=== PATIENT | male | born 2000 | race Caucasian/White ===

== ENCOUNTER 2023-05-12 14:45 | Emergency (ER) | payer OTHER, SELFPAY ==
[2023-05-12 15:03] VITALS: BP 121/81; PULSE 61; RESP 14; TEMP 36.8; O2SAT 96; BMI 26.6
--- NOTE | 2023-05-12 16:06 | ED_ITS ---
HPI - Abdominal Pain General Chief Complaint: Abdominal Pain Stated Complaint: ABDOMINAL PAIN Time Seen by Provider: 05/12/23 15:07 Source: patient Mode of arrival: walk-in History of Present Illness HPI narrative: this 22-year-old here complaining of abdominal pain. It's been bothering him off and on for the last forty-eight hours but today his belly is tender on the left side. His history is very comp dictated. 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 He was recently admitted at this institution and observe for days to decompress a bowel obstruction and that worked up pretty well. Now he is not had any ability to have a bowel movement for several days. He has passed some gas per rectum the day. He's not had vomiting buddies learned through past experiences that he didn't eat anything or drink anything today. He is not running a P a fever today. Related Data Allergies Allergy/AdvReac Type Severity Reaction Status Date / Time bismuth subsalicylate Allergy Severe Verified 05/12/23 15:09 [From Pepto-Bismol] Exam Narrative Exam Narrative: awake alert good historian does not had seizures discomfort but when he touches his belly says it's a little bit sore on the left side. He is afebrile. Examination abdomen numerous incisions are noted Throughout all quadrants of the abdomen. Specifically however he does not have any tenderness in McBurney's point. He denies any knowledge of having a previous appendectomy. He does not have any tenderness in the right upper quadrant. He does have mild guarding in the left mid abdomen. There is no peritoneal findings. There is no rigidity. The rest examination heart and lung is essentially benign he does not have a cough congestion or shortness of breath. Legs do not have any evidence of swelling or edema. Constitutional Vital Signs, click to edit/add: Last Vital Signs Temp 98.3 F 05/12/23 15:03 Pulse 61 05/12/23 15:03 Resp 14 05/12/23 15:03 BP 121/81 05/12/23 15:03 Pulse Ox 96 05/12/23 15:03 O2 Del Method Room Air 05/12/23 15:03 Course Vital Signs Vital signs: Vital Signs Temperature 98.3 F 05/12/23 15:03 Pulse Rate 61 05/12/23 15:03 Respiratory Rate 14 05/12/23 15:03 Blood Pressure 121/81 05/12/23 15:03 Pulse Oximetry 96 05/12/23 15:03 Oxygen Delivery Method Room Air 05/12/23 15:03 Temperature 98.3 F 05/12/23 15:03 Pulse Rate 61 05/12/23 15:03 Respiratory Rate 14 05/12/23 15:03 Blood Pressure 121/81 05/12/23 15:03 Pulse Oximetry 96 05/12/23 15:03 Oxygen Delivery Method Room Air 05/12/23 15:03 MDM - Abdominal Pain MDM Narrative Medical decision making narrative: this patient's CT scan does not show any obstructive pattern. There are some mil d inflammatory changes near his surgical site. His white blood cell count is normal and he is afebrile. This patient has not followed up with general surgery for many many years since he last had surgery. We had an extensive discussion with the patient his mother myself. It seems that a tertiary [facility] with specialized surgical care coordinated with gastroenterology physicians would be the most likely placed a follow-up. At this stage I not recommending any enemas since we don't know the anatomy. Since he does not have a bowel obstruction gentle laxatives were advised Discharge Plan Discharge Chief Complaint: Abdominal Pain Clinical Impression: Abdominal pain Patient Disposition: Home, Self-Care Time of Disposition Decision: 17:41 Additional Instructions: may consider gentle [id number] oral laxative Stand Alone Forms: Portal Instructions Referrals: Physician,Non-Staff, MD [Primary Care Provider] - 1 week
--- NOTE | 2023-05-12 16:09 | CT_ITS ---
The [address] [address] Patient Name: ASHLY JAMISON MRN: [id number] date: 2000 Sex: M Assigned Patient Location: ER Current Patient Location: ER Accession/Order Number: [id number] Exam Date: 05/12/2023 16:25 Report Date: 05/12/2023 17:02 At the request of: ERLIN QUIROZ Procedure: CT abdomen pelvis w con CT ABDOMEN/PELVIS WITH IV CONTRAST. INDICATION: rule out bowel obstruction. COMPARISON: There are no other studies available for comparison. TECHNIQUE: Contiguous axial images were obtained from the lung bases to the pelvic floor following the intravenous administration of contrast. Coronal and sagittal reformations are provided. FINDINGS: LOWER LUNGS: Clear. LIVER/BILIARY TREE: No mass. No intrahepatic ductal dilatation. GALLBLADDER: No significant gallbladder wall thickening. No radiopaque stone. CBD: Normal CBD. SPLEEN: Normal in size. PANCREAS: No acute findings. No peripancreatic fluid or inflammation. No pancreatic duct dilatation. No discrete mass. ADRENALS: Normal. KIDNEYS: No hydronephrosis. No radiopaque calculus. STOMACH AND BOWEL: Stomach is unremarkable. No dilated bowel loops. There is thickening of the rectosigmoid colon. APPENDIX: Not visualized. PERITONEAL CAVITY: No fluid. No fat stranding. ABDOMINAL WALL: No subcutaneous stranding. No subcutaneous fluid collection. LYMPH NODES: No mesenteric or retroperitoneal lymphadenopathy by CT criteria. ABDOMINAL AORTA: No aneurysm. PELVIS: Decompressed bladder. MUSCULOSKELETAL: No acute osseous abnormality. CT/CT abdomen pelvis w con IMPRESSION: 1. No bowel obstruction.. 2. 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 Electronically authenticated by: AGUILA TELLO Date: 05/12/2023 17:02
[2023-05-12 16:38] LABS: Basophils Percent Auto 0.3 % (0.2-2.0); Eosinophils Absolute Auto 0.1 10^3/uL (0.0-0.7); Hematocrit 48.2 % (42.0-54.0); Hemoglobin 16.4 g/dL (14.0-18.0); Immature Granulocytes Abs Auto 0.03 10^3/uL (0.00-0.03); Immature Granulocytes Pct Auto 0.4 % (0.0-0.5); Lymphocytes Absolute Auto 1.8 10^3/uL (1.2-3.8); Lymphocytes Percent Auto 26.6 % (20.5-60.0); Mean Corpuscular Hemoglobin 29.2 pg (25.9-34.0); Mean Corpuscular Volume 85.9 fL (80.0-94.0); Mean Platelet Volume 9.2 fL (9.5-13.5); Monocytes Percent Auto 14.6 % (1.7-12.0); Neutrophils Absolute Auto 3.8 10^3/uL (1.4-6.5); Neutrophils Percent Auto 56.1 % (43.0-75.0); Platelet Count 263 10^3/uL (150-450); Red Blood Count 5.61 10^6/uL (4.70-6.10); White Blood Count 6.8 10^3/uL (4.0-11.0)
[2023-05-12] MEDS: 0.9 % SODIUM CHLORIDE 1,000 ML 999 ML IV (16:51)
[2023-05-12 16:59] LABS: Lactate/Lactic Acid 0.9 mmol/L (0.4-2.0)
[2023-05-12 17:06] LABS: Alanine Aminotransferase 39 U/L (16-63); Albumin Globulin Ratio 1.1; Albumin Level 4.2 g/dL (3.4-5.0); Alkaline Phosphatase 91 U/L (46-116); Aspartate Amino Transferase 23 U/L (15-37); BUN Creatinine Ratio 17.1; Bilirubin Total 0.4 mg/dL (0.2-1.0); Calcium 9.5 mg/dL (8.5-10.1); Carbon Dioxide 28.9 mmol/L (21.0-32.0); Chloride 103 mmol/L (98-107); Estimated GFR (African America >60 (>=60); Estimated GFR (Non-African Ame >60 (>=60); Globulin 3.9 g/dL; Glucose 98 mg/dL (74-106); Potassium 3.9 mmol/L (3.5-5.1); Sodium 139 mmol/L (136-145); Total Protein 8.1 g/dL (6.4-8.2)
== END 2023-05-12 18:18 | disposition home or self-care (01) ==
PROVIDERS: Emergency Provider Emergency Medicine Emergency Medical Services
DX: R10.9 Unspecified abdominal pain (principal)
CPT/HCPCS: 36415; 74177; 80053; 83605; 83690; 85025; 99285; Q9966

== ENCOUNTER 2023-05-24 15:58 | Emergency (ER) | payer OTHER, SELFPAY ==
--- OUTSIDE RECORDS SUMMARY | 2023-05-24 16:07 | XMS_ITS | CCD ---
Author Name Unknown Address [address] [place] [address] Organization [facility] Care Team Providers Care Terminal Computer Operator Name Role Phone ANNIEMARCELL Admitting Unavailable SARAH PYLE Attending Unavailable SELF, REFERRED Referring Unavailable SELF, REFERRED Primary Care Unavailable Trisha Arteaga Unavailable Shala Hicks Unavailable PAY ., DR GIPSON Admitting Unavailable PAY ., DR GIPSON Attending Unavailable REQUEST, DR HOFFMAN LISTED Primary Care Unavaila ble PAY ., DR GIPSON Consulting Unavailable GABE MOURA Consulting Unavailable REQUEST, NONE LISTED Primary Care Unavaila ble SHAIKH Alban GOMEZ Admitting Unavailable SHAIKH Alban GOMEZ Attending Unavailable SHRUTHI ., DR NICKERSON Consulting Unavailable WALTERS, DR ASHLY Warner Consulting Unavailable ERICA MARTINEZ Consulting Unavailable ALEXANDRIA POST Consulting Unavailable SHAIKH Alban GOMEZ Consulting Unavailable TODD, BINCAREY Consulting Unavailable ANDRES, CECILE Consulting Unavailable SISTER, AMPARO Consulting Unavailable TAMLYN ., ANTHONY Consulting Unavailable ASHLEY TIERNEY Consulting Unavailable RENETTA, DR MONSALVE Primary Care Unavailable HAY ., DR MINER Admitting Unavailable HAY ., DR MINER Attending Unavailable ERICA MARTINEZ Consulting Unavailable ASHLY LINDER Consulting Unavailable Allergies Allergy Classification Reported Allergen(s) Allergy Type Date of Onset Reaction(s) Facility (2 sources) bismuth subsalicylate Drug Allergy [facility] Other (1 source) bismuth subsalicylate Drug Allergy 1 [facility] Repository Medications Current Medications Medication Drug Class(es) Dates Sig (Normalized) Sig (Original) Amphetamine / Dextroamphetamine (1 source) Central Nervous System Stimulant Adderall Active ibuprofen 800 mg oral tablet (1 source) Nonsteroidal Anti-inflammatory Drug Start: 3 take 1 tablet by mouth three times daily at mealtime as needed Ibuprofen 800 MG 1 tablet with food or milk as needed Orally Three times a day for 10 day(s) Aug, Active methylPREDNISolone 4 mg oral tablet (1 source) Corticosteroid Start: 2 methylPREDNISolone 4 MG as directed Orally Once a day for 6 days August, Active Penicillin (1 source) Start: 3 take 1 tablet by mouth four times daily Penicillin VK 500mg 500mg 1 tab(s) Oral 4 times a day for 10 days Aug, Active Problems Active Problems Problem Classification Problem Date Documented Da te Episodic/Chronic Abdominal pain (4 sources) Unspecified abdominal pain; Translations: [UNSPECIFIED ABDOMINAL PAIN] Onset: 08-26-2022 Episodic Disorders of teeth and jaw (2 sources) Pericoronitis; Translations: [Chronic periodontitis, unspecified] Chronic Intestinal obstruction without hernia (3 sources) Intestinal adhesions [bands], unspecified as to partial versus complete obstruction; Translations: [INTESTINAL ADH UNS PART VS CMPL OBS] Onset: 09-02-2022 Episodic Other gastrointestinal disorders (1 source) Constipation, unspecified; Translations: [CONSTIPATION UNSPECIFIED] Onset: 08-28-2022 Episodic Other lower respiratory disease (2 sources) Cough; Translations: [Cough] Episodic Other upper respiratory disease (2 sources) Sinusitis; Translations: [Allergic rhinitis, unspecified] Chronic Other upper respiratory disease (1 source) Allergic rhinitis, unspecified Onset: 09-11-2021 Resolved: 09-11-2021 Chronic Substance-related disorders (1 source) Nicotine dependence, cigarettes, uncomplicated; Translations: [NICOTINE DEPEND CIGARETTES UNCOMP] Onset: 09-11-2022 Chronic Past or Other Problems Problem Classification Problem Date Documented Da te Episodic/Chronic E Codes: Natural/environment (1 source) Overexertion from prolonged static or awkward postures, initial encounter; Translations: [OVEREXERT PROLNG STAT/AWK PST INIT] Onset: 11-13-2021 Episodic Other aftercare (1 source) Other care home (current) drug therapy; Translations: [OTH SHELTER CURRENT DRUG THERAPY] Onset: 11-13-2021 Episodic Other non-traumatic joint disorders (3 sources) Pain in left ankle and joints of left foot; Translations: [PAIN IN LEFT ANKLE] Onset: 11-12-2021 Episodic Sprains and strains (1 source) Sprain of unspecified ligament of left ankle, initial encounter; Translations: [SPRAIN UNS LIGAMENT LT ANKLE INIT] Onset: 11-13-2021 Episodic Unclassified (1 source) Cough R05.9 Onset: 09-11-2021 Resolved: 09-11-2021 Results Test Name Value Interpretation Reference Range Facility CBC AUTO DIFFon 09-04-2022 BASO # 0.0 103/ul Normal 0.0-0.1 [facility] Comment on above: Performed By: #### C BC #### [facility] [address] [place] [address] Dr. Octavio Hagen Basophils/100 WBC (Bld) 0.2 % Normal 0.2-2.0 [facility] Comment on above: Performed By: #### C BC #### [facility] [address] [address] [address] Octavio Hagen EO # 0.3 103/ul Normal 0.0-0.7 [facility] Comment on above: Performed By: #### C BC #### [facility] [address] [place] [address] Dr. Octavio Hagen Eosinophils/100 WBC (Bld) 2.8 % Normal 0.9-7.0 [facility] Comment on above: Performed By: #### C BC #### [facility] [address] [address] [address] Octavio Hagen Erythrocyte distribution width (RBC) [Ratio] 12.4 % Normal 11.0-15.0 [facility] Comment on above: Performed By: #### C BC #### [facility] [address] [place] [address] Dr. Octavio Hagen Hematocrit (Bld) [Volume fraction] 41.0 % Critically low 42.0-54.0 [facility] Comment on above: Performed By: #### C BC #### [facility] [address] [address] [address] Octavio Hagen Hemoglobin (Bld) [Mass/Vol] 13.6 g/dL Critically low 14.0-18.0 [facility] Comment on above: Performed By: #### C BC #### [facility] [address] [address] [address] Octavio Hagen IG # 0.04 10e3/ul Critically high 0.00-0.03 [facility] Comment on above: Performed By: #### C BC #### [facility] [address] [address] [address] Octavio Hagen IG % 0.4 % Normal 0.0-0.5 [facility] Comment on above: Performed By: #### C BC #### [facility] [address] [place] [address] Dr. Octavio Hagen LYMPH # 1.4 103/ul Normal 1.2-3.8 [facility] Comment on above: Performed By: #### C BC #### [facility] [address] [place] [address] Dr. Octavio Hagen Lymphocytes/100 WBC (Bld) 15.5 % Critically low 20.5-60.0 [facility] Comment on above: Performed By: #### C BC #### [facility] [address] [place] [address] Dr. Octavio Hagen MANUAL DIFF REQ NO Normal [facility] Comment on above: Performed By: #### C BC #### [facility] [address] [place] [address] Dr. Octavio Hagen MCH (RBC) [Entitic mass] 28.6 pg Normal 25.9-34.0 [facility] Comment on above: Performed By: #### C BC #### [facility] [address] [place] [address] Dr. Octavio Hagne MCHC (RBC) [Mass/Vol] 33.2 g/dL Normal 29.9-35.2 [facility] Comment on above: Performed By: #### C BC #### [facility] [address] [address] [address] Octavio Hagen MCV (RBC) [Entitic vol] 86.3 fL Normal 80.0-94.0 [facility] Comment on above: Performed By: #### C BC #### [facility] [address] [address] [address] Octavio Hagen MONO # 1.0 103/ul Critically high 0.3-0.8 [facility] Comment on above: Performed By: #### C BC #### [facility] [address] [address] [address] Octavio Hagen Monocytes/100 WBC (Bld) 11.1 % Normal 1.7-12.0 [facility] Comment on above: Performed By: #### C BC #### [facility] [address] [place] [address] Dr. Octavio Hagen NEUT # 6.3 103/ul Normal 1.4-6.5 [facility] Comment on above: Performed By: #### C BC #### [facility] [address] [place] [address] Dr. Octavio Hagen Neutrophils/100 WBC (Bld) 70.0 % Normal 43.0-75.0 [facility] Comment on above: Performed By: #### C BC #### [facility] [address] [place] [address] Dr. Octavio Hagen Platelet mean volume (Bld) [Entitic vol] 8.9 fL Critically low 9.5-13.5 [facility] Comment on above: Performed By: #### C BC #### [facility] [address] [place] [address] Dr. Octavio Hagen PLT 221 103/ul Normal 150-450 [facility] Comment on above: Performed By: #### C BC #### [facility] [address] [place], [place] [id number] Dr. Octavio Hagen RBC 4.75 106/ul Normal 4.70-6.10 [facility] Comment on above: Performed By: #### C BC #### [facility] [address] [place] [address] Dr. Octavio Hagen WBC 9.0 103/ul Normal 4.0-11.0 [facility] Comment on above: Performed By: #### C BC #### [facility] [address] [place] [address] Dr. Ocatvio Hagen PROF 14(COMP METB)on 023 Albumin [Mass/Vol] 3.4 g/dL Normal 3.4-5.0 [facility] Comment on above: Performed By: #### C MP #### [facility] [address] [place] [address] Dr. Octavio Hagen Albumin/Globulin [Mass ratio] 0.9 {ratio} Normal [facility] Comment on above: Performed By: #### C MP #### [facility] [address] [place] [address] Dr. Octavio Hagen ALP [Catalytic activity/Vol] 77 U/L Normal 46-116 [facility] Comment on above: Performed By: #### C MP #### [facility] [address] [place] [address] Dr. Octavio Hagen ALT [Catalytic activity/Vol] 36 U/L Normal 16-63 [facility] Comment on above: Performed By: #### C MP #### [facility] [address] [place] [address] Dr. Octavio Hagen Anion gap [Moles/Vol] 11.4 mmol/L Normal [facility] Comment on above: Performed By: #### C MP #### [facility] [address] [place] [address] Dr. Octavio Hagen AST [Catalytic activity/Vol] 22 U/L Normal 15-37 [facility] Comment on above: Performed By: #### C MP #### [facility] [address] [place] [address] Dr. Octavio Hagen Bilirubin [Mass/Vol] 0.6 mg/dL Normal 0.2-1.0 [facility] Comment on above: Performed By: #### C MP #### [facility] [address] [place] [address] Dr. Octavio Hagen Calcium [Mass/Vol] 8.9 mg/dL Normal 8.5-10.1 [facility] Comment on above: Performed By: #### C MP #### [facility] [address] [place] [address] Dr. Octavio Hagen Chloride [Moles/Vol] 104 mmol/L Normal 98-107 [facility] Comment on above: Performed By: #### C MP #### [facility] [address] [place] [address] Dr. Octavio Hagen CO2 [Moles/Vol] 28.5 mmol/L Normal 21.0-32.0 [facility] Comment on above: Performed By: #### C MP #### [facility] [address] [place] [address] Dr. Octavio Hagen Creatinine [Mass/Vol] 1.02 mg/dL Normal 0.70-1.30 [facility] Comment on above: Performed By: #### C MP #### [facility] [address] [place] [address] Dr. Octavio Hagen EGFR-AF LATVIAN >60 Normal >=60 [facility] Comment on above: Performed By: #### C MP #### [facility] [address] [place] [address] Dr. Octavio Hagen EGFR-NON AF LATVIAN >60 Normal >=60 [facility] Comment on above: Performed By: #### C MP #### [facility] [address] [place] [address] Dr. Octavio Hagen Globulin (S) [Mass/Vol] 3.6 g/dL Normal [facility] Comment on above: Performed By: #### C MP #### [facility] [address] [place] [address] Dr. Octavio Hagen Glucose [Mass/Vol] 100 mg/dL Normal 74-106 [facility] Comment on above: Performed By: #### C MP #### [facility] [address] [place] [address] Dr. Octavio Hagen Potassium [Moles/Vol] 3.9 mmol/L Normal 3.5-5.1 [facility] Comment on above: Performed By: #### C MP #### [facility] [address] [address] [address] Octavio Hagen Protein [Mass/Vol] 7.0 g/dL Normal 6.4-8.2 [facility] Comment on above: Performed By: #### C MP #### [facility] [address] [address] [address] Octavio Hagen Sodium [Moles/Vol] 140 mmol/L Normal 136-145 [facility] Comment on above: Performed By: #### C MP #### [facility] [address] [address] [address] Octavio Hagen Urea nitrogen [Mass/Vol] 8.0 mg/dL Normal 7.0-18.0 [facility] Comment on above: Performed By: #### C MP #### [facility] [address] [address] [address] Octavio Hagen Urea nitrogen/Creatini ne [Mass ratio] 7.8 mg/mg Normal [facility] Comment on above: Performed By: #### C MP #### [facility] [address] [address] [address] Octavio Hagen PTTon 09-04-2022 aPTT Coag (Bld) [Time] 35.2 s Normal 22.3-36.2 [facility] Comment on above: Performed By: #### C MP #### [facility] [address] [address] [address] Octavio Hagen XR KUB 1 VIEWon 09-04-2022 XR KUB 1 VIEW EXAM: XR KUB 1 VIEW 09/03/2022 11:20 PM EDT OH001 CLINICAL STATEMENT: Small bowel obstruction COMPARISON: No prior studies are available at the time of dictation. TECHNIQUE: Single view of the chest and abdomen is submitted. FINDINGS: Frontal view of the chest and abdomen demonstrates a feeding tube in good position with its tip projecting over the stomach. Air-filled distended loops of small bowel. Oral contrast in the transverse colon. IMPRESSION: Feeding tube in good position. Air-filled distended loops of small bowel suggesting ileus and/or obstruction. Oral contrast in the transverse colon. Electronically authenticated by: BINOR SAID Date: 2022-09-04 06:11 Normal [facility] CBC AUTO DIFFon 09-03-2022 BASO # 0.0 103/ul Normal 0.0-0.1 [facility] Comment on above: Performed By: #### C BC #### [facility] [address] [address] [address] Octavio Hagen Basophils/100 WBC (Bld) 0.4 % Normal 0.2-2.0 [facility] Comment on above: Performed By: #### C BC #### [facility] [address] [address] [address] Octavio Hagen EO # 0.2 103/ul Normal 0.0-0.7 [facility] Comment on above: Performed By: #### C BC #### [facility] [address] [place] [address] Dr. Octavio Hagen Eosinophils/100 WBC (Bld) 3.3 % Normal 0.9-7.0 [facility] Comment on above: Performed By: #### C BC #### [facility] [address] [place] [address] Dr. Octavio Hagen Erythrocyte distribution width (RBC) [Ratio] 12.9 % Normal 11.0-15.0 [facility] Comment on above: Performed By: #### C BC #### [facility] [address] [place] [address] Dr. Octavio Hagen Hematocrit (Bld) [Volume fraction] 40.0 % Critically low 42.0-54.0 [facility] Comment on above: Performed By: #### C BC #### [facility] [address] [address] [address] Octavio Hagen Hemoglobin (Bld) [Mass/Vol] 13.4 g/dL Critically low 14.0-18.0 [facility] Comment on above: Performed By: #### C BC #### [facility] [address] [place] [address] Dr. Octavio Hagen IG # 0.03 10e3/ul Normal 0.00-0.03 [facility] Comment on above: Performed By: #### C BC #### [facility] [address] [place] [address] Dr. Octavio Hagen IG % 0.4 % Normal 0.0-0.5 [facility] Comment on above: Performed By: #### C BC #### [facility] [address] [place] [address] Dr. Octavio Hagen LYMPH # 1.6 103/ul Normal 1.2-3.8 [facility] Comment on above: Performed By: #### C BC #### [facility] [address] [place] [address] Dr. Octavio Hagen Lymphocytes/100 WBC (Bld) 22.9 % Normal 20.5-60.0 [facility] Comment on above: Performed By: #### C BC #### [facility] [address] [place] [address] Dr. Octavio Hagen MANUAL DIFF REQ NO Normal [facility] Comment on above: Performed By: #### C BC #### [facility] [address] [place] [address] Dr. Octavio Hagen MCH (RBC) [Entitic mass] 29.2 pg Normal 25.9-34.0 [facility] Comment on above: Performed By: #### C BC #### [facility] [address] [place] [address] Dr. Octavio Hagen MCHC (RBC) [Mass/Vol] 33.5 g/dL Normal 29.9-35.2 [facility] Comment on above: Performed By: #### C BC #### [facility] [address] [place] [address] Dr. Octavio Hagen MCV (RBC) [Entitic vol] 87.1 fL Normal 80.0-94.0 [facility] Comment on above: Performed By: #### C BC #### [facility] [address] [place] [address] Dr. Octavio Hagen MONO # 0.6 103/ul Normal 0.3-0.8 [facility] Comment on above: Performed By: #### C BC #### [facility] [address] [place] [address] Dr. Octavio Hagen Monocytes/100 WBC (Bld) 9.2 % Normal 1.7-12.0 [facility] Comment on above: Performed By: #### C BC #### [facility] [address] [place] [address] Dr. Octavio Hagen NEUT # 4.5 103/ul Normal 1.4-6.5 [facility] Comment on above: Performed By: #### C BC #### [facility] [address] [place] [address] Dr. Octavio Hagen Neutrophils/100 WBC (Bld) 63.8 % Normal 43.0-75.0 [facility] Comment on above: Performed By: #### C BC #### [facility] [address] [place] [address] Dr. Octavio Hagen Platelet mean volume (Bld) [Entitic vol] 9.3 fL Critically low 9.5-13.5 [facility] Comment on above: Performed By: #### C BC #### [facility] [address] [place] [address] Dr. Octavio Hagen PLT 213 103/ul Normal 150-450 [facility] Comment on above: Performed By: #### C BC #### [facility] [address] [place] [address] Dr. Octavio Hagen RBC 4.59 106/ul Critically low 4.70-6.10 [facility] Comment on above: Performed By: #### C BC #### [facility] [address] [place] [address] Dr. Octavio Hagen WBC 7.0 103/ul Normal 4.0-11.0 [facility] Comment on above: Performed By: #### C BC #### [facility] [address] [place] [address] Dr. Octavio Hagen PROF 14(COMP METB)on 023 Albumin [Mass/Vol] 3.4 g/dL Normal 3.4-5.0 [facility] Comment on above: Performed By: #### C MP #### [facility] [address] [place] [address] Dr. Octavio Hagen Albumin/Globulin [Mass ratio] 1.1 {ratio} Normal [facility] Comment on above: Performed By: #### C MP #### [facility] [address] [place] [address] Dr. Octavio Hagen ALP [Catalytic activity/Vol] 73 U/L Normal 46-116 [facility] Comment on above: Performed By: #### C MP #### [facility] [address] [place] [address] Dr. Octavio Hagen ALT [Catalytic activity/Vol] 35 U/L Normal 16-63 [facility] Comment on above: Performed By: #### C MP #### [facility] [address] [place] [address] Dr. Octavio Hagen Anion gap [Moles/Vol] 8.3 mmol/L Normal [facility] Comment on above: Performed By: #### C MP #### [facility] [address] [place] [address] Dr. Octavio Hagen AST [Catalytic activity/Vol] 19 U/L Normal 15-37 [facility] Comment on above: Performed By: #### C MP #### [facility] [address] [place] [address] Dr. Octavio Hagen Bilirubin [Mass/Vol] 0.4 mg/dL Normal 0.2-1.0 [facility] Comment on above: Performed By: #### C MP #### [facility] [address] [place] [address] Dr. Octavio Hagen Calcium [Mass/Vol] 8.5 mg/dL Normal 8.5-10.1 [facility] Comment on above: Performed By: #### C MP #### [facility] [address] [place] [address] Dr. Octavio Hagen Chloride [Moles/Vol] 107 mmol/L Normal 98-107 [facility] Comment on above: Performed By: #### C MP #### [facility] [address] [place] [address] Dr. Octavio Hagen CO2 [Moles/Vol] 30.8 mmol/L Normal 21.0-32.0 [facility] Comment on above: Performed By: #### C MP #### [facility] [address] [address] [address] Octavio Hagen Creatinine [Mass/Vol] 1.14 mg/dL Normal 0.70-1.30 [facility] Comment on above: Performed By: #### C MP #### [facility] [address] [address] [address] Octavio Hagen EGFR-AF LATVIAN >60 Normal >=60 [facility] Comment on above: Performed By: #### C MP #### [facility] [address] [address] [address] Octavio Hagen EGFR-NON AF LATVIAN >60 Normal >=60 [facility] Comment on above: Performed By: #### C MP #### [facility] [address] [place] [address] Dr. Octavio Hagen Globulin (S) [Mass/Vol] 3.2 g/dL Normal [facility] Comment on above: Performed By: #### C MP #### [facility] [address] [place] [address] Dr. Octavio Hagen Glucose [Mass/Vol] 86 mg/dL Normal 74-106 [facility] Comment on above: Performed By: #### C MP #### [facility] [address] [place] [address] Dr. Octavio Hagen Potassium [Moles/Vol] 4.1 mmol/L Normal 3.5-5.1 [facility] Comment on above: Performed By: #### C MP #### [facility] [address] [place] [address] Dr. Octavio Hagen Protein [Mass/Vol] 6.6 g/dL Normal 6.4-8.2 [facility] Comment on above: Performed By: #### C MP #### [facility] [address] [place] [address] Dr. Octavio Hagen Sodium [Moles/Vol] 142 mmol/L Normal 136-145 [facility] Comment on above: Performed By: #### C MP #### [facility] [address] [address] [address] Octavio Hagen Urea nitrogen [Mass/Vol] 17.0 mg/dL Normal 7.0-18.0 [facility] Comment on above: Performed By: #### C MP #### [facility] [address] [address] [address] Octavio Hagen Urea nitrogen/Creatini ne [Mass ratio] 14.9 mg/mg Normal [facility] Comment on above: Performed By: #### C MP #### [facility] [address] [address] [address] Octavio Hagen PTTon 09-03-2022 aPTT Coag (Bld) [Time] 36.1 s Normal 22.3-36.2 [facility] Comment on above: Performed By: #### C MP #### [facility] [address] [address] [address] Octavio Hagen XR KUB 1 VIEWon 09-03-2022 XR KUB 1 VIEW Exam: Radiographs: X R KUB 1 VIEW Reason for exam: Small bowel obstruction Comparison: CT scan from 09/01/2022 IMPRESSION: Dilated loops of small bowel in the abdomen may represent mechanical obstruction. No gaseous dilation of the stomach or colon. No fecal impaction. NG tube with tip in the distal stomach. Remainder unremarkable. Electronically authenticated by: ASHLEY TIERNEY Date: 2022-09-03 06:04 Normal [facility] XR SMALL BOWELon 09-03-2022 XR SMALL BOWEL EXAMINATION: XR SMAL L BOWEL HISTORY: Small bowel obstruction COMPARISON: 09/03/2022 FLUOROSCOPY TIME: Exam performed on the floor. No fluoroscopy utilized. TECHNIQUE: Small bowel series was performed in the usual manner. No documentation lead abdominal radiograph was performed. Standard level fluoroscopic mode of operation utilized. 90 mL of Gastroview through the NG tube FINDINGS: DUODENUM: Normal. No ulceration or diverticulum. JEJUNUM: Normal. Normal motility. No obstruction or visible lesion. ILEUM: Normal. Normal motility. No obstruction or visible lesion. OTHER: Small bowel transit time less than 60 minutes with visualization of the ascending and transverse colon up to 1 hour miles. Moderate dilation of small bowel loops measuring up to 5 cm. Enteric tube in the right upper quadrant likely within the stomach IMPRESSION: Passage of oral contrast into the colon, findings are consistent with resolution or improvement in small bowel obstruction seen on the prior abdominal x-ray Electronically authenticated by: ASHLY HERNANDEZ Date: 2022-09-03 17:46 Normal [facility] CBC AUTO DIFFon 09-02-2022 BASO # 0.0 103/ul Normal 0.0-0.1 [facility] Comment on above: Performed By: #### C BC #### [facility] [address] [place] [address] Dr. Octavio Hagen Basophils/100 WBC (Bld) 0.4 % Normal 0.2-2.0 [facility] Comment on above: Performed By: #### C BC #### [facility] [address] [place] [address] Dr. Octavio Hagen EO # 0.4 103/ul Normal 0.0-0.7 [facility] Comment on above: Performed By: #### C BC #### [facility] [address] [place] [address] Dr. Octavio Hagen Eosinophils/100 WBC (Bld) 4.7 % Normal 0.9-7.0 [facility] Comment on above: Performed By: #### C BC #### [facility] [address] [place] [address] Dr. Octavio Hagen Erythrocyte distribution width (RBC) [Ratio] 12.7 % Normal 11.0-15.0 [facility] Comment on above: Performed By: #### C BC #### [facility] [address] [place] [address] Dr. Octavio Hagen Hematocrit (Bld) [Volume fraction] 44.4 % Normal 42.0-54.0 [facility] Comment on above: Performed By: #### C BC #### [facility] [address] [place] [address] Dr. Octavio Hagen Hemoglobin (Bld) [Mass/Vol] 14.8 g/dL Normal 14.0-18.0 [facility] Comment on above: Performed By: #### C BC #### [facility] [address] [place] [address] Dr. Octavio Hagen IG # 0.04 10e3/ul Critically high 0.00-0.03 [facility] Comment on above: Performed By: #### C BC #### [facility] [address] [place] [address] Dr. Octavio Hagen IG % 0.5 % Normal 0.0-0.5 [facility] Comment on above: Performed By: #### C BC #### [facility] [address] [place] [address] Dr. Octavio Hagen LYMPH # 2.0 103/ul Normal 1.2-3.8 [facility] Comment on above: Performed By: #### C BC #### [facility] [address] [place] [address] Dr. Octavio Hagen Lymphocytes/100 WBC (Bld) 26.7 % Normal 20.5-60.0 [facility] Comment on above: Performed By: #### C BC #### [facility] [address] [place] [address] Dr. Octavio Hagen MANUAL DIFF REQ NO Normal [facility] Comment on above: Performed By: #### C BC #### [facility] [address] [place] [address] Dr. Octavio Hagen MCH (RBC) [Entitic mass] 28.6 pg Normal 25.9-34.0 [facility] Comment on above: Performed By: #### C BC #### [facility] [address] [place] [address] Dr. Octavio Hagen MCHC (RBC) [Mass/Vol] 33.3 g/dL Normal 29.9-35.2 [facility] Comment on above: Performed By: #### C BC #### [facility] [address] [place] [address] Dr. Octavio Hagen MCV (RBC) [Entitic vol] 85.7 fL Normal 80.0-94.0 [facility] Comment on above: Performed By: #### C BC #### [facility] [address] [place] [address] Dr. Octavio Hagen MONO # 0.9 103/ul Critically high 0.3-0.8 [facility] Comment on above: Performed By: #### C BC #### [facility] [address] [address] [address] Octavio Hagen Monocytes/100 WBC (Bld) 11.5 % Normal 1.7-12.0 [facility] Comment on above: Performed By: #### C BC #### [facility] [address] [address] [address] Octavio Hagen NEUT # 4.2 103/ul Normal 1.4-6.5 [facility] Comment on above: Performed By: #### C BC #### [facility] [address] [place] [address] Dr. Octavio Hagen Neutrophils/100 WBC (Bld) 56.2 % Normal 43.0-75.0 [facility] Comment on above: Performed By: #### C BC #### [facility] [address] [place] [address] Dr. Octavio Hagen Platelet mean volume (Bld) [Entitic vol] 9.4 fL Critically low 9.5-13.5 [facility] Comment on above: Performed By: #### C BC #### [facility] [address] [place] [address] Dr. Octavio Hagen PLT 256 103/ul Normal 150-450 [facility] Comment on above: Performed By: #### C BC #### [facility] [address] [place] [address] Dr. Octavio Hagen RBC 5.18 106/ul Normal 4.70-6.10 [facility] Comment on above: Performed By: #### C BC #### [facility] [address] [place] [address] Dr. Octavio Hagen WBC 7.5 103/ul Normal 4.0-11.0 [facility] Comment on above: Performed By: #### C BC #### [facility] [address] [place] [address] Dr. Octavio Hagen PROF 14(COMP METB)on 023 Albumin [Mass/Vol] 3.7 g/dL Normal 3.4-5.0 [facility] Comment on above: Performed By: #### C BC #### [facility] [address] [place] [address] Dr. Octavio Hagen Albumin/Globulin [Mass ratio] 1.1 {ratio} Normal [facility] Comment on above: Performed By: #### C BC #### [facility] [address] [place] [address] Dr. Octavio Hagen ALP [Catalytic activity/Vol] 84 U/L Normal 46-116 [facility] Comment on above: Performed By: #### C BC #### [facility] [address] [place] [address] Dr. Octavio Hagen ALT [Catalytic activity/Vol] 40 U/L Normal 16-63 [facility] Comment on above: Performed By: #### C BC #### [facility] [address] [place] [address] Dr. Octavio Hagen Anion gap [Moles/Vol] 10.9 mmol/L Normal [facility] Comment on above: Performed By: #### C BC #### [facility] [address] [place] [address] Dr. Octavio Hagen AST [Catalytic activity/Vol] 25 U/L Normal 15-37 [facility] Comment on above: Performed By: #### C BC #### [facility] [address] [place] [address] Dr. Octavio Hagen Bilirubin [Mass/Vol] 0.4 mg/dL Normal 0.2-1.0 [facility] Comment on above: Performed By: #### C BC #### [facility] [address] [place] [address] Dr. Octavio Hagen Calcium [Mass/Vol] 9.0 mg/dL Normal 8.5-10.1 [facility] Comment on above: Performed By: #### C BC #### [facility] [address] [place] [address] Dr. Octavio Hagen Chloride [Moles/Vol] 103 mmol/L Normal 98-107 [facility] Comment on above: Performed By: #### C BC #### [facility] [address] [address] [address] Octavio Hagen CO2 [Moles/Vol] 29.2 mmol/L Normal 21.0-32.0 [facility] Comment on above: Performed By: #### C BC #### [facility] [address] [address] [address] Octavio Hagen Creatinine [Mass/Vol] 1.10 mg/dL Normal 0.70-1.30 [facility] Comment on above: Performed By: #### C BC #### [facility] [address] [address] [address] Octavio Hagen EGFR-AF LATVIAN >60 Normal >=60 [facility] Comment on above: Performed By: #### C BC #### [facility] [address] [place] [address] Dr. Octavio Hagen EGFR-NON AF LATVIAN >60 Normal >=60 [facility] Comment on above: Performed By: #### C BC #### [facility] [address] [address] [address] Octavio Hagen Globulin (S) [Mass/Vol] 3.4 g/dL Normal [facility] Comment on above: Performed By: #### C BC #### [facility] [address] [place] [address] Dr. Octavio Hagen Glucose [Mass/Vol] 102 mg/dL Normal 74-106 [facility] Comment on above: Performed By: #### C BC #### [facility] [address] [place] [address] Dr. Octavio Hagen Potassium [Moles/Vol] 4.1 mmol/L Normal 3.5-5.1 [facility] Comment on above: Performed By: #### C BC #### [facility] [address] [place] [address] Dr. Octavio Hagen Protein [Mass/Vol] 7.1 g/dL Normal 6.4-8.2 [facility] Comment on above: Performed By: #### C BC #### [facility] [address] [place] [address] Dr. Octavio Hagen Sodium [Moles/Vol] 139 mmol/L Normal 136-145 [facility] Comment on above: Performed By: #### C BC #### [facility] [address] [place] [address] Dr. Octavio Hagen Urea nitrogen [Mass/Vol] 15.0 mg/dL Normal 7.0-18.0 [facility] Comment on above: Performed By: #### C BC #### [facility] [address] [place] [address] Dr. Octavio Hagen Urea nitrogen/Creatini ne [Mass ratio] 13.6 mg/mg Normal [facility] Comment on above: Performed By: #### C BC #### [facility] [address] [place] [address] Dr. Octavio Hagen PTTon 09-02-2022 aPTT Coag (Bld) [Time] 37.5 s Critically high 22.3-36.2 [facility] Comment on above: Performed By: #### P TT #### [facility] [address] [place] [address] Dr. Octavio Hagen XR ABD FLAT UP_PA Jyoti 09-02 XR ABD FLAT UP_PA CH EXAM: Acute abdomen series: HISTORY: Bowel obstruction, NG tube placement. COMPARISON STUDY: Plain film examination dated 08/26/2022. CT performed 09/02/2022. FINDINGS: The upright frontal view of the chest shows clear and well-inflated lungs. The heart and mediastinum are normal. The tip and side-port of the NG tube are in the distal body of the stomach, with the tip near the antrum of the stomach. Flat and upright views of the abdomen and pelvis show a few short loops of gas-filled distended small bowel in the left abdomen. There is a mild amount of gas in the colon. There is minimal stool in the colon. No abnormal calcifications are seen. Osseous structures are normal. IMPRESSION: NG tube positioning as above. There are some gas-filled loops of dilated small bowel, but comparison to the CT performed 09/01/2022 is not possible. Electronically authenticated by: [place] [employer] Date: 2022-09-02 10:04 Normal [facility] CBC AUTO DIFFon 05-02-2023 BASO # 0.0 103/ul Normal 0.0-0.1 [facility] Comment on above: Performed By: #### C MP #### [facility] [address] [place] [address] Dr. Octavio Hagen Basophils/100 WBC (Bld) 0.4 % Normal 0.2-2.0 [facility] Comment on above: Performed By: #### C MP #### [facility] [address] [place] [address] Dr. Octavio Hagen EO # 0.2 103/ul Normal 0.0-0.7 [facility] Comment on above: Performed By: #### C MP #### [facility] [address] [place] [address] Dr. Octavio Hagen Eosinophils/100 WBC (Bld) 2.6 % Normal 0.9-7.0 [facility] Comment on above: Performed By: #### C MP #### [facility] [address] [place] [address] Dr. Octavio Hagen Erythrocyte distribution width (RBC) [Ratio] 12.6 % Normal 11.0-15.0 [facility] Comment on above: Performed By: #### C MP #### [facility] [address] [place] [address] Dr. Octavio Hagen Hematocrit (Bld) [Volume fraction] 50.1 % Normal 42.0-54.0 [facility] Comment on above: Performed By: #### C MP #### [facility] [address] [place] [address] Dr. Octavio Hagen Hemoglobin (Bld) [Mass/Vol] 16.8 g/dL Normal 14.0-18.0 [facility] Comment on above: Performed By: #### C MP #### [facility] [address] [place] [address] Dr. Octavio Hagen IG # 0.18 10e3/ul Critically high 0.00-0.03 [facility] Comment on above: Performed By: #### C MP #### [facility] [address] [place] [address] Dr. Octavio Hagen IG % 2.0 % Critically high 0.0-0.5 [facility] Comment on above: Performed By: #### C MP #### [facility] [address] [place] [address] Dr. Octavio Hagen LYMPH # 1.8 103/ul Normal 1.2-3.8 [facility] Comment on above: Performed By: #### C MP #### [facility] [address] [place] [address] Dr. Octavio Hagen Lymphocytes/100 WBC (Bld) 19.0 % Critically low 20.5-60.0 [facility] Comment on above: Performed By: #### C MP #### [facility] [address] [place] [address] Dr. Octavio Hagen MANUAL DIFF REQ NO Normal [facility] Comment on above: Performed By: #### C MP #### [facility] [address] [place] [address] Dr. Octavio Hagen MCH (RBC) [Entitic mass] 28.5 pg Normal 25.9-34.0 [facility] Comment on above: Performed By: #### C MP #### [facility] [address] [place] [address] Dr. Octavio Hagen MCHC (RBC) [Mass/Vol] 33.5 g/dL Normal 29.9-35.2 [facility] Comment on above: Performed By: #### C MP #### [facility] [address] [place] [address] Dr. Octavio Hagen MCV (RBC) [Entitic vol] 84.9 fL Normal 80.0-94.0 [facility] Comment on above: Performed By: #### C MP #### [facility] [address] [place] [address] Dr. cOtavio Hagen MONO # 0.9 103/ul Critically high 0.3-0.8 [facility] Comment on above: Performed By: #### C MP #### [facility] [address] [place] [address] Dr. Octavio Hagen Monocytes/100 WBC (Bld) 9.6 % Normal 1.7-12.0 [facility] Comment on above: Performed By: #### C MP #### [facility] [address] [place] [address] Dr. Octavio Hagen NEUT # 6.1 103/ul Normal 1.4-6.5 [facility] Comment on above: Performed By: #### C MP #### [facility] [address] [place] [address] Dr. Octavio Hagen Neutrophils/100 WBC (Bld) 66.4 % Normal 43.0-75.0 [facility] Comment on above: Performed By: #### C MP #### [facility] [address] [place] [address] Dr. Octavio Hagen Platelet mean volume (Bld) [Entitic vol] 9.2 fL Critically low 9.5-13.5 [facility] Comment on above: Performed By: #### C MP #### [facility] [address] [place] [address] Dr. Octavio Hagen PLT 271 103/ul Normal 150-450 [facility] Comment on above: Performed By: #### C MP #### [facility] [address] [place] [address] Dr. Octavio Hagen RBC 5.90 106/ul Normal 4.70-6.10 [facility] Comment on above: Performed By: #### C MP #### [facility] [address] [place] [address] Dr. Octavio Hagen WBC 9.2 103/ul Normal 4.0-11.0 [facility] Comment on above: Performed By: #### C MP #### [facility] [address] [place] [address] ABD/PELV W CONon 09-02-19 CT ABD/PELV W CON EXAMINATION: CT ABD/PELV W CON, 09/01/2022 HISTORY: GENERALIZED ABDOMINAL PAIN COMPARISON: X-ray of the abdomen from 6 08/26/2022 TECHNIQUE: CT scan of the abdomen and pelvis was performed following intravenous contrast injection of iodinated contrast. Coronal and sagittal reconstructions were performed. Dose reduction techniques were achieved by using automated exposure control and/or adjustment of mA and/or kV according to patient size and/or use of iterative reconstruction technique. FINDINGS: There is moderate dilatation of the proximal and mid small bowel loops with fluid, consistent with mid small bowel obstruction. The distal small bowel loops are nondilated. Moderate stool is seen in the colon without dilatation. There is small amount of free fluid in the peritoneal cavity. No evidence of free air in the peritoneal cavity. The liver, spleen, pancreas, gallbladder, bile ducts, both adrenal glands and both kidneys are unremarkable. Urinary bladder is nondistended. Prostate gland is not enlarged. No enlarged lymph node in the abdomen, retroperitoneum or the pelvis. Evidence of prior abdominal surgery. Patent portal venous system. Unremarkable aorta and IVC. The bone windows are unremarkable. Scans through the lung bases are clear. IMPRESSION: 1. Moderately dilated fluid containing proximal and mid small bowel loops with transition, consistent with small bowel obstruction. 2. Mild ascites in the pelvic peritoneal cavity. Electronically authenticated by: CECILE ANDRES Date: 2022-09-01 21:33 Normal [facility] CULTURE URINEon 09-01-2022 CULTURE URINE Culture Observations : NO GROWTH. Normal [facility] Comment on above: Performed By: #### C MP #### [facility] [address] [place] [address] Dr. Octavio Hagen ER URINE PROFILEon 3 Bilirubin Ql (U) Negative Normal NEGATIVE [facility] Comment on above: Performed By: #### C BC #### [facility] [address] [place] [address] Dr. Octavio Hagen Clarity (U) CLEAR Normal CLEAR [facility] Comment on above: Performed By: #### C BC #### [facility] [address] [place] [address] Dr. Octavio Hagen Color (U) YELLOW Normal YELLOW [facility] Comment on above: Performed By: #### C BC #### [facility] [address] [place] [address] Dr. Octavio BLOOM A micrscopic examination will be performed if indicated. Normal [facility] Comment on above: Performed By: #### C BC #### [facility] [address] [place] [address] Dr. Octavio Hagen Glucose Ql (U) Negative Normal NEGATIVE [facility] Comment on above: Performed By: #### C BC #### [facility] [address] [place] [address] Dr. Octavio Hagen Hemoglobin Ql (U) Negative Normal NEGATIVE [facility] Comment on above: Performed By: #### C BC #### [facility] [address] [place] [address] Dr. Octavio Hagen Ketones Ql (U) TRACE Abnormal NEGATIVE [facility] Comment on above: Performed By: #### C BC #### [facility] [address] [place] [address] Dr. Octavio Hagen LEUKOCYTES Negative Normal NEGATIVE [facility] Comment on above: Performed By: #### C BC #### [facility] [address] [place] [address] Dr. Octavio Hagen Nitrite Ql (U) Negative Normal NEGATIVE [facility] Comment on above: Performed By: #### C BC #### [facility] [address] [place] [address] Dr. Octavio Hagen pH (U) 6.0 [pH] Normal 5-9 [facility] Comment on above: Performed By: #### C BC #### [facility] [address] [place] [address] Dr. Octavio Hagen Protein (U) [Mass/Vol] 30 mg/dL Abnormal NEGATIVE/ TRACE [facility] Comment on above: Performed By: #### C BC #### [facility] [address] [place] [address] Dr. Octavio Hagen SPEC GRAVITY 1.025 Normal 1.005-<=1.025 [facility] Comment on above: Performed By: #### C BC #### [facility] [address] [place] [address] Dr. Octavio Hagen UR MICRO IND INDICATED Normal [facility] Comment on above: Performed By: #### C BC #### [facility] [address] [place] [address] Dr. Octavio Hagen Urobilinogen Qn (U) 1.0 {Rudi'U}/dL Normal 0.2 - 1.0 [facility] Comment on above: Performed By: #### C BC #### [facility] [address] [place] [address] Dr. Octavio Hagen LACTATE/LACTIC ACIDon 2022 Lactate [Moles/Vol] 1.0 mmol/L Normal 0.4-2.0 [facility] Comment on above: Performed By: #### L ACT #### [facility] [address] [place] [address] Dr. Octavio Hagen LIPASEon 09-01-2022 Lipase [Catalytic activity/Vol] 67.0 U/L Critically low 73.0-393.0 [facility] Comment on above: Performed By: #### C MP, LIPA #### [facility] [address] [place] [address] Dr. Octavio Hagen PROF 14(COMP METB)on 023 Albumin [Mass/Vol] 4.6 g/dL Normal 3.4-5.0 [facility] Comment on above: Performed By: #### C MP, LIPA #### [facility] [address] [place] [address] Dr. Octavio Haegn Albumin/Globulin [Mass ratio] 1.1 {ratio} Normal [facility] Comment on above: Performed By: #### C MP, LIPA #### [facility] [address] [place] [address] Dr. Octavio Hagen ALP [Catalytic activity/Vol] 100 U/L Normal 46-116 [facility] Comment on above: Performed By: #### C MP, LIPA #### [facility] [address] [place] [address] Dr. Octavio Hagen ALT [Catalytic activity/Vol] 49 U/L Normal 16-63 [facility] Comment on above: Performed By: #### C MP, LIPA #### [facility] [address] [place] [address] Dr. Octavio Hagen Anion gap [Moles/Vol] 12.3 mmol/L Normal [facility] Comment on above: Performed By: #### C MP, LIPA #### [facility] [address] [address] [address] Octavio Hagen AST [Catalytic activity/Vol] 32 U/L Normal 15-37 [facility] Comment on above: Performed By: #### C MP, LIPA #### [facility] [address] [address] [address] Octavio Hagen Bilirubin [Mass/Vol] 0.4 mg/dL Normal 0.2-1.0 [facility] Comment on above: Performed By: #### C MP, LIPA #### [facility] [address] [place] [address] Dr. cOtavio Hagen Calcium [Mass/Vol] 10.1 mg/dL Normal 8.5-10.1 [facility] Comment on above: Performed By: #### C MP, LIPA #### [facility] [address] [place] [address] Dr. Octavio Hagen Chloride [Moles/Vol] 100 mmol/L Normal 98-107 [facility] Comment on above: Performed By: #### C MP, LIPA #### [facility] [address] [place] [address] Dr. Octavio Hagen CO2 [Moles/Vol] 28.9 mmol/L Normal 21.0-32.0 [facility] Comment on above: Performed By: #### C MP, LIPA #### [facility] [address] [place] [address] Dr. Octavio Hagen Creatinine [Mass/Vol] 1.00 mg/dL Normal 0.70-1.30 [facility] Comment on above: Performed By: #### C MP, LIPA #### [facility] [address] [place] [address] Dr. Octavio Hagen EGFR-AF LATVIAN >60 Normal >=60 [facility] Comment on above: Performed By: #### C MP, LIPA #### [facility] [address] [place] [address] Dr. Octavio Hagen EGFR-NON AF LATVIAN >60 Normal >=60 [facility] Comment on above: Performed By: #### C MP, LIPA #### [facility] [address] [address] [address] Octavio Hagen Globulin (S) [Mass/Vol] 4.0 g/dL Normal [facility] Comment on above: Performed By: #### C MP, LIPA #### [facility] [address] [address] [address] Octavio Hagen Glucose [Mass/Vol] 105 mg/dL Normal 74-106 [facility] Comment on above: Performed By: #### C MP, LIPA #### [facility] [address] [place] [address] Dr. Octavio Hagen Potassium [Moles/Vol] 4.2 mmol/L Normal 3.5-5.1 [facility] Comment on above: Performed By: #### C MP, LIPA #### [facility] [address] [place] [address] Dr. Octavio Hagen Protein [Mass/Vol] 8.6 g/dL Critically high 6.4-8.2 [facility] Comment on above: Performed By: #### C MP, LIPA #### [facility] [address] [place] [address] Dr. Octavio Hagen Sodium [Moles/Vol] 137 mmol/L Normal 136-145 [facility] Comment on above: Performed By: #### C MP, LIPA #### [facility] [address] [place] [address] Dr. Octavio Hagen Urea nitrogen [Mass/Vol] 13.0 mg/dL Normal 7.0-18.0 [facility] Comment on above: Performed By: #### C MP, LIPA #### [facility] [address] [place] [address] Dr. Octavio Hagen Urea nitrogen/Creatini ne [Mass ratio] 13.0 mg/mg Normal [facility] Comment on above: Performed By: #### C MP, LIPA #### [facility] [address] [place] [address] Dr. Octavio Hagen URINE MICROSCOPIC ONLYon BACTERIA SMALL Abnormal NONE SEEN [facility] Comment on above: Performed By: #### C BC #### [facility] [address] [place] [address] Dr. Octavio Hagen Bacteria identified Cx Nom (U) INDICATED Normal [facility] Comment on above: Performed By: #### C BC #### [facility] [address] [place] [address] Dr. Octavio Hagen CAST NONE SEEN Normal NONE SEEN [facility] Comment on above: Performed By: #### C BC #### [facility] [address] [place] [address] Dr. Octavio Hagen Crystals LM Nom (Urine sed) NONE SEEN Normal NONE SEEN [facility] Comment on above: Performed By: #### C BC #### [facility] [address] [place] [address] Dr. Octavio Hagen Epithelial cells LM Ql (Urine sed) NONE SEEN Normal NONE SEEN /RARE [facility] Comment on above: Performed By: #### C BC #### [facility] [address] [place] [address] Dr. Octavio Hagen MUCOUS LARGE Abnormal NONE SEEN [facility] Comment on above: Performed By: #### C BC #### [facility] [address] [place] [address] Dr. Octavio Hagen RBC 0-2 Normal 0-2 [facility] Comment on above: Performed By: #### C BC #### [facility] [address] [place] [address] Dr. Octavio Hagen WBC 0-2 Abnormal NONE SEEN [facility] Comment on above: Performed By: #### C BC #### [facility] [address] [place] [address] Dr. Octavio Hagen CBC AUTO DIFFon 08-26-2022 BASO # 0.0 103/ul Normal 0.0-0.1 [facility] Comment on above: Performed By: #### C BC #### [facility] [address] [place] [address] Dr. Octavio Hagen Basophils/100 WBC (Bld) 0.3 % Normal 0.2-2.0 [facility] Comment on above: Performed By: #### C BC #### [facility] [address] [place] [address] Dr. Octavio Hagen EO # 0.4 103/ul Normal 0.0-0.7 [facility] Comment on above: Performed By: #### C BC #### [facility] [address] [place] [address] Dr. Octavio Hagen Eosinophils/100 WBC (Bld) 3.3 % Normal 0.9-7.0 [facility] Comment on above: Performed By: #### C BC #### [facility] [address] [place] [address] Dr. Octavio Hagen Erythrocyte distribution width (RBC) [Ratio] 12.6 % Normal 11.0-15.0 [facility] Comment on above: Performed By: #### C BC #### [facility] [address] [place] [address] Dr. Octavio Hagen Hematocrit (Bld) [Volume fraction] 46.1 % Normal 42.0-54.0 [facility] Comment on above: Performed By: #### C BC #### [facility] [address] [place] [address] Dr. Octavio Hagen Hemoglobin (Bld) [Mass/Vol] 15.5 g/dL Normal 14.0-18.0 [facility] Comment on above: Performed By: #### C BC #### [facility] [address] [place] [address] Dr. Octavio Hagen IG # 0.05 10e3/ul Critically high 0.00-0.03 [facility] Comment on above: Performed By: #### C BC #### [facility] [address] [place] [address] Dr. Octavio Hagen IG % 0.4 % Normal 0.0-0.5 [facility] Comment on above: Performed By: #### C BC #### [facility] [address] [place] [address] Dr. Octavio Hagen LYMPH # 2.5 103/ul Normal 1.2-3.8 [facility] Comment on above: Performed By: #### C BC #### [facility] [address] [address] [address] Octavio Hagen Lymphocytes/100 WBC (Bld) 21.1 % Normal 20.5-60.0 [facility] Comment on above: Performed By: #### C BC #### [facility] [address] [address] [address] Octavio Hagen MANUAL DIFF REQ NO Normal [facility] Comment on above: Performed By: #### C BC #### [facility] [address] [place] [address] Dr. Octavio Hagen MCH (RBC) [Entitic mass] 29.2 pg Normal 25.9-34.0 [facility] Comment on above: Performed By: #### C BC #### [facility] [address] [place] [address] Dr. Octavio Hagen MCHC (RBC) [Mass/Vol] 33.6 g/dL Normal 29.9-35.2 [facility] Comment on above: Performed By: #### C BC #### [facility] [address] [place] [address] Dr. Octavio Hagen MCV (RBC) [Entitic vol] 86.8 fL Normal 80.0-94.0 [facility] Comment on above: Performed By: #### C BC #### [facility] [address] [place] [address] Dr. Octavio Hagen MONO # 0.9 103/ul Critically high 0.3-0.8 [facility] Comment on above: Performed By: #### C BC #### [facility] [address] [place] [address] Dr. Octavio Hagen Monocytes/100 WBC (Bld) 7.9 % Normal 1.7-12.0 [facility] Comment on above: Performed By: #### C BC #### [facility] [address] [place] [address] Dr. Octavio Hagen NEUT # 7.8 103/ul Critically high 1.4-6.5 [facility] Comment on above: Performed By: #### C BC #### [facility] [address] [address] [address] Octavio Hagen Neutrophils/100 WBC (Bld) 67.0 % Normal 43.0-75.0 [facility] Comment on above: Performed By: #### C BC #### [facility] [address] [address] [address] Octavio Hagen Platelet mean volume (Bld) [Entitic vol] 9.4 fL Critically low 9.5-13.5 [facility] Comment on above: Performed By: #### C BC #### [facility] [address] [address] [address] Octavio Hagen PLT 245 103/ul Normal 150-450 [facility] Comment on above: Performed By: #### C BC #### [facility] [address] [place] [address] Dr. Octavio Hagen RBC 5.31 106/ul Normal 4.70-6.10 [facility] Comment on above: Performed By: #### C BC #### [facility] [address] [place] [address] Dr. Octavio Hagen WBC 11.7 103/ul Critically high 4.0-11.0 [facility] Comment on above: Performed By: #### C BC #### [facility] [address] [place] [address] Dr. Octavio Hagen LIPASEon 08-26-2022 Lipase [Catalytic activity/Vol] 63.0 U/L Critically low 73.0-393.0 [facility] Comment on above: Performed By: #### C BC #### [facility] [address] [place] [address] Dr. Octavio Hagen PROF 14(COMP METB)on 023 Albumin [Mass/Vol] 3.9 g/dL Normal 3.4-5.0 [facility] Comment on above: Performed By: #### C BC #### [facility] [address] [place], [place] [id number] Dr. Octavio Hagen Albumin/Globulin [Mass ratio] 1.1 {ratio} Normal [facility] Comment on above: Performed By: #### C BC #### [facility] [address] [place] [address] Dr. Octavio Hagen ALP [Catalytic activity/Vol] 118 U/L Critically high 46-116 [facility] Comment on above: Performed By: #### C BC #### [facility] [address] [place] [address] Dr. Octavio Hagen ALT [Catalytic activity/Vol] 37 U/L Normal 16-63 [facility] Comment on above: Performed By: #### C BC #### [facility] [address] [place] [address] Dr. Octavio Hagen Anion gap [Moles/Vol] 15.1 mmol/L Normal [facility] Comment on above: Performed By: #### C BC #### [facility] [address] [place] [address] Dr. Octavio Hagen AST [Catalytic activity/Vol] 21 U/L Normal 15-37 [facility] Comment on above: Performed By: #### C BC #### [facility] [address] [place] [address] Dr. Octavio Hagen Bilirubin [Mass/Vol] 0.2 mg/dL Normal 0.2-1.0 [facility] Comment on above: Performed By: #### C BC #### [facility] [address] [place] [address] Dr. Octavio Hagen Calcium [Mass/Vol] 8.8 mg/dL Normal 8.5-10.1 [facility] Comment on above: Performed By: #### C BC #### [facility] [address] [place] [address] Dr. Octavio Hagen Chloride [Moles/Vol] 106 mmol/L Normal 98-107 [facility] Comment on above: Performed By: #### C BC #### [facility] [address] [place] [address] Dr. Octavio Hagen CO2 [Moles/Vol] 25.7 mmol/L Normal 21.0-32.0 [facility] Comment on above: Performed By: #### C BC #### [facility] [address] [place] [address] Dr. Octavio Hagen Creatinine [Mass/Vol] 0.96 mg/dL Normal 0.70-1.30 [facility] Comment on above: Performed By: #### C BC #### [facility] [address] [place] [address] Dr. Octavio Hagen EGFR-AF LATVIAN >60 Normal >=60 [facility] Comment on above: Performed By: #### C BC #### [facility] [address] [address] [address] Octavio Hagen EGFR-NON AF LATVIAN >60 Normal >=60 [facility] Comment on above: Performed By: #### C BC #### [facility] [address] [place] [address] Dr. Octavio Hagen Globulin (S) [Mass/Vol] 3.6 g/dL Normal [facility] Comment on above: Performed By: #### C BC #### [facility] [address] [place] [address] Dr. Octavio Hagen Glucose [Mass/Vol] 110 mg/dL Critically high 74-106 [facility] Comment on above: Performed By: #### C BC #### [facility] [address] [place] [address] Dr. Octavio Hagen Potassium [Moles/Vol] 3.8 mmol/L Normal 3.5-5.1 [facility] Comment on above: Performed By: #### C BC #### [facility] [address] [place] [address] Dr. Octavio Hagen Protein [Mass/Vol] 7.5 g/dL Normal 6.4-8.2 [facility] Comment on above: Performed By: #### C BC #### [facility] [address] [place] [address] Dr. Octavio Hagen Sodium [Moles/Vol] 143 mmol/L Normal 136-145 [facility] Comment on above: Performed By: #### C BC #### [facility] [address] [place] [address] Dr. Octavio Hagen Urea nitrogen [Mass/Vol] 23.0 mg/dL Critically high 7.0-18.0 [facility] Comment on above: Performed By: #### C BC #### [facility] [address] [place], [place] [address] Dr. Octavio Hagen Urea nitrogen/Creatini ne [Mass ratio] 24.0 mg/mg Normal [facility] Comment on above: Performed By: #### C BC #### [facility] [address] [place], [place] [address] Dr. Octavio Hagen XR ABD FLAT UP_PA Jyoti 08-26 XR ABD FLAT UP_PA CH EXAM: XR ABD FLAT UP_PA CH HISTORY: Nausea and vomiting; technologist notes state nausea and left-sided abdominal pain for a couple of days. COMPARISON: Chest radiograph dated 11/13/2020. TECHNIQUE: Frontal view of the chest, AP upright abdomen and AP supine abdomen performed. FINDINGS: Chest: The trachea is normal. The heart size is normal. The cardiomediastinal silhouette and hilar shadows are normal. The lung volumes are normal. The lung reyes are clear. There is no pneumothorax. There is no osseous abnormality. Abdomen: There is gas within the nondistended ascending, transverse and sigmoid colon. There is a moderate amount of stool at the hepatic flexure and a small amount of stool within the distal sigmoid colon. There is a small amount of gas within the stomach. There is mild gaseous distention of and air-fluid levels within a few jejunal small bowel loops measuring up to 4.4 cm in transverse dimension. In the right clinical setting an ileus could have this appearance. Correlation with clinical findings and progress imaging recommended to exclude a partial or developing small bowel obstruction. There is no free air. There are no abnormal mass shadows or abnormal pathologic calcifications. There is no osseous abnormality. IMPRESSION: Unremarkable frontal view of the chest. There is gas within the nondistended ascending, transverse and sigmoid colon. There is a moderate amount of stool at the hepatic flexure and a small amount of stool within the distal sigmoid colon. There is a small amount of gas within the stomach. There is mild gaseous distention of and air-fluid levels within a few jejunal small bowel loops measuring up to 4.4 cm in transverse dimension. Correlation with clinical findings and progress imaging recommended to exclude a partial or developing small bowel bowel obstruction. Electronically authenticated by: GABE MOURA Date: 2022-08-26 09:27 Normal [facility] XR ANKLE LT MIN 3 Von 2021 XR ANKLE LT MIN 3 V EXAM: XR ANKLE LT MIN 3 V HISTORY: Pain of left ankle joint COMPARISON: None. TECHNIQUE: 3 views FINDINGS: Lateral subcutaneous soft tissue edema. No fracture, dislocation, subluxation or osseous lesion. Joint spaces are normal. Os trigonum and os peroneum are present. Both normal anatomic variants. IMPRESSION: Lateral subcutaneous soft tissue edema with no visualized osseous abnormality. Electronically authenticated by: ASHLY LINDER Date: 2021-11-12 18:41 Normal [facility] COVID/FLU/RSV RT-PCRon 09-11 SARS-CoV-2 (COVID-19) RNA MARCIA+probe Ql (Unsp spec) Negative [facility] Other COVID/FLU/RSV RT-PCR Negative [facility] Other XR foot RT min 3V*on 021 XR foot RT min 3V* [facility] [place] [address] [place] [address] XRay Report Signed Patient: Ashly Jamison JR MR#: [id number] : 2000 Acct:[id number] Age/Sex: 20 / M ADM Date: 10/18/20 Loc: [facility] Room: Type: [facility] Attending Dr: Trisha GARCIA Ordering Provider: TRISHA ARTEAGA Date of Service: 10/18/20 XR/XR foot RT min 3V*: Right foot pain Copies to: TRISHA ARTEAGA XR foot RT min 3V* 10/18/2020 4:32 PM SIGNS AND SYMPTOMS: Pain and swelling over the lateral aspect of the fifth metatarsal PROTOCOL: Frontal, lateral, and oblique radiographs of the left foot COMPARISON: None FINDINGS: Os perineum is noted along the lateral aspect of the hindfoot midfoot junction. This is a normal variant. There is mild soft tissue swelling distal lateral aspect of the foot. There is no evidence of fracture. No dislocation or subluxation. The joint spaces are preserved. XR/XR foot RT min 3V* IMPRESSION: No evidence of displaced fracture. There is mild soft tissue swelling distal lateral aspect of the foot. Impression dictated by: Miles Swanson M.D.10/18/2020 4:53 PM Dictation Location: [place] [address] Transcribed By: [facility] 10/18/201652 Dictated By: Miles Swanson II, MD 10/18/201651 Signed By: 10/18/201652 [facility] Vital Signs Date Time Vital Sign Value Performing Clinician Facility 08-02-2022 14:00-0400 Body height 170.18 cm Shala Hicks Other [facility] Other 08-02-2022 14:00-0400 Body mass index (BMI) [Ratio] 30.07 kg/m2 Shala Hicks Other [facility] Other 08-02-2022 14:00-0400 Body temperature 100.1 [degF] Shala Hicks Other [facility] Other 08-02-2022 14:00-0400 Body weight 87.09 kg Shala Hicks Other [facility] Other 08-02-2022 14:00-0400 Respiratory rate 18 /min Shala Hicks Other [facility] Other 08-02-2022 14:00-0400 SaO2% (BldA) [Mass fraction] 96 % Shala Hicks Other [facility] Other 09-11-2021 16:25-0400 Body height 170.18 cm Trisha Arteaga Other [facility] Other 09-11-2021 16:25-0400 Body mass index (BMI) [Ratio] 28.03 kg/m2 Trisha Arteaga Other [facility] Other 09-11-2021 16:25-0400 Body temperature 97.6 [degF] Trisha Arteaga Other [facility] Other 09-11-2021 16:25-0400 Body weight 81.19 kg Trisha Arteaga Other [facility] Other 09-11-2021 16:25-0400 Respiratory rate 18 /min Trisha Arteaga Other [facility] Other 09-11-2021 16:25-0400 SaO2% (BldA) [Mass fraction] 96 % Trisha Arteaga Other [facility] Other Encounters Encounter Date Encounter Type Care Provider Facility Start: 09-02-2022 End: 09-04-2022 Evaluation and management of inpatient DR HOFFMAN LISTED REQUEST Facility: Start: 08-26-2022 End: 08-26-[address] LEONELA SMITH . Facility: Start: 08-02-2022 End: 08-02-2022 ambulatory Shala Hicks Other [facility] Other Start: 08-02-2022 Office outpatient visit 15 minutes Shala Hicks [facility] Start: 11-12-2021 End: 11-12-[address] DOCTOR JACKSON Facility:[facility] Start: 09-11-2021 End: 09-11-2021 ambulatory Trisha Arteaga Other [facility] Other Start: 09-11-2021 Office outpatient visit 15 minutes Trisha Arteaga [facility] Start: 02-17-2019 End: 02-17-2019 Emergency department patient visit MARCELL VALENCIA Facility:[facility] Payers Date Payer Category Payer Unknown [id number] 2000 Unknown [id number] [id number] 1999 Unknown [id number] 1999 Unknown [id number] 1960 Medicaid [id number] 1960 Unknown [id number] Social History Date Type Detail Facility Unknown if ever smoked [facility] Other Sex Assigned At Sex Assigned At Bir th [facility] Other Evaluation note 08-02-2022 Note Date & Type Note Facility 08-02-2022 Evaluation note Encounter Date Diagnosis Assessment Notes Aug, Pericoronitis (ICD-10 - K05.30) Drink plenty fluids, get plenty of rest. Take the penicillin as prescribed until gone. Take the ibuprofen as prescribed as needed for mild to moderate pain. Add 2 extra strength Tylenol to your ibuprofen dose for severe pain. Continue to use topical Orajel for pain. Follow-up with your dentist as soon as possible. Rinse your mouth with warm water with peroxide after eating. Aug, Other Dental pain home care material was printed [facility] Other Evaluation note 09-11-2021 Note Date & Type Note Facility 09-11-2021 Evaluation note Encounter Date Diagnosis Assessment Notes August, Cough (ICD-10 - R05.9) August, Allergic sinusitis (ICD-10 - J30.9) [facility] Other History general Narrative - Reported Note Date & Type Note Facility History general Narrative - Reported Type Medical History ADHD Surgical History reconstruction bowel as infant Hospitalization History see above [facility] Other Summary Purpose Family History No Family History Records FoundNo Family History Records FoundNo Family History Records Found Advance Directives No Advanced Directives Records FoundNo Advanced Directives Records FoundNo Advanced Directives Records Found Additional Source Comments (unrecognized sect ion and content) No Status Records FoundNo Status Records FoundNo Status Records Found INFORMATION SOURCE (unrecogn ized section and content) DATE CREATED AUTHOR 03/01/2019 [facility] DATE CREATED AUTHOR AUTHOR'S ORGANIZ ATION 05/24/2021 [facility] DATE CREATED AUTHOR AUTHOR'S ORGANIZ ATION 09/12/2022 [facility] REASON FOR VISIT (unrecogniz ed section and content) WHITE CAR, COUGH, CONGESTION TOOTH PAIN POSS INFECTION FOR RECORDS PERTAINING TO PATIENTS WHO ARE OR HAVE BEEN ENROLLED IN A CHEMICAL DEPENDENCY/SUBSTANCEABUSE PROGRAM, SOME INFORMATION MAY BE OMITTED. This clinical summary was aggregated from multiple sources. Caution should be exercised in using it in the provision of clinical care. This summary normalizes information from multiple sources, and as a consequence, information in this document may materially change the coding, format and clinical context of patient data. In addition, data may be omitted in some cases. CLINICAL DECISIONS SHOULD BE BASED ON THE PRIMARY CLINICAL RECORDS. [facility] [employer] [facility]. provides no warranty or guarantee of the accuracy or completeness of information in this document.
[2023-05-24 16:12] VITALS: BP 125/80; PULSE 91; RESP 16; TEMP 36.4; O2SAT 97; BMI 27.4
--- NOTE | 2023-05-24 17:28 | PC.NURSE ---
at cart side to I&D area
[2023-05-24] MEDS: LIDOCAINE HCL 1% 100 MG/10 ML MDV 20 ML INJ (17:30)
--- NOTE | 2023-05-24 17:53 | ED_ITS ---
HPI - General Adult General Chief complaint: Skin/Abscess/Foreign Body Stated complaint: Abscess on Tailbone Time Seen by Provider: 05/24/23 16:03 Source: patient Mode of arrival: walk-in Limitations: no limitations History of Present Illness HPI narrative: 22-year-old male presents to the emergency department for a painful red swollen area on his tailbone. He's had this for several days. He's never had anything like this before and it's severe pain and it's continuous and worse when he sits. No drainage. Related Data Previous Rx's Medication Instructions Recorded cephalexin 500 mg capsule 500 mg PO QID 10 days #40 caps 05/24/23 hydrocodone 5 mg-acetaminophen 325 1 tab PO Q6H PRN pain 5 days #20 05/24/23 mg tablet tabs sulfamethoxazole 800 1 tab PO BID 10 days #20 tabs 05/24/23 mg-trimethoprim 160 mg tablet (Bactrim DS) Allergies Allergy/AdvReac Type Severity Reaction Status Date / Time bismuth subsalicylate Allergy Severe Verified 05/24/23 16:11 [From Pepto-Bismol] Review of Systems ROS Narrative A ten point review of systems is negative except as noted above. Exam Narrative Exam Narrative: Nurses note and vital signs reviewed and patient is not hypoxic. General: The patient appears well and in no apparent distress. Patient is resting comfortably on cart. Skin: Warm, dry, no pallor noted. There is no rash noted. Head: Normocephalic, atraumatic Eye: Normal conjunctiva, no drainage Ears, Nose, Mouth, and Throat: oral mucosa is moist. Nares patent. Cardiovascular: Regular Rate and Rhythm Respiratory: Patient is in no distress, no accessory muscle use, lungs are clear to auscultation, no wheezing, rales or rhonchi Back: non-tender; at the coccygeal area is an erythematous raised fluctuant area approximately 2 inches long. GI: soft and nontender Musculoskeletal: The patient has no evidence of calf tenderness, no pitting edema, symmetrical pulses noted bilaterally Neurological: A&O x4, normal speech Psychiatric: Cooperative Constitutional Vital Signs, click to edit/add: Last Vital Signs Temp 97.6 F 05/24/23 16:12 Pulse 91 H 05/24/23 16:12 Resp 16 05/24/23 16:12 BP 125/80 05/24/23 16:12 Pulse Ox 97 05/24/23 16:12 O2 Del Method Room Air 05/24/23 16:12 Course Vital Signs Vital signs: Vital Signs Temperature 97.6 F 05/24/23 16:12 Pulse Rate 91 H 05/24/23 16:12 Respiratory Rate 16 05/24/23 16:12 Blood Pressure 125/80 05/24/23 16:12 Pulse Oximetry 97 05/24/23 16:12 Oxygen Delivery Method Room Air 05/24/23 16:12 Temperature 97.6 F 05/24/23 16:12 Pulse Rate 91 H 05/24/23 16:12 Respiratory Rate 16 05/24/23 16:12 Blood Pressure 125/80 05/24/23 16:12 Pulse Oximetry 97 05/24/23 16:12 Oxygen Delivery Method Room Air 05/24/23 16:12 Medical Decision Making MDM Narrative Medical decision making narrative: My clinical impression is that he has a pilonidal abscess. It's been incised and drained. He is prescribed Bactrim and Keflex and Calumet and he'll return in twenty-four hours for packing removal. Treatment diagnosis and follow-up were discussed with the patient. Differential Diagnosis Differential Diagnosis: pilonidal abscess, cellulitis Discharge Plan Discharge Chief Complaint: Skin/Abscess/Foreign Body Clinical Impression: Pilonidal abscess Patient Disposition: Home, Self-Care Time of Disposition Decision: 17:46 Condition: Good Mode of Transportation: Private Vehicle Prescriptions / Home Meds: New hydrocodone-acetaminophen 5-325 mg tablet 1 tab PO Q6H PRN (Reason: pain) 5 Days Qty: 20 0RF sulfamethoxazole-trimethoprim [Bactrim DS] 800-160 mg tablet 1 tab PO BID 10 Days Qty: 20 0RF cephalexin 500 mg capsule 500 mg PO QID 10 Days Qty: 40 0RF Instructions: Pilonidal Cyst (ED), Abscess (ED) Additional Instructions: Return in twenty-four hours for packing removal Stand Alone Forms: Portal Instructions Referrals: Physician,Non-Staff, MD [Primary Care Provider] - 1 week Procedures ED Procedure Instructions Procedures Procedures: the following procedure was performed by me. Local infiltration was carried out with one percent lidocaine without epinephrine. The area was prepped with Betadine ?3 and draped sterilely and using a #11 blade the abscess was incised and drained of a large amount. Material. Packing applied. No complications.
[2023-05-24 18:20] VITALS: BP 130/80; PULSE 88; RESP 16; O2SAT 99
== END 2023-05-24 18:20 | disposition home or self-care (01) ==
PROVIDERS: Emergency Provider Emergency Medicine
DX: L05.01 Pilonidal cyst with abscess (principal)
CPT/HCPCS: 10080; 99283

== ENCOUNTER 2023-05-25 22:31 | Emergency (ER) | payer OTHER, SELFPAY ==
[2023-05-25 22:37] VITALS: BP 118/70; PULSE 61; RESP 16; TEMP 36.7; O2SAT 98
--- OUTSIDE RECORDS SUMMARY | 2023-05-25 22:39 | XMS_ITS | CCD ---
Author Name Unknown Address [address] [place] [address] Organization [facility] Care Team Providers Care Copy Operator Name Role Phone ANNIEMARCELL Admitting Unavailable [...] Unavailable SHRUTHI ., DR NICKERSON Consulting Unavailable [place], DR ASHLY Warner Consulting Unavailable ERICA MARTINEZ [...] Facility (2 sources) bismuth subsalicylate Drug Allergy [employer] Other (1 source) bismuth subsalicylate Drug Allergy 1 [facility] Repository Medications Current Medications Medication Drug Class(es) [...] 11-13-2021 Episodic Other aftercare (1 source) Other prison (current) drug therapy; Translations: [OTH CARE HOME CURRENT DRUG THERAPY] Onset: 11-13-2021 Episodic Other [...] 09-04-2022 BASO # 0.0 103/ul Normal 0.0-0.1 [facility] Comment on above: Performed By: #### C BC #### [facility] [address] [place] [address] Dr. Octavio Hagen Basophils/100 WBC (Bld) 0.2 % Normal 0.2-2.0 [facility] Comment on above: Performed By: #### C BC #### [facility] [address] [address] [address] Octavio Hagen EO # 0.3 103/ul Normal 0.0-0.7 [facility] Comment on above: Performed By: #### C BC #### [facility] [address] [place] [address] Dr. Octavio Hagen Eosinophils/100 WBC (Bld) 2.8 % Normal 0.9-7.0 [facility] Comment on above: Performed By: #### C BC #### [facility] [address] [address] [address] Octavio Hagen Erythrocyte distribution width (RBC) [Ratio] 12.4 % Normal 11.0-15.0 [facility] Comment on above: Performed By: #### C BC #### [facility] [address] [place] [address] Dr. Octavio Hagen Hematocrit (Bld) [Volume fraction] 41.0 % Critically low 42.0-54.0 [facility] Comment on above: Performed By: #### C BC #### [facility] [address] [address] [address] Octavio Hagen Hemoglobin (Bld) [Mass/Vol] 13.6 g/dL Critically low 14.0-18.0 [facility] Comment on above: Performed By: #### C BC #### [facility] [address] [address] [address] Octavio Hagen IG # 0.04 10e3/ul Critically high 0.00-0.03 [facility] Comment on above: Performed By: #### C BC #### [facility] [address] [address] [address] Octavio Hagen IG % 0.4 % Normal 0.0-0.5 [facility] Comment on above: Performed By: #### C BC #### [facility] [address] [place] [address] Dr. Octavio Hagen LYMPH # 1.4 103/ul Normal 1.2-3.8 [facility] Comment on above: Performed By: #### C BC #### [facility] [address] [place] [address] Dr. Octavio Hagen Lymphocytes/100 WBC (Bld) 15.5 % Critically low 20.5-60.0 [facility] Comment on above: Performed By: #### C BC #### [facility] [address] [place] [address] Dr. Octavio Hagen MANUAL DIFF REQ NO Normal [facility] Comment on above: Performed By: #### C BC #### [facility] [address] [place] [address] Dr. Octavio Hagen MCH (RBC) [Entitic mass] 28.6 pg Normal 25.9-34.0 [facility] Comment on above: Performed By: #### C BC #### [facility] [address] [place] [address] Dr. Octavio Hagen MCHC (RBC) [Mass/Vol] 33.2 g/dL Normal 29.9-35.2 [facility] Comment on above: Performed By: #### C BC #### [facility] [address] [address] [address] Octavio Hagen MCV (RBC) [Entitic vol] 86.3 fL Normal 80.0-94.0 [facility] Comment on above: Performed By: #### C BC #### [facility] [address] [address] [address] Octavio Hagen MONO # 1.0 103/ul Critically high 0.3-0.8 [facility] Comment on above: Performed By: #### C BC #### [facility] [address] [address] [address] Octavio Hagen Monocytes/100 WBC (Bld) 11.1 % Normal 1.7-12.0 [facility] Comment on above: Performed By: #### C BC #### [facility] [address] [place] [address] Dr. Octavio Hagen NEUT # 6.3 103/ul Normal 1.4-6.5 [facility] Comment on above: Performed By: #### C BC #### [facility] [address] [place] [address] Dr. Octavio Hagen Neutrophils/100 WBC (Bld) 70.0 % Normal 43.0-75.0 [facility] Comment on above: Performed By: #### C BC #### [facility] [address] [place] [address] Dr. Octavio Hagen Platelet mean volume (Bld) [Entitic vol] 8.9 fL Critically low 9.5-13.5 [facility] Comment on above: Performed By: #### C BC #### [facility] [address] [place] [address] Dr. Octavio Hagen PLT 221 103/ul Normal 150-450 [facility] Comment on above: Performed By: #### C BC #### [facility] [address] [place], [place] [id number] Dr. Octavio Hagen RBC 4.75 106/ul Normal 4.70-6.10 [facility] Comment on above: Performed By: #### C BC #### [facility] [address] [place] [address] Dr. Octavio Hagen WBC 9.0 103/ul Normal 4.0-11.0 [facility] Comment on above: Performed By: #### C BC #### [facility] [address] [place] [address] Dr. Octavio Hagen PROF 14(COMP METB)on 023 Albumin [Mass/Vol] 3.4 g/dL Normal 3.4-5.0 [facility] Comment on above: Performed By: #### C MP #### [facility] [address] [place] [address] Dr. Octavio Hgaen Albumin/Globulin [Mass ratio] 0.9 {ratio} Normal [facility] Comment on above: Performed By: #### C MP #### [facility] [address] [place] [address] Dr. Octavio Hagen ALP [Catalytic activity/Vol] 77 U/L Normal 46-116 [facility] Comment on above: Performed By: #### C MP #### [facility] [address] [place] [address] Dr. Octavio Hagen ALT [Catalytic activity/Vol] 36 U/L Normal 16-63 [facility] Comment on above: Performed By: #### C MP #### [facility] [address] [place] [address] Dr. Octavio Hagen Anion gap [Moles/Vol] 11.4 mmol/L Normal [facility] Comment on above: Performed By: #### C MP #### [facility] [address] [place] [address] Dr. Octavio Hagen AST [Catalytic activity/Vol] 22 U/L Normal 15-37 [facility] Comment on above: Performed By: #### C MP #### [facility] [address] [place] [address] Dr. Octavio Hagen Bilirubin [Mass/Vol] 0.6 mg/dL Normal 0.2-1.0 [facility] Comment on above: Performed By: #### C MP #### [facility] [address] [place] [address] Dr. Octavio Hagen Calcium [Mass/Vol] 8.9 mg/dL Normal 8.5-10.1 [facility] Comment on above: Performed By: #### C MP #### [facility] [address] [place] [address] Dr. Octavio Hagen Chloride [Moles/Vol] 104 mmol/L Normal 98-107 [facility] Comment on above: Performed By: #### C MP #### [facility] [address] [place] [address] Dr. Octavio Hagen CO2 [Moles/Vol] 28.5 mmol/L Normal 21.0-32.0 [facility] Comment on above: Performed By: #### C MP #### [facility] [address] [place] [address] Dr. Octavio Hagen Creatinine [Mass/Vol] 1.02 mg/dL Normal 0.70-1.30 [facility] Comment on above: Performed By: #### C MP #### [facility] [address] [place] [address] Dr. Octavio Hagen EGFR-AF NAMIBIAN >60 Normal >=60 [facility] Comment on above: Performed By: #### C MP #### [facility] [address] [place] [address] Dr. Octavio Hagen EGFR-NON AF NAMIBIAN >60 Normal >=60 [facility] Comment on above: Performed By: #### C MP #### [facility] [address] [place] [address] Dr. Octavio Hagen Globulin (S) [Mass/Vol] 3.6 g/dL Normal [facility] Comment on above: Performed By: #### C MP #### [facility] [address] [place] [address] Dr. Octavio Hagen Glucose [Mass/Vol] 100 mg/dL Normal 74-106 [facility] Comment on above: Performed By: #### C MP #### [facility] [address] [place] [address] Dr. Octavio Hagen Potassium [Moles/Vol] 3.9 mmol/L Normal 3.5-5.1 [facility] Comment on above: Performed By: #### C MP #### [facility] [address] [address] [address] Octavio Hagen Protein [Mass/Vol] 7.0 g/dL Normal 6.4-8.2 [facility] Comment on above: Performed By: #### C MP #### [facility] [address] [address] [address] Octavio Hagen Sodium [Moles/Vol] 140 mmol/L Normal 136-145 [facility] Comment on above: Performed By: #### C MP #### [facility] [address] [address] [address] Octavio Hagen Urea nitrogen [Mass/Vol] 8.0 mg/dL Normal 7.0-18.0 [facility] Comment on above: Performed By: #### C MP #### [facility] [address] [address] [address] Octavio Hagen Urea nitrogen/Creatini ne [Mass ratio] 7.8 mg/mg Normal [facility] Comment on above: Performed By: #### C MP #### [facility] [address] [address] [address] Octavio Hagen PTTon 09-04-2022 aPTT Coag (Bld) [Time] 35.2 s Normal 22.3-36.2 [facility] Comment on above: Performed By: #### C MP #### [facility] [address] [address] [address] Octavio Hagen XR KUB 1 VIEWon [...] BINOR SAID Date: 2022-09-04 06:11 Normal [facility] CBC AUTO DIFFon 09-03-2022 BASO # 0.0 103/ul Normal 0.0-0.1 [facility] Comment on above: Performed By: #### C BC #### [facility] [address] [address] [address] Octavio Hagen Basophils/100 WBC (Bld) 0.4 % Normal 0.2-2.0 [facility] Comment on above: Performed By: #### C BC #### [facility] [address] [address] [address] Octavio Hagen EO # 0.2 103/ul Normal 0.0-0.7 [facility] Comment on above: Performed By: #### C BC #### [facility] [address] [place] [address] Dr. Octavio Hagen Eosinophils/100 WBC (Bld) 3.3 % Normal 0.9-7.0 [facility] Comment on above: Performed By: #### C BC #### [facility] [address] [place] [address] Dr. Octavio Hagen Erythrocyte distribution width (RBC) [Ratio] 12.9 % Normal 11.0-15.0 [facility] Comment on above: Performed By: #### C BC #### [facility] [address] [place] [address] Dr. Octavio Hagen Hematocrit (Bld) [Volume fraction] 40.0 % Critically low 42.0-54.0 [facility] Comment on above: Performed By: #### C BC #### [facility] [address] [address] [address] Octavio Hagen Hemoglobin (Bld) [Mass/Vol] 13.4 g/dL Critically low 14.0-18.0 [facility] Comment on above: Performed By: #### C BC #### [facility] [address] [place] [address] Dr. Octavio Hagen IG # 0.03 10e3/ul Normal 0.00-0.03 [facility] Comment on above: Performed By: #### C BC #### [facility] [address] [place] [address] Dr. Octavio Hagen IG % 0.4 % Normal 0.0-0.5 [facility] Comment on above: Performed By: #### C BC #### [facility] [address] [place] [address] Dr. Octavio Hagen LYMPH # 1.6 103/ul Normal 1.2-3.8 [facility] Comment on above: Performed By: #### C BC #### [facility] [address] [place] [address] Dr. Octavio Hagen Lymphocytes/100 WBC (Bld) 22.9 % Normal 20.5-60.0 [facility] Comment on above: Performed By: #### C BC #### [facility] [address] [place] [address] Dr. Octavio Hagen MANUAL DIFF REQ NO Normal [facility] Comment on above: Performed By: #### C BC #### [facility] [address] [place] [address] Dr. Octavio Hagen MCH (RBC) [Entitic mass] 29.2 pg Normal 25.9-34.0 [facility] Comment on above: Performed By: #### C BC #### [facility] [address] [place] [address] Dr. Octavio Hagen MCHC (RBC) [Mass/Vol] 33.5 g/dL Normal 29.9-35.2 [facility] Comment on above: Performed By: #### C BC #### [facility] [address] [place] [address] Dr. Octavio Hagen MCV (RBC) [Entitic vol] 87.1 fL Normal 80.0-94.0 [facility] Comment on above: Performed By: #### C BC #### [facility] [address] [place] [address] Dr. Octavio Hagen MONO # 0.6 103/ul Normal 0.3-0.8 [facility] Comment on above: Performed By: #### C BC #### [facility] [address] [place] [address] Dr. Octavio Hagen Monocytes/100 WBC (Bld) 9.2 % Normal 1.7-12.0 [facility] Comment on above: Performed By: #### C BC #### [facility] [address] [place] [address] Dr. Octavio Hagen NEUT # 4.5 103/ul Normal 1.4-6.5 [facility] Comment on above: Performed By: #### C BC #### [facility] [address] [place] [address] Dr. Octavio Hagen Neutrophils/100 WBC (Bld) 63.8 % Normal 43.0-75.0 [facility] Comment on above: Performed By: #### C BC #### [facility] [address] [place] [address] Dr. Octavio Hagen Platelet mean volume (Bld) [Entitic vol] 9.3 fL Critically low 9.5-13.5 [facility] Comment on above: Performed By: #### C BC #### [facility] [address] [place] [address] Dr. Octavio Hagen PLT 213 103/ul Normal 150-450 [facility] Comment on above: Performed By: #### C BC #### [facility] [address] [place] [address] Dr. Octavio Hagen RBC 4.59 106/ul Critically low 4.70-6.10 [facility] Comment on above: Performed By: #### C BC #### [facility] [address] [place] [address] Dr. Octavio Hagen WBC 7.0 103/ul Normal 4.0-11.0 [facility] Comment on above: Performed By: #### C BC #### [facility] [address] [place] [address] Dr. Octavio Hagen PROF 14(COMP METB)on 023 Albumin [Mass/Vol] 3.4 g/dL Normal 3.4-5.0 [facility] Comment on above: Performed By: #### C MP #### [facility] [address] [place] [address] Dr. Octavio Hagen Albumin/Globulin [Mass ratio] 1.1 {ratio} Normal [facility] Comment on above: Performed By: #### C MP #### [facility] [address] [place] [address] Dr. Octavio Hagen ALP [Catalytic activity/Vol] 73 U/L Normal 46-116 [facility] Comment on above: Performed By: #### C MP #### [facility] [address] [place] [address] Dr. Octavio Hagen ALT [Catalytic activity/Vol] 35 U/L Normal 16-63 [facility] Comment on above: Performed By: #### C MP #### [facility] [address] [place] [address] Dr. Octavio Hagen Anion gap [Moles/Vol] 8.3 mmol/L Normal [facility] Comment on above: Performed By: #### C MP #### [facility] [address] [place] [address] Dr. Octavio Hagen AST [Catalytic activity/Vol] 19 U/L Normal 15-37 [facility] Comment on above: Performed By: #### C MP #### [facility] [address] [place] [address] Dr. Octavio Hagen Bilirubin [Mass/Vol] 0.4 mg/dL Normal 0.2-1.0 [facility] Comment on above: Performed By: #### C MP #### [facility] [address] [place] [address] Dr. Octavio Hagen Calcium [Mass/Vol] 8.5 mg/dL Normal 8.5-10.1 [facility] Comment on above: Performed By: #### C MP #### [facility] [address] [place] [address] Dr. Octavio Hagen Chloride [Moles/Vol] 107 mmol/L Normal 98-107 [facility] Comment on above: Performed By: #### C MP #### [facility] [address] [place] [address] Dr. Octavio Hagen CO2 [Moles/Vol] 30.8 mmol/L Normal 21.0-32.0 [facility] Comment on above: Performed By: #### C MP #### [facility] [address] [address] [address] Octavio Hagen Creatinine [Mass/Vol] 1.14 mg/dL Normal 0.70-1.30 [facility] Comment on above: Performed By: #### C MP #### [facility] [address] [address] [address] Octavio Hagen EGFR-AF NAMIBIAN >60 Normal >=60 [facility] Comment on above: Performed By: #### C MP #### [facility] [address] [address] [address] Octavio Hagen EGFR-NON AF NAMIBIAN >60 Normal >=60 [facility] Comment on above: Performed By: #### C MP #### [facility] [address] [place] [address] Dr. Octavio Hagen Globulin (S) [Mass/Vol] 3.2 g/dL Normal [facility] Comment on above: Performed By: #### C MP #### [facility] [address] [place] [address] Dr. Octavio Hagen Glucose [Mass/Vol] 86 mg/dL Normal 74-106 [facility] Comment on above: Performed By: #### C MP #### [facility] [address] [place] [address] Dr. Octavio Hagen Potassium [Moles/Vol] 4.1 mmol/L Normal 3.5-5.1 [facility] Comment on above: Performed By: #### C MP #### [facility] [address] [place] [address] Dr. Octavio Hagen Protein [Mass/Vol] 6.6 g/dL Normal 6.4-8.2 [facility] Comment on above: Performed By: #### C MP #### [facility] [address] [place] [address] Dr. Octavio Hagen Sodium [Moles/Vol] 142 mmol/L Normal 136-145 [facility] Comment on above: Performed By: #### C MP #### [facility] [address] [address] [address] Octavio Hagen Urea nitrogen [Mass/Vol] 17.0 mg/dL Normal 7.0-18.0 [facility] Comment on above: Performed By: #### C MP #### [facility] [address] [address] [address] Octavio Hagen Urea nitrogen/Creatini ne [Mass ratio] 14.9 mg/mg Normal [facility] Comment on above: Performed By: #### C MP #### [facility] [address] [address] [address] Octavio Hagen PTTon 09-03-2022 aPTT Coag (Bld) [Time] 36.1 s Normal 22.3-36.2 [facility] Comment on above: Performed By: #### C MP #### [facility] [address] [address] [address] Octavio Hagen XR KUB 1 VIEWon [...] by: ASHLEY TIERNEY Date: 2022-09-03 06:04 Normal [facility] XR SMALL BOWELon 09-03-2022 XR SMALL BOWEL EXAMINATION: XR SMAL L BOWEL HISTORY: Small bowel obstruction COMPARISON: 09/03/2022 FLUOROSCOPY TIME: Exam performed on the floor. No fluoroscopy utilized. TECHNIQUE: Small bowel series was performed in the usual manner. No [employer] scout abdominal radiograph was performed. Standard level fluoroscopic [...] ASHLY HERNANDEZ Date: 2022-09-03 17:46 Normal [facility] CBC AUTO DIFFon 09-02-2022 BASO # 0.0 103/ul Normal 0.0-0.1 [facility] Comment on above: Performed By: #### C BC #### [facility] [address] [place] [address] Dr. Octavio Hagen Basophils/100 WBC (Bld) 0.4 % Normal 0.2-2.0 [facility] Comment on above: Performed By: #### C BC #### [facility] [address] [place] [address] Dr. Octavio Hagen EO # 0.4 103/ul Normal 0.0-0.7 [facility] Comment on above: Performed By: #### C BC #### [facility] [address] [place] [address] Dr. Octavio Hagen Eosinophils/100 WBC (Bld) 4.7 % Normal 0.9-7.0 [facility] Comment on above: Performed By: #### C BC #### [facility] [address] [place] [address] Dr. Octavio Hagen Erythrocyte distribution width (RBC) [Ratio] 12.7 % Normal 11.0-15.0 [facility] Comment on above: Performed By: #### C BC #### [facility] [address] [place] [address] Dr. Octavio Hagen Hematocrit (Bld) [Volume fraction] 44.4 % Normal 42.0-54.0 [facility] Comment on above: Performed By: #### C BC #### [facility] [address] [place] [address] Dr. Octavio Hagen Hemoglobin (Bld) [Mass/Vol] 14.8 g/dL Normal 14.0-18.0 [facility] Comment on above: Performed By: #### C BC #### [facility] [address] [place] [address] Dr. Octavio Hagen IG # 0.04 10e3/ul Critically high 0.00-0.03 [facility] Comment on above: Performed By: #### C BC #### [facility] [address] [place] [address] Dr. Octavio Hagen IG % 0.5 % Normal 0.0-0.5 [facility] Comment on above: Performed By: #### C BC #### [facility] [address] [place] [address] Dr. Octavio Hagen LYMPH # 2.0 103/ul Normal 1.2-3.8 [facility] Comment on above: Performed By: #### C BC #### [facility] [address] [place] [address] Dr. Octavio Hagen Lymphocytes/100 WBC (Bld) 26.7 % Normal 20.5-60.0 [facility] Comment on above: Performed By: #### C BC #### [facility] [address] [place] [address] Dr. Octavio Hagen MANUAL DIFF REQ NO Normal [facility] Comment on above: Performed By: #### C BC #### [facility] [address] [place] [address] Dr. Octavio Hagen MCH (RBC) [Entitic mass] 28.6 pg Normal 25.9-34.0 [facility] Comment on above: Performed By: #### C BC #### [facility] [address] [place] [address] Dr. Octavio Hagen MCHC (RBC) [Mass/Vol] 33.3 g/dL Normal 29.9-35.2 [facility] Comment on above: Performed By: #### C BC #### [facility] [address] [place] [address] Dr. Octavio Hagen MCV (RBC) [Entitic vol] 85.7 fL Normal 80.0-94.0 [facility] Comment on above: Performed By: #### C BC #### [facility] [address] [place] [address] Dr. Octavio Hagen MONO # 0.9 103/ul Critically high 0.3-0.8 [facility] Comment on above: Performed By: #### C BC #### [facility] [address] [address] [address] Octavio Hagen Monocytes/100 WBC (Bld) 11.5 % Normal 1.7-12.0 [facility] Comment on above: Performed By: #### C BC #### [facility] [address] [address] [address] Octavio Hagen NEUT # 4.2 103/ul Normal 1.4-6.5 [facility] Comment on above: Performed By: #### C BC #### [facility] [address] [place] [address] Dr. Octavio Hagen Neutrophils/100 WBC (Bld) 56.2 % Normal 43.0-75.0 [facility] Comment on above: Performed By: #### C BC #### [facility] [address] [place] [address] Dr. Octavio Hagen Platelet mean volume (Bld) [Entitic vol] 9.4 fL Critically low 9.5-13.5 [facility] Comment on above: Performed By: #### C BC #### [facility] [address] [place] [address] Dr. Octavio Hagen PLT 256 103/ul Normal 150-450 [facility] Comment on above: Performed By: #### C BC #### [facility] [address] [place] [address] Dr. Octavio Hagen RBC 5.18 106/ul Normal 4.70-6.10 [facility] Comment on above: Performed By: #### C BC #### [facility] [address] [place] [address] Dr. Octavio Hagen WBC 7.5 103/ul Normal 4.0-11.0 [facility] Comment on above: Performed By: #### C BC #### [facility] [address] [place] [address] Dr. Octavio Hagen PROF 14(COMP METB)on 023 Albumin [Mass/Vol] 3.7 g/dL Normal 3.4-5.0 [facility] Comment on above: Performed By: #### C BC #### [facility] [address] [place] [address] Dr. Octavio Hagen Albumin/Globulin [Mass ratio] 1.1 {ratio} Normal [facility] Comment on above: Performed By: #### C BC #### [facility] [address] [place] [address] Dr. Octavio Hagen ALP [Catalytic activity/Vol] 84 U/L Normal 46-116 [facility] Comment on above: Performed By: #### C BC #### [facility] [address] [place] [address] Dr. Octavio Hagen ALT [Catalytic activity/Vol] 40 U/L Normal 16-63 [facility] Comment on above: Performed By: #### C BC #### [facility] [address] [place] [address] Dr. Octavio Hagen Anion gap [Moles/Vol] 10.9 mmol/L Normal [facility] Comment on above: Performed By: #### C BC #### [facility] [address] [place] [address] Dr. Octavio Hagen AST [Catalytic activity/Vol] 25 U/L Normal 15-37 [facility] Comment on above: Performed By: #### C BC #### [facility] [address] [place] [address] Dr. Octavio Hagen Bilirubin [Mass/Vol] 0.4 mg/dL Normal 0.2-1.0 [facility] Comment on above: Performed By: #### C BC #### [facility] [address] [place] [address] Dr. Octavio Hagen Calcium [Mass/Vol] 9.0 mg/dL Normal 8.5-10.1 [facility] Comment on above: Performed By: #### C BC #### [facility] [address] [place] [address] Dr. Octavio Hagen Chloride [Moles/Vol] 103 mmol/L Normal 98-107 [facility] Comment on above: Performed By: #### C BC #### [facility] [address] [address] [address] Octavio Hagen CO2 [Moles/Vol] 29.2 mmol/L Normal 21.0-32.0 [facility] Comment on above: Performed By: #### C BC #### [facility] [address] [address] [address] Octavio Hagen Creatinine [Mass/Vol] 1.10 mg/dL Normal 0.70-1.30 [facility] Comment on above: Performed By: #### C BC #### [facility] [address] [address] [address] Octavio Hagen EGFR-AF NAMIBIAN >60 Normal >=60 [facility] Comment on above: Performed By: #### C BC #### [facility] [address] [place] [address] Dr. Octavio Hagen EGFR-NON AF NAMIBIAN >60 Normal >=60 [facility] Comment on above: Performed By: #### C BC #### [facility] [address] [address] [address] Octavio Hagen Globulin (S) [Mass/Vol] 3.4 g/dL Normal [facility] Comment on above: Performed By: #### C BC #### [facility] [address] [place] [address] Dr. Octavio Hagen Glucose [Mass/Vol] 102 mg/dL Normal 74-106 [facility] Comment on above: Performed By: #### C BC #### [facility] [address] [place] [address] Dr. Octavio Hagen Potassium [Moles/Vol] 4.1 mmol/L Normal 3.5-5.1 [facility] Comment on above: Performed By: #### C BC #### [facility] [address] [place] [address] Dr. Octavio Hagen Protein [Mass/Vol] 7.1 g/dL Normal 6.4-8.2 [facility] Comment on above: Performed By: #### C BC #### [facility] [address] [place] [address] Dr. Octavio Hagen Sodium [Moles/Vol] 139 mmol/L Normal 136-145 [facility] Comment on above: Performed By: #### C BC #### [facility] [address] [place] [address] Dr. Octavio Hagen Urea nitrogen [Mass/Vol] 15.0 mg/dL Normal 7.0-18.0 [facility] Comment on above: Performed By: #### C BC #### [facility] [address] [place] [address] Dr. Octavio Hagen Urea nitrogen/Creatini ne [Mass ratio] 13.6 mg/mg Normal [facility] Comment on above: Performed By: #### C BC #### [facility] [address] [place] [address] Dr. Octavio Hagen PTTon 09-02-2022 aPTT Coag (Bld) [Time] 37.5 s Critically high 22.3-36.2 [facility] Comment on above: Performed By: #### P TT #### [facility] [address] [place] [address] Dr. Octavio Hagen XR ABD FLAT UP_PA [...] [place] POST Date: 2022-09-02 10:04 Normal [facility] CBC AUTO DIFFon 05-02-2023 BASO # 0.0 103/ul Normal 0.0-0.1 [facility] Comment on above: Performed By: #### C MP #### [facility] [address] [place] [address] Dr. Octavio Hagen Basophils/100 WBC (Bld) 0.4 % Normal 0.2-2.0 [facility] Comment on above: Performed By: #### C MP #### [facility] [address] [place] [address] Dr. Octavio Hagen EO # 0.2 103/ul Normal 0.0-0.7 [facility] Comment on above: Performed By: #### C MP #### [facility] [address] [place] [address] Dr. Octavio Hagen Eosinophils/100 WBC (Bld) 2.6 % Normal 0.9-7.0 [facility] Comment on above: Performed By: #### C MP #### [facility] [address] [place] [address] Dr. Octavio Hagen Erythrocyte distribution width (RBC) [Ratio] 12.6 % Normal 11.0-15.0 [facility] Comment on above: Performed By: #### C MP #### [facility] [address] [place] [address] Dr. Octavio Hagen Hematocrit (Bld) [Volume fraction] 50.1 % Normal 42.0-54.0 [facility] Comment on above: Performed By: #### C MP #### [facility] [address] [place] [address] Dr. Octavio Hagen Hemoglobin (Bld) [Mass/Vol] 16.8 g/dL Normal 14.0-18.0 [facility] Comment on above: Performed By: #### C MP #### [facility] [address] [place] [address] Dr. Octavio Hagen IG # 0.18 10e3/ul Critically high 0.00-0.03 [facility] Comment on above: Performed By: #### C MP #### [facility] [address] [place] [address] Dr. Octavio Hagen IG % 2.0 % Critically high 0.0-0.5 [facility] Comment on above: Performed By: #### C MP #### [facility] [address] [place] [address] Dr. Octavio Hagen LYMPH # 1.8 103/ul Normal 1.2-3.8 [facility] Comment on above: Performed By: #### C MP #### [facility] [address] [place] [address] Dr. Octavio Hagen Lymphocytes/100 WBC (Bld) 19.0 % Critically low 20.5-60.0 [facility] Comment on above: Performed By: #### C MP #### [facility] [address] [place] [address] Dr. Octavio Hagen MANUAL DIFF REQ NO Normal [facility] Comment on above: Performed By: #### C MP #### [facility] [address] [place] [address] Dr. Octavio Hagen MCH (RBC) [Entitic mass] 28.5 pg Normal 25.9-34.0 [facility] Comment on above: Performed By: #### C MP #### [facility] [address] [place] [address] Dr. Octavio Hagen MCHC (RBC) [Mass/Vol] 33.5 g/dL Normal 29.9-35.2 [facility] Comment on above: Performed By: #### C MP #### [facility] [address] [place] [address] Dr. Octvaio Hagen MCV (RBC) [Entitic vol] 84.9 fL Normal 80.0-94.0 [facility] Comment on above: Performed By: #### C MP #### [facility] [address] [place] [address] Dr. Octavio Hagen MONO # 0.9 103/ul Critically high 0.3-0.8 [facility] Comment on above: Performed By: #### C MP #### [facility] [address] [place] [address] Dr. Octavio Hagen Monocytes/100 WBC (Bld) 9.6 % Normal 1.7-12.0 [facility] Comment on above: Performed By: #### C MP #### [facility] [address] [place] [address] Dr. Octavio Hagen NEUT # 6.1 103/ul Normal 1.4-6.5 [facility] Comment on above: Performed By: #### C MP #### [facility] [address] [place] [address] Dr. Octavio Hagen Neutrophils/100 WBC (Bld) 66.4 % Normal 43.0-75.0 [facility] Comment on above: Performed By: #### C MP #### [facility] [address] [place] [address] Dr. Octavio Hagen Platelet mean volume (Bld) [Entitic vol] 9.2 fL Critically low 9.5-13.5 [facility] Comment on above: Performed By: #### C MP #### [facility] [address] [place] [address] Dr. Octavio Hagen PLT 271 103/ul Normal 150-450 [facility] Comment on above: Performed By: #### C MP #### [facility] [address] [place] [address] Dr. Octavio Hagen RBC 5.90 106/ul Normal 4.70-6.10 [facility] Comment on above: Performed By: #### C MP #### [facility] [address] [place] [address] Dr. Octavio Hagen WBC 9.2 103/ul Normal 4.0-11.0 [facility] Comment on above: Performed By: #### C MP #### [facility] [address] [place] [address] ABD/PELV W CONon [...] by: CECILE ANDRES Date: 2022-09-01 21:33 Normal [facility] CULTURE URINEon 09-01-2022 CULTURE URINE Culture Observations : NO GROWTH. Normal [facility] Comment on above: Performed By: #### C MP #### [facility] [address] [place] [address] Dr. Octavio Hagen ER URINE PROFILEon 3 Bilirubin Ql (U) Negative Normal NEGATIVE [facility] Comment on above: Performed By: #### C BC #### [facility] [address] [place] [address] Dr. Octavio Hagen Clarity (U) CLEAR Normal CLEAR [facility] Comment on above: Performed By: #### C BC #### [facility] [address] [place] [address] Dr. Octavio Hagen Color (U) YELLOW Normal YELLOW [facility] Comment on above: Performed By: #### C BC #### [facility] [address] [place] [address] Dr. Octavio BLOOM A micrscopic examination will be performed if indicated. Normal [facility] Comment on above: Performed By: #### C BC #### [facility] [address] [place] [address] Dr. Octavio Hagen Glucose Ql (U) Negative Normal NEGATIVE [facility] Comment on above: Performed By: #### C BC #### [facility] [address] [place] [address] Dr. Octavio Hagen Hemoglobin Ql (U) Negative Normal NEGATIVE [facility] Comment on above: Performed By: #### C BC #### [facility] [address] [place] [address] Dr. Octavio Hagen Ketones Ql (U) TRACE Abnormal NEGATIVE [facility] Comment on above: Performed By: #### C BC #### [facility] [address] [place] [address] Dr. Octavio Hagen LEUKOCYTES Negative Normal NEGATIVE [facility] Comment on above: Performed By: #### C BC #### [facility] [address] [place] [address] Dr. Octavio Hagen Nitrite Ql (U) Negative Normal NEGATIVE [facility] Comment on above: Performed By: #### C BC #### [facility] [address] [place] [address] Dr. Octavio Hagen pH (U) 6.0 [pH] Normal 5-9 [facility] Comment on above: Performed By: #### C BC #### [facility] [address] [place] [address] Dr. Octavio Hagen Protein (U) [Mass/Vol] 30 mg/dL Abnormal NEGATIVE/ TRACE [facility] Comment on above: Performed By: #### C BC #### [facility] [address] [place] [address] Dr. Octavio Hagen SPEC GRAVITY 1.025 Normal 1.005-<=1.025 [facility] Comment on above: Performed By: #### C BC #### [facility] [address] [place] [address] Dr. Octavio Hagen UR MICRO IND INDICATED Normal [facility] Comment on above: Performed By: #### C BC #### [facility] [address] [place] [address] Dr. Octavio Hagen Urobilinogen Qn (U) 1.0 {Rudi'U}/dL Normal 0.2 - 1.0 [facility] Comment on above: Performed By: #### C BC #### [facility] [address] [place] [address] Dr. Octavio Hagen LACTATE/LACTIC ACIDon 2022 Lactate [Moles/Vol] 1.0 mmol/L Normal 0.4-2.0 [facility] Comment on above: Performed By: #### L ACT #### [facility] [address] [place] [address] Dr. Octavio Hagen LIPASEon 09-01-2022 Lipase [Catalytic activity/Vol] 67.0 U/L Critically low 73.0-393.0 [facility] Comment on above: Performed By: #### C MP, LIPA #### [facility] [address] [place] [address] Dr. Octavio Hagen PROF 14(COMP METB)on 023 Albumin [Mass/Vol] 4.6 g/dL Normal 3.4-5.0 [facility] Comment on above: Performed By: #### C MP, LIPA #### [facility] [address] [place] [address] Dr. Octavio Hagen Albumin/Globulin [Mass ratio] 1.1 {ratio} Normal [facility] Comment on above: Performed By: #### C MP, LIPA #### [facility] [address] [place] [address] Dr. Octavio Hagen ALP [Catalytic activity/Vol] 100 U/L Normal 46-116 [facility] Comment on above: Performed By: #### C MP, LIPA #### [facility] [address] [place] [address] Dr. Octavio Hagen ALT [Catalytic activity/Vol] 49 U/L Normal 16-63 [facility] Comment on above: Performed By: #### C MP, LIPA #### [facility] [address] [place] [address] Dr. Octavio Hagen Anion gap [Moles/Vol] 12.3 mmol/L Normal [facility] Comment on above: Performed By: #### C MP, LIPA #### [facility] [address] [address] [address] Octavio Hagen AST [Catalytic activity/Vol] 32 U/L Normal 15-37 [facility] Comment on above: Performed By: #### C MP, LIPA #### [facility] [address] [address] [address] Octavio Hagen Bilirubin [Mass/Vol] 0.4 mg/dL Normal 0.2-1.0 [facility] Comment on above: Performed By: #### C MP, LIPA #### [facility] [address] [place] [address] Dr. Octavio Hagen Calcium [Mass/Vol] 10.1 mg/dL Normal 8.5-10.1 [facility] Comment on above: Performed By: #### C MP, LIPA #### [facility] [address] [place] [address] Dr. Octavio Hagen Chloride [Moles/Vol] 100 mmol/L Normal 98-107 [facility] Comment on above: Performed By: #### C MP, LIPA #### [facility] [address] [place] [address] Dr. Octavio Hagen CO2 [Moles/Vol] 28.9 mmol/L Normal 21.0-32.0 [facility] Comment on above: Performed By: #### C MP, LIPA #### [facility] [address] [place] [address] Dr. Octavio Hagen Creatinine [Mass/Vol] 1.00 mg/dL Normal 0.70-1.30 [facility] Comment on above: Performed By: #### C MP, LIPA #### [facility] [address] [place] [address] Dr. Octavio Hagen EGFR-AF NAMIBIAN >60 Normal >=60 [facility] Comment on above: Performed By: #### C MP, LIPA #### [facility] [address] [place] [address] Dr. Octavio Hagen EGFR-NON AF NAMIBIAN >60 Normal >=60 [facility] Comment on above: Performed By: #### C MP, LIPA #### [facility] [address] [address] [address] Octavio Hagen Globulin (S) [Mass/Vol] 4.0 g/dL Normal [facility] Comment on above: Performed By: #### C MP, LIPA #### [facility] [address] [address] [address] Octavio Hagen Glucose [Mass/Vol] 105 mg/dL Normal 74-106 [facility] Comment on above: Performed By: #### C MP, LIPA #### [facility] [address] [place] [address] Dr. Octavio Hagen Potassium [Moles/Vol] 4.2 mmol/L Normal 3.5-5.1 [facility] Comment on above: Performed By: #### C MP, LIPA #### [facility] [address] [place] [address] Dr. Octavio Hagen Protein [Mass/Vol] 8.6 g/dL Critically high 6.4-8.2 [facility] Comment on above: Performed By: #### C MP, LIPA #### [facility] [address] [place] [address] Dr. Octavio Hagen Sodium [Moles/Vol] 137 mmol/L Normal 136-145 [facility] Comment on above: Performed By: #### C MP, LIPA #### [facility] [address] [place] [address] Dr. Octavio Hagen Urea nitrogen [Mass/Vol] 13.0 mg/dL Normal 7.0-18.0 [facility] Comment on above: Performed By: #### C MP, LIPA #### [facility] [address] [place] [address] Dr. Octavio Hagen Urea nitrogen/Creatini ne [Mass ratio] 13.0 mg/mg Normal [facility] Comment on above: Performed By: #### C MP, LIPA #### [facility] [address] [place] [address] Dr. Octavio Hagen URINE MICROSCOPIC ONLYon BACTERIA SMALL Abnormal NONE SEEN [facility] Comment on above: Performed By: #### C BC #### [facility] [address] [place] [address] Dr. Octavio Hagen Bacteria identified Cx Nom (U) INDICATED Normal [facility] Comment on above: Performed By: #### C BC #### [facility] [address] [place] [address] Dr. Octavio Hagen CAST NONE SEEN Normal NONE SEEN [facility] Comment on above: Performed By: #### C BC #### [facility] [address] [place] [address] Dr. Octavio Hagen Crystals LM Nom (Urine sed) NONE SEEN Normal NONE SEEN [facility] Comment on above: Performed By: #### C BC #### [facility] [address] [place] [address] Dr. Octavio Hagen Epithelial cells LM Ql (Urine sed) NONE SEEN Normal NONE SEEN /RARE [facility] Comment on above: Performed By: #### C BC #### [facility] [address] [place] [address] Dr. Octavio Hagen MUCOUS LARGE Abnormal NONE SEEN [facility] Comment on above: Performed By: #### C BC #### [facility] [address] [place] [address] Dr. Octavio Hagen RBC 0-2 Normal 0-2 [facility] Comment on above: Performed By: #### C BC #### [facility] [address] [place] [address] Dr. Octavio Hagen WBC 0-2 Abnormal NONE SEEN [facility] Comment on above: Performed By: #### C BC #### [facility] [address] [place] [address] Dr. Octavio Hagen CBC AUTO DIFFon 08-26-2022 BASO # 0.0 103/ul Normal 0.0-0.1 [facility] Comment on above: Performed By: #### C BC #### [facility] [address] [place] [address] Dr. Octavio Hagen Basophils/100 WBC (Bld) 0.3 % Normal 0.2-2.0 [facility] Comment on above: Performed By: #### C BC #### [facility] [address] [place] [address] Dr. Octavio Hagen EO # 0.4 103/ul Normal 0.0-0.7 [facility] Comment on above: Performed By: #### C BC #### [facility] [address] [place] [address] Dr. Octavio Hagen Eosinophils/100 WBC (Bld) 3.3 % Normal 0.9-7.0 [facility] Comment on above: Performed By: #### C BC #### [facility] [address] [place] [address] Dr. Octavio Hagen Erythrocyte distribution width (RBC) [Ratio] 12.6 % Normal 11.0-15.0 [facility] Comment on above: Performed By: #### C BC #### [facility] [address] [place] [address] Dr. Octavio Hagen Hematocrit (Bld) [Volume fraction] 46.1 % Normal 42.0-54.0 [facility] Comment on above: Performed By: #### C BC #### [facility] [address] [place] [address] Dr. Octavio Hagen Hemoglobin (Bld) [Mass/Vol] 15.5 g/dL Normal 14.0-18.0 [facility] Comment on above: Performed By: #### C BC #### [facility] [address] [place] [address] Dr. Octavio Hagen IG # 0.05 10e3/ul Critically high 0.00-0.03 [facility] Comment on above: Performed By: #### C BC #### [facility] [address] [place] [address] Dr. Octavio Hagen IG % 0.4 % Normal 0.0-0.5 [facility] Comment on above: Performed By: #### C BC #### [facility] [address] [place] [address] Dr. Octavio Hagen LYMPH # 2.5 103/ul Normal 1.2-3.8 [facility] Comment on above: Performed By: #### C BC #### [facility] [address] [address] [address] Octavio Hagen Lymphocytes/100 WBC (Bld) 21.1 % Normal 20.5-60.0 [facility] Comment on above: Performed By: #### C BC #### [facility] [address] [address] [address] Octavio Hagen MANUAL DIFF REQ NO Normal [facility] [place] [facility] Comment on above: Performed By: #### C BC #### [facility] [address] [place] [address] Dr. Octavio Hagen MCH (RBC) [Entitic mass] 29.2 pg Normal 25.9-34.0 [facility] Comment on above: Performed By: #### C BC #### [facility] [address] [place] [address] Dr. Octavio Hagen MCHC (RBC) [Mass/Vol] 33.6 g/dL Normal 29.9-35.2 [facility] Comment on above: Performed By: #### C BC #### [facility] [address] [place] [address] Dr. Octavio Hagen MCV (RBC) [Entitic vol] 86.8 fL Normal 80.0-94.0 [facility] Comment on above: Performed By: #### C BC #### [facility] [address] [place] [address] Dr. Octavio Hagen MONO # 0.9 103/ul Critically high 0.3-0.8 [facility] Comment on above: Performed By: #### C BC #### [facility] [address] [place] [address] Dr. Octavio Hagen Monocytes/100 WBC (Bld) 7.9 % Normal 1.7-12.0 [facility] Comment on above: Performed By: #### C BC #### [facility] [address] [place] [address] Dr. Octavio Hagen NEUT # 7.8 103/ul Critically high 1.4-6.5 [facility] Comment on above: Performed By: #### C BC #### [facility] [address] [address] [address] Octavio Hagen Neutrophils/100 WBC (Bld) 67.0 % Normal 43.0-75.0 [facility] Comment on above: Performed By: #### C BC #### [facility] [address] [address] [address] Octavio Hagen Platelet mean volume (Bld) [Entitic vol] 9.4 fL Critically low 9.5-13.5 [facility] Comment on above: Performed By: #### C BC #### [facility] [address] [address] [address] Octavio Hagen PLT 245 103/ul Normal 150-450 [facility] Comment on above: Performed By: #### C BC #### [facility] [address] [place] [address] Dr. Octavio Hagen RBC 5.31 106/ul Normal 4.70-6.10 [facility] Comment on above: Performed By: #### C BC #### [facility] [address] [place] [address] Dr. Octavio Hagen WBC 11.7 103/ul Critically high 4.0-11.0 [facility] Comment on above: Performed By: #### C BC #### [facility] [address] [place] [address] Dr. Octavio Hagen LIPASEon 08-26-2022 Lipase [Catalytic activity/Vol] 63.0 U/L Critically low 73.0-393.0 [facility] Comment on above: Performed By: #### C BC #### [facility] [address] [place] [address] Dr. Octavio Haegn PROF 14(COMP METB)on 023 Albumin [Mass/Vol] 3.9 g/dL Normal 3.4-5.0 [facility] Comment on above: Performed By: #### C BC #### [facility] [address] [place], [place] [id number] Dr. Octavio Hagen Albumin/Globulin [Mass ratio] 1.1 {ratio} Normal [facility] Comment on above: Performed By: #### C BC #### [facility] [address] [place] [address] Dr. Octavio Hagen ALP [Catalytic activity/Vol] 118 U/L Critically high 46-116 [facility] Comment on above: Performed By: #### C BC #### [facility] [address] [place] [address] Dr. Octavio Hagen ALT [Catalytic activity/Vol] 37 U/L Normal 16-63 [facility] Comment on above: Performed By: #### C BC #### [facility] [address] [place] [address] Dr. Octavio Hagen Anion gap [Moles/Vol] 15.1 mmol/L Normal [facility] Comment on above: Performed By: #### C BC #### [facility] [address] [place] [address] Dr. Octavio Hagen AST [Catalytic activity/Vol] 21 U/L Normal 15-37 [facility] Comment on above: Performed By: #### C BC #### [facility] [address] [place] [address] Dr. Octavio Hagen Bilirubin [Mass/Vol] 0.2 mg/dL Normal 0.2-1.0 [facility] Comment on above: Performed By: #### C BC #### [facility] [address] [place] [address] Dr. Octavio Hagen Calcium [Mass/Vol] 8.8 mg/dL Normal 8.5-10.1 [facility] Comment on above: Performed By: #### C BC #### [facility] [address] [place] [address] Dr. Octavio Hagen Chloride [Moles/Vol] 106 mmol/L Normal 98-107 [facility] Comment on above: Performed By: #### C BC #### [facility] [address] [place] [address] Dr. Octavio Hagen CO2 [Moles/Vol] 25.7 mmol/L Normal 21.0-32.0 [facility] Comment on above: Performed By: #### C BC #### [facility] [address] [place] [address] Dr. Octavio Hagen Creatinine [Mass/Vol] 0.96 mg/dL Normal 0.70-1.30 [facility] Comment on above: Performed By: #### C BC #### [facility] [address] [place] [address] Dr. Octavio Hagen EGFR-AF NAMIBIAN >60 Normal >=60 [facility] Comment on above: Performed By: #### C BC #### [facility] [address] [address] [address] Octavio Hagen EGFR-NON AF NAMIBIAN >60 Normal >=60 [facility] Comment on above: Performed By: #### C BC #### [facility] [address] [place] [address] Dr. Octavio Hagen Globulin (S) [Mass/Vol] 3.6 g/dL Normal [facility] Comment on above: Performed By: #### C BC #### [facility] [address] [place] [address] Dr. Octavio Hagen Glucose [Mass/Vol] 110 mg/dL Critically high 74-106 [facility] Comment on above: Performed By: #### C BC #### [facility] [address] [place] [address] Dr. Octavio Hagen Potassium [Moles/Vol] 3.8 mmol/L Normal 3.5-5.1 [facility] Comment on above: Performed By: #### C BC #### [facility] [address] [place] [address] Dr. Octavio Hagen Protein [Mass/Vol] 7.5 g/dL Normal 6.4-8.2 [facility] Comment on above: Performed By: #### C BC #### [facility] [address] [place] [address] Dr. Octavio Hagen Sodium [Moles/Vol] 143 mmol/L Normal 136-145 [facility] Comment on above: Performed By: #### C BC #### [facility] [address] [place] [address] Dr. Octavio Hagen Urea nitrogen [Mass/Vol] 23.0 mg/dL Critically high 7.0-18.0 [facility] Comment on above: Performed By: #### C BC #### [facility] [address] [place], [place] [address] Dr. Octavio Hagen Urea nitrogen/Creatini ne [Mass ratio] 24.0 mg/mg Normal [facility] Comment on above: Performed By: #### C BC #### [facility] [address] [place], [place] [address] Dr. Octavio Hagen XR ABD FLAT UP_PA [...] by: GABE MOURA Date: 2022-08-26 09:27 Normal [facility] XR ANKLE LT MIN 3 Von 2021 [...] by: ASHLY LINDER Date: 2021-11-12 18:41 Normal [facility] COVID/FLU/RSV RT-PCRon 09-11 SARS-CoV-2 (COVID-19) RNA MARCIA+probe Ql (Unsp spec) Negative [facility] Other COVID/FLU/RSV RT-PCR Negative [facility] Other XR foot RT min 3V*on 021 XR foot RT min 3V* [facility] Main [place] [address] [place] [address] XRay Report Signed Patient: Ashly Jamison JR MR#: [id number] : 2000 Acct:[id number] Age/Sex: 20 / M ADM Date: 10/18/20 Loc: [facility] Room: Type: [facility] Attending Dr: Trisha GARCIA Ordering Provider: [...] Miles Swanson M.D.10/18/2020 4:53 PM Dictation Location: [place] [address] Transcribed By: [facility] 10/18/201652 Dictated By: Miles Swanson II, MD 10/18/201651 Signed By: 10/18/201652 [facility] Vital Signs Date Time Vital Sign Value Performing Clinician Facility 08-02-2022 14:00-0400 Body height 170.18 cm Shala Hicks Other [facility] Other 08-02-2022 14:00-0400 Body mass index (BMI) [Ratio] 30.07 kg/m2 Shala Hicks Other [facility] Other 08-02-2022 14:00-0400 Body temperature 100.1 [degF] Shala Hicks Other [facility] Other 08-02-2022 14:00-0400 Body weight 87.09 kg Shala Hicks Other [facility] Other 08-02-2022 14:00-0400 Respiratory rate 18 /min Shala Hicks Other [facility] Other 08-02-2022 14:00-0400 SaO2% (BldA) [Mass fraction] 96 % Shala Hicks Other [facility] Other 09-11-2021 16:25-0400 Body height 170.18 cm Trisha Arteaga Other [facility] Other 09-11-2021 16:25-0400 Body mass index (BMI) [Ratio] 28.03 kg/m2 Trisha Arteaga Other [facility] Other 09-11-2021 16:25-0400 Body temperature 97.6 [degF] Trisha Arteaga Other [facility] Other 09-11-2021 16:25-0400 Body weight 81.19 kg Trisha Arteaga Other [facility] Other 09-11-2021 16:25-0400 Respiratory rate 18 /min Trisha Arteaga Other [facility] Other 09-11-2021 16:25-0400 SaO2% (BldA) [Mass fraction] 96 % Trisha Arteaga Other [facility] Other Encounters Encounter Date Encounter Type Care Provider Facility Start: 09-02-2022 End: 09-04-2022 Evaluation and management of inpatient DR HOFFMAN LISTED REQUEST Facility: Start: 08-26-2022 End: 08-26-[address] LEONELA SMITH . Facility: Start: 08-02-2022 End: 08-02-2022 ambulatory Shala Hicks Other [facility] Other Start: 08-02-2022 Office outpatient visit 15 minutes Shala Hicks [facility] Start: 11-12-2021 End: 11-12-[address] DOCTOR JACKSON Facility:[facility] Start: 09-11-2021 End: 09-11-2021 ambulatory Trisha Arteaga Other [facility] Other Start: 09-11-2021 Office outpatient visit 15 minutes Trisha Arteaga [facility] Start: 02-17-2019 End: 02-17-2019 Emergency department patient visit MARCELL VALENCIA Facility:[facility] Payers Date Payer Category Payer Unknown [id number] 2000 Unknown [id number] [id number] 2000 Unknown [id number] [id number] [id number] 1999 Unknown [id number] [id number] [id number] 1960 Medicaid [id number] 1960 Unknown [id number] Social History Date Type Detail Facility Unknown if ever smoked [facility] Other Sex Assigned At Sex Assigned At Bir th [facility] Other Evaluation note 08-02-2022 Note Date & [...] Dental pain home care material was printed [facility] Other Evaluation note 09-11-2021 Note Date & Type Note Facility 09-11-2021 Evaluation note Encounter Date Diagnosis Assessment Notes August, Cough (ICD-10 - R05.9) August, Allergic sinusitis (ICD-10 - J30.9) [facility] Other History general Narrative - Reported Note Date & Type Note Facility History general Narrative - Reported Type Medical History ADHD Surgical History reconstruction bowel as infant Hospitalization History see above [facility] Other Summary Purpose Family History No Family History Records FoundNo Family History Records FoundNo Family History Records Found Advance Directives No Advanced Directives Records FoundNo Advanced Directives Records FoundNo Advanced Directives Records Found Additional Source Comments (unrecognized sect ion and content) No Status Records FoundNo Status Records FoundNo Status Records Found INFORMATION SOURCE (unrecogn ized section and content) DATE CREATED AUTHOR 03/01/2019 [facility] DATE CREATED AUTHOR AUTHOR'S ORGANIZ ATION 05/24/2021 [facility] DATE CREATED AUTHOR AUTHOR'S ORGANIZ ATION 09/12/2022 [facility] REASON FOR VISIT (unrecogniz ed [...] BE BASED ON THE PRIMARY CLINICAL RECORDS. [facility]. provides no warranty or guarantee of the accuracy or completeness of information in this document.
--- NOTE | 2023-05-25 23:11 | ED.WOUNDLAC1 ---
HPI - Wound/Laceration General Chief Complaint: Wound/Laceration Stated Complaint: wound check Time Seen by Provider: 05/25/23 22:39 Source: patient Mode of arrival: walk-in Limitations: no limitations History of Present Illness HPI narrative: 22-year-old male presents to the emergency department as instructed to have packing removed from his pilonidal abscess. He's been taking his antibiotic and pain medicine and he states that the pain medicine is working. No significant drainage. No fever or vomiting. Related Data Previous Rx's Medication Instructions Recorded cephalexin 500 mg capsule 500 mg PO QID 10 days #40 caps 05/24/23 hydrocodone 5 mg-acetaminophen 325 1 tab PO Q6H PRN pain 5 days #20 05/24/23 mg tablet tabs sulfamethoxazole 800 1 tab PO BID 10 days #20 tabs 05/24/23 mg-trimethoprim 160 mg tablet (Bactrim DS) Allergies Allergy/AdvReac Type Severity Reaction Status Date / Time bismuth subsalicylate Allergy Severe Verified 05/24/23 16:11 [From Pepto-Bismol] Review of Systems ROS Narrative A ten point review of systems is negative except as noted above. PFSH PFSH Social History Smoking status: Current every day smoker Exam Narrative Exam Narrative: Nurses note and vital signs reviewed and patient is not hypoxic. General: The patient appears well and in no apparent distress. Patient is resting comfortably on cart. Skin: Warm, dry, no pallor noted. coccygeal area is examined. I did remove the packing and there is no active drainage. There is less inflammation and there is no erythema today. Head: Normocephalic, atraumatic Eye: Normal conjunctiva, no drainage Ears, Nose, Mouth, and Throat: oral mucosa is moist. Nares patent. Cardiovascular: Regular Rate and Rhythm Respiratory: Patient is in no distress, no accessory muscle use GI: nontender Musculoskeletal: no joint swelling Neurological: A&O, normal speech Psychiatric: Cooperative Constitutional Vital Signs, click to edit/add: Last Vital Signs Temp 98.1 F 05/25/23 22:37 Pulse 61 05/25/23 22:37 Resp 16 05/25/23 22:37 BP 118/70 05/25/23 22:37 Pulse Ox 98 05/25/23 22:37 O2 Del Method Room Air 05/25/23 22:37 Course Vital Signs Vital signs: Vital Signs Temperature 98.1 F 05/25/23 22:37 Pulse Rate 61 05/25/23 22:37 Respiratory Rate 16 05/25/23 22:37 Blood Pressure 118/70 05/25/23 22:37 Pulse Oximetry 98 05/25/23 22:37 Oxygen Delivery Method Room Air 05/25/23 22:37 Temperature 98.1 F 05/25/23 22:37 Pulse Rate 61 05/25/23 22:37 Respiratory Rate 16 05/25/23 22:37 Blood Pressure 118/70 05/25/23 22:37 Pulse Oximetry 98 05/25/23 22:37 Oxygen Delivery Method Room Air 05/25/23 22:37 MDM - Wound/Laceration MDM Narrative Medical decision making narrative: I have removed the packing and it appears to be healing well. He'll continue the antibiotics. Treatment diagnosis and follow-up were discussed with the patient. Differential Diagnosis Differential diagnosis: Likely abscess Discharge Plan Discharge Chief Complaint: Wound/Laceration Clinical Impression: Abscess packing removal Patient Disposition: Home, Self-Care Time of Disposition Decision: 23:10 Condition: Good Mode of Transportation: Private Vehicle Prescriptions / Home Meds: No Action hydrocodone-acetaminophen 5-325 mg tablet 1 tab PO Q6H PRN (Reason: pain) 5 Days Qty: 20 0RF sulfamethoxazole-trimethoprim [Bactrim DS] 800-160 mg tablet 1 tab PO BID 10 Days Qty: 20 0RF cephalexin 500 mg capsule 500 mg PO QID 10 Days Qty: 40 0RF Instructions: Abscess (ED), Abscess Follow-up (ED) Additional Instructions: Soak in warm water for ten minutes four times a day Stand Alone Forms: Portal Instructions Referrals: Physician,Non-Staff, MD [Primary Care Provider] - 1 week
== END 2023-05-25 23:37 | disposition home or self-care (01) ==
PROVIDERS: Emergency Provider Emergency Medicine
DX: Z48.00 Encounter for change or removal of nonsurgical wound dressing (principal); F17.210 Nicotine dependence, cigarettes, uncomplicated
CPT/HCPCS: 99282

== ENCOUNTER 2024-03-09 18:54 | Inpatient (IN) | payer OTHER, SELFPAY ==
[2024-03-09 19:01] VITALS: BP 174/112; PULSE 65; TEMP 36.9; O2SAT 98; BMI 30.4
--- OUTSIDE RECORDS SUMMARY | 2024-03-09 19:01 | XMS_ITS | CCD ---
Author Organization [facility] Care Team Providers Care Cash Surrender Calculator Name Role Phone MARCELL VALENCIA Admitting Unavailable SARAH PYLE Attending Unavailable SELF, REFERRED Referring Unavailable SELF, REFERRED Primary Care Unavailable Trisha Arteaga Unavailable Shala Hicks Unavailable PAY ., DR GIPSON Admitting Unavailable PAY ., DR GIPSON Attending Unavailable REQUEST, NONE LISTED Primary Care Unavaila ble PAY ., DR GIPSON Consulting Unavailable GABE MOURA Consulting Unavailable REQUEST, NONE LISTED Primary Care Unavaila ble SHAIKH Alban GOMEZ Admitting Unavailable SHAIKH Alban GOMEZ Attending Unavailable SHRUTHI ., DR NICKERSON Consulting Unavailable [place], DR ASHLY Warner Consulting Unavailable ERICA MARTINEZ Consulting Unavailable SINCERE, ALEXANDRIA Consulting Unavailable FAREGGIE, RIVERS H Consulting Unavailable SAID, BINOR Consulting Unavailable ANDRES, CECILE Consulting Unavailable SISTER, AMPARO Consulting Unavailable TAMLYN ., ANTHONY Consulting Unavailable HEGG, ASHLEY Consulting Unavailable [facility] [place] MONSALVE Primary Care Unavailable HAY ., DR MINER Admitting Unavailable HAY ., DR MINER Attending Unavailable ERICA MARTINEZ Consulting Unavailable ASHLY LINDER Consulting Unavailable Allergies Allergy Classification Reported Allergen(s) Allergy Type Date of Onset Reaction(s) Facility (2 sources) bismuth subsalicylate Drug Allergy [employer] Other (1 source) bismuth subsalicylate Drug Allergy 1 [facility] Repository Medications Current Medications Medication Drug [...] 11-13-2021 Episodic Other aftercare (1 source) Other fdc (current) drug therapy; Translations: [OTH STORE CUSTODIAN CURRENT DRUG THERAPY] Onset: 11-13-2021 Episodic Other [...] 09-04-2022 BASO # 0.0 103/ul Normal 0.0-0.1 [facility] Comment on above: Performed By: #### C BC #### [facility] [address] [place] [address] Dr. Octavio Hagen Basophils/100 WBC (Bld) 0.2 % Normal 0.2-2.0 [facility] Comment on above: Performed By: #### C BC #### [facility] [address] [address] [address] Octavio Hagen EO # 0.3 103/ul Normal 0.0-0.7 [facility] Comment on above: Performed By: #### C BC #### [facility] [address] [address] [address] Octavio Hagen Eosinophils/100 WBC (Bld) 2.8 % Normal 0.9-7.0 [facility] Comment on above: Performed By: #### C BC #### [facility] [address] [address] [address] Octavio Hagen Erythrocyte distribution width (RBC) [Ratio] 12.4 % Normal 11.0-15.0 [facility] Comment on above: Performed By: #### C BC #### [facility] [address] [address] [address] Octavio Hagen Hematocrit (Bld) [Volume fraction] 41.0 % Critically low 42.0-54.0 [facility] Comment on above: Performed By: #### C BC #### [facility] [address] [address] [address] Octavio Hagen Hemoglobin (Bld) [Mass/Vol] 13.6 g/dL Critically low 14.0-18.0 [facility] Comment on above: Performed By: #### C BC #### [facility] [address] [place] [address] Dr. Octavio Hagen IG # 0.04 10e3/ul Critically high 0.00-0.03 [facility] Comment on above: Performed By: #### C BC #### [facility] [address] [place] [address] Dr. Octavio Hagen IG % 0.4 % Normal 0.0-0.5 [facility] Comment on above: Performed By: #### C BC #### [facility] [address] [place] [address] Dr. Octavio Hagen LYMPH # 1.4 103/ul Normal 1.2-3.8 [facility] Comment on above: Performed By: #### C BC #### [facility] [address] [place] [address] Dr. Octavio Hagen Lymphocytes/100 WBC (Bld) 15.5 % Critically low 20.5-60.0 [facility] Comment on above: Performed By: #### C BC #### [facility] [address] [place] [address] Dr. Octavio Hagen MANUAL DIFF REQ NO Normal [facility] Comment on above: Performed By: #### C BC #### [facility] [address] [place] [address] Dr. Octavio Hagen MCH (RBC) [Entitic mass] 28.6 pg Normal 25.9-34.0 [facility] Comment on above: Performed By: #### C BC #### [facility] [address] [place] [address] Dr. Octavio Hagen MCHC (RBC) [Mass/Vol] 33.2 g/dL Normal 29.9-35.2 [facility] Comment on above: Performed By: #### C BC #### [facility] [address] [place] [address] Dr. Octavio Hagen MCV (RBC) [Entitic vol] 86.3 fL Normal 80.0-94.0 [facility] Comment on above: Performed By: #### C BC #### [facility] [address] [address] [address] Octavio Hagen MONO # 1.0 103/ul Critically high 0.3-0.8 [facility] Comment on above: Performed By: #### C BC #### [facility] [address] [address] [address] Octavio Hagen Monocytes/100 WBC (Bld) 11.1 % Normal 1.7-12.0 [facility] Comment on above: Performed By: #### C BC #### [facility] [address] [place] [address] Dr. Octavio Hagen NEUT # 6.3 103/ul Normal 1.4-6.5 [facility] Comment on above: Performed By: #### C BC #### [facility] [address] [place] [address] Dr. Octavio Hagen Neutrophils/100 WBC (Bld) 70.0 % Normal 43.0-75.0 [facility] Comment on above: Performed By: #### C BC #### [facility] [address] [place] [address] Dr. Octavio Hagen Platelet mean volume (Bld) [Entitic vol] 8.9 fL Critically low 9.5-13.5 [facility] Comment on above: Performed By: #### C BC #### [facility] [address] [place] [address] Dr. Octavio Hagen PLT 221 103/ul Normal 150-450 [facility] Comment on above: Performed By: #### C BC #### [facility] [address] [place] [address] Dr. Octavio Hagen RBC 4.75 106/ul Normal 4.70-6.10 [facility] Comment on above: Performed By: #### C BC #### [facility] [address] [place] [address] Dr. Octavio Hagen WBC 9.0 103/ul Normal 4.0-11.0 [facility] Comment on above: Performed By: #### C BC #### [facility] [address] [place] [address] Dr. Octavio Hagen PROF 14(COMP METB)on 023 Albumin [Mass/Vol] 3.4 g/dL Normal 3.4-5.0 [facility] Comment on above: Performed By: #### C MP #### [facility] [address] [place] [address] Dr. Octavio Hagen Albumin/Globulin [Mass ratio] 0.9 {ratio} Normal [facility] Comment on above: Performed By: #### C MP #### [facility] [address] [place] [address] Dr. Octavio Hagen ALP [Catalytic activity/Vol] 77 U/L Normal 46-116 [facility] Comment on above: Performed By: #### C MP #### [facility] [address] [place] [address] Dr. Octavio Hagen ALT [Catalytic activity/Vol] 36 U/L Normal 16-63 [facility] Comment on above: Performed By: #### C MP #### [facility] [address] [place] [address] Dr. Octavio Hagen Anion gap [Moles/Vol] 11.4 mmol/L Normal [facility] Comment on above: Performed By: #### C MP #### [facility] [address] [place] [address] Dr. Octavio Hagen AST [Catalytic activity/Vol] 22 U/L Normal 15-37 [facility] Comment on above: Performed By: #### C MP #### [facility] [address] [place] [address] Dr. Octavio Hagen Bilirubin [Mass/Vol] 0.6 mg/dL Normal 0.2-1.0 [facility] Comment on above: Performed By: #### C MP #### [facility] [address] [place] [address] Dr. Octavio Hagen Calcium [Mass/Vol] 8.9 mg/dL Normal 8.5-10.1 [facility] Comment on above: Performed By: #### C MP #### [facility] [address] [address] [address] Octavio Hagen Chloride [Moles/Vol] 104 mmol/L Normal 98-107 [facility] Comment on above: Performed By: #### C MP #### [facility] [address] [address] [address] Octavio Hagen CO2 [Moles/Vol] 28.5 mmol/L Normal 21.0-32.0 [facility] Comment on above: Performed By: #### C MP #### [facility] [address] [address] [address] Octavio Hagen Creatinine [Mass/Vol] 1.02 mg/dL Normal 0.70-1.30 [facility] Comment on above: Performed By: #### C MP #### [facility] [address] [place] [address] Dr. Octavio Hagen EGFR-AF MONEGASQUE >60 Normal >=60 [facility] Comment on above: Performed By: #### C MP #### [facility] [address] [place] [address] Dr. Octavio Hagen EGFR-NON AF MONEGASQUE >60 Normal >=60 [facility] Comment on above: Performed By: #### C MP #### [facility] [address] [place] [address] Dr. Octavio Hagen Globulin (S) [Mass/Vol] 3.6 g/dL Normal [facility] Comment on above: Performed By: #### C MP #### [facility] [address] [place] [address] Dr. Octavio Hagen Glucose [Mass/Vol] 100 mg/dL Normal 74-106 [facility] Comment on above: Performed By: #### C MP #### [facility] [address] [place] [address] Dr. Octavio Hagen Potassium [Moles/Vol] 3.9 mmol/L Normal 3.5-5.1 [facility] Comment on above: Performed By: #### C MP #### [facility] [address] [address] [address] Octavio Hagen Protein [Mass/Vol] 7.0 g/dL Normal 6.4-8.2 [facility] Comment on above: Performed By: #### C MP #### [facility] [address] [address] [address] Octavio Hagen Sodium [Moles/Vol] 140 mmol/L Normal 136-145 [facility] Comment on above: Performed By: #### C MP #### [facility] [address] [address] [address] Octavio Hagen Urea nitrogen [Mass/Vol] 8.0 mg/dL Normal 7.0-18.0 [facility] Comment on above: Performed By: #### C MP #### [facility] [address] [address] [address] Octavio Hagen Urea nitrogen/Creatini ne [Mass ratio] 7.8 mg/mg Normal [facility] Comment on above: Performed By: #### C MP #### [facility] [address] [address] [address] Octavio Hagen PTTon 09-04-2022 aPTT Coag (Bld) [Time] 35.2 s Normal 22.3-36.2 [facility] Comment on above: Performed By: #### C MP #### [facility] [address] [place] [address] Dr. Octavio Hagen XR KUB 1 VIEWon [...] in the transverse colon. Electronically authenticated by: MARNIE BROOKS Date: 2022-09-04 06:11 Normal [facility] CBC AUTO DIFFon 09-03-2022 BASO # 0.0 103/ul Normal 0.0-0.1 [facility] Comment on above: Performed By: #### C BC #### [facility] [address] [address] [address] Octavio Hagen Basophils/100 WBC (Bld) 0.4 % Normal 0.2-2.0 [facility] Comment on above: Performed By: #### C BC #### [facility] [address] [place] [address] Dr. Octavio Hagen EO # 0.2 103/ul Normal 0.0-0.7 [facility] Comment on above: Performed By: #### C BC #### [facility] [address] [place] [address] Dr. Octavio Hagen Eosinophils/100 WBC (Bld) 3.3 % Normal 0.9-7.0 [facility] Comment on above: Performed By: #### C BC #### [facility] [address] [place] [address] Dr. Octavio Hagen Erythrocyte distribution width (RBC) [Ratio] 12.9 % Normal 11.0-15.0 [facility] Comment on above: Performed By: #### C BC #### [facility] [address] [place] [address] Dr. Octavio Hagen Hematocrit (Bld) [Volume fraction] 40.0 % Critically low 42.0-54.0 [facility] Comment on above: Performed By: #### C BC #### [facility] [address] [place] [address] Dr. Octavio Hagen Hemoglobin (Bld) [Mass/Vol] 13.4 g/dL Critically low 14.0-18.0 [facility] Comment on above: Performed By: #### C BC #### [facility] [address] [place] [address] Dr. Octavio Hagen IG # 0.03 10e3/ul Normal 0.00-0.03 [facility] Comment on above: Performed By: #### C BC #### [facility] [address] [place] [address] Dr. Octavio Hagen IG % 0.4 % Normal 0.0-0.5 [facility] Comment on above: Performed By: #### C BC #### [facility] [address] [place] [address] Dr. Octavio Hagen LYMPH # 1.6 103/ul Normal 1.2-3.8 [facility] Comment on above: Performed By: #### C BC #### [facility] [address] [place] [address] Dr. Octavio Hagen Lymphocytes/100 WBC (Bld) 22.9 % Normal 20.5-60.0 [facility] Comment on above: Performed By: #### C BC #### [facility] [address] [place] [address] Dr. Octavio Hagen MANUAL DIFF REQ NO Normal [facility] Comment on above: Performed By: #### C BC #### [facility] [address] [place] [address] Dr. Octavio Hagen MCH (RBC) [Entitic mass] 29.2 pg Normal 25.9-34.0 [facility] Comment on above: Performed By: #### C BC #### [facility] [address] [place] [address] Dr. Octavio Hagen MCHC (RBC) [Mass/Vol] 33.5 g/dL Normal 29.9-35.2 [facility] Comment on above: Performed By: #### C BC #### [facility] [address] [place] [address] Dr. Octavio Hagen MCV (RBC) [Entitic vol] 87.1 fL Normal 80.0-94.0 [facility] Comment on above: Performed By: #### C BC #### [facility] [address] [place] [address] Dr. Octavio Hagen MONO # 0.6 103/ul Normal 0.3-0.8 [facility] Comment on above: Performed By: #### C BC #### [facility] [address] [place] [address] Dr. Octavio Hagen Monocytes/100 WBC (Bld) 9.2 % Normal 1.7-12.0 [facility] Comment on above: Performed By: #### C BC #### [facility] [address] [place] [address] Dr. Octavio Hagen NEUT # 4.5 103/ul Normal 1.4-6.5 [facility] Comment on above: Performed By: #### C BC #### [facility] [address] [place] [address] Dr. Octavio Hagen Neutrophils/100 WBC (Bld) 63.8 % Normal 43.0-75.0 [facility] Comment on above: Performed By: #### C BC #### [facility] [address] [place] [address] Dr. Octavio Hagen Platelet mean volume (Bld) [Entitic vol] 9.3 fL Critically low 9.5-13.5 [facility] Comment on above: Performed By: #### C BC #### [facility] [address] [place] [address] Dr. Octavio Hagen PLT 213 103/ul Normal 150-450 [facility] Comment on above: Performed By: #### C BC #### [facility] [address] [place] [address] Dr. Octavio Hagen RBC 4.59 106/ul Critically low 4.70-6.10 [facility] Comment on above: Performed By: #### C BC #### [facility] [address] [place] [address] Dr. Octavio Hagen WBC 7.0 103/ul Normal 4.0-11.0 [facility] Comment on above: Performed By: #### C BC #### [facility] [address] [place] [address] Dr. Octavio Hagen PROF 14(COMP METB)on 023 Albumin [Mass/Vol] 3.4 g/dL Normal 3.4-5.0 [facility] Comment on above: Performed By: #### C MP #### [facility] [address] [place] [address] Dr. Octavio Hagen Albumin/Globulin [Mass ratio] 1.1 {ratio} Normal [facility] Comment on above: Performed By: #### C MP #### [facility] [address] [address] [address] Octavio Hagen ALP [Catalytic activity/Vol] 73 U/L Normal 46-116 [facility] Comment on above: Performed By: #### C MP #### [facility] [address] [address] [address] Octavio Hagen ALT [Catalytic activity/Vol] 35 U/L Normal 16-63 [facility] Comment on above: Performed By: #### C MP #### [facility] [address] [address] [address] Octavio Hagen Anion gap [Moles/Vol] 8.3 mmol/L Normal [facility] Comment on above: Performed By: #### C MP #### [facility] [address] [place] [address] Dr. Octavio Hagen AST [Catalytic activity/Vol] 19 U/L Normal 15-37 [facility] Comment on above: Performed By: #### C MP #### [facility] [address] [place] [address] Dr. Octavio Hagen Bilirubin [Mass/Vol] 0.4 mg/dL Normal 0.2-1.0 [facility] Comment on above: Performed By: #### C MP #### [facility] [address] [place] [address] Dr. Octavio Hagen Calcium [Mass/Vol] 8.5 mg/dL Normal 8.5-10.1 [facility] Comment on above: Performed By: #### C MP #### [facility] [address] [place] [address] Dr. Octavio Hagen Chloride [Moles/Vol] 107 mmol/L Normal 98-107 [facility] Comment on above: Performed By: #### C MP #### [facility] [address] [place] [address] Dr. Octavio Hagen CO2 [Moles/Vol] 30.8 mmol/L Normal 21.0-32.0 [facility] Comment on above: Performed By: #### C MP #### [facility] [address] [place] [address] Dr. Octavio Hagen Creatinine [Mass/Vol] 1.14 mg/dL Normal 0.70-1.30 [facility] Comment on above: Performed By: #### C MP #### [facility] [address] [place] [address] Dr. Octavio Hagen EGFR-AF MONEGASQUE >60 Normal >=60 [facility] Comment on above: Performed By: #### C MP #### [facility] [address] [place] [address] Dr. Octavio Hagen EGFR-NON AF MONEGASQUE >60 Normal >=60 [facility] Comment on above: Performed By: #### C MP #### [facility] [address] [place] [address] Dr. Octavio Hagen Globulin (S) [Mass/Vol] 3.2 g/dL Normal [facility] Comment on above: Performed By: #### C MP #### [facility] [address] [place] [address] Dr. Octavio Hagen Glucose [Mass/Vol] 86 mg/dL Normal 74-106 [facility] Comment on above: Performed By: #### C MP #### [facility] [address] [place] [address] Dr. Octavio Hagen Potassium [Moles/Vol] 4.1 mmol/L Normal 3.5-5.1 [facility] Comment on above: Performed By: #### C MP #### [facility] [address] [place] [address] Dr. Octavio Hagen Protein [Mass/Vol] 6.6 g/dL Normal 6.4-8.2 [facility] Comment on above: Performed By: #### C MP #### [facility] [address] [place] [address] Dr. Octavio Hagen Sodium [Moles/Vol] 142 mmol/L Normal 136-145 [facility] Comment on above: Performed By: #### C MP #### [facility] [address] [place] [address] Dr. Octavio Hagen Urea nitrogen [Mass/Vol] 17.0 mg/dL Normal 7.0-18.0 [facility] Comment on above: Performed By: #### C MP #### [facility] [address] [address] [address] Octavio Hagen Urea nitrogen/Creatini ne [Mass ratio] 14.9 mg/mg Normal [facility] Comment on above: Performed By: #### C MP #### [facility] [address] [address] [address] Octavio Hagen PTTon 09-03-2022 aPTT Coag (Bld) [Time] 36.1 s Normal 22.3-36.2 [facility] Comment on above: Performed By: #### C MP #### [facility] [address] [place] [address] Dr. Octavio Hagen XR KUB 1 VIEWon [...] by: ASHLEY TIERNEY Date: 2022-09-03 06:04 Normal [facility] XR SMALL BOWELon 09-03-2022 XR SMALL BOWEL EXAMINATION: XR SMAL L BOWEL HISTORY: Small bowel obstruction COMPARISON: 09/03/2022 FLUOROSCOPY TIME: Exam performed on the floor. No fluoroscopy utilized. TECHNIQUE: Small bowel series was performed in the usual manner. No per diem interpreter abdominal radiograph was performed. Standard level fluoroscopic [...] ASHLY HERNANDEZ Date: 2022-09-03 17:46 Normal [facility] CBC AUTO DIFFon 09-02-2022 BASO # 0.0 103/ul Normal 0.0-0.1 [facility] Comment on above: Performed By: #### C BC #### [facility] [address] [address] [address] Octavio Hagen Basophils/100 WBC (Bld) 0.4 % Normal 0.2-2.0 [facility] Comment on above: Performed By: #### C BC #### [facility] [address] [address] [address] Octavio Hagen EO # 0.4 103/ul Normal 0.0-0.7 [facility] Comment on above: Performed By: #### C BC #### [facility] [address] [address] [address] Octavio Hagen Eosinophils/100 WBC (Bld) 4.7 % Normal 0.9-7.0 [facility] Comment on above: Performed By: #### C BC #### [facility] [address] [address] [address] Octavio Hagen Erythrocyte distribution width (RBC) [Ratio] 12.7 % Normal 11.0-15.0 [facility] Comment on above: Performed By: #### C BC #### [facility] [address] [address] [address] Octavio Hagen Hematocrit (Bld) [Volume fraction] 44.4 % Normal 42.0-54.0 [facility] Comment on above: Performed By: #### C BC #### [facility] [address] [address] [address] Octavio Haegn Hemoglobin (Bld) [Mass/Vol] 14.8 g/dL Normal 14.0-18.0 [facility] Comment on above: Performed By: #### C BC #### [facility] [address] [address] [address] Octavio Hagen IG # 0.04 10e3/ul Critically high 0.00-0.03 [facility] Comment on above: Performed By: #### C BC #### [facility] [address] [place] [address] Dr. Octavio Hagen IG % 0.5 % Normal 0.0-0.5 [facility] Comment on above: Performed By: #### C BC #### [facility] [address] [place] [address] Dr. Octavio Hagen LYMPH # 2.0 103/ul Normal 1.2-3.8 [facility] Comment on above: Performed By: #### C BC #### [facility] [address] [place] [address] Dr. Octavio Hagen Lymphocytes/100 WBC (Bld) 26.7 % Normal 20.5-60.0 [facility] Comment on above: Performed By: #### C BC #### [facility] [address] [place] [address] Dr. Octavio Hagen MANUAL DIFF REQ NO Normal [facility] Comment on above: Performed By: #### C BC #### [facility] [address] [place] [address] Dr. Octavio Hagen MCH (RBC) [Entitic mass] 28.6 pg Normal 25.9-34.0 [facility] Comment on above: Performed By: #### C BC #### [facility] [address] [place] [address] Dr. Octavio Hagen MCHC (RBC) [Mass/Vol] 33.3 g/dL Normal 29.9-35.2 [facility] Comment on above: Performed By: #### C BC #### [facility] [address] [place] [address] Dr. Octavio Hagen MCV (RBC) [Entitic vol] 85.7 fL Normal 80.0-94.0 [facility] Comment on above: Performed By: #### C BC #### [facility] [address] [place] [address] Dr. Octavio Hagen MONO # 0.9 103/ul Critically high 0.3-0.8 [facility] Comment on above: Performed By: #### C BC #### [facility] [address] [place] [address] Dr. Octavio Hagen Monocytes/100 WBC (Bld) 11.5 % Normal 1.7-12.0 [facility] Comment on above: Performed By: #### C BC #### [facility] [address] [place] [address] Dr. Octavio Hagen NEUT # 4.2 103/ul Normal 1.4-6.5 [facility] Comment on above: Performed By: #### C BC #### [facility] [address] [place] [address] Dr. Octavio Hagen Neutrophils/100 WBC (Bld) 56.2 % Normal 43.0-75.0 [facility] Comment on above: Performed By: #### C BC #### [facility] [address] [place] [address] Dr. Octavio Hagen Platelet mean volume (Bld) [Entitic vol] 9.4 fL Critically low 9.5-13.5 [facility] Comment on above: Performed By: #### C BC #### [facility] [address] [place] [address] Dr. Octavio Hagen PLT 256 103/ul Normal 150-450 [facility] Comment on above: Performed By: #### C BC #### [facility] [address] [place] [address] Dr. Octavio Hagen RBC 5.18 106/ul Normal 4.70-6.10 [facility] Comment on above: Performed By: #### C BC #### [facility] [address] [place] [address] Dr. Octavio Hagen WBC 7.5 103/ul Normal 4.0-11.0 [facility] Comment on above: Performed By: #### C BC #### [facility] [address] [place] [address] Dr. Octavio Hagen PROF 14(COMP METB)on 023 Albumin [Mass/Vol] 3.7 g/dL Normal 3.4-5.0 [facility] Comment on above: Performed By: #### C BC #### [facility] [address] [place] [address] Dr. Octavio Hagen Albumin/Globulin [Mass ratio] 1.1 {ratio} Normal [facility] Comment on above: Performed By: #### C BC #### [facility] [address] [place] [address] Dr. Octavio Hagen ALP [Catalytic activity/Vol] 84 U/L Normal 46-116 [facility] Comment on above: Performed By: #### C BC #### [facility] [address] [place] [address] Dr. Octavio Hagen ALT [Catalytic activity/Vol] 40 U/L Normal 16-63 [facility] Comment on above: Performed By: #### C BC #### [facility] [address] [place] [address] Dr. Octavio Hagen Anion gap [Moles/Vol] 10.9 mmol/L Normal [facility] Comment on above: Performed By: #### C BC #### [facility] [address] [place] [address] Dr. Octavio Hagen AST [Catalytic activity/Vol] 25 U/L Normal 15-37 [facility] Comment on above: Performed By: #### C BC #### [facility] [address] [place] [address] Dr. Octavio Hagen Bilirubin [Mass/Vol] 0.4 mg/dL Normal 0.2-1.0 [facility] Comment on above: Performed By: #### C BC #### [facility] [address] [place] [address] Dr. Octavio Hagen Calcium [Mass/Vol] 9.0 mg/dL Normal 8.5-10.1 [facility] Comment on above: Performed By: #### C BC #### [facility] [address] [place] [address] Dr. Octavio Hagen Chloride [Moles/Vol] 103 mmol/L Normal 98-107 [facility] Comment on above: Performed By: #### C BC #### [facility] [address] [place] [address] Dr. Octavio Hagen CO2 [Moles/Vol] 29.2 mmol/L Normal 21.0-32.0 [facility] Comment on above: Performed By: #### C BC #### [facility] [address] [place] [address] Dr. Otcavio Hagen Creatinine [Mass/Vol] 1.10 mg/dL Normal 0.70-1.30 [facility] Comment on above: Performed By: #### C BC #### [facility] [address] [address] [address] Octavio Hagen EGFR-AF MONEGASQUE >60 Normal >=60 [facility] Comment on above: Performed By: #### C BC #### [facility] [address] [place] [address] Dr. Octavio Hagen EGFR-NON AF MONEGASQUE >60 Normal >=60 [facility] Comment on above: Performed By: #### C BC #### [facility] [address] [place] [address] Dr. Octavio Hagen Globulin (S) [Mass/Vol] 3.4 g/dL Normal [facility] Comment on above: Performed By: #### C BC #### [facility] [address] [place] [address] Dr. Octavio Hagen Glucose [Mass/Vol] 102 mg/dL Normal 74-106 [facility] Comment on above: Performed By: #### C BC #### [facility] [address] [place] [address] Dr. Octavio Hagen Potassium [Moles/Vol] 4.1 mmol/L Normal 3.5-5.1 [facility] Comment on above: Performed By: #### C BC #### [facility] [address] [place] [address] Dr. Octavio Hagen Protein [Mass/Vol] 7.1 g/dL Normal 6.4-8.2 [facility] Comment on above: Performed By: #### C BC #### [facility] [address] [place] [address] Dr. Octavio Hagen Sodium [Moles/Vol] 139 mmol/L Normal 136-145 [facility] Comment on above: Performed By: #### C BC #### [facility] [address] [address] [address] Octavio Hagen Urea nitrogen [Mass/Vol] 15.0 mg/dL Normal 7.0-18.0 [facility] Comment on above: Performed By: #### C BC #### [facility] [address] [place] [address] Dr. Octavio Hagen Urea nitrogen/Creatini ne [Mass ratio] 13.6 mg/mg Normal [facility] Comment on above: Performed By: #### C BC #### [facility] [address] [address] [address] Octavio Hagen PTTon 09-02-2022 aPTT Coag (Bld) [Time] 37.5 s Critically high 22.3-36.2 [facility] Comment on above: Performed By: #### P TT #### [facility] [address] [place] [address] Dr. Octavio Hagen XR ABD FLAT UP_PA [...] [place] POST Date: 2022-09-02 10:04 Normal [facility] CBC AUTO DIFFon 09-01-2022 BASO # 0.0 103/ul Normal 0.0-0.1 [facility] Comment on above: Performed By: #### C MP #### [facility] [address] [address] [address] Octavio Hagen Basophils/100 WBC (Bld) 0.4 % Normal 0.2-2.0 [facility] Comment on above: Performed By: #### C MP #### [facility] [address] [address] [address] Octavio Hagen EO # 0.2 103/ul Normal 0.0-0.7 [facility] Comment on above: Performed By: #### C MP #### [facility] [address] [address] [address] Octavio Hagen Eosinophils/100 WBC (Bld) 2.6 % Normal 0.9-7.0 [facility] Comment on above: Performed By: #### C MP #### [facility] [address] [address] [address] Octavio Hagen Erythrocyte distribution width (RBC) [Ratio] 12.6 % Normal 11.0-15.0 [facility] Comment on above: Performed By: #### C MP #### [facility] [address] [address] [address] Octavio Hagen Hematocrit (Bld) [Volume fraction] 50.1 % Normal 42.0-54.0 [facility] Comment on above: Performed By: #### C MP #### [facility] [address] [address] [address] Octavio Hagen Hemoglobin (Bld) [Mass/Vol] 16.8 g/dL Normal 14.0-18.0 [facility] Comment on above: Performed By: #### C MP #### [facility] [address] [address] [address] Octavio Hagen IG # 0.18 10e3/ul Critically high 0.00-0.03 [facility] Comment on above: Performed By: #### C MP #### [facility] [address] [address] [address] Octavio Hagen IG % 2.0 % Critically high 0.0-0.5 [facility] Comment on above: Performed By: #### C MP #### [facility] [address] [address] [address] Octavio Hagen LYMPH # 1.8 103/ul Normal 1.2-3.8 [facility] Comment on above: Performed By: #### C MP #### [facility] [address] [place] [address] Dr. Octavio Hagen Lymphocytes/100 WBC (Bld) 19.0 % Critically low 20.5-60.0 [facility] Comment on above: Performed By: #### C MP #### [facility] [address] [place] [address] Dr. Octavio Hagen MANUAL DIFF REQ NO Normal [facility] Comment on above: Performed By: #### C MP #### [facility] [address] [place] [address] Dr. Octavio Hagen MCH (RBC) [Entitic mass] 28.5 pg Normal 25.9-34.0 [facility] Comment on above: Performed By: #### C MP #### [facility] [address] [place] [address] Dr. Octavio Hagen MCHC (RBC) [Mass/Vol] 33.5 g/dL Normal 29.9-35.2 [facility] Comment on above: Performed By: #### C MP #### [facility] [address] [place] [address] Dr. Octavio Hagen MCV (RBC) [Entitic vol] 84.9 fL Normal 80.0-94.0 [facility] Comment on above: Performed By: #### C MP #### [facility] [address] [place] [address] Dr. Octavio Hagen MONO # 0.9 103/ul Critically high 0.3-0.8 [facility] Comment on above: Performed By: #### C MP #### [facility] [address] [place] [address] Dr. Octavio Hagen Monocytes/100 WBC (Bld) 9.6 % Normal 1.7-12.0 [facility] Comment on above: Performed By: #### C MP #### [facility] [address] [place] [address] Dr. Octavio Hagen NEUT # 6.1 103/ul Normal 1.4-6.5 [facility] Comment on above: Performed By: #### C MP #### [facility] [address] [place] [address] Dr. Octavio Hagen Neutrophils/100 WBC (Bld) 66.4 % Normal 43.0-75.0 [facility] Comment on above: Performed By: #### C MP #### [facility] [address] [place] [address] Dr. Octavio Hagen Platelet mean volume (Bld) [Entitic vol] 9.2 fL Critically low 9.5-13.5 [facility] Comment on above: Performed By: #### C MP #### [facility] [address] [place] [address] Dr. Octavio Hagen PLT 271 103/ul Normal 150-450 [facility] Comment on above: Performed By: #### C MP #### [facility] [address] [place] [address] Dr. Octavio Hagen RBC 5.90 106/ul Normal 4.70-6.10 [facility] Comment on above: Performed By: #### C MP #### [facility] [address] [place] [address] Dr. Octavio Hagen WBC 9.2 103/ul Normal 4.0-11.0 [facility] Comment on above: Performed By: #### C MP #### [facility] [address] [place] [address] ABD/PELV W CONon 09-02-[address] ABD/PELV W CON EXAMINATION: CT ABD/PELV [...] by: CECILE ANDRES Date: 2022-09-01 21:33 Normal [facility] CULTURE URINEon 09-01-2022 CULTURE URINE Culture Observations : NO GROWTH. Normal [facility] Comment on above: Performed By: #### C MP #### [facility] [address] [place] [address] Dr. Octavio Hagen ER URINE PROFILEon 3 Bilirubin Ql (U) Negative Normal NEGATIVE [facility] Comment on above: Performed By: #### C BC #### [facility] [address] [place] [address] Dr. Octavio Hagen Clarity (U) CLEAR Normal CLEAR [facility] Comment on above: Performed By: #### C BC #### [facility] [address] [place] [address] Dr. Octavio Hagen Color (U) YELLOW Normal YELLOW [facility] Comment on above: Performed By: #### C BC #### [facility] [address] [place] [address] Dr. Octavio BLOOM A micrscopic examination will be performed if indicated. Normal [facility] Comment on above: Performed By: #### C BC #### [facility] [address] [place] [address] Dr. Octavio Hagen Glucose Ql (U) Negative Normal NEGATIVE [facility] Comment on above: Performed By: #### C BC #### [facility] [address] [place] [address] Dr. Octavio Hagen Hemoglobin Ql (U) Negative Normal NEGATIVE [facility] Comment on above: Performed By: #### C BC #### [facility] [address] [place] [address] Dr. Octavio Hagen Ketones Ql (U) TRACE Abnormal NEGATIVE [facility] Comment on above: Performed By: #### C BC #### [facility] [address] [place] [address] Dr. Octavio Hagen LEUKOCYTES Negative Normal NEGATIVE [facility] Comment on above: Performed By: #### C BC #### [facility] [address] [place] [address] Dr. Octavio Hagen Nitrite Ql (U) Negative Normal NEGATIVE [facility] Comment on above: Performed By: #### C BC #### [facility] [address] [place] [address] Dr. Octavio Hagen pH (U) 6.0 [pH] Normal 5-9 [facility] Comment on above: Performed By: #### C BC #### [facility] [address] [place] [address] Dr. Octavio Hagen Protein (U) [Mass/Vol] 30 mg/dL Abnormal NEGATIVE/ TRACE [facility] Comment on above: Performed By: #### C BC #### [facility] [address] [place] [address] Dr. Octavio Hagen SPEC GRAVITY 1.025 Normal 1.005-<=1.025 [facility] Comment on above: Performed By: #### C BC #### [facility] [address] [place] [address] Dr. Octavio Hagen UR MICRO IND INDICATED Normal [facility] Comment on above: Performed By: #### C BC #### [facility] [address] [place] [address] Dr. Octavio Hagen Urobilinogen Qn (U) 1.0 {Rudi'U}/dL Normal 0.2 - 1.0 [facility] Comment on above: Performed By: #### C BC #### [facility] [address] [place] [address] Dr. Octavio Hagen LACTATE/LACTIC ACIDon 2022 Lactate [Moles/Vol] 1.0 mmol/L Normal 0.4-2.0 [facility] Comment on above: Performed By: #### L ACT #### [facility] [address] [place] [address] Dr. Octavio Hagen LIPASEon 09-01-2022 Lipase [Catalytic activity/Vol] 67.0 U/L Critically low 73.0-393.0 [facility] Comment on above: Performed By: #### C MP, LIPA #### [facility] [address] [place] [address] Dr. Octavio Hagen PROF 14(COMP METB)on 023 Albumin [Mass/Vol] 4.6 g/dL Normal 3.4-5.0 [facility] Comment on above: Performed By: #### C MP, LIPA #### [facility] [address] [place] [address] Dr. Octavio Hagen Albumin/Globulin [Mass ratio] 1.1 {ratio} Normal [facility] Comment on above: Performed By: #### C MP, LIPA #### [facility] [address] [place] [address] Dr. Octavio Hagen ALP [Catalytic activity/Vol] 100 U/L Normal 46-116 [facility] Comment on above: Performed By: #### C MP, LIPA #### [facility] [address] [place] [address] Dr. Octavio Hagen ALT [Catalytic activity/Vol] 49 U/L Normal 16-63 [facility] Comment on above: Performed By: #### C MP, LIPA #### [facility] [address] [place] [address] Dr. Octavio Hagen Anion gap [Moles/Vol] 12.3 mmol/L Normal [facility] Comment on above: Performed By: #### C MP, LIPA #### [facility] [address] [place] [address] Dr. Octavio Hagen AST [Catalytic activity/Vol] 32 U/L Normal 15-37 [facility] Comment on above: Performed By: #### C MP, LIPA #### [facility] [address] [place] [address] Dr. Octavio Hagen Bilirubin [Mass/Vol] 0.4 mg/dL Normal 0.2-1.0 [facility] Comment on above: Performed By: #### C MP, LIPA #### [facility] [address] [place] [address] Dr. Octavio Hagen Calcium [Mass/Vol] 10.1 mg/dL Normal 8.5-10.1 [facility] Comment on above: Performed By: #### C MP, LIPA #### [facility] [address] [place] [address] Dr. Octavio Hagen Chloride [Moles/Vol] 100 mmol/L Normal 98-107 [facility] Comment on above: Performed By: #### C MP, LIPA #### [facility] [address] [place] [address] Dr. Octavio Hagen CO2 [Moles/Vol] 28.9 mmol/L Normal 21.0-32.0 [facility] Comment on above: Performed By: #### C MP, LIPA #### [facility] [address] [place] [address] Dr. Octavio Hagen Creatinine [Mass/Vol] 1.00 mg/dL Normal 0.70-1.30 [facility] Comment on above: Performed By: #### C MP, LIPA #### [facility] [address] [place] [address] Dr. Octavio Hagen EGFR-AF MONEGASQUE >60 Normal >=60 [facility] Comment on above: Performed By: #### C MP, LIPA #### [facility] [address] [place] [address] Dr. Octavio Hagen EGFR-NON AF MONEGASQUE >60 Normal >=60 [facility] Comment on above: Performed By: #### C MP, LIPA #### [facility] [address] [address] [address] Octavio Hagen Globulin (S) [Mass/Vol] 4.0 g/dL Normal [facility] Comment on above: Performed By: #### C MP, LIPA #### [facility] [address] [place] [address] Dr. Octavio Hagen Glucose [Mass/Vol] 105 mg/dL Normal 74-106 [facility] Comment on above: Performed By: #### C MP, LIPA #### [facility] [address] [place] [address] Dr. Octavio Hagen Potassium [Moles/Vol] 4.2 mmol/L Normal 3.5-5.1 [facility] Comment on above: Performed By: #### C MP, LIPA #### [facility] [address] [place] [address] Dr. Octavio Hagen Protein [Mass/Vol] 8.6 g/dL Critically high 6.4-8.2 [facility] Comment on above: Performed By: #### C MP, LIPA #### [facility] [address] [place] [address] Dr. Octavio Hagen Sodium [Moles/Vol] 137 mmol/L Normal 136-145 [facility] Comment on above: Performed By: #### C MP, LIPA #### [facility] [address] [place] [address] Dr. Octavio Hagen Urea nitrogen [Mass/Vol] 13.0 mg/dL Normal 7.0-18.0 [facility] Comment on above: Performed By: #### C MP, LIPA #### [facility] [address] [place] [address] Dr. Octavio Hagen Urea nitrogen/Creatini ne [Mass ratio] 13.0 mg/mg Normal [facility] Comment on above: Performed By: #### C MP, LIPA #### [facility] [address] [place] [address] Dr. Octavio Hagen URINE MICROSCOPIC ONLYon BACTERIA SMALL Abnormal NONE SEEN [facility] Comment on above: Performed By: #### C BC #### [facility] [address] [place] [address] Dr. Octavio Hagen Bacteria identified Cx Nom (U) INDICATED Normal [facility] Comment on above: Performed By: #### C BC #### [facility] [address] [place] [address] Dr. Octavio Hagen CAST NONE SEEN Normal NONE SEEN [facility] Comment on above: Performed By: #### C BC #### [facility] [address] [place] [address] Dr. Octavio Hagen Crystals LM Nom (Urine sed) NONE SEEN Normal NONE SEEN [facility] Comment on above: Performed By: #### C BC #### [facility] [address] [place] [address] Dr. Octavio Hagen Epithelial cells LM Ql (Urine sed) NONE SEEN Normal NONE SEEN /RARE [facility] Comment on above: Performed By: #### C BC #### [facility] [address] [place] [address] Dr. Octavio Hagen MUCOUS LARGE Abnormal NONE SEEN [facility] Comment on above: Performed By: #### C BC #### [facility] [address] [place] [address] Dr. Octavio Hagen RBC 0-2 Normal 0-2 [facility] Comment on above: Performed By: #### C BC #### [facility] [address] [place] [address] Dr. Octavio Hagen WBC 0-2 Abnormal NONE SEEN [facility] Comment on above: Performed By: #### C BC #### [facility] [address] [place] [address] Dr. Octavio Hagen CBC AUTO DIFFon 08-26-2022 BASO # 0.0 103/ul Normal 0.0-0.1 [facility] Comment on above: Performed By: #### C BC #### [facility] [address] [place] [address] Dr. Octavio Hagen Basophils/100 WBC (Bld) 0.3 % Normal 0.2-2.0 [facility] Comment on above: Performed By: #### C BC #### [facility] [address] [place] [address] Dr. Octavio Hagen EO # 0.4 103/ul Normal 0.0-0.7 [facility] Comment on above: Performed By: #### C BC #### [facility] [address] [place] [address] Dr. Octavio Hagen Eosinophils/100 WBC (Bld) 3.3 % Normal 0.9-7.0 [facility] Comment on above: Performed By: #### C BC #### [facility] [address] [place] [address] Dr. Octavio Hagen Erythrocyte distribution width (RBC) [Ratio] 12.6 % Normal 11.0-15.0 [facility] Comment on above: Performed By: #### C BC #### [facility] [address] [place] [address] Dr. Octavio Hagen Hematocrit (Bld) [Volume fraction] 46.1 % Normal 42.0-54.0 [facility] Comment on above: Performed By: #### C BC #### [facility] [address] [place] [address] Dr. Octavio Hagen Hemoglobin (Bld) [Mass/Vol] 15.5 g/dL Normal 14.0-18.0 [facility] Comment on above: Performed By: #### C BC #### [facility] [address] [place] [address] Dr. Octavio Hagen IG # 0.05 10e3/ul Critically high 0.00-0.03 [facility] Comment on above: Performed By: #### C BC #### [facility] [address] [place] [address] Dr. Octavio Hagen IG % 0.4 % Normal 0.0-0.5 [facility] Comment on above: Performed By: #### C BC #### [facility] [address] [place] [address] Dr. Octavio Hagen LYMPH # 2.5 103/ul Normal 1.2-3.8 [facility] Comment on above: Performed By: #### C BC #### [facility] [address] [place] [address] Dr. Octavio Hagen Lymphocytes/100 WBC (Bld) 21.1 % Normal 20.5-60.0 [facility] Comment on above: Performed By: #### C BC #### [facility] [address] [place] [address] Dr. Octavio Hagen MANUAL DIFF REQ NO Normal [facility] Comment on above: Performed By: #### C BC #### [facility] [address] [place] [address] Dr. Octavio Hagen MCH (RBC) [Entitic mass] 29.2 pg Normal 25.9-34.0 [facility] Comment on above: Performed By: #### C BC #### [facility] [address] [place] [address] Dr. Octavio Hagen MCHC (RBC) [Mass/Vol] 33.6 g/dL Normal 29.9-35.2 [facility] Comment on above: Performed By: #### C BC #### [facility] [address] [place] [address] Dr. Octavio Hagen MCV (RBC) [Entitic vol] 86.8 fL Normal 80.0-94.0 [facility] Comment on above: Performed By: #### C BC #### [facility] [address] [place] [address] Dr. Octavio Hagen MONO # 0.9 103/ul Critically high 0.3-0.8 [facility] Comment on above: Performed By: #### C BC #### [facility] [address] [place] [address] Dr. Octavio Hagen Monocytes/100 WBC (Bld) 7.9 % Normal 1.7-12.0 [facility] Comment on above: Performed By: #### C BC #### [facility] [address] [place] [address] Dr. Octavio Hagen NEUT # 7.8 103/ul Critically high 1.4-6.5 [facility] Comment on above: Performed By: #### C BC #### [facility] [address] [place] [address] Dr. Octavio Hagen Neutrophils/100 WBC (Bld) 67.0 % Normal 43.0-75.0 [facility] Comment on above: Performed By: #### C BC #### [facility] [address] [place] [address] Dr. Octavio Hagen Platelet mean volume (Bld) [Entitic vol] 9.4 fL Critically low 9.5-13.5 [facility] Comment on above: Performed By: #### C BC #### [facility] [address] [place] [address] Dr. Octavio Hagen PLT 245 103/ul Normal 150-450 [facility] Comment on above: Performed By: #### C BC #### [facility] [address] [place] [address] Dr. Octavio Hagen RBC 5.31 106/ul Normal 4.70-6.10 [facility] Comment on above: Performed By: #### C BC #### [facility] [address] [place] [address] Dr. Octavio Hagen WBC 11.7 103/ul Critically high 4.0-11.0 [facility] Comment on above: Performed By: #### C BC #### [facility] [address] [place] [address] Dr. Octavio Hagen LIPASEon 08-26-2022 Lipase [Catalytic activity/Vol] 63.0 U/L Critically low 73.0-393.0 [facility] Comment on above: Performed By: #### C BC #### [facility] [address] [place] [address] Dr. Octavio Hagen PROF 14(COMP METB)on 023 Albumin [Mass/Vol] 3.9 g/dL Normal 3.4-5.0 [facility] Comment on above: Performed By: #### C BC #### [facility] [address] [place] [address] Dr. Octavio Hagen Albumin/Globulin [Mass ratio] 1.1 {ratio} Normal [facility] Comment on above: Performed By: #### C BC #### [facility] [address] [place] [address] Dr. Octavio Hagen ALP [Catalytic activity/Vol] 118 U/L Critically high 46-116 [facility] Comment on above: Performed By: #### C BC #### [facility] [address] [address] [address] Octavio Hagen ALT [Catalytic activity/Vol] 37 U/L Normal 16-63 [facility] Comment on above: Performed By: #### C BC #### [facility] [address] [address] [address] Octavio Hagen Anion gap [Moles/Vol] 15.1 mmol/L Normal [facility] Comment on above: Performed By: #### C BC #### [facility] [address] [place] [address] Dr. Octavio Hagen AST [Catalytic activity/Vol] 21 U/L Normal 15-37 [facility] Comment on above: Performed By: #### C BC #### [facility] [address] [place] [address] Dr. Octavio Hagen Bilirubin [Mass/Vol] 0.2 mg/dL Normal 0.2-1.0 [facility] Comment on above: Performed By: #### C BC #### [facility] [address] [place] [address] Dr. Octavio Hagen Calcium [Mass/Vol] 8.8 mg/dL Normal 8.5-10.1 [facility] Comment on above: Performed By: #### C BC #### [facility] [address] [place] [address] Dr. Octavio Hagen Chloride [Moles/Vol] 106 mmol/L Normal 98-107 [facility] Comment on above: Performed By: #### C BC #### [facility] [address] [address] [address] Octavio Hagen CO2 [Moles/Vol] 25.7 mmol/L Normal 21.0-32.0 [facility] Comment on above: Performed By: #### C BC #### [facility] [address] [place] [address] Dr. Octavio Hagen Creatinine [Mass/Vol] 0.96 mg/dL Normal 0.70-1.30 [facility] Comment on above: Performed By: #### C BC #### [facility] [address] [place] [address] Dr. Octavio Hagen EGFR-AF MONEGASQUE >60 Normal >=60 [facility] Comment on above: Performed By: #### C BC #### [facility] [address] [address] [address] Octavio Hagen EGFR-NON AF MONEGASQUE >60 Normal >=60 [facility] Comment on above: Performed By: #### C BC #### [facility] [address] [address] [address] Octavio Hagen Globulin (S) [Mass/Vol] 3.6 g/dL Normal [facility] Comment on above: Performed By: #### C BC #### [facility] [address] [place] [address] Dr. Octavio Hagen Glucose [Mass/Vol] 110 mg/dL Critically high 74-106 [facility] Comment on above: Performed By: #### C BC #### [facility] [address] [place] [address] Dr. Octavio Hagen Potassium [Moles/Vol] 3.8 mmol/L Normal 3.5-5.1 [facility] Comment on above: Performed By: #### C BC #### [facility] [address] [place] [address] Dr. Octavio Hagen Protein [Mass/Vol] 7.5 g/dL Normal 6.4-8.2 [facility] Comment on above: Performed By: #### C BC #### [facility] [address] [place] [address] Dr. Octavio Hagen Sodium [Moles/Vol] 143 mmol/L Normal 136-145 [facility] Comment on above: Performed By: #### C BC #### [facility] [address] [place] [address] Dr. Octavio Hagen Urea nitrogen [Mass/Vol] 23.0 mg/dL Critically high 7.0-18.0 [facility] Comment on above: Performed By: #### C BC #### [facility] [address] [place], [place] [address] Dr. Octavio Hagen Urea nitrogen/Creatini ne [Mass ratio] 24.0 mg/mg Normal [facility] Comment on above: Performed By: #### C BC #### [facility] [address] [place], [place] [address] Dr. Octavio Hagen XR ABD FLAT UP_PA [...] by: GABE MOURA Date: 2022-08-26 09:27 Normal [facility] XR ANKLE LT MIN 3 Von [...] by: ASHLY LINDER Date: 2021-11-12 18:41 Normal [facility] COVID/FLU/RSV RT-PCRon 09-11 SARS-CoV-2 (COVID-19) RNA MARCIA+probe Ql (Unsp spec) Negative [facility] Other COVID/FLU/RSV RT-PCR Negative [facility] Other XR foot RT min 3V*on 021 XR foot RT min 3V* [facility] [place] [address] [place] [address] XRay Report Signed Patient: Ashly Jamison JR MR#: [id number] : 2000 Acct:[id number] Age/Sex: 20 / M ADM Date: 10/18/20 Loc: XDUCLY Room: Type: [facility] Attending Dr: Trisha GARCIA Ordering Provider: [...] Miles Swanson M.D.10/18/2020 4:53 PM Dictation Location: [place] [address] Transcribed By: [facility] 10/18/201652 Dictated By: Miles Swanson II, MD 10/18/201651 Signed By: 10/18/201652 [facility] Vital Signs Date Time Vital Sign Value Performing Clinician Facility 08-02-2022 14:00-0400 Body height 170.18 cm Shala Hicks Other [facility] Other 08-02-2022 14:00-0400 Body mass index (BMI) [Ratio] 30.07 kg/m2 Shala Hicks Other [facility] Other 08-02-2022 14:00-0400 Body temperature 100.1 [degF] Shala Hicks Other [facility] Other 08-02-2022 14:00-0400 Body weight 87.09 kg Sahla Hicks Other [facility] Other 08-02-2022 14:00-0400 Respiratory rate 18 /min Shala Hicks Other [facility] Other 08-02-2022 14:00-0400 SaO2% (BldA) [Mass fraction] 96 % Shala Hicks Other [facility] Other 09-11-2021 16:25-0400 Body height 170.18 cm Trisha Arteaga Other [facility] Other 09-11-2021 16:25-0400 Body mass index (BMI) [Ratio] 28.03 kg/m2 Trisha Arteaga Other [facility] Other 09-11-2021 16:25-0400 Body temperature 97.6 [degF] Trisha Arteaga Other [facility] Other 09-11-2021 16:25-0400 Body weight 81.19 kg Trisha Arteaga Other [facility] Other 09-11-2021 16:25-0400 Respiratory rate 18 /min Trisha Arteaga Other [facility] Other 09-11-2021 16:25-0400 SaO2% (BldA) [Mass fraction] 96 % Trisha Arteaga Other [facility] Other Encounters Encounter Date Encounter Type Care Provider Facility Start: 09-02-2022 End: 09-04-2022 Evaluation and management of inpatient DR HOFFMAN LISTED REQUEST Facility:[facility] Start: 08-26-2022 End: 08-26-[address] LEONELA SMITH . Facility:[facility] Start: 08-02-2022 End: 08-02-2022 ambulatory Shala Hicks Other [facility] Other Start: 08-02-2022 Office outpatient visit 15 minutes Shala Hicks [facility] Start: 11-12-2021 End: 11-12-[address] DOCTOR JACKSON Facility:[facility] Start: 09-11-2021 End: 09-11-2021 ambulatory Trisha Arteaga Other [facility] Other Start: 09-11-2021 Office outpatient visit 15 minutes Trisha Arteaga [facility] Start: 02-17-2019 End: 02-17-2019 Emergency department patient visit MARCELL VALENCIA Facility:[facility] Payers Date Payer Category Payer Unknown [id number] [id number] 2000 Unknown [id number] [id number] [id number] 2000 Unknown [id number] [id number] [id number] 1999 Unknown [id number] 2.16.84 [id number] 1960 Medicaid [id number] 1960 Unknown [id number] Social History Date Type Detail Facility Unknown if ever smoked [facility] Other Sex Assigned At Sex Assigned At Bir th [facility] Other Evaluation note 08-02-2022 Note Date & [...] Dental pain home care material was printed [facility] Other Evaluation note 09-11-2021 Note Date & Type Note Facility 09-11-2021 Evaluation note Encounter Date Diagnosis Assessment Notes August, Cough (ICD-10 - R05.9) August, Allergic sinusitis (ICD-10 - J30.9) [facility] Other History general Narrative - Reported Note Date & Type Note Facility History general Narrative - Reported Type Medical History ADHD Surgical History reconstruction bowel as Hospitalization History see above [facility] Other Summary Purpose Family History No Family History Records FoundNo Family History Records FoundNo Family History Records Found Advance Directives No Advanced Directives Records FoundNo Advanced Directives Records FoundNo Advanced Directives Records Found Additional Source Comments (unrecognized sect ion and content) No Status Records FoundNo Status Records FoundNo Status Records Found INFORMATION SOURCE (unrecogn ized section and content) DATE CREATED AUTHOR 03/01/2019 [facility] DATE CREATED AUTHOR AUTHOR'S ORGANIZ ATION 05/24/2021 [facility] DATE CREATED AUTHOR AUTHOR'S ORGANIZ ATION 09/12/2022 [facility] REASON FOR VISIT (unrecogniz ed [...] BE BASED ON THE PRIMARY CLINICAL RECORDS. [employer] provides no warranty or guarantee of the accuracy or completeness of information in this document.
[2024-03-09 19:13] VITALS: O2SAT 98
--- NOTE | 2024-03-09 19:20 | ED_ITS ---
Documented by User: Mayo Rondon 03/09/24 21:54 HPI - Abdominal Pain General Chief Complaint: Abdominal Pain Stated Complaint: abdominal pain Time Seen by Provider: 03/09/24 19:18 Source: patient Mode of arrival: walk-in Limitations: no limitations History of Present Illness HPI narrative: 23 year old male presents to the ED for left-sided abd pain. Onset was today. Denies fever, chills, injury, N/V. Reports loose stools earlier today. He last passed gas within the past 1-2 hours. He has hx SBO. 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 Related Data Home Medications ?Medication ?Instructions ?Recorded ?Confirmed No Known Home Medications 03/09/24 03/09/24 Allergies Allergy/AdvReac Type Severity Reaction Status Date / Time bismuth subsalicylate (From Allergy Severe Hives Verified 03/09/24 19:08 Pepto-Bismol) Review of Systems ROS Constitutional Denies: fever or chills Ears, nose, mouth, and throat Denies: throat pain Cardiovascular Denies: chest pain Respiratory Denies: shortness of breath or cough Gastrointestinal Reports: abdominal pain and diarrhea; Denies: nausea or vomiting Genitourinary Denies: painful urination, urinary frequency, urinary urgency or blood in urine Musculoskeletal Denies: back pain Integumentary/Breast Denies: rash Neurological Denies: headache PFSH PFSH Social History Smoking status: Current every day smoker Exam Constitutional Vital Signs, click to edit/add: Last Vital Signs Temp 98.5 F 03/09/24 19:01 Pulse 65 03/09/24 19:01 Resp 20 03/09/24 19:01 BP 174/112 H 03/09/24 19:01 Pulse Ox 98 03/09/24 19:13 O2 Del Method Room Air 03/09/24 19:13 Common normals: no apparent distress and oriented x3 General appearance: cooperative Eye Common normals: conjunctivae normal and no scleral icterus Neck & C-Spine Common normals: supple Chest Chest: symmetrical chest wall rise Cardio Common normals: regular rate and regular rhythm GI Common normals: Normal to inspection, nondistended, normoactive bowel sounds present and soft to palpation Auscultation: normoactive bowel sounds Palpation: tender (Generalized) Neuro Sensorium/orientation: awake and alert Speech: speech normal Course Vital Signs Vital signs: Vital Signs Temperature 98.5 F 03/09/24 19:01 Pulse Rate 65 03/09/24 19:01 Respiratory Rate 20 03/09/24 19:01 Blood Pressure 174/112 H 03/09/24 19:01 Pulse Oximetry 98 03/09/24 19:01 Oxygen Delivery Method Room Air 03/09/24 19:01 Temperature 98.5 F 03/09/24 19:01 Pulse Rate 65 03/09/24 19:01 Respiratory Rate 20 03/09/24 19:01 Blood Pressure 174/112 H 03/09/24 19:01 Pulse Oximetry 98 03/09/24 19:13 Oxygen Delivery Method Room Air 03/09/24 19:13 MDM - Abdominal Pain MDM Narrative Medical decision making narrative: WBC count was 11.4. CT scan was pending. Care was resumed to Dr. Goins. See her dictation for further evaluation and treatment. Medical Records Attestation: I reviewed the patient's medical records. Lab Data Attestation: I reviewed the patient's lab results. Labs: Lab Results 03/09/24 03/09/24 Range/Units 19:29 20:25 WBC 11.4 H (4.0-11.0) 10^3/uL RBC 5.32 (4.70-6.10) 10^6/uL Hgb 15.6 (14.0-18.0) g/dL Hct 45.3 (42.0-54.0) % MCV 85.2 (80.0-94.0) fL MCH 29.3 (25.9-34.0) pg MCHC 34.4 (29.9-35.2) g/dL RDW 12.6 (11.0-15.0) % Plt Count 280 (150-450) 10^3/uL MPV 9.6 (9.5-13.5) fL Neut % (Auto) 73.6 (43.0-75.0) % Lymph % (Auto) 15.8 L (20.5-60.0) % Gaines % (Auto) 6.9 (1.7-12.0) % Eos % (Auto) 2.9 (0.9-7.0) % Baso % (Auto) 0.4 (0.2-2.0) % Neut # (Auto) 8.4 H (1.4-6.5) 10^3/uL Lymph # (Auto) 1.8 (1.2-3.8) 10^3/uL Gaines # (Auto) 0.8 (0.3-0.8) 10^3/uL Eos # (Auto) 0.3 (0.0-0.7) 10^3/uL Baso # (Auto) 0.0 (0.0-0.1) 10^3/uL Abs Immat Gran (auto) 0.05 H (0.00-0.03) 10^3/uL Imm/Tot Granulo (auto) 0.4 (0.0-0.5) % Sodium 141 (136-145) mmol/L Potassium 3.7 (3.5-5.1) mmol/L Chloride 105 (98-107) mmol/L Carbon Dioxide 24.5 (21.0-32.0) mmol/L Anion Gap 15.2 BUN 12.0 (7.0-18.0) mg/dL Creatinine 1.32 H (0.70-1.30) mg/dL Est GFR ( Amer) >60 (>=60 mL/min/1.73m^2) Est GFR (Non-Af Amer) >60 (>=60 mL/min/1.73m^2) BUN/Creatinine Ratio 9.1 Glucose 110 H (74-106) mg/dL Calcium 9.4 (8.5-10.1) mg/dL Total Bilirubin 0.4 (0.2-1.0) mg/dL AST 18 (15-37) U/L ALT 22 (16-63) U/L Alkaline Phosphatase 79 (46-116) U/L Total Protein 7.8 (6.4-8.2) g/dL Albumin 4.3 (3.4-5.0) g/dL Globulin 3.5 g/dL Albumin/Globulin Ratio 1.2 Lipase 16.0 (16.0-77.0) U/L Urine Color Yellow (YELLOW) Urine Clarity Clear (CLEAR) Urine pH 6.0 (5.0-9.0) Ur Specific Elbert 1.025 (1.005-1.025) Urine Protein Negative (NEG/TRACE) mg/dL Urine Glucose (UA) Negative (NEGATIVE) mg/dL Urine Ketones Negative (NEGATIVE) mg/dL Urine Occult Blood Negative (NEGATIVE) Urine Nitrite Negative (NEGATIVE) Urine Bilirubin Negative (NEGATIVE) Urine Urobilinogen 0.2 (0.2-1.0) EU/dL Ur Leukocyte Esterase Negative (NEGATIVE) Discharge Plan Discharge Chief Complaint: Abdominal Pain Clinical Impression: Abdominal pain, Small bowel obstruction Patient Disposition: Admitted as Observation Time of Disposition Decision: 22:40 Condition: Good Prescriptions / Home Meds: No Action No Known Home Medications Print Language: Citizen [place] Referrals: Physician,Non-Staff, [Primary Care Provider] - 1 week Documented by User: America Goins MD 03/09/24 22:40 HPI - Abdominal Pain General Chief Complaint: Abdominal Pain Stated Complaint: abdominal pain Time Seen by Provider: 03/09/24 19:18 Related Data Home Medications ?Medication ?Instructions ?Recorded ?Confirmed No Known Home Medications 03/09/24 03/09/24 Allergies Allergy/AdvReac Type Severity Reaction Status Date / Time bismuth subsalicylate (From Allergy Severe Hives Verified 03/09/24 19:08 Pepto-Bismol) PFSH PFSH Social History Smoking status: Current every day smoker Exam Constitutional Vital Signs, click to edit/add: Last Vital Signs Temp 98.5 F 03/09/24 19:01 Pulse 65 03/09/24 19:01 Resp 20 03/09/24 19:01 BP 174/112 H 03/09/24 19:01 Pulse Ox 98 03/09/24 19:13 O2 Del Method Room Air 03/09/24 19:13 Course Vital Signs Vital signs: Vital Signs Temperature 98.5 F 03/09/24 19:01 Pulse Rate 65 03/09/24 19:01 Respiratory Rate 20 03/09/24 19:01 Blood Pressure 174/112 H 03/09/24 19:01 Pulse Oximetry 98 03/09/24 19:01 Oxygen Delivery Method Room Air 03/09/24 19:01 Temperature 98.5 F 03/09/24 19:01 Pulse Rate 65 03/09/24 19:01 Respiratory Rate 20 03/09/24 19:01 Blood Pressure 174/112 H 03/09/24 19:01 Pulse Oximetry 98 03/09/24 19:13 Oxygen Delivery Method Room Air 03/09/24 19:13 MDM - Abdominal Pain MDM Narrative Medical decision making narrative: WBC count was 11.4. CT scan was pending. Care was resumed to Dr. Goins. See her dictation for further evaluation and treatment. This 23-year-old male with a history of an imperforate bowel at who had multiple abdominal surgeries requiring a feeding tube and at 1 point a colostomy with reversal presents for evaluation of left-sided abdominal pain with nausea. He last passed gas and had some diarrhea earlier in the day. He has multiple healed scars on his Abdomen: Consistent with his history. He has not had any vomiting while in the emergency department. A contrast enhanced CAT scan with oral and IV contrast was ordered but the patient refused the oral contrast after only having several sips. He is white count is mildly elevated 11. The remainder of his labs are normal with a mildly elevated creatinine of 1.32. CT scan of the abdomen pelvis shows a bowel obstruction with a transition point in the right mid abdomen. The patient was admitted to this facility last August after having a bowel obstruction which resolved with NG tube decompression. The results of the labs and CT scan were discussed with Dr. Garcia who agrees to see the patient in consult and with the hospitalist who agrees to admit the patient. He was given IV fluids and IV Protonix in the emergency department. He remains hemodynamically stable. He is agreeable to being admitted to this facility. Medical Records Medical records narrative: [place] [address] CT Scan Report Draft Patient: ASHLY JAMISON MR#: [id number] : 2000 Acct:[id number] Age/Sex: 23 / M ADM Date: 03/09/24 Loc: ER Attending Dr: Ordering Physician: Mayo Rondon Date of Service: 03/09/24 Procedure(s): CT abdomen pelvis w con Accession Number(s): [id number] cc: ~ [facility] [place] [id number] Patient Name: ASHLY JAMISON MRN: [id number] date: 2000 Sex: M Assigned Patient Location: ER Current Patient Location: ER Accession/Order Number: [id number] Exam Date: 03/09/2024 20:26 Report Date: 03/09/2024 22:05 At the request of: MAYO RONDON Procedure: CT abdomen pelvis w con CT ABDOMEN AND PELVIS WITH CONTRAST: INDICATION: Left-sided abd pain COMPARISON: CT abdomen and pelvis 05/12/2023. TECHNIQUE: Helical CT images of the abdomen and pelvis were obtained after the administration of intravenous contrast. Dose reduction techniques were achieved by using automated exposure control and/or adjustment of mA and/or kV according to patient size and/or use of iterative reconstruction technique. FINDINGS: LOWER CHEST: Normal. LIVER: Normal in size and attenuation. No focal lesions. GALLBLADDER AND BILIARY SYSTEM: The gallbladder is contracted. SPLEEN: Normal. PANCREAS: Normal. ADRENAL GLANDS: Normal. KIDNEYS AND URETERS: Normal. VASCULATURE: Normal. RETROPERITONEUM AND LYMPH NODES: Normal, with no lymphadenopathy. GASTROINTESTINAL TRACT AND MESENTERY: There is severe small bowel distention in the jejunum in the left upper, mid and lower abdomen. This measures up to 4.1 cm in diameter. There is a transition point within the right mid abdomen on image 70 series 3 and image 62 series 6. Distally the small bowel is markedly underdistended. The colon is also underdistended. There is diffuse submucosal fat throughout the colon which is not well visualized previously. The mesentery appears normal. The appendix is not visualized. Clearly identified. BLADDER: Severe wall thickening however the bladder is underdistended. REPRODUCTIVE SYSTEM: Normal prostate. BODY WALL: There is moderate to severe fatty atrophy of the rectus abdominis muscles, left greater than right. This appears stable. BONES: No acute abnormality. CT/CT abdomen pelvis w con IMPRESSION: 1. High-grade small bowel obstruction with a transition point identified in the right mid abdomen. 2. Prominent submucosal fat throughout the colon. This can be seen as a normal variant as well as with chronic inflammation. 3. Bladder wall thickening which may be in part due to underdistention but is suspicious for outlet obstruction and/or cystitis. Electronically authenticated by: SANTO FLANAGAN Date: 03/09/2024 22:05 Dictated By: Santo Flanagan M.D. Signed By: Lab Data Labs: Lab Results 03/09/24 03/09/24 Range/Units 19:29 20:25 WBC 11.4 H (4.0-11.0) 10^3/uL RBC 5.32 (4.70-6.10) 10^6/uL Hgb 15.6 (14.0-18.0) g/dL Hct 45.3 (42.0-54.0) % MCV 85.2 (80.0-94.0) fL MCH 29.3 (25.9-34.0) pg MCHC 34.4 (29.9-35.2) g/dL RDW 12.6 (11.0-15.0) % Plt Count 280 (150-450) 10^3/uL MPV 9.6 (9.5-13.5) fL Neut % (Auto) 73.6 (43.0-75.0) % Lymph % (Auto) 15.8 L (20.5-60.0) % Gaines % (Auto) 6.9 (1.7-12.0) % Eos % (Auto) 2.9 (0.9-7.0) % Baso % (Auto) 0.4 (0.2-2.0) % Neut # (Auto) 8.4 H (1.4-6.5) 10^3/uL Lymph # (Auto) 1.8 (1.2-3.8) 10^3/uL Gaines # (Auto) 0.8 (0.3-0.8) 10^3/uL Eos # (Auto) 0.3 (0.0-0.7) 10^3/uL Baso # (Auto) 0.0 (0.0-0.1) 10^3/uL Abs Immat Gran (auto) 0.05 H (0.00-0.03) 10^3/uL Imm/Tot Granulo (auto) 0.4 (0.0-0.5) % Sodium 141 (136-145) mmol/L Potassium 3.7 (3.5-5.1) mmol/L Chloride 105 (98-107) mmol/L Carbon Dioxide 24.5 (21.0-32.0) mmol/L Anion Gap 15.2 BUN 12.0 (7.0-18.0) mg/dL Creatinine 1.32 H (0.70-1.30) mg/dL Est GFR ( Amer) >60 (>=60 mL/min/1.73m^2) Est GFR (Non-Af Amer) >60 (>=60 mL/min/1.73m^2) BUN/Creatinine Ratio 9.1 Glucose 110 H (74-106) mg/dL Calcium 9.4 (8.5-10.1) mg/dL Total Bilirubin 0.4 (0.2-1.0) mg/dL AST 18 (15-37) U/L ALT 22 (16-63) U/L Alkaline Phosphatase 79 (46-116) U/L Total Protein 7.8 (6.4-8.2) g/dL Albumin 4.3 (3.4-5.0) g/dL Globulin 3.5 g/dL Albumin/Globulin Ratio 1.2 Lipase 16.0 (16.0-77.0) U/L Urine Color Yellow (YELLOW) Urine Clarity Clear (CLEAR) Urine pH 6.0 (5.0-9.0) Ur Specific Elbert 1.025 (1.005-1.025) Urine Protein Negative (NEG/TRACE) mg/dL Urine Glucose (UA) Negative (NEGATIVE) mg/dL Urine Ketones Negative (NEGATIVE) mg/dL Urine Occult Blood Negative (NEGATIVE) Urine Nitrite Negative (NEGATIVE) Urine Bilirubin Negative (NEGATIVE) Urine Urobilinogen 0.2 (0.2-1.0) EU/dL Ur Leukocyte Esterase Negative (NEGATIVE) Discharge Plan Discharge Chief Complaint: Abdominal Pain Clinical Impression: Abdominal pain, Small bowel obstruction Patient Disposition: Admitted as Observation Time of Disposition Decision: 22:40 Condition: Good Prescriptions / Home Meds: No Action No Known Home Medications Print Language: Citizen [place] Referrals: Physician,Non-Staff, [Primary Care Provider] - 1 week
--- NOTE | 2024-03-09 19:30 | CT_ITS ---
[address] [address] Patient Name: ASHLY JAMISON MRN: [id number] date: 2000 Sex: M Assigned Patient Location: ER Current Patient Location: [facility] Accession/Order Number: [id number] Exam Date: 03/09/2024 20:26 Report Date: 03/09/2024 23:18 At the request of: MAYO RONDON Procedure: CT abdomen pelvis w con CT ABDOMEN AND PELVIS WITH CONTRAST: INDICATION: Left-sided abd pain COMPARISON: CT abdomen and pelvis 05/12/2023. TECHNIQUE: Helical CT images of the abdomen and pelvis were obtained after the administration of intravenous contrast. Dose reduction techniques were achieved by using automated exposure control and/or adjustment of mA and/or kV according to patient size and/or use of iterative reconstruction technique. FINDINGS: LOWER CHEST: Normal. LIVER: Normal in size and attenuation. No focal lesions. GALLBLADDER AND BILIARY SYSTEM: The gallbladder is contracted. SPLEEN: Normal. PANCREAS: Normal. ADRENAL GLANDS: Normal. KIDNEYS AND URETERS: Normal. VASCULATURE: Normal. RETROPERITONEUM AND LYMPH NODES: Normal, with no lymphadenopathy. GASTROINTESTINAL TRACT AND MESENTERY: There is severe small bowel distention in the jejunum in the left upper, mid and lower abdomen. This measures up to 4.1 cm in diameter. There is a transition point within the right mid abdomen on image 70 series 3 and image 62 series 6. Distally the small bowel is markedly underdistended. The colon is also underdistended. There is diffuse submucosal fat throughout the colon which is not well visualized previously. The mesentery appears normal. The appendix is not visualized. Clearly identified. BLADDER: Severe wall thickening however the bladder is underdistended. REPRODUCTIVE SYSTEM: Normal prostate. BODY WALL: There is moderate to severe fatty atrophy of the rectus abdominis muscles, left greater than right. This appears stable. BONES: No acute abnormality. CT/CT abdomen pelvis w con IMPRESSION: 1. High-grade small bowel obstruction with a transition point identified in the right mid abdomen. 2. Prominent submucosal fat throughout the colon. This can be seen as a normal variant as well as with chronic inflammation. 3. Bladder wall thickening which may be in part due to underdistention but is suspicious for outlet obstruction and/or cystitis. Electronically authenticated by: DIALLO WALTER Date: 03/09/2024 23:18
[2024-03-09 19:38] LABS: Basophils Percent Auto 0.4 % (0.2-2.0); Eosinophils Absolute Auto 0.3 10^3/uL (0.0-0.7); Eosinophils Percent Auto 2.9 % (0.9-7.0); Hematocrit 45.3 % (42.0-54.0); Hemoglobin 15.6 g/dL (14.0-18.0); Immature Granulocytes Abs Auto 0.05 10^3/uL (0.00-0.03); Immature Granulocytes Pct Auto 0.4 % (0.0-0.5); Lymphocytes Absolute Auto 1.8 10^3/uL (1.2-3.8); Lymphocytes Percent Auto 15.8 % (20.5-60.0); Mean Corpuscular HGB Conc 34.4 g/dL (29.9-35.2); Mean Corpuscular Hemoglobin 29.3 pg (25.9-34.0); Mean Corpuscular Volume 85.2 fL (80.0-94.0); Mean Platelet Volume 9.6 fL (9.5-13.5); Monocytes Absolute Auto 0.8 10^3/uL (0.3-0.8); Monocytes Percent Auto 6.9 % (1.7-12.0); Neutrophils Absolute Auto 8.4 10^3/uL (1.4-6.5); Neutrophils Percent Auto 73.6 % (43.0-75.0); Platelet Count 280 10^3/uL (150-450); Red Blood Count 5.32 10^6/uL (4.70-6.10); Red Cell Distribution Width 12.6 % (11.0-15.0); White Blood Count 11.4 10^3/uL (4.0-11.0)
[2024-03-09 19:56] LABS: Alanine Aminotransferase 22 U/L (16-63); Albumin Globulin Ratio 1.2; Albumin Level 4.3 g/dL (3.4-5.0); Alkaline Phosphatase 79 U/L (46-116); Anion Gap 15.2; Aspartate Amino Transferase 18 U/L (15-37); BUN Creatinine Ratio 9.1; Bilirubin Total 0.4 mg/dL (0.2-1.0); Calcium 9.4 mg/dL (8.5-10.1); Carbon Dioxide 24.5 mmol/L (21.0-32.0); Chloride 105 mmol/L (98-107); Estimated GFR (African America >60 (>=60 mL/min/1.73m^2); Estimated GFR (Non-African Ame >60 (>=60 mL/min/1.73m^2); Globulin 3.5 g/dL; Glucose 110 mg/dL (74-106); Potassium 3.7 mmol/L (3.5-5.1); Sodium 141 mmol/L (136-145); Total Protein 7.8 g/dL (6.4-8.2)
[2024-03-09 21:00] LABS: Bilirubin Urine NEGATIVE (NEGATIVE); Blood Urine NEGATIVE (NEGATIVE); Clarity Urine CLEAR (CLEAR); Color Urine YELLOW (YELLOW); Glucose Urine UA NEGATIVE (NEGATIVE); Ketones Urine NEGATIVE (NEGATIVE); Leukocyte Esterase Urine NEGATIVE (NEGATIVE); Nitrite Urine NEGATIVE (NEGATIVE); Protein Urine NEGATIVE (NEG/TRACE); Specific Gravity Urine 1.025 (1.005-1.025); Urobilinogen Urine 0.2 EU/dL (0.2-1.0)
[2024-03-09 21:04] LABS: Urine Microscopic Indicated NO
[2024-03-09] MEDS: 0.9 % SODIUM CHLORIDE 1,000 ML 1000 ML IV (22:52)
[2024-03-09] MEDS: PANTOPRAZOLE SODIUM 40 MG VIAL IV (22:52)
[2024-03-10] VITALS (19 sets, daily range): BP systolic 120–148; BP diastolic 70–106; PULSE 52–72; TEMP 36.3–36.7; O2SAT 88–97; BMI 30.4
[2024-03-10] MEDS: OXYMETAZOLINE HCL 0.05% NASAL SPRAY 2 SPRAY NS (00:18)
[2024-03-10] MEDS: LIDOCAINE VISCOUS 2% 15 ML SOLUTION MM (00:19)
[2024-03-10] MEDS: HYDROMORPHONE HCL 2 MG/ML VIAL IV (00:20)
--- NOTE | 2024-03-10 00:36 | XR_ITS ---
The [address] [address] Patient Name: ASHLY JAMISON MRN: [id number] date: 2000 Sex: M Assigned Patient Location: ER Current Patient Location: [place] Accession/Order Number: [id number] Exam Date: 03/10/2024 00:48 Report Date: 03/10/2024 05:16 At the request of: DONALD MARKER Procedure: XR abdomen 1V EXAM: XR abdomen 1V HISTORY: NGT conformation COMPARISON: CT abdomen/pelvis dated 03/09/2024 and abdomen radiograph dated 09/04/2022. TECHNIQUE: Single AP supine portable view of the abdomen. FINDINGS: The esophageal tube just extends into the stomach however the proximal sidehole is at the level of the gastroesophageal junction and should be advanced. There are distended gas-filled loops of small bowel. The lung bases are clear. There is no free air. There is a residual contrast within both renal collecting systems. There is no acute osseous abnormality. XR/XR abdomen 1V IMPRESSION: The esophageal tube just extends into the stomach however the proximal sidehole is at the level of the gastroesophageal junction and should be advanced. There are distended gas-filled loops of small bowel. Please refer to the CT abdomen/pelvis examination of the same day for complete characterization of the bowel gas pattern. Electronically authenticated by: GABE MOURA Date: 03/10/2024 05:16
--- OUTSIDE RECORDS SUMMARY | 2024-03-10 01:45 | XMS_ITS | CCD ---
Author Organization [facility] Care Team Providers Care Supervisor Inventory Merchandising Name Role Phone MARCELL VALENCIA Admitting Unavailable [...] Unavailable SHRUTHI ., DR NICKERSON Consulting Unavailable MY[place]LE [place], DR ASHLY Warner Consulting Unavailable ERICA MARTINEZ Consulting Unavailable SINCERE, ALEXANDRIA Consulting Unavailable FAREGGIE, RIVERS H Consulting Unavailable SAID, BINOR Consulting Unavailable ANDRES, CECILE Consulting Unavailable SISTER, AMPARO Consulting Unavailable TAMLYN ., ANTHONY Consulting Unavailable HEGG, ASHLEY Consulting Unavailable [facility] [place]SALVE Primary Care Unavailable HAY ., DR MINER Admitting Unavailable HAY ., DR MINER Attending Unavailable ERICA MARTINEZ Consulting Unavailable ASHLY LINDER Consulting Unavailable Allergies Allergy Classification Reported Allergen(s) Allergy Type Date of Onset Reaction(s) Facility (2 sources) bismuth subsalicylate Drug Allergy [facility] Other (1 source) bismuth subsalicylate Drug Allergy 1 [facility] Rep[facility] Medications Current Medications Medication Drug [...] Other prison (current) drug therapy; 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 Comment on above: Performed By: #### C BC #### [facility] [address] [place] [address] Dr. Octavio Hagen Basophils/100 WBC (Bld) 0.2 % Normal 0.2-2.[address] [facility] Comment on above: Performed By: #### C BC #### [facility] [address] [address] [address] Octavio Hagen EO # 0.3 103/ul Normal 0.0-0.[address] [facility] Comment on above: Performed By: #### C BC #### [facility] [address] [address] [address] Octavio Hagen Eosinophils/100 WBC (Bld) 2.8 % Normal 0.9-7.[address] [facility] Comment on above: Performed By: #### C BC #### [facility] [address] [address] [address] Octavio Hagen Erythrocyte distribution width (RBC) [Ratio] 12.4 % Normal 11.0-15.[address] [facility] Comment on above: Performed By: #### C BC #### [facility] [address] [address] [address] Octavio Hagen Hematocrit (Bld) [Volume fraction] 41.0 % Critically low 42.0-54.[address] [facility] Comment on above: Performed By: #### C BC #### [facility] [address] [address] [address] Octavio Hagen Hemoglobin (Bld) [Mass/Vol] 13.6 g/dL Critically low 14.0-18.0 [facility] Comment on above: Performed By: #### C BC #### [facility] [address] [place] [address] Dr. Octavio Hagen IG # 0.04 10e3/ul Critically high 0.00-0.03 [facility] Comment on above: Performed By: #### C BC #### [facility] [address] [place] [address] Dr. Octavio Hagen IG % 0.4 % Normal 0.0-0.[address] [facility] Comment on above: Performed By: #### C BC #### [facility] [address] [place] [address] Dr. Octavio Hagen LYMPH # 1.4 103/ul Normal 1.2-3.[address] [facility] Comment on above: Performed By: #### C BC #### [facility] [address] [place] [address] Dr. Octavio Hagen Lymphocytes/100 WBC (Bld) 15.5 % Critically low 20.5-60.[address] [facility] Comment on above: Performed By: #### C BC #### [facility] [address] [place] [address] Dr. Octavio Hagen MANUAL DIFF REQ NO Normal [facility] Comment on above: Performed By: #### C BC #### [facility] [address] [place] [address] Dr. Octavio Hagen MCH (RBC) [Entitic mass] 28.6 pg Normal 25.9-34.0 [facility] Comment on above: Performed By: #### C BC #### [facility] [address] [place] [address] Dr. Octavio Hagen MCHC (RBC) [Mass/Vol] 33.2 g/dL Normal 29.9-35.2 [facility] Comment on above: Performed By: #### C BC #### [facility] [address] [place] [address] Dr. Octavio Hagen MCV (RBC) [Entitic vol] 86.3 fL Normal 80.0-94.0 [facility] Comment on above: Performed By: #### C BC #### [facility] [address] [address] [address] Octavio Hagen MONO # 1.0 103/ul Critically high 0.3-0.8 [facility] Comment on above: Performed By: #### C BC #### [facility] [address] [address] [address] Octavio Hagen Monocytes/100 WBC (Bld) 11.1 % Normal 1.7-12.0 [facility] Comment on above: Performed By: #### C BC #### [facility] [address] [place] [address] Dr. Octavio Hagen NEUT # 6.3 103/ul Normal 1.4-6.5 [facility] Comment on above: Performed By: #### C BC #### [facility] [address] [place] [address] Dr. Octavio Hagen Neutrophils/100 WBC (Bld) 70.0 % Normal 43.0-75.0 [facility] Comment on above: Performed By: #### C BC #### [facility] [address] [place] [address] Dr. Octavio Hagen Platelet mean volume (Bld) [Entitic vol] 8.9 fL Critically low 9.5-13.5 [facility] Comment on above: Performed By: #### C BC #### [facility] [address] [place] [address] Dr. Octavio Hagen PLT 221 103/ul Normal 150-450 [facility] Comment on above: Performed By: #### C BC #### [facility] [address] [place] [address] Dr. Octavio Hagen RBC 4.75 106/ul Normal 4.70-6.10 [facility] Comment on above: Performed By: #### C BC #### [facility] [address] [place] [address] Dr. Octavio Hagen WBC 9.0 103/ul Normal 4.0-11.0 [facility] Comment on above: Performed By: #### C BC #### [facility] [address] [place] [address] Dr. Octavio Hagen PROF 14(COMP METB)on 023 Albumin [Mass/Vol] 3.4 g/dL Normal 3.4-5.[address] [facility] Comment on above: Performed By: #### C MP #### [facility] [address] [place] [address] Dr. Octavio Hagen Albumin/Globulin [Mass ratio] 0.9 {ratio} Normal [facility] Comment on above: Performed By: #### C MP #### [facility] [address] [place] [address] Dr. Octavio Hagen ALP [Catalytic activity/Vol] 77 U/L Normal 46-[address] [facility] Comment on above: Performed By: #### C MP #### [facility] [address] [place] [address] Dr. Octavio Hagen ALT [Catalytic activity/Vol] 36 U/L Normal 16-63 [facility] Comment on above: Performed By: #### C MP #### [facility] [address] [place] [address] Dr. Octavio Hagen Anion gap [Moles/Vol] 11.4 mmol/L Normal [facility] Comment on above: Performed By: #### C MP #### [facility] [address] [place] [address] Dr. Octavio Hagen AST [Catalytic activity/Vol] 22 U/L Normal 15-37 [facility] Comment on above: Performed By: #### C MP #### [facility] [address] [place] [address] Dr. Octavio Hagen Bilirubin [Mass/Vol] 0.6 mg/dL Normal 0.2-1.0 [facility] Comment on above: Performed By: #### C MP #### [facility] [address] [place] [address] Dr. Octavio Hagen Calcium [Mass/Vol] 8.9 mg/dL Normal 8.5-10.1 [facility] Comment on above: Performed By: #### C MP #### [facility] [address] [address] [address] Octavio Hagen Chloride [Moles/Vol] 104 mmol/L Normal 98-107 [facility] Comment on above: Performed By: #### C MP #### [facility] [address] [address] [address] Octavio Hagen CO2 [Moles/Vol] 28.5 mmol/L Normal 21.0-32.[address] [facility] Comment on above: Performed By: #### C MP #### [facility] [address] [address] [address] Octavio Hagen Creatinine [Mass/Vol] 1.02 mg/dL Normal 0.70-1.30 [facility] Comment on above: Performed By: #### C MP #### [facility] [address] [place] [address] Dr. Octavio Hagen EGFR-AF FAROESE >60 Normal >=[address] [facility] Comment on above: Performed By: #### C MP #### [facility] [address] [place] [address] Dr. Octavio Hagen EGFR-NON AF FAROESE >60 Normal >=60 [facility] Comment on above: Performed By: #### C MP #### [facility] [address] [place] [address] Dr. Octavio Hagen Globulin (S) [Mass/Vol] 3.6 g/dL Normal [facility] Comment on above: Performed By: #### C MP #### [facility] [address] [place] [address] Dr. Octavio Hagen Glucose [Mass/Vol] 100 mg/dL Normal 74-106 [facility] Comment on above: Performed By: #### C MP #### [facility] [address] [place] [address] Dr. Octavio Hagen Potassium [Moles/Vol] 3.9 mmol/L Normal 3.5-5.1 [facility] Comment on above: Performed By: #### C MP #### [facility] [address] [address] [address] Octavio Hagen Protein [Mass/Vol] 7.0 g/dL Normal 6.4-8.2 [facility] Comment on above: Performed By: #### C MP #### [facility] [address] [address] [address] Octavio Hagen Sodium [Moles/Vol] 140 mmol/L Normal 136-145 [facility] Comment on above: Performed By: #### C MP #### [facility] [address] [address] [address] Octavio Hagen Urea nitrogen [Mass/Vol] 8.0 mg/dL Normal 7.0-18.[address] [facility] Comment on above: Performed By: #### C MP #### [facility] [address] [address] [address] Octavio Hagen Urea nitrogen/Creatini ne [Mass ratio] 7.8 mg/mg Normal [facility] Comment on above: Performed By: #### C MP #### [facility] [address] [address] [address] Octavio Hagen PTTon 09-04-2022 aPTT Coag (Bld) [Time] 35.2 s Normal 22.3-36.2 [facility] Comment on above: Performed By: #### C MP #### [facility] [address] [place] [address] Dr. Octavio Hagen XR KUB 1 VIEWon [...] MARNIE BROOKS Date: 2022-09-04 06:11 Normal [facility] CBC AUTO DIFFon 09-03-2022 BASO # 0.0 103/ul Normal 0.0-0.[address] [facility] Comment on above: Performed By: #### C BC #### [facility] [address] [address] [address] Octavio Hagen Basophils/100 WBC (Bld) 0.4 % Normal 0.2-2.[address] [facility] Comment on above: Performed By: #### C BC #### [facility] [address] [place] [address] Dr. Octavio Hagen EO # 0.2 103/ul Normal 0.0-0.[address] [facility] Comment on above: Performed By: #### C BC #### [facility] [address] [place] [address] Dr. Octavio Hagen Eosinophils/100 WBC (Bld) 3.3 % Normal 0.9-7.[address] [facility] Comment on above: Performed By: #### C BC #### [facility] [address] [place] [address] Dr. Octavio Hagen Erythrocyte distribution width (RBC) [Ratio] 12.9 % Normal 11.0-15.[address] [facility] Comment on above: Performed By: #### C BC #### [facility] [address] [place] [address] Dr. Octavio Hagen Hematocrit (Bld) [Volume fraction] 40.0 % Critically low 42.0-54.[address] [facility] Comment on above: Performed By: #### C BC #### [facility] [address] [place] [address] Dr. Octavio Hagen Hemoglobin (Bld) [Mass/Vol] 13.4 g/dL Critically low 14.0-18.[address] [facility] Comment on above: Performed By: #### C BC #### [facility] [address] [place] [address] Dr. Octavio Hagen IG # 0.03 10e3/ul Normal 0.00-0.[address] [facility] Comment on above: Performed By: #### C BC #### [facility] [address] [place] [address] Dr. Octavio Hagen IG % 0.4 % Normal 0.0-0.[address] [facility] Comment on above: Performed By: #### C BC #### [facility] [address] [place] [address] Dr. Octavio Hagen LYMPH # 1.6 103/ul Normal 1.2-3.[address] [facility] Comment on above: Performed By: #### C BC #### [facility] [address] [place] [address] Dr. Octavio Hagen Lymphocytes/100 WBC (Bld) 22.9 % Normal 20.5-60.[address] [facility] Comment on above: Performed By: #### C BC #### [facility] [address] [place] [address] Dr. Octavio Hagen MANUAL DIFF REQ NO Normal [facility] Comment on above: Performed By: #### C BC #### [facility] [address] [place] [address] Dr. Octavio Hagen MCH (RBC) [Entitic mass] 29.2 pg Normal 25.9-34.[address] [facility] Comment on above: Performed By: #### C BC #### [facility] [address] [place] [address] Dr. Octavio Hagen MCHC (RBC) [Mass/Vol] 33.5 g/dL Normal 29.9-35.[address] [facility] Comment on above: Performed By: #### C BC #### [facility] [address] [place] [address] Dr. Octavio Hagen MCV (RBC) [Entitic vol] 87.1 fL Normal 80.0-94.[address] [facility] Comment on above: Performed By: #### C BC #### [facility] [address] [place] [address] Dr. Octavio Hagen MONO # 0.6 103/ul Normal 0.3-0.[address] [facility] Comment on above: Performed By: #### C BC #### [facility] [address] [place] [address] Dr. Octavio Hagen Monocytes/100 WBC (Bld) 9.2 % Normal 1.7-12.[address] [facility] Comment on above: Performed By: #### C BC #### [facility] [address] [place] [address] Dr. Octavio Hagen NEUT # 4.5 103/ul Normal 1.4-6.[address] [facility] Comment on above: Performed By: #### C BC #### [facility] [address] [place] [address] Dr. Octavio Hagen Neutrophils/100 WBC (Bld) 63.8 % Normal 43.0-75.[address] [facility] Comment on above: Performed By: #### C BC #### [facility] [address] [place] [address] Dr. Octavio Hagen Platelet mean volume (Bld) [Entitic vol] 9.3 fL Critically low 9.5-13.[address] [facility] Comment on above: Performed By: #### C BC #### [facility] [address] [place] [address] Dr. Octavio Hagen PLT 213 103/ul Normal 150-450 [facility] Comment on above: Performed By: #### C BC #### [facility] [address] [place] [address] Dr. Octavio Hagen RBC 4.59 106/ul Critically low 4.70-6.10 [facility] Comment on above: Performed By: #### C BC #### [facility] [address] [place] [address] Dr. Octavio Hagen WBC 7.0 103/ul Normal 4.0-11.0 [facility] Comment on above: Performed By: #### C BC #### [facility] [address] [place] [address] Dr. Octavio Hagen PROF 14(COMP METB)on 023 Albumin [Mass/Vol] 3.4 g/dL Normal 3.4-5.[address] [facility] Comment on above: Performed By: #### C MP #### [facility] [address] [place] [address] Dr. Octavio Hagen Albumin/Globulin [Mass ratio] 1.1 {ratio} Normal [facility] Comment on above: Performed By: #### C MP #### [facility] [address] [address] [address] Octavio Hagen ALP [Catalytic activity/Vol] 73 U/L Normal 46-[address] [facility] Comment on above: Performed By: #### C MP #### [facility] [address] [address] [address] Octavio Hagen ALT [Catalytic activity/Vol] 35 U/L Normal 16-63 [facility] Comment on above: Performed By: #### C MP #### [facility] [address] [address] [address] Octavio Hagen Anion gap [Moles/Vol] 8.3 mmol/L Normal [facility] Comment on above: Performed By: #### C MP #### [facility] [address] [place] [address] Dr. Octavio Hagen AST [Catalytic activity/Vol] 19 U/L Normal 15-[address] [facility] Comment on above: Performed By: #### C MP #### [facility] [address] [place] [address] Dr. Octavio Hagen Bilirubin [Mass/Vol] 0.4 mg/dL Normal 0.2-1.[address] [facility] Comment on above: Performed By: #### C MP #### [facility] [address] [place] [address] Dr. Octavio Hagen Calcium [Mass/Vol] 8.5 mg/dL Normal 8.5-10.1 [facility] Comment on above: Performed By: #### C MP #### [facility] [address] [place] [address] Dr. Octavio Hagen Chloride [Moles/Vol] 107 mmol/L Normal 98-107 [facility] Comment on above: Performed By: #### C MP #### [facility] [address] [place] [address] Dr. Octavio Hagen CO2 [Moles/Vol] 30.8 mmol/L Normal 21.0-32.[address] [facility] Comment on above: Performed By: #### C MP #### [facility] [address] [place] [address] Dr. Octavio Hagen Creatinine [Mass/Vol] 1.14 mg/dL Normal 0.70-1.30 [facility] Comment on above: Performed By: #### C MP #### [facility] [address] [place] [address] Dr. Octavio Hagen EGFR-AF FAROESE >60 Normal >=[address] [facility] Comment on above: Performed By: #### C MP #### [facility] [address] [place] [address] Dr. Octavio Hagen EGFR-NON AF FAROESE >60 Normal >=60 [facility] Comment on above: Performed By: #### C MP #### [facility] [address] [place] [address] Dr. Octavio Hagen Globulin (S) [Mass/Vol] 3.2 g/dL Normal [facility] Comment on above: Performed By: #### C MP #### [facility] [address] [place] [address] Dr. Octavio Hagen Glucose [Mass/Vol] 86 mg/dL Normal 74-106 [facility] Comment on above: Performed By: #### C MP #### [facility] [address] [place] [address] Dr. Octavio Hagen Potassium [Moles/Vol] 4.1 mmol/L Normal 3.5-5.1 [facility] Comment on above: Performed By: #### C MP #### [facility] [address] [place] [address] Dr. Octavio Hagen Protein [Mass/Vol] 6.6 g/dL Normal 6.4-8.2 [facility] Comment on above: Performed By: #### C MP #### [facility] [address] [place] [address] Dr. Octavio Hagen Sodium [Moles/Vol] 142 mmol/L Normal 136-145 [facility] Comment on above: Performed By: #### C MP #### [facility] [address] [place] [address] Dr. Octavio Hagen Urea nitrogen [Mass/Vol] 17.0 mg/dL Normal 7.0-18.[address] [facility] Comment on above: Performed By: #### C MP #### [facility] [address] [address] [address] Octavio Hagen Urea nitrogen/Creatini ne [Mass ratio] 14.9 mg/mg Normal [facility] Comment on above: Performed By: #### C MP #### [facility] [address] [address] [address] Octavio Hagen PTTon 09-03-2022 aPTT Coag (Bld) [Time] 36.1 s Normal 22.3-36.[address] [facility] Comment on above: Performed By: #### C MP #### [facility] [address] [place] [address] Dr. Octavio Hagen XR KUB 1 VIEWon [...] by: ASHLEY TIERNEY Date: 2022-09-03 06:[address] [facility] XR SMALL BOWELon 09-03-2022 XR SMALL BOWEL EXAMINATION: XR SMAL L BOWEL HISTORY: Small bowel obstruction COMPARISON: 09/03/2022 FLUOROSCOPY TIME: Exam performed on the floor. No fluoroscopy utilized. TECHNIQUE: Small bowel series was performed in the usual manner. 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 Standard level fluoroscopic [...] ASHLY HERNANDEZ Date: 2022-09-03 17:46 Normal [facility] CBC AUTO DIFFon 09-02-2022 BASO # 0.0 103/ul Normal 0.0-0.[address] [facility] Comment on above: Performed By: #### C BC #### [facility] [address] [address] [address] Octavio Hagen Basophils/100 WBC (Bld) 0.4 % Normal 0.2-2.[address] [facility] Comment on above: Performed By: #### C BC #### [facility] [address] [address] [address] Octavio Hagen EO # 0.4 103/ul Normal 0.0-0.[address] [facility] Comment on above: Performed By: #### C BC #### [facility] [address] [address] [address] Octavio Hagen Eosinophils/100 WBC (Bld) 4.7 % Normal 0.9-7.[address] [facility] Comment on above: Performed By: #### C BC #### [facility] [address] [address] [address] Octavio Hagen Erythrocyte distribution width (RBC) [Ratio] 12.7 % Normal 11.0-15.[address] [facility] Comment on above: Performed By: #### C BC #### [facility] [address] [address] [address] Octavio Hagen Hematocrit (Bld) [Volume fraction] 44.4 % Normal 42.0-54.[address] [facility] Comment on above: Performed By: #### C BC #### [facility] [address] [address] [address] Octavio Hagen Hemoglobin (Bld) [Mass/Vol] 14.8 g/dL Normal 14.0-18.[address] [facility] Comment on above: Performed By: #### C BC #### [facility] [address] [address] [address] Octavio Hagen IG # 0.04 10e3/ul Critically high 0.00-0.03 [facility] Comment on above: Performed By: #### C BC #### [facility] [address] [place] [address] Dr. Octavio Hagen IG % 0.5 % Normal 0.0-0.[address] [facility] Comment on above: Performed By: #### C BC #### [facility] [address] [place] [address] Dr. Octavio Hagen LYMPH # 2.0 103/ul Normal 1.2-3.[address] [facility] Comment on above: Performed By: #### C BC #### [facility] [address] [place] [address] Dr. Octavio Hagen Lymphocytes/100 WBC (Bld) 26.7 % Normal 20.5-60.[address] [facility] Comment on above: Performed By: #### C BC #### [facility] [address] [place] [address] Dr. Octavio Hagen MANUAL DIFF REQ NO Normal [facility] Comment on above: Performed By: #### C BC #### [facility] [address] [place] [address] Dr. Octavio Hagen MCH (RBC) [Entitic mass] 28.6 pg Normal 25.9-34.[address] [facility] Comment on above: Performed By: #### C BC #### [facility] [address] [place] [address] Dr. Octavio Hagen MCHC (RBC) [Mass/Vol] 33.3 g/dL Normal 29.9-35.[address] [facility] Comment on above: Performed By: #### C BC #### [facility] [address] [place] [address] Dr. Octavio Hagen MCV (RBC) [Entitic vol] 85.7 fL Normal 80.0-94.[address] [facility] Comment on above: Performed By: #### C BC #### [facility] [address] [place] [address] Dr. Octavio Hagen MONO # 0.9 103/ul Critically high 0.3-0.8 [facility] Comment on above: Performed By: #### C BC #### [facility] [address] [place] [address] Dr. Octavio Hagen Monocytes/100 WBC (Bld) 11.5 % Normal 1.7-12.[address] [facility] Comment on above: Performed By: #### C BC #### [facility] [address] [place] [address] Dr. Octavio Hagen NEUT # 4.2 103/ul Normal 1.4-6.[address] [facility] Comment on above: Performed By: #### C BC #### [facility] [address] [place] [address] Dr. Octavio Hagen Neutrophils/100 WBC (Bld) 56.2 % Normal 43.0-75.[address] [facility] Comment on above: Performed By: #### C BC #### [facility] [address] [place] [address] Dr. Octavio Hagen Platelet mean volume (Bld) [Entitic vol] 9.4 fL Critically low 9.5-13.[address] [facility] Comment on above: Performed By: #### C BC #### [facility] [address] [place] [address] Dr. Octavio Hagen PLT 256 103/ul Normal 150-450 [facility] Comment on above: Performed By: #### C BC #### [facility] [address] [place] [address] Dr. Octavio Hagen RBC 5.18 106/ul Normal 4.70-6.10 [facility] Comment on above: Performed By: #### C BC #### [facility] [address] [place] [address] Dr. Octavio Hagen WBC 7.5 103/ul Normal 4.0-11.0 [facility] Comment on above: Performed By: #### C BC #### [facility] [address] [place] [address] Dr. Octavio Hagen PROF 14(COMP METB)on 023 Albumin [Mass/Vol] 3.7 g/dL Normal 3.4-5.[address] [facility] Comment on above: Performed By: #### C BC #### [facility] [address] [place] [address] Dr. Octavio Hagen Albumin/Globulin [Mass ratio] 1.1 {ratio} Normal [facility] Comment on above: Performed By: #### C BC #### [facility] [address] [place] [address] Dr. Octavio Hagen ALP [Catalytic activity/Vol] 84 U/L Normal 46-116 [facility] Comment on above: Performed By: #### C BC #### [facility] [address] [place] [address] Dr. Octavio Hagen ALT [Catalytic activity/Vol] 40 U/L Normal 16-63 [facility] Comment on above: Performed By: #### C BC #### [facility] [address] [place] [address] Dr. Octavio Hagen Anion gap [Moles/Vol] 10.9 mmol/L Normal [facility] Comment on above: Performed By: #### C BC #### [facility] [address] [place] [address] Dr. Octavio Hagen AST [Catalytic activity/Vol] 25 U/L Normal 15-[address] [facility] Comment on above: Performed By: #### C BC #### [facility] [address] [place] [address] Dr. Octavio Hagen Bilirubin [Mass/Vol] 0.4 mg/dL Normal 0.2-1.0 [facility] Comment on above: Performed By: #### C BC #### [facility] [address] [place] [address] Dr. Octavio Hagen Calcium [Mass/Vol] 9.0 mg/dL Normal 8.5-10.1 [facility] Comment on above: Performed By: #### C BC #### [facility] [address] [place] [address] Dr. Octavio Hagen Chloride [Moles/Vol] 103 mmol/L Normal 98-107 [facility] Comment on above: Performed By: #### C BC #### [facility] [address] [place] [address] Dr. Octavio Hagen CO2 [Moles/Vol] 29.2 mmol/L Normal 21.0-32.[address] [facility] Comment on above: Performed By: #### C BC #### [facility] [address] [place] [address] Dr. Octavio Hagen Creatinine [Mass/Vol] 1.10 mg/dL Normal 0.70-1.30 [facility] Comment on above: Performed By: #### C BC #### [facility] [address] [address] [address] cOtavio Hagen EGFR-AF FAROESE >60 Normal >=[address] [facility] Comment on above: Performed By: #### C BC #### [facility] [address] [place] [address] Dr. Octavio Hagen EGFR-NON AF FAROESE >60 Normal >=60 [facility] Comment on above: Performed By: #### C BC #### [facility] [address] [place] [address] Dr. Octavio Hagen Globulin (S) [Mass/Vol] 3.4 g/dL Normal [facility] Comment on above: Performed By: #### C BC #### [facility] [address] [place] [address] Dr. Octavio Hagen Glucose [Mass/Vol] 102 mg/dL Normal 74-106 [facility] Comment on above: Performed By: #### C BC #### [facility] [address] [place] [address] Dr. Octavio Hagen Potassium [Moles/Vol] 4.1 mmol/L Normal 3.5-5.1 [facility] Comment on above: Performed By: #### C BC #### [facility] [address] [place] [address] Dr. Octavio Hagen Protein [Mass/Vol] 7.1 g/dL Normal 6.4-8.2 [facility] Comment on above: Performed By: #### C BC #### [facility] [address] [place] [address] Dr. Octvaio Hagen Sodium [Moles/Vol] 139 mmol/L Normal 136-145 [facility] Comment on above: Performed By: #### C BC #### [facility] [address] [address] [address] Octavio Hagen Urea nitrogen [Mass/Vol] 15.0 mg/dL Normal 7.0-18.[address] [facility] Comment on above: Performed By: #### C BC #### [facility] [address] [place] [address] Dr. Octavoi Hagen Urea nitrogen/Creatini ne [Mass ratio] 13.6 mg/mg Normal [facility] Comment on above: Performed By: #### C BC #### [facility] [address] [address] [address] Octavio Hagen PTTon 09-02-2022 aPTT Coag (Bld) [Time] 37.5 s Critically high 22.3-36.[address] [facility] Comment on above: Performed By: #### P TT #### [facility] [address] [place] [address] Dr. Octavio Hagen XR ABD FLAT UP_PA [...] [place] POST Date: 2022-09-02 10:04 Normal [facility] CBC AUTO DIFFon 09-01-2022 BASO # 0.0 103/ul Normal 0.0-0.1 [facility] Comment on above: Performed By: #### C MP #### [facility] [address] [address] [address] Octavio Hagen Basophils/100 WBC (Bld) 0.4 % Normal 0.2-2.[address] [facility] Comment on above: Performed By: #### C MP #### [facility] [address] [address] [address] Octavio Hagen EO # 0.2 103/ul Normal 0.0-0.7 [facility] Comment on above: Performed By: #### C MP #### [facility] [address] [address] [address] Octavio Hagen Eosinophils/100 WBC (Bld) 2.6 % Normal 0.9-7.[address] [facility] Comment on above: Performed By: #### C MP #### [facility] [address] [address] [address] Octavio Hagen Erythrocyte distribution width (RBC) [Ratio] 12.6 % Normal 11.0-15.[address] [facility] Comment on above: Performed By: #### C MP #### [facility] [address] [address] [address] Octavio Hagen Hematocrit (Bld) [Volume fraction] 50.1 % Normal 42.0-54.[address] [facility] Comment on above: Performed By: #### C MP #### [facility] [address] [address] [address] Octavio Hagen Hemoglobin (Bld) [Mass/Vol] 16.8 g/dL Normal 14.0-18.[address] [facility] Comment on above: Performed By: #### C MP #### [facility] [address] [address] [address] Octavio Hagen IG # 0.18 10e3/ul Critically high 0.00-0.03 [facility] Comment on above: Performed By: #### C MP #### [facility] [address] [address] [address] Octavio Hagen IG % 2.0 % Critically high 0.0-0.5 [facility] Comment on above: Performed By: #### C MP #### [facility] [address] [address] [address] Octavio Hagen LYMPH # 1.8 103/ul Normal 1.2-3.8 [facility] Comment on above: Performed By: #### C MP #### [facility] [address] [place] [address] Dr. Octavio Hagen Lymphocytes/100 WBC (Bld) 19.0 % Critically low 20.5-60.[address] [facility] Comment on above: Performed By: #### C MP #### [facility] [address] [place] [address] Dr. Octavio Hagen MANUAL DIFF REQ NO Normal [facility] Comment on above: Performed By: #### C MP #### [facility] [address] [place] [address] Dr. Octavio Hagen MCH (RBC) [Entitic mass] 28.5 pg Normal 25.9-34.[address] [facility] Comment on above: Performed By: #### C MP #### [facility] [address] [place] [address] Dr. Octavio Hagen MCHC (RBC) [Mass/Vol] 33.5 g/dL Normal 29.9-35.2 [facility] Comment on above: Performed By: #### C MP #### [facility] [address] [place] [address] Dr. Octavio Hagen MCV (RBC) [Entitic vol] 84.9 fL Normal 80.0-94.[address] [facility] Comment on above: Performed By: #### C MP #### [facility] [address] [place] [address] Dr. Octavio Hagen MONO # 0.9 103/ul Critically high 0.3-0.8 [facility] Comment on above: Performed By: #### C MP #### [facility] [address] [place] [address] Dr. Octavio Hagen Monocytes/100 WBC (Bld) 9.6 % Normal 1.7-12.[address] [facility] Comment on above: Performed By: #### C MP #### [facility] [address] [place] [address] Dr. Octavio Hagen NEUT # 6.1 103/ul Normal 1.4-6.[address] [facility] Comment on above: Performed By: #### C MP #### [facility] [address] [place] [address] Dr. Octavio Hagen Neutrophils/100 WBC (Bld) 66.4 % Normal 43.0-75.[address] [facility] Comment on above: Performed By: #### C MP #### [facility] [address] [place] [address] Dr. Octavio Hagen Platelet mean volume (Bld) [Entitic vol] 9.2 fL Critically low 9.5-13.[address] [facility] Comment on above: Performed By: #### C MP #### [facility] [address] [place] [address] Dr. Octavio Hagen PLT 271 103/ul Normal 150-450 [facility] Comment on above: Performed By: #### C MP #### [facility] [address] [place] [address] Dr. Octavio Hagen RBC 5.90 106/ul Normal 4.70-6.10 [facility] Comment on above: Performed By: #### C MP #### [facility] [address] [place] [address] Dr. Octavio Hagen WBC 9.2 103/ul Normal 4.0-11.0 [facility] Comment on above: Performed By: #### C MP #### [facility] [address] [place] [address] ABD/PELV W CONon [...] CECILE ANDRES Date: 2022-09-01 21:33 Normal [facility] CULTURE URINEon 09-01-2022 CULTURE URINE Culture Observations : NO GROWTH. Normal [facility] Comment on above: Performed By: #### C MP #### [facility] [address] [place] [address] Dr. Octavio Hagen ER URINE PROFILEon 3 Bilirubin Ql (U) Negative Normal NEGATIVE [facility] Comment on above: Performed By: #### C BC #### [facility] [address] [place] [address] Dr. Octavio Hagen Clarity (U) CLEAR Normal CLEAR [facility] Comment on above: Performed By: #### C BC #### [facility] [address] [place] [address] Dr. Octavio Hagen Color (U) YELLOW Normal YELLOW [facility] Comment on above: Performed By: #### C BC #### [facility] [address] [place] [address] Dr. Octavio BLOOM A micrscopic examination will be performed if indicated. Normal [facility] Comment on above: Performed By: #### C BC #### [facility] [address] [place] [address] Dr. Octavio Hagen Glucose Ql (U) Negative Normal NEGATIVE [facility] Comment on above: Performed By: #### C BC #### [facility] [address] [place] [address] Dr. Octavio Hagen Hemoglobin Ql (U) Negative Normal NEGATIVE [facility] Comment on above: Performed By: #### C BC #### [facility] [address] [place] [address] Dr. Octavio Hagen Ketones Ql (U) TRACE Abnormal NEGATIVE [facility] Comment on above: Performed By: #### C BC #### [facility] [address] [place] [address] Dr. Octavio Hagen LEUKOCYTES Negative Normal NEGATIVE [facility] Comment on above: Performed By: #### C BC #### [facility] [address] [place] [address] Dr. Octavio Hagen Nitrite Ql (U) Negative Normal NEGATIVE [facility] Comment on above: Performed By: #### C BC #### [facility] [address] [place] [address] Dr. Octavio Hagen pH (U) 6.0 [pH] Normal 5-[address] [facility] Comment on above: Performed By: #### C BC #### [facility] [address] [place] [address] Dr. Octavio Hagen Protein (U) [Mass/Vol] 30 mg/dL Abnormal NEGATIVE/ TRACE [facility] Comment on above: Performed By: #### C BC #### [facility] [address] [place] [address] Dr. Octavio Hagen SPEC GRAVITY 1.025 Normal 1.005-<=1.025 [facility] Comment on above: Performed By: #### C BC #### [facility] [address] [place] [address] Dr. Octavio Hagen UR MICRO IND INDICATED Normal [facility] Comment on above: Performed By: #### C BC #### [facility] [address] [place] [address] Dr. Octavio Hagen Urobilinogen Qn (U) 1.0 {Rudi'U}/dL Normal 0.2 - 1.[address] [facility] Comment on above: Performed By: #### C BC #### [facility] [address] [place] [address] Dr. Octavio Hagen LACTATE/LACTIC ACIDon 2022 Lactate [Moles/Vol] 1.0 mmol/L Normal 0.4-2.[address] [facility] Comment on above: Performed By: #### L ACT #### [facility] [address] [place] [address] Dr. Octavio Hagen LIPASEon 09-01-2022 Lipase [Catalytic activity/Vol] 67.0 U/L Critically low 73.0-393.[address] [facility] Comment on above: Performed By: #### C MP, LIPA #### [facility] [address] [place] [address] Dr. Octavio Hagen PROF 14(COMP METB)on 023 Albumin [Mass/Vol] 4.6 g/dL Normal 3.4-5.[address] [facility] Comment on above: Performed By: #### C MP, LIPA #### [facility] [address] [place] [address] Dr. Octavio Hagen Albumin/Globulin [Mass ratio] 1.1 {ratio} Normal [facility] Comment on above: Performed By: #### C MP, LIPA #### [facility] [address] [place] [address] Dr. Octavio Hagen ALP [Catalytic activity/Vol] 100 U/L Normal 46-116 [facility] Comment on above: Performed By: #### C MP, LIPA #### [facility] [address] [place] [address] Dr. Octavio Hagen ALT [Catalytic activity/Vol] 49 U/L Normal 16-63 [facility] Comment on above: Performed By: #### C MP, LIPA #### [facility] [address] [place] [address] Dr. Octavio Hagen Anion gap [Moles/Vol] 12.3 mmol/L Normal [facility] Comment on above: Performed By: #### C MP, LIPA #### [facility] [address] [place] [address] Dr. Octavio Hagen AST [Catalytic activity/Vol] 32 U/L Normal 15-37 [facility] Comment on above: Performed By: #### C MP, LIPA #### [facility] [address] [place] [address] Dr. Octavio Hagen Bilirubin [Mass/Vol] 0.4 mg/dL Normal 0.2-1.0 [facility] Comment on above: Performed By: #### C MP, LIPA #### [facility] [address] [place] [address] Dr. Octavio Hagen Calcium [Mass/Vol] 10.1 mg/dL Normal 8.5-10.1 [facility] Comment on above: Performed By: #### C MP, LIPA #### [facility] [address] [place] [address] Dr. Octavio Hagen Chloride [Moles/Vol] 100 mmol/L Normal 98-107 [facility] Comment on above: Performed By: #### C MP, LIPA #### [facility] [address] [place] [address] Dr. Octavio Hagen CO2 [Moles/Vol] 28.9 mmol/L Normal 21.0-32.[address] [facility] Comment on above: Performed By: #### C MP, LIPA #### [facility] [address] [place] [address] Dr. Octavio Hagen Creatinine [Mass/Vol] 1.00 mg/dL Normal 0.70-1.30 [facility] Comment on above: Performed By: #### C MP, LIPA #### [facility] [address] [place] [address] Dr. Octavio Hagen EGFR-AF FAROESE >60 Normal >=[address] [facility] Comment on above: Performed By: #### C MP, LIPA #### [facility] [address] [place] [address] Dr. Octavio Hagen EGFR-NON AF FAROESE >60 Normal >=60 [facility] Comment on above: Performed By: #### C MP, LIPA #### [facility] [address] [address] [address] Octavio Hagen Globulin (S) [Mass/Vol] 4.0 g/dL Normal [facility] Comment on above: Performed By: #### C MP, LIPA #### [facility] [address] [place] [address] Dr. Octavio Hagen Glucose [Mass/Vol] 105 mg/dL Normal 74-106 [facility] Comment on above: Performed By: #### C MP, LIPA #### [facility] [address] [place] [address] Dr. Octavio Hagen Potassium [Moles/Vol] 4.2 mmol/L Normal 3.5-5.1 [facility] Comment on above: Performed By: #### C MP, LIPA #### [facility] [address] [place] [address] Dr. Octavio Hagen Protein [Mass/Vol] 8.6 g/dL Critically high 6.4-8.2 [facility] Comment on above: Performed By: #### C MP, LIPA #### [facility] [address] [place] [address] Dr. Octavio Hagen Sodium [Moles/Vol] 137 mmol/L Normal 136-145 [facility] Comment on above: Performed By: #### C MP, LIPA #### [facility] [address] [place] [address] Dr. Octavio Hagen Urea nitrogen [Mass/Vol] 13.0 mg/dL Normal 7.0-18.0 [facility] Comment on above: Performed By: #### C MP, LIPA #### [facility] [address] [place] [address] Dr. Octavio Hagen Urea nitrogen/Creatini ne [Mass ratio] 13.0 mg/mg Normal [facility] Comment on above: Performed By: #### C MP, LIPA #### [facility] [address] [place] [address] Dr. Octavio Hagen URINE MICROSCOPIC ONLYon BACTERIA SMALL Abnormal NONE SEEN [facility] Comment on above: Performed By: #### C BC #### [facility] [address] [place] [address] Dr. Octavio Hagen Bacteria identified Cx Nom (U) INDICATED Normal [facility] Comment on above: Performed By: #### C BC #### [facility] [address] [place] [address] Dr. Octavio Hagen CAST NONE SEEN Normal NONE SEEN [facility] Comment on above: Performed By: #### C BC #### [facility] [address] [place] [address] Dr. Octavio Hagen Crystals LM Nom (Urine sed) NONE SEEN Normal NONE SEEN [facility] Comment on above: Performed By: #### C BC #### [facility] [address] [place] [address] Dr. Octavio Hagen Epithelial cells LM Ql (Urine sed) NONE SEEN Normal NONE SEEN /RARE [facility] Comment on above: Performed By: #### C BC #### [facility] [address] [place] [address] Dr. Octavio Hagen MUCOUS LARGE Abnormal NONE SEEN [facility] Comment on above: Performed By: #### C BC #### [facility] [address] [place] [address] Dr. Octavio Hagen RBC 0-2 Normal 0-2 [facility] Comment on above: Performed By: #### C BC #### [facility] [address] [place] [address] Dr. Octavio Hagen WBC 0-2 Abnormal NONE SEEN [facility] Comment on above: Performed By: #### C BC #### [facility] [address] [place] [address] Dr. Octavio Hagen CBC AUTO DIFFon 08-26-2022 BASO # 0.0 103/ul Normal 0.0-0.1 [facility] Comment on above: Performed By: #### C BC #### [facility] [address] [place] [address] Dr. Octavio Hagen Basophils/100 WBC (Bld) 0.3 % Normal 0.2-2.0 [facility] Comment on above: Performed By: #### C BC #### [facility] [address] [place] [address] Dr. Octavio Hagen EO # 0.4 103/ul Normal 0.0-0.7 [facility] Comment on above: Performed By: #### C BC #### [facility] [address] [place] [address] Dr. Octavio Hagen Eosinophils/100 WBC (Bld) 3.3 % Normal 0.9-7.[address] [facility] Comment on above: Performed By: #### C BC #### [facility] [address] [place] [address] Dr. Octavio Hagen Erythrocyte distribution width (RBC) [Ratio] 12.6 % Normal 11.0-15.[address] [facility] Comment on above: Performed By: #### C BC #### [facility] [address] [place] [address] Dr. Octavio Hagen Hematocrit (Bld) [Volume fraction] 46.1 % Normal 42.0-54.[address] [facility] Comment on above: Performed By: #### C BC #### [facility] [address] [place] [address] Dr. Octavio Hagen Hemoglobin (Bld) [Mass/Vol] 15.5 g/dL Normal 14.0-18.[address] [facility] Comment on above: Performed By: #### C BC #### [facility] [address] [place] [address] Dr. Octavio Hagen IG # 0.05 10e3/ul Critically high 0.00-0.03 [facility] Comment on above: Performed By: #### C BC #### [facility] [address] [place] [address] Dr. Octavio Hagen IG % 0.4 % Normal 0.0-0.5 [facility] Comment on above: Performed By: #### C BC #### [facility] [address] [place] [address] Dr. Octavio Hagen LYMPH # 2.5 103/ul Normal 1.2-3.8 [facility] Comment on above: Performed By: #### C BC #### [facility] [address] [place] [address] Dr. Octavio Hagne Lymphocytes/100 WBC (Bld) 21.1 % Normal 20.5-60.[address] [facility] Comment on above: Performed By: #### C BC #### [facility] [address] [place] [address] Dr. Octavio Hagen MANUAL DIFF REQ NO Normal [facility] Comment on above: Performed By: #### C BC #### [facility] [address] [place] [address] Dr. Octavio Hagen MCH (RBC) [Entitic mass] 29.2 pg Normal 25.9-34.0 [facility] Comment on above: Performed By: #### C BC #### [facility] [address] [place] [address] Dr. Octavio Hagen MCHC (RBC) [Mass/Vol] 33.6 g/dL Normal 29.9-35.[address] [facility] Comment on above: Performed By: #### C BC #### [facility] [address] [place] [address] Dr. Octavio Hagen MCV (RBC) [Entitic vol] 86.8 fL Normal 80.0-94.[address] [facility] Comment on above: Performed By: #### C BC #### [facility] [address] [place] [address] Dr. Octavio Hagen MONO # 0.9 103/ul Critically high 0.3-0.8 [facility] Comment on above: Performed By: #### C BC #### [facility] [address] [place] [address] Dr. Octavio Hagen Monocytes/100 WBC (Bld) 7.9 % Normal 1.7-12.0 [facility] Comment on above: Performed By: #### C BC #### [facility] [address] [place] [address] Dr. Octavio Hagen NEUT # 7.8 103/ul Critically high 1.4-6.5 [facility] Comment on above: Performed By: #### C BC #### [facility] [address] [place] [address] Dr. Octavio Hagen Neutrophils/100 WBC (Bld) 67.0 % Normal 43.0-75.[address] [facility] Comment on above: Performed By: #### C BC #### [facility] [address] [place] [address] Dr. Octavio Hagen Platelet mean volume (Bld) [Entitic vol] 9.4 fL Critically low 9.5-13.[address] [facility] Comment on above: Performed By: #### C BC #### [facility] [address] [place] [address] Dr. Octavio Hagen PLT 245 103/ul Normal 150-450 [facility] Comment on above: Performed By: #### C BC #### [facility] [address] [place] [address] Dr. Octavio Hagen RBC 5.31 106/ul Normal 4.70-6.10 [facility] Comment on above: Performed By: #### C BC #### [facility] [address] [place] [address] Dr. Octavio Hagen WBC 11.7 103/ul Critically high 4.0-11.[address] [facility] Comment on above: Performed By: #### C BC #### [facility] [address] [place] [address] Dr. Octavio Hagen LIPASEon 08-26-2022 Lipase [Catalytic activity/Vol] 63.0 U/L Critically low 73.0-393.[address] [facility] Comment on above: Performed By: #### C BC #### [facility] [address] [place] [address] Dr. Octavio Hagen PROF 14(COMP METB)on 023 Albumin [Mass/Vol] 3.9 g/dL Normal 3.4-5.[address] [facility] Comment on above: Performed By: #### C BC #### [facility] [address] [place] [address] Dr. Octavio Hagen Albumin/Globulin [Mass ratio] 1.1 {ratio} Normal [facility] Comment on above: Performed By: #### C BC #### [facility] [address] [place] [address] Dr. Octavio Hagen ALP [Catalytic activity/Vol] 118 U/L Critically high 46-116 [facility] Comment on above: Performed By: #### C BC #### [facility] [address] [address] [address] Octavio Hagen ALT [Catalytic activity/Vol] 37 U/L Normal 16-[address] [facility] Comment on above: Performed By: #### C BC #### [facility] [address] [address] [address] Octavio Hagen Anion gap [Moles/Vol] 15.1 mmol/L Normal [facility] Comment on above: Performed By: #### C BC #### [facility] [address] [place] [address] Dr. Octavio Hagen AST [Catalytic activity/Vol] 21 U/L Normal 15-[address] [facility] Comment on above: Performed By: #### C BC #### [facility] [address] [place] [address] Dr. Octavio Hagen Bilirubin [Mass/Vol] 0.2 mg/dL Normal 0.2-1.[address] [facility] Comment on above: Performed By: #### C BC #### [facility] [address] [place] [address] Dr. Octavio Hagen Calcium [Mass/Vol] 8.8 mg/dL Normal 8.5-10.1 [facility] Comment on above: Performed By: #### C BC #### [facility] [address] [place] [address] Dr. Octavio Hagen Chloride [Moles/Vol] 106 mmol/L Normal 98-107 [facility] Comment on above: Performed By: #### C BC #### [facility] [address] [address] [address] Octavio Hagen CO2 [Moles/Vol] 25.7 mmol/L Normal 21.0-32.[address] [facility] Comment on above: Performed By: #### C BC #### [facility] [address] [place] [address] Dr. Octavio Hagen Creatinine [Mass/Vol] 0.96 mg/dL Normal 0.70-1.30 [facility] Comment on above: Performed By: #### C BC #### [facility] [address] [place] [address] Dr. Octavio Hagen EGFR-AF FAROESE >60 Normal >=[address] [facility] Comment on above: Performed By: #### C BC #### [facility] [address] [address] [address] Octavio Hagen EGFR-NON AF FAROESE >60 Normal >=60 [facility] Comment on above: Performed By: #### C BC #### [facility] [address] [address] [address] Octavio Hagen Globulin (S) [Mass/Vol] 3.6 g/dL Normal [facility] Comment on above: Performed By: #### C BC #### [facility] [address] [place] [address] Dr. Octavio Hagen Glucose [Mass/Vol] 110 mg/dL Critically high 74-[address] [facility] Comment on above: Performed By: #### C BC #### [facility] [address] [place] [address] Dr. Octavio Hagen Potassium [Moles/Vol] 3.8 mmol/L Normal 3.5-5.1 [facility] Comment on above: Performed By: #### C BC #### [facility] [address] [place] [address] Dr. Octavio Hagen Protein [Mass/Vol] 7.5 g/dL Normal 6.4-8.2 [facility] Comment on above: Performed By: #### C BC #### [facility] [address] [place] [address] Dr. Octavio Hagen Sodium [Moles/Vol] 143 mmol/L Normal 136-145 [facility] Comment on above: Performed By: #### C BC #### [facility] [address] [place] [address] Dr. Octavio Hagen Urea nitrogen [Mass/Vol] 23.0 mg/dL Critically high 7.0-18.0 [facility] Comment on above: Performed By: #### C BC #### [facility] [address] [place], [place] [address] Dr. Octavio Hagen Urea nitrogen/Creatini ne [Mass ratio] 24.0 mg/mg Normal [facility] Comment on above: Performed By: #### C BC #### [facility] [address] [place], [place] [address] Dr. Octavio Hagen XR ABD FLAT UP_PA [...] by: GABE MOURA Date: 2022-08-26 09:[address] [facility] XR ANKLE LT MIN 3 [...] by: ASHLY LINDER Date: 2021-11-12 18:[address] [facility] COVID/FLU/RSV RT-PCRon 09-11 SARS-CoV-2 (COVID-19) RNA MARCIA+probe Ql (Unsp spec) Negative [employer] [facility] [employer] Other COVID/FLU/RSV RT-PCR Negative [employer] Other XR foot RT min 3V*on 021 XR foot RT min 3V* [facility] Main [place] [address] [place] [address] XRay Report Signed Patient: Ashly Jamison JR MR#: [id number] : 2000 Acct:[id number] Age/Sex: 20 / M ADM Date: 10/18/20 Loc: XDUCLY Room: Type: [facility] Attending Dr: Trisha GARCIA Ordering Provider: TRISHA [...] Miles Swanson M.D.10/18/2020 4:53 PM Dictation Location: [place] [address] Transcribed By: [facility] 10/18/201652 Dictated By: Miles Swanson II, MD 10/18/201651 Signed By: 10/18/201652 [facility] Vital Signs Date Time Vital Sign Value Performing Clinician Facility 08-02-2022 14:00-0400 Body height 170.18 cm Shala Hicks Other [employer] Other 08-02-2022 14:00-0400 Body mass index (BMI) [Ratio] 30.07 kg/m2 Shala Hicks Other [employer] Other 08-02-2022 14:00-0400 Body temperature 100.1 [degF] Shala Hicks Other [employer] Other 08-02-2022 14:00-0400 Body weight 87.09 kg Shala Hicks Other [employer] Other 08-02-2022 14:00-0400 Respiratory rate 18 /min Shala Hicks Other [employer] Other 08-02-2022 14:00-0400 SaO2% (BldA) [Mass fraction] 96 % Shala Hicks Other [employer] Other 09-11-2021 16:25-0400 Body height 170.18 cm Trisha Arteaga Other [employer] Other 09-11-2021 16:25-0400 Body mass index (BMI) [Ratio] 28.03 kg/m2 Trisha Arteaga Other [employer] Other 09-11-2021 16:25-0400 Body temperature 97.6 [degF] Trisha Arteaga Other [employer] Other 09-11-2021 16:25-0400 Body weight 81.19 kg Trisha Arteaga Other [employer] Other 09-11-2021 16:25-0400 Respiratory rate 18 /min Trisha Arteaga Other [employer] Other 09-11-2021 16:25-0400 SaO2% (BldA) [Mass fraction] 96 % Trisha Arteaga Other [employer] Other Encounters Encounter Date Encounter Type Care Provider Facility Start: 09-02-2022 End: 09-04-2022 Evaluation and management of inpatient DR HOFFMAN LISTED REQUEST Facility:[facility] Start: 08-26-2022 End: 08-26-[address] LEONELA SMITH . Facility:[facility] Start: 08-02-2022 End: 08-02-2022 ambulatory Shala Hicks Other [employer] Other Start: 08-02-2022 Office outpatient visit 15 minutes Shala Hicks [facility] Start: 11-12-2021 End: 11-12-[address] DOCTOR JACKSON Facility:[facility] Start: 09-11-2021 End: 09-11-2021 ambulatory Trisha Arteaga Other [employer] Other Start: 09-11-2021 Office outpatient visit 15 minutes Trisha Arteaga [facility] Start: 02-17-2019 End: 02-17-2019 Emergency department patient visit MARCELL VALENCIA Facility:[facility] Payers Date Payer Category Payer Unknown [id number] 2000 Unknown [id number] [id number] 2000 Unknown [id number] [id number] [id number] 1999 Unknown [id number] [id number] [id number] 1960 Medicaid [id number] 1960 Unknown [id number] Social History Date Type Detail Facility Unknown if ever smoked [employer] Other Sex Assigned At Sex Assigned At Bir th [employer] Other Evaluation note 08-02-2022 Note Date & [...] Dental pain home care material was printed [employer] Other Evaluation note 09-11-2021 Note Date & Type Note Facility 09-11-2021 Evaluation note Encounter Date Diagnosis Assessment Notes August, Cough (ICD-10 - R05.9) August, Allergic sinusitis (ICD-10 - J30.9) [employer] Other History general Narrative - Reported Note Date & Type Note Facility History general Narrative - Reported Type Medical History ADHD Surgical History reconstruction bowel as Hospitalization History see above [employer] Other Summary Purpose Family History No Family History Records FoundNo Family History Records FoundNo Family History Records Found Advance Directives No Advanced Directives Records FoundNo Advanced Directives Records FoundNo Advanced Directives Records Found Additional Source Comments (unrecognized sect ion and content) No Status Records FoundNo Status Records FoundNo Status Records Found INFORMATION SOURCE (unrecogn ized section and content) DATE CREATED AUTHOR 03/01/2019 [facility] DATE CREATED AUTHOR AUTHOR'S ORGANIZ ATION 05/24/2021 [facility] DATE CREATED AUTHOR AUTHOR'S ORGANIZ ATION 09/12/2022 [facility] REASON FOR VISIT (unrecogniz ed [...] BE BASED ON THE PRIMARY CLINICAL RECORDS. [employer] provides no warranty or guarantee of the accuracy or completeness of information in this document.
[2024-03-10] MEDS: NICOTINE 21 MG PATCH.TD24 TD (02:16)
[2024-03-10] MEDS: 0.9 % SODIUM CHLORIDE 1,000 ML 100 ML IV (02:17)
[2024-03-10] MEDS: MORPHINE SULFATE 2 MG/ML SYRINGE IV ×2 (05:03→07:41)
[2024-03-10 06:14] LABS: Basophils Absolute Auto 0.1 10^3/uL (0.0-0.1); Basophils Percent Auto 0.4 % (0.2-2.0); Eosinophils Absolute Auto 0.3 10^3/uL (0.0-0.7); Eosinophils Percent Auto 2.9 % (0.9-7.0); Hematocrit 43.4 % (42.0-54.0); Hemoglobin 15.1 g/dL (14.0-18.0); Immature Granulocytes Abs Auto 0.06 10^3/uL (0.00-0.03); Immature Granulocytes Pct Auto 0.5 % (0.0-0.5); Lymphocytes Absolute Auto 2.3 10^3/uL (1.2-3.8); Lymphocytes Percent Auto 20.1 % (20.5-60.0); Mean Corpuscular HGB Conc 34.8 g/dL (29.9-35.2); Mean Corpuscular Hemoglobin 30.1 pg (25.9-34.0); Mean Corpuscular Volume 86.5 fL (80.0-94.0); Mean Platelet Volume 9.7 fL (9.5-13.5); Monocytes Percent Auto 8.9 % (1.7-12.0); Neutrophils Absolute Auto 7.7 10^3/uL (1.4-6.5); Neutrophils Percent Auto 67.2 % (43.0-75.0); Platelet Count 250 10^3/uL (150-450); Red Blood Count 5.02 10^6/uL (4.70-6.10); Red Cell Distribution Width 12.8 % (11.0-15.0); White Blood Count 11.5 10^3/uL (4.0-11.0)
[2024-03-10 06:20] LABS: BUN Creatinine Ratio 9.2; Carbon Dioxide 24.6 mmol/L (21.0-32.0); Chloride 104 mmol/L (98-107); Estimated GFR (African America >60 (>=60 mL/min/1.73m^2); Estimated GFR (Non-African Ame >60 (>=60 mL/min/1.73m^2); Glucose 108 mg/dL (74-106); Magnesium 1.9 mg/dL (1.8-2.4); Potassium 3.6 mmol/L (3.5-5.1); Sodium 142 mmol/L (136-145)
--- NOTE | 2024-03-10 07:09 | PM.GSCN ---
History of Present Illness Consult details Consult date: 03/10/24 Reason for consult: other (SBO) Requesting physician: America Goins Narrative: Alec Chau is a 23-year-old male who presented to the ED last evening with complaints of abdominal pain without nausea or vomiting was found to have a small bowel obstruction on CT scan performed with oral and IV contrast. He had a previous small bowel obstruction in August 2022 for which he was hospitalized at the [facility] for 3 days and decompressed with conservative treatment. He has an extensive surgical history but the patient does not know the history because most of his surgery occurred when he was at infant. He had a colostomy and also a reversal. He smokes tobacco daily and rolls his own cigarettes and smokes heavily and also drinks occasionally when he has money. 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 This morning the nasogastric tube was in his stomach but was not connected to wall suction therefore I did not know how much enteric contents he had in his stomach. Nursing was called and the nasogastric tube was put to wall suction and immediately he began to decompress bilious contents. He is rating his pain as an 8 out of 10 this morning. It was about the same last evening but again the nasogastric tube was not to suction all night. He denies any other medical problems. 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.0 - Peritoneal adhesions (postprocedural) (postinfection) (ICD-10) Non-compliance ?Z91.199 - Patient's noncompliance with other medical treatment and regimen due to unspecified reason (ICD-10) Cigarette smoker ?F17.210 - Nicotine dependence, cigarettes, uncomplicated (ICD-10) Heavy drinker of alcohol ?Z78.9 - Other specified health status (ICD-10) Constipation, chronic ?K59.09 - Other constipation (ICD-10) Small bowel obstruction due to adhesions ?K56.50 - Intestinal adhesions [bands], unspecified as to partial versus complete obstruction (ICD-10) Surgical History History of colostomy reversal ?Z98.890 - Other specified postprocedural states (ICD-10) Social History Within the past year, how often did you have a drink containing alcohol: 4 or more times a week Within the past year, how many standard drinks containing alcohol did you have on a typical day: 5 or 6 Within the past year, how often did you have six or more drinks on one occasion: weekly Total score: 7 Score interpretation: A score of 4 or more indicates drinking is likely to affect patient's safety. Smoking status: Current every day smoker Non-prescribed substance use: denies use Highest level of school completed/degree received: 12th grade, no diploma Little interest or pleasure in doing things: not at all Feeling down, depressed, or hopeless: not at all Meds Home Medications and Allergies Home Medications ?Medication ?Instructions ?Recorded ?Confirmed ?Type No Known Home Medications 03/09/24 03/09/24 History Allergies Allergy/AdvReac Type Severity Reaction Status Date / Time bismuth subsalicylate (From Allergy Severe Hives Verified 03/09/24 19:08 Pepto-Bismol) Exam Constitutional Vital Signs, click to edit/add: Last Vital Signs Temp 97.3 F L 03/10/24 05:00 Pulse 72 03/10/24 05:00 Resp 16 03/10/24 05:00 BP 148/106 H 03/10/24 05:00 Pulse Ox 97 03/10/24 05:00 O2 Del Method Room Air 03/10/24 05:00 Documenting provider has reviewed patient's vital signs: yes Common normals: no apparent distress, average body habitus, oriented x3, healthy appearing, alert and well nourished General appearance: cooperative and well developed Nutritional appearance: overweight Orientation/consciousness: Yes awake, Yes oriented to person, Yes oriented to place and Yes oriented to time GI Common normals: soft to palpation Auscultation: normoactive bowel sounds Palpation: tender and guarding Neuro Common normals: oriented x3, CN's II-XII intact bilaterally, moves all extremities and no focal motor deficits Results Labs Labs: Abnormal lab results 03/09/24 03/10/24 Range/Units 19:29 05:51 WBC 11.4 H 11.5 H (4.0-11.0) 10^3/uL Lymph % (Auto) 15.8 L 20.1 L (20.5-60.0) % Neut # (Auto) 8.4 H 7.7 H (1.4-6.5) 10^3/uL Tate # (Auto) 1.0 H (0.3-0.8) 10^3/uL Abs Immat Gran (auto) 0.05 H 0.06 H (0.00-0.03) 10^3/uL Creatinine 1.32 H (0.70-1.30) mg/dL Glucose 110 H 108 H (74-106) mg/dL Diabetes panel 03/09/24 03/10/24 Range/Units 19:29 05:51 Sodium 141 142 (136-145) mmol/L Potassium 3.7 3.6 (3.5-5.1) mmol/L Chloride 105 104 (98-107) mmol/L Carbon Dioxide 24.5 24.6 (21.0-32.0) mmol/L BUN 12.0 10.0 (7.0-18.0) mg/dL Creatinine 1.32 H 1.09 (0.70-1.30) mg/dL Glucose 110 H 108 H (74-106) mg/dL Calcium 9.4 9.0 (8.5-10.1) mg/dL AST 18 (15-37) U/L ALT 22 (16-63) U/L Alkaline Phosphatase 79 (46-116) U/L Total Protein 7.8 (6.4-8.2) g/dL Albumin 4.3 (3.4-5.0) g/dL Calcium panel 03/09/24 03/10/24 Range/Units 19:29 05:51 Calcium 9.4 9.0 (8.5-10.1) mg/dL Albumin 4.3 (3.4-5.0) g/dL Pituitary panel 03/09/24 03/10/24 Range/Units 19:29 05:51 Sodium 141 142 (136-145) mmol/L Potassium 3.7 3.6 (3.5-5.1) mmol/L Chloride 105 104 (98-107) mmol/L Carbon Dioxide 24.5 24.6 (21.0-32.0) mmol/L BUN 12.0 10.0 (7.0-18.0) mg/dL Creatinine 1.32 H 1.09 (0.70-1.30) mg/dL Glucose 110 H 108 H (74-106) mg/dL Calcium 9.4 9.0 (8.5-10.1) mg/dL Adrenal panel 03/09/24 03/10/24 Range/Units 19:29 05:51 Sodium 141 142 (136-145) mmol/L Potassium 3.7 3.6 (3.5-5.1) mmol/L Chloride 105 104 (98-107) mmol/L Carbon Dioxide 24.5 24.6 (21.0-32.0) mmol/L BUN 12.0 10.0 (7.0-18.0) mg/dL Creatinine 1.32 H 1.09 (0.70-1.30) mg/dL Glucose 110 H 108 H (74-106) mg/dL Calcium 9.4 9.0 (8.5-10.1) mg/dL Total Bilirubin 0.4 (0.2-1.0) mg/dL AST 18 (15-37) U/L ALT 22 (16-63) U/L Alkaline Phosphatase 79 (46-116) U/L Total Protein 7.8 (6.4-8.2) g/dL Albumin 4.3 (3.4-5.0) g/dL All other labs normal. Imaging Abdomen CT scan report/results: report reviewed Assessment and Plan Assessment and Plan (1) Small bowel obstruction: (2) Cigarette smoker: (3) Heavy drinker of alcohol: (4) History of colostomy reversal: Plan Connect nasogastric tube to low intermittent wall suction and encourage ambulation; analgesia preferably nonnarcotic like Toradol and repeat abdominal x-ray tomorrow and bowel rest. Recommend tobacco and alcohol cessation.
--- OUTSIDE RECORDS SUMMARY | 2024-03-10 07:46 | XMS_ITS | CCD ---
Author Organization [facility] Care Team Providers Care Returned Goods Sorter Name Role Phone MARCELL VALENCIA Admitting Unavailable [...] Unavailable SHRUTHI ., DR NICKERSON Consulting Unavailable RENTZ, DR ASHLY Warner Consulting Unavailable ERICA MARTINEZ Consulting Unavailable SINCERE, ALEXANDRIA Consulting Unavailable FAREGGIE, RIVERS H Consulting Unavailable SAID, BINOR Consulting Unavailable ANDRES, CECILE Consulting Unavailable SISTER, AMPARO Consulting Unavailable TAMLYN ., ANTHONY Consulting Unavailable HEGG, ASHLEY Consulting Unavailable [facility] [place], DR MONSALVE Primary Care Unavailable HAY ., DR MINER Admitting Unavailable HAY ., DR MINER Attending Unavailable ERICA MARTINEZ Consulting Unavailable ASHLY LINDER Consulting Unavailable Allergies Allergy Classification Reported Allergen(s) Allergy Type Date of Onset Reaction(s) Facility (2 sources) bismuth subsalicylate Drug Allergy [facility] Other (1 source) bismuth subsalicylate Drug Allergy 1 [facility] Repository Medications Current Medications Medication Drug Class(es) [...] 11-13-2021 Episodic Other aftercare (1 source) Other [place] [facility] (current) drug therapy; Translations: [OTH DIFFERENTIAL SPECIALIST CURRENT DRUG THERAPY] Onset: 11-13-2021 Episodic Other [...] 09-04-2022 BASO # 0.0 103/ul Normal 0.0-0.1 [facility] Comment on above: Performed By: #### C BC #### [facility] [address] [place] [address] Dr. Octavio Hagen Basophils/100 WBC (Bld) 0.2 % Normal 0.2-2.0 [facility] Comment on above: Performed By: #### C BC #### [facility] [address] [address] [address] Octavio Hagen EO # 0.3 103/ul Normal 0.0-0.7 [facility] Comment on above: Performed By: #### C BC #### [facility] [address] [address] [address] Octavio Hagen Eosinophils/100 WBC (Bld) 2.8 % Normal 0.9-7.0 [facility] Comment on above: Performed By: #### C BC #### [facility] [address] [address] [address] Octavio Hagen Erythrocyte distribution width (RBC) [Ratio] 12.4 % Normal 11.0-15.0 [facility] Comment on above: Performed By: #### C BC #### [facility] [address] [address] [address] Octavio Hagen Hematocrit (Bld) [Volume fraction] 41.0 % Critically low 42.0-54.0 [facility] Comment on above: Performed By: #### C BC #### [facility] [address] [address] [address] Octavio Hagen Hemoglobin (Bld) [Mass/Vol] 13.6 g/dL Critically low 14.0-18.0 [facility] Comment on above: Performed By: #### C BC #### [facility] [address] [place] [address] Dr. Octavio Hagen IG # 0.04 10e3/ul Critically high 0.00-0.03 [facility] Comment on above: Performed By: #### C BC #### [facility] [address] [place] [address] Dr. Octavio Hagen IG % 0.4 % Normal 0.0-0.5 [facility] Comment on above: Performed By: #### C BC #### [facility] [address] [place] [address] Dr. Octavio Hagen LYMPH # 1.4 103/ul Normal 1.2-3.8 [facility] Comment on above: Performed By: #### C BC #### [facility] [address] [place] [address] Dr. Octavio Hagen Lymphocytes/100 WBC (Bld) 15.5 % Critically low 20.5-60.0 [facility] Comment on above: Performed By: #### C BC #### [facility] [address] [place] [address] Dr. Octavio Hagen MANUAL DIFF REQ NO Normal [facility] Comment on above: Performed By: #### C BC #### [facility] [address] [place] [address] Dr. Octavio Hagen MCH (RBC) [Entitic mass] 28.6 pg Normal 25.9-34.0 [facility] Comment on above: Performed By: #### C BC #### [facility] [address] [place] [address] Dr. Octavio Hagen MCHC (RBC) [Mass/Vol] 33.2 g/dL Normal 29.9-35.2 [facility] Comment on above: Performed By: #### C BC #### [facility] [address] [place] [address] Dr. Octavio Hagen MCV (RBC) [Entitic vol] 86.3 fL Normal 80.0-94.0 [facility] Comment on above: Performed By: #### C BC #### [facility] [address] [address] [address] Octavio Hagen MONO # 1.0 103/ul Critically high 0.3-0.8 [facility] Comment on above: Performed By: #### C BC #### [facility] [address] [address] [address] Octavio Hagen Monocytes/100 WBC (Bld) 11.1 % Normal 1.7-12.0 [facility] Comment on above: Performed By: #### C BC #### [facility] [address] [place] [address] Dr. Octavio Hagen NEUT # 6.3 103/ul Normal 1.4-6.5 [facility] Comment on above: Performed By: #### C BC #### [facility] [address] [place] [address] Dr. Octavio Hagen Neutrophils/100 WBC (Bld) 70.0 % Normal 43.0-75.0 [facility] Comment on above: Performed By: #### C BC #### [facility] [address] [place] [address] Dr. Octavio Hagen Platelet mean volume (Bld) [Entitic vol] 8.9 fL Critically low 9.5-13.5 [facility] Comment on above: Performed By: #### C BC #### [facility] [address] [place] [address] Dr. Octavio Hagen PLT 221 103/ul Normal 150-450 [facility] Comment on above: Performed By: #### C BC #### [facility] [address] [place] [address] Dr. Octavio Hagen RBC 4.75 106/ul Normal 4.70-6.10 [facility] Comment on above: Performed By: #### C BC #### [facility] [address] [place] [address] Dr. Octavio Hagen WBC 9.0 103/ul Normal 4.0-11.0 [facility] Comment on above: Performed By: #### C BC #### [facility] [address] [place] [address] Dr. Octavio Hagen PROF 14(COMP METB)on 023 Albumin [Mass/Vol] 3.4 g/dL Normal 3.4-5.0 [facility] Comment on above: Performed By: #### C MP #### [facility] [address] [place] [address] Dr. Octavio Hagen Albumin/Globulin [Mass ratio] 0.9 {ratio} Normal [facility] Comment on above: Performed By: #### C MP #### [facility] [address] [place] [address] Dr. Octavio Hagen ALP [Catalytic activity/Vol] 77 U/L Normal 46-116 [facility] Comment on above: Performed By: #### C MP #### [facility] [address] [place] [address] Dr. Octavio Hagen ALT [Catalytic activity/Vol] 36 U/L Normal 16-63 [facility] Comment on above: Performed By: #### C MP #### [facility] [address] [place] [address] Dr. Octavio Hagen Anion gap [Moles/Vol] 11.4 mmol/L Normal [facility] Comment on above: Performed By: #### C MP #### [facility] [address] [place] [address] Dr. Octavio Hagen AST [Catalytic activity/Vol] 22 U/L Normal 15-37 [facility] Comment on above: Performed By: #### C MP #### [facility] [address] [place] [address] Dr. Octavio Hagen Bilirubin [Mass/Vol] 0.6 mg/dL Normal 0.2-1.0 [facility] Comment on above: Performed By: #### C MP #### [facility] [address] [place] [address] Dr. Octavio Hagen Calcium [Mass/Vol] 8.9 mg/dL Normal 8.5-10.1 [facility] Comment on above: Performed By: #### C MP #### [facility] [address] [address] [address] Octavio Hagen Chloride [Moles/Vol] 104 mmol/L Normal 98-107 [facility] Comment on above: Performed By: #### C MP #### [facility] [address] [address] [address] Octavio Hagen CO2 [Moles/Vol] 28.5 mmol/L Normal 21.0-32.0 [facility] Comment on above: Performed By: #### C MP #### [facility] [address] [address] [address] Octavio Hagen Creatinine [Mass/Vol] 1.02 mg/dL Normal 0.70-1.30 [facility] Comment on above: Performed By: #### C MP #### [facility] [address] [place] [address] Dr. Octavio Hagen EGFR-AF NEW ZEALANDER >60 Normal >=60 [facility] Comment on above: Performed By: #### C MP #### [facility] [address] [place] [address] Dr. Octavio Hagen EGFR-NON AF NEW ZEALANDER >60 Normal >=60 [facility] Comment on above: Performed By: #### C MP #### [facility] [address] [place] [address] Dr. Octavio Hagen Globulin (S) [Mass/Vol] 3.6 g/dL Normal [facility] Comment on above: Performed By: #### C MP #### [facility] [address] [place] [address] Dr. Octavio Hagen Glucose [Mass/Vol] 100 mg/dL Normal 74-106 [facility] Comment on above: Performed By: #### C MP #### [facility] [address] [place] [address] Dr. Octavio Hagen Potassium [Moles/Vol] 3.9 mmol/L Normal 3.5-5.1 [facility] Comment on above: Performed By: #### C MP #### [facility] [address] [address] [address] Octavio Hagen Protein [Mass/Vol] 7.0 g/dL Normal 6.4-8.2 [facility] Comment on above: Performed By: #### C MP #### [facility] [address] [address] [address] Octavio Hagen Sodium [Moles/Vol] 140 mmol/L Normal 136-145 [facility] Comment on above: Performed By: #### C MP #### [facility] [address] [address] [address] Octavio Hagen Urea nitrogen [Mass/Vol] 8.0 mg/dL Normal 7.0-18.0 [facility] Comment on above: Performed By: #### C MP #### [facility] [address] [address] [address] Octavio Hagen Urea nitrogen/Creatini ne [Mass ratio] 7.8 mg/mg Normal [facility] Comment on above: Performed By: #### C MP #### [facility] [address] [address] [address] Octavio Hagen PTTon 09-04-2022 aPTT Coag (Bld) [Time] 35.2 s Normal 22.3-36.2 [facility] Comment on above: Performed By: #### C MP #### [facility] [address] [place] [address] Dr. Octavio Hagen XR KUB 1 VIEWon [...] MARNIE BROOKS Date: 2022-09-04 06:11 Normal [facility] CBC AUTO DIFFon 09-03-2022 BASO # 0.0 103/ul Normal 0.0-0.1 [facility] Comment on above: Performed By: #### C BC #### [facility] [address] [address] [address] Octavio Hagen Basophils/100 WBC (Bld) 0.4 % Normal 0.2-2.0 [facility] Comment on above: Performed By: #### C BC #### [facility] [address] [place] [address] Dr. Octavio Hagen EO # 0.2 103/ul Normal 0.0-0.7 [facility] Comment on above: Performed By: #### C BC #### [facility] [address] [place] [address] Dr. Octavio Hagen Eosinophils/100 WBC (Bld) 3.3 % Normal 0.9-7.0 [facility] Comment on above: Performed By: #### C BC #### [facility] [address] [place] [address] Dr. Octavio Hagen Erythrocyte distribution width (RBC) [Ratio] 12.9 % Normal 11.0-15.0 [facility] Comment on above: Performed By: #### C BC #### [facility] [address] [place] [address] Dr. Octavio Hagen Hematocrit (Bld) [Volume fraction] 40.0 % Critically low 42.0-54.0 [facility] Comment on above: Performed By: #### C BC #### [facility] [address] [place] [address] Dr. Octavio Hagen Hemoglobin (Bld) [Mass/Vol] 13.4 g/dL Critically low 14.0-18.0 [facility] Comment on above: Performed By: #### C BC #### [facility] [address] [place] [address] Dr. Octavio Hagen IG # 0.03 10e3/ul Normal 0.00-0.03 [facility] Comment on above: Performed By: #### C BC #### [facility] [address] [place] [address] Dr. Octavio Hagen IG % 0.4 % Normal 0.0-0.5 [facility] Comment on above: Performed By: #### C BC #### [facility] [address] [place] [address] Dr. Octavio Hagen LYMPH # 1.6 103/ul Normal 1.2-3.8 [facility] Comment on above: Performed By: #### C BC #### [facility] [address] [place] [address] Dr. Octavio Hagen Lymphocytes/100 WBC (Bld) 22.9 % Normal 20.5-60.0 [facility] Comment on above: Performed By: #### C BC #### [facility] [address] [place] [address] Dr. Octavio Hagen MANUAL DIFF REQ NO Normal [facility] Comment on above: Performed By: #### C BC #### [facility] [address] [place] [address] Dr. Octavio Hagen MCH (RBC) [Entitic mass] 29.2 pg Normal 25.9-34.0 [facility] Comment on above: Performed By: #### C BC #### [facility] [address] [place] [address] Dr. Octavio Hagen MCHC (RBC) [Mass/Vol] 33.5 g/dL Normal 29.9-35.2 [facility] Comment on above: Performed By: #### C BC #### [facility] [address] [place] [address] Dr. Octavio Hagen MCV (RBC) [Entitic vol] 87.1 fL Normal 80.0-94.0 [facility] Comment on above: Performed By: #### C BC #### [facility] [address] [place] [address] Dr. Octavio Hagen MONO # 0.6 103/ul Normal 0.3-0.8 [facility] Comment on above: Performed By: #### C BC #### [facility] [address] [place] [address] Dr. Octavio Hagen Monocytes/100 WBC (Bld) 9.2 % Normal 1.7-12.0 [facility] Comment on above: Performed By: #### C BC #### [facility] [address] [place] [address] Dr. Octavio Hagen NEUT # 4.5 103/ul Normal 1.4-6.5 [facility] Comment on above: Performed By: #### C BC #### [facility] [address] [place] [address] Dr. Octavio Hagen Neutrophils/100 WBC (Bld) 63.8 % Normal 43.0-75.0 [facility] Comment on above: Performed By: #### C BC #### [facility] [address] [place] [address] Dr. Octavio Hagen Platelet mean volume (Bld) [Entitic vol] 9.3 fL Critically low 9.5-13.5 [facility] Comment on above: Performed By: #### C BC #### [facility] [address] [place] [address] Dr. Octavio Hagen PLT 213 103/ul Normal 150-450 [facility] Comment on above: Performed By: #### C BC #### [facility] [address] [place] [address] Dr. Octavio Hagen RBC 4.59 106/ul Critically low 4.70-6.10 [facility] Comment on above: Performed By: #### C BC #### [facility] [address] [place] [address] Dr. Octavio Hagen WBC 7.0 103/ul Normal 4.0-11.0 [facility] Comment on above: Performed By: #### C BC #### [facility] [address] [place] [address] Dr. Octavio Hagen PROF 14(COMP METB)on 023 Albumin [Mass/Vol] 3.4 g/dL Normal 3.4-5.0 [facility] Comment on above: Performed By: #### C MP #### [facility] [address] [place] [address] Dr. Octavio Hagen Albumin/Globulin [Mass ratio] 1.1 {ratio} Normal [facility] Comment on above: Performed By: #### C MP #### [facility] [address] [address] [address] Octavio Hagen ALP [Catalytic activity/Vol] 73 U/L Normal 46-116 [facility] Comment on above: Performed By: #### C MP #### [facility] [address] [address] [address] Octavio Hagen ALT [Catalytic activity/Vol] 35 U/L Normal 16-63 [facility] Comment on above: Performed By: #### C MP #### [facility] [address] [address] [address] Octavio Hagen Anion gap [Moles/Vol] 8.3 mmol/L Normal [facility] Comment on above: Performed By: #### C MP #### [facility] [address] [place] [address] Dr. Octavio Hagen AST [Catalytic activity/Vol] 19 U/L Normal 15-37 [facility] Comment on above: Performed By: #### C MP #### [facility] [address] [place] [address] Dr. Octavio Hagen Bilirubin [Mass/Vol] 0.4 mg/dL Normal 0.2-1.0 [facility] Comment on above: Performed By: #### C MP #### [facility] [address] [place] [address] Dr. Octavio Hagen Calcium [Mass/Vol] 8.5 mg/dL Normal 8.5-10.1 [facility] Comment on above: Performed By: #### C MP #### [facility] [address] [place] [address] Dr. Octavio Hagen Chloride [Moles/Vol] 107 mmol/L Normal 98-107 [facility] Comment on above: Performed By: #### C MP #### [facility] [address] [place] [address] Dr. Octavio Hagen CO2 [Moles/Vol] 30.8 mmol/L Normal 21.0-32.0 [facility] Comment on above: Performed By: #### C MP #### [facility] [address] [place] [address] Dr. Octavio Hagen Creatinine [Mass/Vol] 1.14 mg/dL Normal 0.70-1.30 [facility] Comment on above: Performed By: #### C MP #### [facility] [address] [place] [address] Dr. Octavio Hagen EGFR-AF NEW ZEALANDER >60 Normal >=60 [facility] Comment on above: Performed By: #### C MP #### [facility] [address] [place] [address] Dr. Octavio Hagen EGFR-NON AF NEW ZEALANDER >60 Normal >=60 [facility] Comment on above: Performed By: #### C MP #### [facility] [address] [place] [address] Dr. Octavio Hagen Globulin (S) [Mass/Vol] 3.2 g/dL Normal [facility] Comment on above: Performed By: #### C MP #### [facility] [address] [place] [address] Dr. Octavio Hagen Glucose [Mass/Vol] 86 mg/dL Normal 74-106 [facility] Comment on above: Performed By: #### C MP #### [facility] [address] [place] [address] Dr. Octavio Hagen Potassium [Moles/Vol] 4.1 mmol/L Normal 3.5-5.1 [facility] Comment on above: Performed By: #### C MP #### [facility] [address] [place] [address] Dr. Octavio Hagen Protein [Mass/Vol] 6.6 g/dL Normal 6.4-8.2 [facility] Comment on above: Performed By: #### C MP #### [facility] [address] [place] [address] Dr. Octavio Hagen Sodium [Moles/Vol] 142 mmol/L Normal 136-145 [facility] Comment on above: Performed By: #### C MP #### [facility] [address] [place] [address] Dr. Octavio Hagen Urea nitrogen [Mass/Vol] 17.0 mg/dL Normal 7.0-18.0 [facility] Comment on above: Performed By: #### C MP #### [facility] [address] [address] [address] Octavio Hagen Urea nitrogen/Creatini ne [Mass ratio] 14.9 mg/mg Normal [facility] Comment on above: Performed By: #### C MP #### [facility] [address] [address] [address] Octavio Hagen PTTon 09-03-2022 aPTT Coag (Bld) [Time] 36.1 s Normal 22.3-36.2 [facility] Comment on above: Performed By: #### C MP #### [facility] [address] [place] [address] Dr. Octavio Hagen XR KUB 1 VIEWon [...] by: ASHLEY TIERNEY Date: 2022-09-03 06:04 Normal [facility] XR SMALL BOWELon 09-03-2022 XR SMALL BOWEL EXAMINATION: XR SMAL L BOWEL HISTORY: Small bowel obstruction COMPARISON: 09/03/2022 FLUOROSCOPY TIME: Exam performed on the floor. No fluoroscopy utilized. TECHNIQUE: Small bowel series was performed in the usual manner. No chain offbearer abdominal radiograph was performed. Standard level fluoroscopic [...] ASHLY HERNANDEZ Date: 2022-09-03 17:46 Normal [facility] CBC AUTO DIFFon 09-02-2022 BASO # 0.0 103/ul Normal 0.0-0.1 [facility] Comment on above: Performed By: #### C BC #### [facility] [address] [address] [address] Octavio Hagen Basophils/100 WBC (Bld) 0.4 % Normal 0.2-2.0 [facility] Comment on above: Performed By: #### C BC #### [facility] [address] [address] [address] Octavio Hagen EO # 0.4 103/ul Normal 0.0-0.7 [facility] Comment on above: Performed By: #### C BC #### [facility] [address] [address] [address] Octavio Hagen Eosinophils/100 WBC (Bld) 4.7 % Normal 0.9-7.0 [facility] Comment on above: Performed By: #### C BC #### [facility] [address] [address] [address] Octavio Hagen Erythrocyte distribution width (RBC) [Ratio] 12.7 % Normal 11.0-15.0 [facility] Comment on above: Performed By: #### C BC #### [facility] [address] [address] [address] Octavio Hagen Hematocrit (Bld) [Volume fraction] 44.4 % Normal 42.0-54.0 [facility] Comment on above: Performed By: #### C BC #### [facility] [address] [address] [address] Octavio Hagen Hemoglobin (Bld) [Mass/Vol] 14.8 g/dL Normal 14.0-18.0 [facility] Comment on above: Performed By: #### C BC #### [facility] [address] [address] [address] Octavio Hagen IG # 0.04 10e3/ul Critically high 0.00-0.03 [facility] Comment on above: Performed By: #### C BC #### [facility] [address] [place] [address] Dr. Octavio Hagen IG % 0.5 % Normal 0.0-0.5 [facility] Comment on above: Performed By: #### C BC #### [facility] [address] [place] [address] Dr. Octavio Hagen LYMPH # 2.0 103/ul Normal 1.2-3.8 [facility] Comment on above: Performed By: #### C BC #### [facility] [address] [place] [address] Dr. Octavio Hagen Lymphocytes/100 WBC (Bld) 26.7 % Normal 20.5-60.0 [facility] Comment on above: Performed By: #### C BC #### [facility] [address] [place] [address] Dr. Octavio Hagen MANUAL DIFF REQ NO Normal [facility] Comment on above: Performed By: #### C BC #### [facility] [address] [place] [address] Dr. Octavio Hagen MCH (RBC) [Entitic mass] 28.6 pg Normal 25.9-34.0 [facility] Comment on above: Performed By: #### C BC #### [facility] [address] [place] [address] Dr. Octavio Hagen MCHC (RBC) [Mass/Vol] 33.3 g/dL Normal 29.9-35.2 [facility] Comment on above: Performed By: #### C BC #### [facility] [address] [place] [address] Dr. Octavio Hagen MCV (RBC) [Entitic vol] 85.7 fL Normal 80.0-94.0 [facility] Comment on above: Performed By: #### C BC #### [facility] [address] [place] [address] Dr. Octavio Hagen MONO # 0.9 103/ul Critically high 0.3-0.8 [facility] Comment on above: Performed By: #### C BC #### [facility] [address] [place] [address] Dr. Octavio Hagen Monocytes/100 WBC (Bld) 11.5 % Normal 1.7-12.0 [facility] Comment on above: Performed By: #### C BC #### [facility] [address] [place] [address] Dr. Octavio Hagen NEUT # 4.2 103/ul Normal 1.4-6.5 [facility] Comment on above: Performed By: #### C BC #### [facility] [address] [place] [address] Dr. Octavio Hagen Neutrophils/100 WBC (Bld) 56.2 % Normal 43.0-75.0 [facility] Comment on above: Performed By: #### C BC #### [facility] [address] [place] [address] Dr. Octavio Hagen Platelet mean volume (Bld) [Entitic vol] 9.4 fL Critically low 9.5-13.5 [facility] Comment on above: Performed By: #### C BC #### [facility] [address] [place] [address] Dr. Octavio Hagen PLT 256 103/ul Normal 150-450 [facility] Comment on above: Performed By: #### C BC #### [facility] [address] [place] [address] Dr. Octavio Hgaen RBC 5.18 106/ul Normal 4.70-6.10 [facility] Comment on above: Performed By: #### C BC #### [facility] [address] [place] [address] Dr. Octavio Hagen WBC 7.5 103/ul Normal 4.0-11.0 [facility] Comment on above: Performed By: #### C BC #### [facility] [address] [place] [address] Dr. Octavio Hagen PROF 14(COMP METB)on 023 Albumin [Mass/Vol] 3.7 g/dL Normal 3.4-5.0 [facility] Comment on above: Performed By: #### C BC #### [facility] [address] [place] [address] Dr. Octavio Hagen Albumin/Globulin [Mass ratio] 1.1 {ratio} Normal [facility] Comment on above: Performed By: #### C BC #### [facility] [address] [place] [address] Dr. Octavio Hagen ALP [Catalytic activity/Vol] 84 U/L Normal 46-116 [facility] Comment on above: Performed By: #### C BC #### [facility] [address] [place] [address] Dr. Octavio Hagen ALT [Catalytic activity/Vol] 40 U/L Normal 16-63 [facility] Comment on above: Performed By: #### C BC #### [facility] [address] [place] [address] Dr. Octavio Hagen Anion gap [Moles/Vol] 10.9 mmol/L Normal [facility] Comment on above: Performed By: #### C BC #### [facility] [address] [place] [address] Dr. Octavio Hagen AST [Catalytic activity/Vol] 25 U/L Normal 15-37 [facility] Comment on above: Performed By: #### C BC #### [facility] [address] [place] [address] Dr. Octavio Hagen Bilirubin [Mass/Vol] 0.4 mg/dL Normal 0.2-1.0 [facility] Comment on above: Performed By: #### C BC #### [facility] [address] [place] [address] Dr. Octavio Hagen Calcium [Mass/Vol] 9.0 mg/dL Normal 8.5-10.1 [facility] Comment on above: Performed By: #### C BC #### [facility] [address] [place] [address] Dr. Octavio Hagen Chloride [Moles/Vol] 103 mmol/L Normal 98-107 [facility] Comment on above: Performed By: #### C BC #### [facility] [address] [place] [address] Dr. Octavio Hagen CO2 [Moles/Vol] 29.2 mmol/L Normal 21.0-32.0 [facility] Comment on above: Performed By: #### C BC #### [facility] [address] [place] [address] Dr. Octavio Hagen Creatinine [Mass/Vol] 1.10 mg/dL Normal 0.70-1.30 [facility] Comment on above: Performed By: #### C BC #### [facility] [address] [address] [address] Octavio Hagen EGFR-AF NEW ZEALANDER >60 Normal >=60 [facility] Comment on above: Performed By: #### C BC #### [facility] [address] [place] [address] Dr. Octavio Hagen EGFR-NON AF NEW ZEALANDER >60 Normal >=60 [facility] Comment on above: Performed By: #### C BC #### [facility] [address] [place] [address] Dr. Octavio Hagen Globulin (S) [Mass/Vol] 3.4 g/dL Normal [facility] Comment on above: Performed By: #### C BC #### [facility] [address] [place] [address] Dr. Octavio Hagen Glucose [Mass/Vol] 102 mg/dL Normal 74-106 [facility] Comment on above: Performed By: #### C BC #### [facility] [address] [place] [address] Dr. Octavio Hagen Potassium [Moles/Vol] 4.1 mmol/L Normal 3.5-5.1 [facility] Comment on above: Performed By: #### C BC #### [facility] [address] [place] [address] Dr. Octavio Hagen Protein [Mass/Vol] 7.1 g/dL Normal 6.4-8.2 [facility] Comment on above: Performed By: #### C BC #### [facility] [address] [place] [address] Dr. Octavio Hagen Sodium [Moles/Vol] 139 mmol/L Normal 136-145 [facility] Comment on above: Performed By: #### C BC #### [facility] [address] [address] [address] Octavio Hagen Urea nitrogen [Mass/Vol] 15.0 mg/dL Normal 7.0-18.0 [facility] Comment on above: Performed By: #### C BC #### [facility] [address] [place] [address] Dr. Octavio Hagen Urea nitrogen/Creatini ne [Mass ratio] 13.6 mg/mg Normal [facility] Comment on above: Performed By: #### C BC #### [facility] [address] [address] [address] Octavio Hagen PTTon 09-02-2022 aPTT Coag (Bld) [Time] 37.5 s Critically high 22.3-36.2 [facility] Comment on above: Performed By: #### P TT #### [facility] [address] [place] [address] Dr. Octavio Hagen XR ABD FLAT UP_PA [...] [place] POST Date: 2022-09-02 10:04 Normal [facility] CBC AUTO DIFFon 09-01-2022 BASO # 0.0 103/ul Normal 0.0-0.1 [facility] Comment on above: Performed By: #### C MP #### [facility] [address] [address] [address] Octavio Hagen Basophils/100 WBC (Bld) 0.4 % Normal 0.2-2.0 [facility] Comment on above: Performed By: #### C MP #### [facility] [address] [address] [address] Octavio Hagen EO # 0.2 103/ul Normal 0.0-0.7 [facility] Comment on above: Performed By: #### C MP #### [facility] [address] [address] [address] Octavio Hagen Eosinophils/100 WBC (Bld) 2.6 % Normal 0.9-7.0 [facility] Comment on above: Performed By: #### C MP #### [facility] [address] [address] [address] Octavio Hagen Erythrocyte distribution width (RBC) [Ratio] 12.6 % Normal 11.0-15.0 [facility] Comment on above: Performed By: #### C MP #### [facility] [address] [address] [address] Octavio Hagen Hematocrit (Bld) [Volume fraction] 50.1 % Normal 42.0-54.0 [facility] Comment on above: Performed By: #### C MP #### [facility] [address] [address] [address] Octavio Hagen Hemoglobin (Bld) [Mass/Vol] 16.8 g/dL Normal 14.0-18.0 [facility] Comment on above: Performed By: #### C MP #### [facility] [address] [address] [address] Octavio Hagen IG # 0.18 10e3/ul Critically high 0.00-0.03 [facility] Comment on above: Performed By: #### C MP #### [facility] [address] [address] [address] Octavio Hagen IG % 2.0 % Critically high 0.0-0.5 [facility] Comment on above: Performed By: #### C MP #### [facility] [address] [address] [address] Octavio Hagen LYMPH # 1.8 103/ul Normal 1.2-3.8 [facility] Comment on above: Performed By: #### C MP #### [facility] [address] [place] [address] Dr. Octavio Hagen Lymphocytes/100 WBC (Bld) 19.0 % Critically low 20.5-60.0 [facility] Comment on above: Performed By: #### C MP #### [facility] [address] [place] [address] Dr. Octavio Hagen MANUAL DIFF REQ NO Normal [facility] Comment on above: Performed By: #### C MP #### [facility] [address] [place] [address] Dr. Octavio Hagen MCH (RBC) [Entitic mass] 28.5 pg Normal 25.9-34.0 [facility] Comment on above: Performed By: #### C MP #### [facility] [address] [place] [address] Dr. Octavio Hagen MCHC (RBC) [Mass/Vol] 33.5 g/dL Normal 29.9-35.2 [facility] Comment on above: Performed By: #### C MP #### [facility] [address] [place] [address] Dr. Octavio Hagen MCV (RBC) [Entitic vol] 84.9 fL Normal 80.0-94.0 [facility] Comment on above: Performed By: #### C MP #### [facility] [address] [place] [address] Dr. Octavio Hagen MONO # 0.9 103/ul Critically high 0.3-0.8 [facility] Comment on above: Performed By: #### C MP #### [facility] [address] [place] [address] Dr. Octaivo Hagen Monocytes/100 WBC (Bld) 9.6 % Normal 1.7-12.0 [facility] Comment on above: Performed By: #### C MP #### [facility] [address] [place] [address] Dr. Octavio Hagen NEUT # 6.1 103/ul Normal 1.4-6.5 [facility] Comment on above: Performed By: #### C MP #### [facility] [address] [place] [address] Dr. Octavio Hagen Neutrophils/100 WBC (Bld) 66.4 % Normal 43.0-75.0 [facility] Comment on above: Performed By: #### C MP #### [facility] [address] [place] [address] Dr. Octavio Hagen Platelet mean volume (Bld) [Entitic vol] 9.2 fL Critically low 9.5-13.5 [facility] Comment on above: Performed By: #### C MP #### [facility] [address] [place] [address] Dr. Octavio Hagen PLT 271 103/ul Normal 150-450 [facility] Comment on above: Performed By: #### C MP #### [facility] [address] [place] [address] Dr. Octavio Hagen RBC 5.90 106/ul Normal 4.70-6.10 [facility] Comment on above: Performed By: #### C MP #### [facility] [address] [place] [address] Dr. Octavio Hagen WBC 9.2 103/ul Normal 4.0-11.0 [facility] Comment on above: Performed By: #### C MP #### [facility] [address] [place] [address] ABD/PELV W CONon [...] CECILE ANDRES Date: 2022-09-01 21:33 Normal [facility] CULTURE URINEon 09-01-2022 CULTURE URINE Culture Observations : NO GROWTH. Normal [facility] Comment on above: Performed By: #### C MP #### [facility] [address] [place] [address] Dr. Octavio Hagen ER URINE PROFILEon 3 Bilirubin Ql (U) Negative Normal NEGATIVE [facility] Comment on above: Performed By: #### C BC #### [facility] [address] [place] [address] Dr. Octavio Hagen Clarity (U) CLEAR Normal CLEAR [facility] Comment on above: Performed By: #### C BC #### [facility] [address] [place] [address] Dr. Octavio Hagen Color (U) YELLOW Normal YELLOW [facility] Comment on above: Performed By: #### C BC #### [facility] [address] [place] [address] Dr. Octavio BLOOM A micrscopic examination will be performed if indicated. Normal [facility] Comment on above: Performed By: #### C BC #### [facility] [address] [place] [address] Dr. Octavio Hagen Glucose Ql (U) Negative Normal NEGATIVE [facility] Comment on above: Performed By: #### C BC #### [facility] [address] [place] [address] Dr. Octavio Hagen Hemoglobin Ql (U) Negative Normal NEGATIVE [facility] Comment on above: Performed By: #### C BC #### [facility] [address] [place] [address] Dr. Octavio Hagen Ketones Ql (U) TRACE Abnormal NEGATIVE [facility] Comment on above: Performed By: #### C BC #### [facility] [address] [place] [address] Dr. Octavio Hagen LEUKOCYTES Negative Normal NEGATIVE [facility] Comment on above: Performed By: #### C BC #### [facility] [address] [place] [address] Dr. Octavio Hagen Nitrite Ql (U) Negative Normal NEGATIVE [facility] Comment on above: Performed By: #### C BC #### [facility] [address] [place] [address] Dr. Octavio Hagen pH (U) 6.0 [pH] Normal 5-9 [facility] Comment on above: Performed By: #### C BC #### [facility] [address] [place] [address] Dr. Octavio Hagen Protein (U) [Mass/Vol] 30 mg/dL Abnormal NEGATIVE/ TRACE [facility] Comment on above: Performed By: #### C BC #### [facility] [address] [place] [address] Dr. Octavio Hagen SPEC GRAVITY 1.025 Normal 1.005-<=1.025 [facility] Comment on above: Performed By: #### C BC #### [facility] [address] [place] [address] Dr. Octavio Hagen UR MICRO IND INDICATED Normal [facility] Comment on above: Performed By: #### C BC #### [facility] [address] [place] [address] Dr. Octavio Hagen Urobilinogen Qn (U) 1.0 {Rudi'U}/dL Normal 0.2 - 1.0 [facility] Comment on above: Performed By: #### C BC #### [facility] [address] [place] [address] Dr. Octavio Hagen LACTATE/LACTIC ACIDon 2022 Lactate [Moles/Vol] 1.0 mmol/L Normal 0.4-2.0 [facility] Comment on above: Performed By: #### L ACT #### [facility] [address] [place] [address] Dr. Octavio Hagen LIPASEon 09-01-2022 Lipase [Catalytic activity/Vol] 67.0 U/L Critically low 73.0-393.0 [facility] Comment on above: Performed By: #### C MP, LIPA #### [facility] [address] [place] [address] Dr. Octavio Hagen PROF 14(COMP METB)on 023 Albumin [Mass/Vol] 4.6 g/dL Normal 3.4-5.0 [facility] Comment on above: Performed By: #### C MP, LIPA #### [facility] [address] [place] [address] Dr. Octavio Hagen Albumin/Globulin [Mass ratio] 1.1 {ratio} Normal [facility] Comment on above: Performed By: #### C MP, LIPA #### [facility] [address] [place] [address] Dr. Octavio Hagen ALP [Catalytic activity/Vol] 100 U/L Normal 46-116 [facility] Comment on above: Performed By: #### C MP, LIPA #### [facility] [address] [place] [address] Dr. Octavio Hagen ALT [Catalytic activity/Vol] 49 U/L Normal 16-63 [facility] Comment on above: Performed By: #### C MP, LIPA #### [facility] [address] [place] [address] Dr. Octavio Hagen Anion gap [Moles/Vol] 12.3 mmol/L Normal [facility] Comment on above: Performed By: #### C MP, LIPA #### [facility] [address] [place] [address] Dr. Octavio Hagen AST [Catalytic activity/Vol] 32 U/L Normal 15-37 [facility] Comment on above: Performed By: #### C MP, LIPA #### [facility] [address] [place] [address] Dr. Octavio Hagen Bilirubin [Mass/Vol] 0.4 mg/dL Normal 0.2-1.0 [facility] Comment on above: Performed By: #### C MP, LIPA #### [facility] [address] [place] [address] Dr. Octavio Hagen Calcium [Mass/Vol] 10.1 mg/dL Normal 8.5-10.1 [facility] Comment on above: Performed By: #### C MP, LIPA #### [facility] [address] [place] [address] Dr. Octavio Hagen Chloride [Moles/Vol] 100 mmol/L Normal 98-107 [facility] Comment on above: Performed By: #### C MP, LIPA #### [facility] [address] [place] [address] Dr. Octavio Hagen CO2 [Moles/Vol] 28.9 mmol/L Normal 21.0-32.0 [facility] Comment on above: Performed By: #### C MP, LIPA #### [facility] [address] [place] [address] Dr. Octavio Hagen Creatinine [Mass/Vol] 1.00 mg/dL Normal 0.70-1.30 [facility] Comment on above: Performed By: #### C MP, LIPA #### [facility] [address] [place] [address] Dr. Octavio Hagen EGFR-AF NEW ZEALANDER >60 Normal >=60 [facility] Comment on above: Performed By: #### C MP, LIPA #### [facility] [address] [place] [address] Dr. Octavio Hagen EGFR-NON AF NEW ZEALANDER >60 Normal >=60 [facility] Comment on above: Performed By: #### C MP, LIPA #### [facility] [address] [address] [address] Octavio Hagen Globulin (S) [Mass/Vol] 4.0 g/dL Normal [facility] Comment on above: Performed By: #### C MP, LIPA #### [facility] [address] [place] [address] Dr. Octavio Hagen Glucose [Mass/Vol] 105 mg/dL Normal 74-106 [facility] Comment on above: Performed By: #### C MP, LIPA #### [facility] [address] [place] [address] Dr. Octavio Hagen Potassium [Moles/Vol] 4.2 mmol/L Normal 3.5-5.1 [facility] Comment on above: Performed By: #### C MP, LIPA #### [facility] [address] [place] [address] Dr. Octavio Hagen Protein [Mass/Vol] 8.6 g/dL Critically high 6.4-8.2 [facility] Comment on above: Performed By: #### C MP, LIPA #### [facility] [address] [place] [address] Dr. Octavio Hagen Sodium [Moles/Vol] 137 mmol/L Normal 136-145 [facility] Comment on above: Performed By: #### C MP, LIPA #### [facility] [address] [place] [address] Dr. Octavio Hagen Urea nitrogen [Mass/Vol] 13.0 mg/dL Normal 7.0-18.0 [facility] Comment on above: Performed By: #### C MP, LIPA #### [facility] [address] [place] [address] Dr. Octavio Hagen Urea nitrogen/Creatini ne [Mass ratio] 13.0 mg/mg Normal [facility] Comment on above: Performed By: #### C MP, LIPA #### [facility] [address] [place] [address] Dr. Octavio Hagen URINE MICROSCOPIC ONLYon BACTERIA SMALL Abnormal NONE SEEN [facility] Comment on above: Performed By: #### C BC #### [facility] [address] [place] [address] Dr. Octavio Hagen Bacteria identified Cx Nom (U) INDICATED Normal [facility] Comment on above: Performed By: #### C BC #### [facility] [address] [place] [address] Dr. Octavio Hagen CAST NONE SEEN Normal NONE SEEN [facility] Comment on above: Performed By: #### C BC #### [facility] [address] [place] [address] Dr. Octavio Hagen Crystals LM Nom (Urine sed) NONE SEEN Normal NONE SEEN [facility] Comment on above: Performed By: #### C BC #### [facility] [address] [place] [address] Dr. Octavio Hagen Epithelial cells LM Ql (Urine sed) NONE SEEN Normal NONE SEEN /RARE [facility] Comment on above: Performed By: #### C BC #### [facility] [address] [place] [address] Dr. Octavio Hagen MUCOUS LARGE Abnormal NONE SEEN [facility] Comment on above: Performed By: #### C BC #### [facility] [address] [place] [address] Dr. Octavio Hagen RBC 0-2 Normal 0-2 [facility] Comment on above: Performed By: #### C BC #### [facility] [address] [place] [address] Dr. Octavio Hagen WBC 0-2 Abnormal NONE SEEN [facility] Comment on above: Performed By: #### C BC #### [facility] [address] [place] [address] Dr. Octavio Hagen CBC AUTO DIFFon 08-26-2022 BASO # 0.0 103/ul Normal 0.0-0.1 [facility] Comment on above: Performed By: #### C BC #### [facility] [address] [place] [address] Dr. Octavio Hagen Basophils/100 WBC (Bld) 0.3 % Normal 0.2-2.0 [facility] Comment on above: Performed By: #### C BC #### [facility] [address] [place] [address] Dr. Octavio Hagen EO # 0.4 103/ul Normal 0.0-0.7 [facility] Comment on above: Performed By: #### C BC #### [facility] [address] [place] [address] Dr. Octavio Hagen Eosinophils/100 WBC (Bld) 3.3 % Normal 0.9-7.0 [facility] Comment on above: Performed By: #### C BC #### [facility] [address] [place] [address] Dr. Octavio Hagen Erythrocyte distribution width (RBC) [Ratio] 12.6 % Normal 11.0-15.0 [facility] Comment on above: Performed By: #### C BC #### [facility] [address] [place] [address] Dr. Octavio Hagen Hematocrit (Bld) [Volume fraction] 46.1 % Normal 42.0-54.0 [facility] Comment on above: Performed By: #### C BC #### [facility] [address] [place] [address] Dr. Octavio Hagen Hemoglobin (Bld) [Mass/Vol] 15.5 g/dL Normal 14.0-18.0 [facility] Comment on above: Performed By: #### C BC #### [facility] [address] [place] [address] Dr. Octavio Hagen IG # 0.05 10e3/ul Critically high 0.00-0.03 [facility] Comment on above: Performed By: #### C BC #### [facility] [address] [place] [address] Dr. Octavio Hagen IG % 0.4 % Normal 0.0-0.5 [facility] Comment on above: Performed By: #### C BC #### [facility] [address] [place] [address] Dr. Octavio Hagen LYMPH # 2.5 103/ul Normal 1.2-3.8 [facility] Comment on above: Performed By: #### C BC #### [facility] [address] [place] [address] Dr. Octavio Hagen Lymphocytes/100 WBC (Bld) 21.1 % Normal 20.5-60.0 [facility] Comment on above: Performed By: #### C BC #### [facility] [address] [place] [address] Dr. Octavio Hagen MANUAL DIFF REQ NO Normal [facility] Comment on above: Performed By: #### C BC #### [facility] [address] [place] [address] Dr. Octavio Hagen MCH (RBC) [Entitic mass] 29.2 pg Normal 25.9-34.0 [facility] Comment on above: Performed By: #### C BC #### [facility] [address] [place] [address] Dr. Octavio Hagen MCHC (RBC) [Mass/Vol] 33.6 g/dL Normal 29.9-35.2 [facility] Comment on above: Performed By: #### C BC #### [facility] [address] [place] [address] Dr. Octavio Hagen MCV (RBC) [Entitic vol] 86.8 fL Normal 80.0-94.0 [facility] Comment on above: Performed By: #### C BC #### [facility] [address] [place] [address] Dr. Octavio Hagen MONO # 0.9 103/ul Critically high 0.3-0.8 [facility] Comment on above: Performed By: #### C BC #### [facility] [address] [place] [address] Dr. Octavio Hagen Monocytes/100 WBC (Bld) 7.9 % Normal 1.7-12.0 [facility] Comment on above: Performed By: #### C BC #### [facility] [address] [place] [address] Dr. Octavio Hagen NEUT # 7.8 103/ul Critically high 1.4-6.5 [facility] Comment on above: Performed By: #### C BC #### [facility] [address] [place] [address] Dr. Octavio Hagen Neutrophils/100 WBC (Bld) 67.0 % Normal 43.0-75.0 [facility] Comment on above: Performed By: #### C BC #### [facility] [address] [place] [address] Dr. Octavio Hagen Platelet mean volume (Bld) [Entitic vol] 9.4 fL Critically low 9.5-13.5 [facility] Comment on above: Performed By: #### C BC #### [facility] [address] [place] [address] Dr. Octavio Hagen PLT 245 103/ul Normal 150-450 [facility] Comment on above: Performed By: #### C BC #### [facility] [address] [place] [address] Dr. Octavio Hagen RBC 5.31 106/ul Normal 4.70-6.10 [facility] Comment on above: Performed By: #### C BC #### [facility] [address] [place] [address] Dr. Octavio Hagen WBC 11.7 103/ul Critically high 4.0-11.0 [facility] Comment on above: Performed By: #### C BC #### [facility] [address] [place] [address] Dr. Octavio Hagen LIPASEon 08-26-2022 Lipase [Catalytic activity/Vol] 63.0 U/L Critically low 73.0-393.0 [facility] Comment on above: Performed By: #### C BC #### [facility] [address] [place] [address] Dr. Octavio Hagen PROF 14(COMP METB)on 023 Albumin [Mass/Vol] 3.9 g/dL Normal 3.4-5.0 [facility] Comment on above: Performed By: #### C BC #### [facility] [address] [place] [address] Dr. Octavio Hagen Albumin/Globulin [Mass ratio] 1.1 {ratio} Normal [facility] Comment on above: Performed By: #### C BC #### [facility] [address] [place] [address] Dr. Octavio Hagen ALP [Catalytic activity/Vol] 118 U/L Critically high 46-116 [facility] Comment on above: Performed By: #### C BC #### [facility] [address] [address] [address] Octavio Hagen ALT [Catalytic activity/Vol] 37 U/L Normal 16-63 [facility] Comment on above: Performed By: #### C BC #### [facility] [address] [place] [address] [address] Octavio Hagen Anion gap [Moles/Vol] 15.1 mmol/L Normal [facility] Comment on above: Performed By: #### C BC #### [facility] [address] [place] [address] Dr. Octavio Hagen AST [Catalytic activity/Vol] 21 U/L Normal 15-37 [facility] Comment on above: Performed By: #### C BC #### [facility] [address] [place] [address] Dr. Octavio Hagen Bilirubin [Mass/Vol] 0.2 mg/dL Normal 0.2-1.0 [facility] Comment on above: Performed By: #### C BC #### [facility] [address] [place] [address] Dr. Octavio Hagen Calcium [Mass/Vol] 8.8 mg/dL Normal 8.5-10.1 [facility] Comment on above: Performed By: #### C BC #### [facility] [address] [place] [address] Dr. Octavio Hagen Chloride [Moles/Vol] 106 mmol/L Normal 98-107 [facility] Comment on above: Performed By: #### C BC #### [facility] [address] [address] [address] Octavio Hagen CO2 [Moles/Vol] 25.7 mmol/L Normal 21.0-32.0 [facility] Comment on above: Performed By: #### C BC #### [facility] [address] [place] [address] Dr. Octavio Hagen Creatinine [Mass/Vol] 0.96 mg/dL Normal 0.70-1.30 [facility] Comment on above: Performed By: #### C BC #### [facility] [address] [place] [address] Dr. Octavio Hagen EGFR-AF NEW ZEALANDER >60 Normal >=60 [facility] Comment on above: Performed By: #### C BC #### [facility] [address] [place] [address] [address] Octavio Hagen EGFR-NON AF NEW ZEALANDER >60 Normal >=60 [facility] Comment on above: Performed By: #### C BC #### [facility] [address] [place] [address] [address] Octavio Hagen Globulin (S) [Mass/Vol] 3.6 g/dL Normal [facility] Comment on above: Performed By: #### C BC #### [facility] [address] [place] [address] Dr. Octavio Hagen Glucose [Mass/Vol] 110 mg/dL Critically high 74-106 [facility] Comment on above: Performed By: #### C BC #### [facility] [address] [place] [address] Dr. Octavio Hagen Potassium [Moles/Vol] 3.8 mmol/L Normal 3.5-5.1 [facility] Comment on above: Performed By: #### C BC #### [facility] [address] [place] [address] Dr. Octavio Hagen Protein [Mass/Vol] 7.5 g/dL Normal 6.4-8.2 [facility] Comment on above: Performed By: #### C BC #### [facility] [address] [place] [address] Dr. Octavio Hagen Sodium [Moles/Vol] 143 mmol/L Normal 136-145 [facility] Comment on above: Performed By: #### C BC #### [facility] [address] [place] [address] Dr. Octavio Hagen Urea nitrogen [Mass/Vol] 23.0 mg/dL Critically high 7.0-18.0 [facility] Comment on above: Performed By: #### C BC #### [facility] [address] [place], [place] [address] Dr. Octavio Hagen Urea nitrogen/Creatini ne [Mass ratio] 24.0 mg/mg Normal [facility] Comment on above: Performed By: #### C BC #### [facility] [address] [place], [place] [address] Dr. Octavio Hagen XR ABD FLAT UP_PA [...] by: GABE MOURA Date: 2022-08-26 09:27 Normal [facility] XR ANKLE LT MIN 3 Von [...] by: ASHLY LINDER Date: 2021-11-12 18:41 Normal [facility] COVID/FLU/RSV RT-PCRon 09-11 SARS-CoV-2 (COVID-19) RNA MARCIA+probe Ql (Unsp spec) Negative [facility] [facility] Other COVID/FLU/RSV RT-PCR Negative [facility] Other XR foot RT min 3V*on 021 XR foot RT min 3V* [facility] Main [place] [address] [place] [address] XRay Report Signed Patient: Ashly Jamison JR MR#: [id number] : 2000 Acct:[id number] Age/Sex: 20 / M ADM Date: 10/18/20 Loc: XDUCLY Room: Type: [facility] Attending Dr: Trisha GARCIA Ordering Provider: [...] Miles Swanson M.D.10/18/2020 4:53 PM Dictation Location: [place] [address] Transcribed By: [facility] 10/18/201652 Dictated By: Miles Swanson II, MD 10/18/201651 Signed By: 10/18/201652 [facility] Vital Signs Date Time Vital Sign Value Performing Clinician Facility 08-02-2022 14:00-0400 Body height 170.18 cm Shala Hicks Other [facility] Other 08-02-2022 14:00-0400 Body mass index (BMI) [Ratio] 30.07 kg/m2 Shala Hicks Other [facility] Other 08-02-2022 14:00-0400 Body temperature 100.1 [degF] Shala Hicks Other [facility] Other 08-02-2022 14:00-0400 Body weight 87.09 kg Shala Hicks Other [facility] Other 08-02-2022 14:00-0400 Respiratory rate 18 /min Shala Hicks Other [facility] Other 08-02-2022 14:00-0400 SaO2% (BldA) [Mass fraction] 96 % Shala Hicks Other [facility] Other 09-11-2021 16:25-0400 Body height 170.18 cm Trisha Arteaga Other [facility] Other 09-11-2021 16:25-0400 Body mass index (BMI) [Ratio] 28.03 kg/m2 Trisha Arteaga Other [facility] Other 09-11-2021 16:25-0400 Body temperature 97.6 [degF] Trisha Arteaga Other [facility] Other 09-11-2021 16:25-0400 Body weight 81.19 kg Trisha Arteaga Other [facility] Other 09-11-2021 16:25-0400 Respiratory rate 18 /min Trisha Arteaga Other [facility] Other 09-11-2021 16:25-0400 SaO2% (BldA) [Mass fraction] 96 % Trisha Arteaga Other [facility] Other Encounters Encounter Date Encounter Type Care Provider Facility Start: 09-02-2022 End: 09-04-2022 Evaluation and management of inpatient DR HOFFMAN LISTED REQUEST Facility:[facility] Start: 08-26-2022 End: 08-26-[address] LEONELA SMITH . Facility:[facility] Start: 08-02-2022 End: 08-02-2022 ambulatory Shala Hicks Other [facility] Other Start: 08-02-2022 Office outpatient visit 15 minutes Shala Hicks [facility] Start: 11-12-2021 End: 11-12-[address] DOCTOR JACKSON Facility:[facility] Start: 09-11-2021 End: 09-11-2021 ambulatory Trisha Arteaga Other [facility] Other Start: 09-11-2021 Office outpatient visit 15 minutes Trisha Arteaga [facility] Start: 02-17-2019 End: 02-17-2019 Emergency department patient visit MARCELL VALENCIA Facility:[facility] Payers Date Payer Category Payer Unknown [id number] 2000 Unknown [id number] [id number] [id number] 2000 Unknown [id number] [id number] [id number] 1999 Unknown [id number] [id number] [id number] 1960 Medicaid [id number] 1960 Unknown [id number] Social History Date Type Detail Facility Unknown if ever smoked [facility] Other Sex Assigned At Sex Assigned At Bir th [facility] Other Evaluation note 08-02-2022 Note Date & [...] Dental pain home care material was printed [facility] Other Evaluation note 09-11-2021 Note Date & Type Note Facility 09-11-2021 Evaluation note Encounter Date Diagnosis Assessment Notes August, Cough (ICD-10 - R05.9) August, Allergic sinusitis (ICD-10 - J30.9) [facility] Other History general Narrative - Reported Note Date & Type Note Facility History general Narrative - Reported Type Medical History ADHD Surgical History reconstruction bowel as Hospitalization History see above [facility] Other Summary Purpose Family History No Family History Records FoundNo Family History Records FoundNo Family History Records Found Advance Directives No Advanced Directives Records FoundNo Advanced Directives Records FoundNo Advanced Directives Records Found Additional Source Comments (unrecognized sect ion and content) No Status Records FoundNo Status Records FoundNo Status Records Found INFORMATION SOURCE (unrecogn ized section and content) DATE CREATED AUTHOR 03/01/2019 [facility] DATE CREATED AUTHOR AUTHOR'S ORGANIZ ATION 05/24/2021 [facility] DATE CREATED AUTHOR AUTHOR'S ORGANIZ ATION 09/12/2022 [facility] REASON FOR VISIT (unrecogniz ed [...] BE BASED ON THE PRIMARY CLINICAL RECORDS. [employer] provides no warranty or guarantee of the accuracy or completeness of information in this document.
[2024-03-10] MEDS: SODIUM CHLORIDE 0.45 % 1,000 ML 125 ML IV ×2 (09:47→17:57)
[2024-03-10] MEDS: PANTOPRAZOLE SODIUM 40 MG VIAL IV (09:47)
--- NOTE | 2024-03-10 09:48 | P.HP_ITS ---
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 He had watery stools prior to when his pain started and was passing gas but not anymore. He has prior hx of recurrent SBO due to adhesions and knew not to eat when his pain started and has not thrown up and denies vomiting. Evaluation in ED, revealed SBO for which he was admitted with an NGT that is on intermittent low suction. Patient evaluated by General surgery who is recommending medical/conservative management at this time. Patient feels that his pain has improved since NGT but still feels a little discomfort, with mild abdominal distention Opioid HPI Opioid Management Most Recent Pain and Opioid Data: Last Pain Scale 0 03/10/24 09:27 03/10/24 Last Pain Assessment 03/10/24 09:00 Last MAR Pain Assessment 03/10/24 09:27 Last ORT Total Score 4 03/10/24 01:45 03/10/24 Last ORT Risk Category Moderate Risk 03/10/24 01:45 03/10/24 Review of Systems ROS Status of ROS 10 or more systems reviewed and unremark able except as noted in history and below PFSH [facility] Medical History (Updated 03/10/24 @ 09:53 by Shaikh Ashley MD) Alcohol use disorder ?F10.90 - Alcohol use, unspecified, uncomplicated (ICD-10) Intestinal adhesions ?K66.0 - Peritoneal adhesions (postprocedural) (postinfection) (ICD-10) Non-compliance ?Z91.199 - Patient's noncompliance with other medical treatment and regimen due to unspecified reason (ICD-10) Cigarette smoker ?F17.210 - Nicotine dependence, cigarettes, uncomplicated (ICD-10) Heavy drinker of alcohol ?Z78.9 - Other specified health status (ICD-10) Constipation, chronic ?K59.09 - Other constipation (ICD-10) Small bowel obstruction due to adhesions ?K56.50 - Intestinal adhesions [bands], unspecified as to partial versus complete obstruction (ICD-10) Surgical History History of colostomy reversal ?Z98.890 - Other specified postprocedural states (ICD-10) Social History Within the past year, how often did you have a drink containing alcohol: 4 or more times a week Within the past year, how many standard drinks containing alcohol did you have on a typical day: 5 or 6 Within the past year, how often did you have six or more drinks on one occasion: weekly Total score: 7 Score interpretation: A score of 4 or more indicates drinking is likely to affect patient's safety. Smoking status: Current every day smoker Non-prescribed substance use: denies use Highest level of school completed/degree received: 12th grade, no diploma Little interest or pleasure in doing things: not at all Feeling down, depressed, or hopeless: not at all Meds Home Medications and Allergies Home Medications ?Medication ?Instructions ?Recorded ?Confirmed ?Type No Known Home Medications 03/09/24 03/09/24 History Allergies Allergy/AdvReac Type Severity Reaction Status Date / Time bismuth subsalicylate (From Allergy Severe Hives Verified 03/09/24 19:08 Pepto-Bismol) Exam Constitutional Vital Signs, click to edit/add: Last Vital Signs Temp 97.9 F 03/10/24 07:53 Pulse 72 03/10/24 07:55 Resp 18 03/10/24 07:55 BP 143/91 H 03/10/24 07:53 Pulse Ox 95 03/10/24 09:45 O2 Del Method Room Air 03/10/24 08:00 Documenting provider has reviewed patient's vital signs: yes Common normals: no apparent distress and oriented x3 General appearance: cooperative HENMT Common normals: normocephalic and head/scalp atraumatic Head and scalp: normocephalic and atraumatic Other: NGT in place Eye Common normals: conjunctivae normal and no scleral icterus Conjunctiva: conjunctiva(e) normal Respiratory Common normals: normal respiratory effort and clear to auscultation bilaterally Effort & inspection: able to speak in complete sentences Auscultation: clear to auscultation bilaterally Cardio Common normals: regular rate, S1 normal heart sound and S2 normal heart sound Rate: regular rate Heart sounds: S1 normal and S2 normal GI Common normals: soft to palpation, non-tender and no hepatosplenomegaly Inspection: abdominal distension Auscultation: absent bowel sounds Extremity Common normals: no clubbing, cyanosis or edema Neuro Common normals: oriented x3, moves all extremities and no focal motor deficits Psych Common normals: mental status grossly normal, denies hallucinations, denies homicidal ideation and denies suicidal ideation Results Labs Labs: Short CBC 03/09/24 03/10/24 Range/Units 19:29 05:51 WBC 11.4 H 11.5 H (4.0-11.0) 10^3/uL Hgb 15.6 15.1 (14.0-18.0) g/dL Hct 45.3 43.4 (42.0-54.0) % Plt Count 280 250 (150-450) 10^3/uL BMP 03/09/24 03/10/24 19:29 05:51 Sodium 141 142 Potassium 3.7 3.6 Chloride 105 104 Carbon Dioxide 24.5 24.6 BUN 12.0 10.0 Creatinine 1.32 H 1.09 Glucose 110 H 108 H Calcium 9.4 9.0 Liver Function 03/09/24 Range/Units 19:29 Total Bilirubin 0.4 (0.2-1.0) mg/dL AST 18 (15-37) U/L ALT 22 (16-63) U/L Alkaline Phosphatase 79 (46-116) U/L Albumin 4.3 (3.4-5.0) g/dL Urine 03/09/24 Range/Units 20:25 Urine Color Yellow (YELLOW) Urine Clarity Clear (CLEAR) Urine pH 6.0 (5.0-9.0) Ur Specific [place] 1.025 (1.005-1.025) Urine Protein Negative (NEG/TRACE) mg/dL Urine Glucose (UA) Negative (NEGATIVE) mg/dL Assessment and Plan Assessment and Plan (1) Small bowel obstruction: Assessment and Plan: SBO , likely due to adhesions. Conservative management for now, with IVF, anti emetics and pain control. On IV toradol and morphine for pain. Avoid narcotics if possible as they will worsen bowel obstruction. NPO, NGT in place. Surgery on consult (2) Leukocytosis: Assessment and Plan: Liekly reactive. Monitor. No evidence of active infection Qualifiers: Leukocytosis type: leukemoid reaction Qualified Code(s): D72.823 - Leukemoid reaction (3) Cigarette smoker: Assessment and Plan: Counseled on smoking cessation (4) Alcohol use disorder: Assessment and Plan: Heavy alcohol use more or less daily. Last drink about 5 days days. No signs and symptoms of alcohol withdrawal. Counseled on risks of excessive alcohol use.
--- NOTE | 2024-03-10 10:03 | CM.NOTE ---
Rounds made with Dr. Ramirez, pt's continues with NG to LIWS. Pt denies any nausea. Dr. Garcia also consulted for further recommendations. No discharge today.
[2024-03-10] MEDS: KETOROLAC TROMETHAMINE 30 MG/ML VIAL 15 MG IVP ×2 (15:34→21:21)
[2024-03-11] VITALS (10 sets, daily range): BP systolic 114–155; BP diastolic 66–98; PULSE 50–80; TEMP 36.4–36.8; O2SAT 90–97
--- NOTE | 2024-03-11 | XR_ITS ---
The [address] [address] Patient Name: ASHLY JAMISON MRN: [id number] date: 2000 Sex: M Assigned Patient Location: [place] Current Patient Location: Accession/Order Number: [id number] Exam Date: 03/11/2024 18:45 Report Date: 03/11/2024 20:23 At the request of: ALEXANDRIA CHRISTOPHER Procedure: XR abdomen 1V EXAM: XR abdomen 1V HISTORY: High grade small bowel obstruction COMPARISON: FL small bowel Study Date: 03/11/2024 12:34:04 PM TECHNIQUE: Single supine view of the abdomen is obtained 7 hours following administration of oral contrast related to prior small bowel follow-through performed earlier today. FINDINGS: Nasogastric tube is seen in place with side port seen at or near the expected location of the gastroesophageal junction. Advancing the nasogastric tube at least 4-5 cm is suggested. Contrast filled distended loops of small bowel are seen in the left abdomen measuring up to 6.4 cm in diameter. No significant progression of contrast is seen compared with 2 hour examination of prior small bowel follow-through. There is no evidence for contrast within the colon. These findings are suspicious for small bowel obstruction. XR/XR abdomen 1V IMPRESSION: Findings suspicious for small bowel obstruction or Nasogastric tube is seen in place with side port seen at or near the expected location of the gastroesophageal junction. Advancing the nasogastric tube at least 4-5 cm is suggested. Electronically authenticated by: AGUSTIN RUIZ Date: 03/11/2024 20:23
[2024-03-11] MEDS: SODIUM CHLORIDE 0.45 % 1,000 ML 125 ML IV ×3 (01:36→16:41)
[2024-03-11] MEDS: MORPHINE SULFATE 2 MG/ML SYRINGE IV (01:37)
[2024-03-11] MEDS: KETOROLAC TROMETHAMINE 30 MG/ML VIAL 15 MG IVP ×2 (06:59→13:02)
--- NOTE | 2024-03-11 07:00 | XR_ITS ---
The [address] [address] Patient Name: ASHLY JAMISON MRN: [id number] date: 2000 Sex: M Assigned Patient Location: MS Current Patient Location: MS Accession/Order Number: [id number] Exam Date: 03/11/2024 05:55 Report Date: 03/11/2024 09:16 At the request of: ALEXANDRIA CHRISTOPHER Procedure: XR abdomen min 2V EXAM: XR abdomen min 2V INDICATION: SBO. COMPARISON: 03/10/2024. TECHNIQUE: Supine views of the abdomen FINDINGS: Enteric tube tip at the level of the GE junction/proximal stomach. Dilated loops of small bowel in the left abdomen measuring up to 4.7 cm in diameter. No evidence of gross free intra-abdominal air. No suspicious calcifications. Unremarkable visceral margins and regional osseous structures. Clear lungs. XR/XR abdomen min 2V IMPRESSION: 1. Enteric tube in similar position with tip located in the region of the GE junction/proximal stomach. 2. Unchanged dilation of small bowel loops in the left abdomen. Electronically authenticated by: JAJA GILL Date: 03/11/2024 09:16
--- NOTE | 2024-03-11 08:16 | FL_ITS ---
The [address] [address] Patient Name: ASHLY JAMISON MRN: [id number] date: 2000 Sex: M Assigned Patient Location: MS Current Patient Location: Accession/Order Number: [id number] Exam Date: 03/11/2024 12:35 Report Date: 03/11/2024 16:53 At the request of: ALEXANDRIA CHRISTOPHER Procedure: FL small bowel EXAM: FL small bowel HISTORY: SBO COMPARISON: 03/09/2024 TECHNIQUE: A single contrast barium study of the small bowel was performed using multiple radiographs and fluoroscopy. Total fluoroscopic time was seconds and spot fluoroscopic images were obtained. INTERPRETATION: Small bowel transit time is approximately minutes. Oral contrast is noted in the dilated proximal small bowel loops. No contrast is noted in the nondistended distal small bowel loops and colon. Findings are highly suspicious for high-grade small bowel obstruction. Internal hernia is noted on the abdominal CT from 03/09/2024. FL/FL small bowel IMPRESSION: Persistent high-grade small bowel obstruction as described above. Electronically authenticated by: TANIYA FOURNIER Date: 03/11/2024 16:53
--- NOTE | 2024-03-11 08:17 | PM.GSPN ---
Progress Note: A&P Assessment and Plan (1) Small bowel obstruction: (2) Leukocytosis: Qualifiers: Leukocytosis type: leukemoid reaction Qualified Code(s): D72.823 - Leukemoid reaction (3) Cigarette smoker: (4) Alcohol use disorder: Plan Obtain small bowel follow-through x-ray to see if completely obstructed and continue nasogastric tube to low intermittent suction. Encourage ambulation and stay away from narcotics. Reassess tomorrow. Subjective Subjective Patient reports: no new complaints, pain is less, no flatus, nausea and afebrile Interval history: Patient sleeping and appears to be comfortable. Once awakened had mild left upper quadrant abdominal pain but denies any passage of flatus or BM. He would not rate his abdominal pain today. Nursing stated that he had 900 cc out over the last 24 hours from the nasogastric tube. Abdominal x-ray this morning continues to show multiple air-fluid levels in the left upper quadrant consistent with possible SBO versus ileus. Exam Constitutional Vital Signs, click to edit/add: Last Vital Signs Temp 97.5 F L 03/11/24 04:00 Pulse 50 L 03/11/24 04:00 Resp 18 03/11/24 04:00 BP 155/98 H 03/11/24 04:00 Pulse Ox 96 03/11/24 06:00 O2 Del Method Nasal Cannula 03/11/24 04:00 O2 Flow Rate 2 03/11/24 04:00 Documenting provider has reviewed patient's vital signs: yes Common normals: no apparent distress, oriented x3, healthy appearing, alert and well nourished General appearance: cooperative Nutritional appearance: obese GI Common normals: Normal to inspection, nondistended, normoactive bowel sounds present and soft to palpation Palpation: tender Details: LUQ Date and Time Date and Time of Service Date of service: 03/11/24 Time: 08:00
[2024-03-11] MEDS: PANTOPRAZOLE SODIUM 40 MG VIAL IV (08:47)
--- NOTE | 2024-03-11 11:40 | PC.NURSE ---
Baruim given via NG w/o issues, unable to admin all 50cc remains as resistance was met. Pt denied pain during admin, however voices 4 after.
--- NOTE | 2024-03-11 13:07 | P.PN_ITS ---
Progress Note: Subjective Subjective Interval history: Patient was still complaining of abdominal pain, consistent with what he started with on admission Exam Constitutional Vital Signs, click to edit/add: Last Vital Signs Temp 98.3 F 03/11/24 12:27 Pulse 66 03/11/24 12:27 Resp 16 03/11/24 12:27 BP 124/74 03/11/24 12:27 Pulse Ox 93 L 03/11/24 12:27 O2 Del Method Room Air 03/11/24 12:27 O2 Flow Rate 2 03/11/24 08:25 Documenting provider has reviewed patient's vital signs: yes Common normals: no apparent distress Chest Common normals: inspection of chest normal Respiratory Common normals: normal respiratory effort and no retractions Cardio Common normals: no JVD, regular rate and regular rhythm GI Other: See eval by surgery Extremity Common normals: normal to inspection and full ROM Progress Note: A&P Assessment and Plan (1) Small bowel obstruction: (2) Leukocytosis: Qualifiers: Leukocytosis type: leukemoid reaction Qualified Code(s): D72.823 - Leukemoid reaction (3) Cigarette smoker: (4) Alcohol use disorder: Plan Admit for: Uncontrolled hypertension, mild hypoxia, leukocytosis secondary to acute small bowel obstruction Small bowel obstruction - NG tube in place., Will check on x-rays, review notes by general surgery Leukocytosis: No other signs of infection. White blood cell count very slightly elevated compared to previous day. Cigarette smoker: Working on smoking cessation Alcohol use disorder: Currently watch for signs of withdrawal. Admission status: Patient admitted with small bowel obstruction. Seems to be very slow to resolve. Medically necessary treatment span 2 midnights. Inpatient status.
[2024-03-11] MEDS: ACETAMINOPHEN 1,000 MG/100 ML PREMIX 400 MG IV (14:56)
[2024-03-11 18:26] LABS: Lactate/Lactic Acid 0.7 mmol/L (0.4-2.0)
[2024-03-12] VITALS (35 sets, daily range): BP systolic 115–138; BP diastolic 66–82; PULSE 72–116; TEMP 36.3–37.5; O2SAT 84–97
[2024-03-12] MEDS: KETOROLAC TROMETHAMINE 30 MG/ML VIAL 15 MG IVP (00:47)
[2024-03-12] MEDS: SODIUM CHLORIDE 0.45 % 1,000 ML 125 ML IV ×2 (00:47→07:56)
--- NOTE | 2024-03-12 06:30 | XR_ITS ---
The [address] [address] Patient Name: ASHLY JAMISON MRN: [id number] date: 2000 Sex: M Assigned Patient Location: Current Patient Location: Accession/Order Number: [id number] Exam Date: 03/12/2024 06:30 Report Date: 03/12/2024 09:30 At the request of: ALEXANDRIA CHRISTOPHER Procedure: XR abdomen 1V EXAM: XR abdomen 1V INDICATION: SBO. COMPARISON: Abdominal radiograph 03/11/2024 TECHNIQUE: Supine AP view of the abdomen FINDINGS: Enteric tube tip in the region of the gastric cardia/GE junction. Similar dilated loops of small bowel in the left abdomen measuring up to 5.2 cm in diameter. No significant change in position of ingested oral contrast. No evidence of gross free intra-abdominal air. Clear lung bases. XR/XR abdomen 1V IMPRESSION: No significant interval change. Enteric tube in stable position. Electronically authenticated by: JAJA GILL Date: 03/12/2024 09:30
[2024-03-12 06:53] LABS: Basophils Percent Auto 0.3 % (0.2-2.0); Eosinophils Absolute Auto 0.4 10^3/uL (0.0-0.7); Eosinophils Percent Auto 4.4 % (0.9-7.0); Hematocrit 41.5 % (42.0-54.0); Hemoglobin 14.2 g/dL (14.0-18.0); Immature Granulocytes Abs Auto 0.03 10^3/uL (0.00-0.03); Immature Granulocytes Pct Auto 0.3 % (0.0-0.5); Lymphocytes Absolute Auto 1.9 10^3/uL (1.2-3.8); Lymphocytes Percent Auto 18.9 % (20.5-60.0); Mean Corpuscular HGB Conc 34.2 g/dL (29.9-35.2); Mean Corpuscular Hemoglobin 29.5 pg (25.9-34.0); Mean Corpuscular Volume 86.1 fL (80.0-94.0); Mean Platelet Volume 9.6 fL (9.5-13.5); Monocytes Absolute Auto 0.9 10^3/uL (0.3-0.8); Monocytes Percent Auto 8.6 % (1.7-12.0); Neutrophils Absolute Auto 6.8 10^3/uL (1.4-6.5); Neutrophils Percent Auto 67.5 % (43.0-75.0); Platelet Count 220 10^3/uL (150-450); Red Blood Count 4.82 10^6/uL (4.70-6.10); Red Cell Distribution Width 12.2 % (11.0-15.0); White Blood Count 10.1 10^3/uL (4.0-11.0)
--- NOTE | 2024-03-12 06:58 | PM.GSPN ---
Progress Note: A&P Assessment and Plan (1) Small bowel obstruction: (2) Leukocytosis: Qualifiers: Leukocytosis type: leukemoid reaction Qualified Code(s): D72.823 - Leukemoid reaction (3) Cigarette smoker: (4) Alcohol use disorder: Plan Recommendation is for exploratory laparotomy with lysis of adhesions versus small bowel resection. Risks benefits and alternatives of surgery may include infection, bleeding, anastomotic leak, blood clots to legs or lungs, pneumonia, heart attack, and/or stroke. We will await his mother for further decisions. Patient's mother arrived and I answered multiple questions for she and the patient and they are still not sure whether he wants to have surgery or not. He was told he will have a general anesthetic and lysis of adhesions with possible bowel resection. They were given the option of going to [facility] for surgery. Patient has a history of imperforate anus for which she had reconstruction done over 20 years ago. Another general surgeon at this hospital told them they would not touch him that is why they are offered going to [facility] if they want to go. I am willing to do the surgery and they are trying to make up their mind. CPT 992 3 3?5 7 Subjective Subjective Patient reports: other (Abnormal small bowel series showing complete high-grade obstruction last night. Patient had over 1500 cc out nasogastric tube brown in color.) Interval history: Patient was told that he has a complete bowel obstruction needs ex lap for lysis of adhesions or possible bowel resection and patient wants to speak to his mother. Called his mother and left a message on voicemail. He stated she would be here at 7 AM. He is an adult. He does not want his own to vision. Exam Constitutional Vital Signs, click to edit/add: Last Vital Signs Temp 98.1 F 03/12/24 03:34 Pulse 78 03/12/24 03:34 Resp 18 03/12/24 03:34 BP 132/77 03/12/24 03:34 Pulse Ox 92 L 03/12/24 05:28 O2 Del Method Room Air 03/12/24 05:28 O2 Flow Rate 2 03/12/24 03:34 GI Palpation: tender, guarding and other (Distended and tympanitic.) Date and Time Date and Time of Service Date of service: 03/12/24 Time: 06:30
[2024-03-12 07:04] LABS: Anion Gap 21.1; BUN Creatinine Ratio 12.2; Calcium 8.6 mg/dL (8.5-10.1); Carbon Dioxide 22.3 mmol/L (21.0-32.0); Chloride 101 mmol/L (98-107); Estimated GFR (African America >60 (>=60 mL/min/1.73m^2); Estimated GFR (Non-African Ame >60 (>=60 mL/min/1.73m^2); Glucose 59 mg/dL (74-106); Potassium 3.4 mmol/L (3.5-5.1); Sodium 141 mmol/L (136-145)
[2024-03-12] MEDS: DEXTROSE 5%-0.9% NACL 1,000 ML 1,000 ML 75 ML IV ×2 (09:33→18:40)
[2024-03-12] MEDS: PANTOPRAZOLE SODIUM 40 MG VIAL IV (09:33)
--- NOTE | 2024-03-12 10:46 | PM.GSPRC ---
Date of procedure: 03/12/24 Indications for Procedure: Complete mechanical small bowel obstruction Pre-op diagnosis: Complete small bowel obstruction Post-op diagnosis: other (Abdominal adhesions with internal hernia mid jejunum) Procedure: Exploratory lap with lysis of adhesions mid jejunum Findings: Adhesions and internal hernia Anesthesia: TONYA Surgeon: Juan Ramon Garcia Procedure Summary: Alec Adam is a 23-year-old male who presents for exploratory laparotomy due to a complete small bowel obstruction. He was admitted 48 to 72 hours ago with the same and was treated conservatively and a small bowel series was performed yesterday which shows a complete bowel obstruction. The film done this morning continues to show the same with small bowel dilatation up to 5.2 cm. Informed consent was obtained from the patient and his mother to proceed with surgery. They were also offered to go to a tertiary care center due to extensive past surgical history. They opted to stay locally. Patient was taken to the operating suite placed in supine position given general anesthetic by the concrete batcher. The abdomen was prepped and draped in usual sterile fashion. A Bradley catheter was placed into the bladder preoperatively. Nasogastric tube was draining brown contents prior to surgery. Standard midline incision was made after a timeout was taken and preoperative antibiotics were given. The abdomen patient had dilated bowel proximal to the obstruction which was an internal hernia. Adhesions were taken down with sharp scissors and electrocautery maintaining hemostasis as well as blunt dissection with a gloved fingers. There was a slight internal hernia caused by an adhesive band this was taken down very carefully with cautery. This is where the stricture was noted once this was released contents of the jejunum began emptying below that into the nondistended bowel very easily. The bowel is viable. The bowel was run down to the terminal ileum and there were no other adhesions noted. Once the bowel was noted to be viable it was placed back into its normal anatomic position and there was no omentum to cover it. Anterior rectus fascia was then closed with 0 PDS suture in running continuous fashion. An 1 interrupted 0 Vicryl was placed in the mid incision. Skin and subcutaneous tissues were then closed with skin clips. Sterile dressing was placed. Sponge and instrument counts are correct. Chucking And Boring Machine Operator: ERICH Magallanes Estimated blood loss (mL): 0 Specimens: None none Complications: No Pathology: none sent Condition: stable Disposition: PACU
[2024-03-12] MEDS: LACTATED RINGER'S SOLUTION 1,000 ML 50 ML IV ×2 (10:54→13:51)
[2024-03-12] MEDS: CEFAZOLIN SODIUM/DEXTROSE,ISO 2 GM/50 ML PIGGYBACK IV (10:54)
--- NOTE | 2024-03-12 12:08 | P.PN_ITS ---
Progress Note: Subjective Subjective Interval history: Somewhat anxious this morning. Discussed the need for surgical intervention, patient not really wanting to hear what is happening just wants to get it over with. Is comfortable staying here care were also discussed with the mother. The above is from rounds earlier today, since that time he has been taken to surgery at which time he likely had an aspiration event although tube was still in place, had significant emesis of stool. Patient transferred to the intensive care unit after the postanesthesia care unit Exam Constitutional Vital Signs, click to edit/add: Last Vital Signs Temp 98.0 F 03/12/24 07:33 Pulse 100 H 03/12/24 07:33 Resp 16 03/12/24 07:33 BP 138/82 03/12/24 07:33 Pulse Ox 93 L 03/12/24 07:33 O2 Del Method Room Air 03/12/24 07:33 O2 Flow Rate 2 03/12/24 03:34 Documenting provider has reviewed patient's vital signs: yes Common normals: no apparent distress Chest Common normals: inspection of chest normal Respiratory Common normals: normal respiratory effort and no retractions Cardio Common normals: no JVD, regular rate and regular rhythm GI Other: See eval by surgery Extremity Common normals: normal to inspection and full ROM Progress Note: Objective Labs Labs: Short CBC 03/12/24 Range/Units 06:25 WBC 10.1 (4.0-11.0) 10^3/uL Hgb 14.2 (14.0-18.0) g/dL Hct 41.5 L (42.0-54.0) % Plt Count 220 (150-450) 10^3/uL BMP 03/12/24 06:25 Sodium 141 Potassium 3.4 L Chloride 101 Carbon Dioxide 22.3 BUN 14.0 Creatinine 1.15 Glucose 59 L Calcium 8.6 Progress Note: A&P Assessment and Plan (1) Small bowel obstruction: (2) Leukocytosis: Qualifiers: Leukocytosis type: leukemoid reaction Qualified Code(s): D72.823 - Leukemoid reaction (3) Cigarette smoker: (4) Alcohol use disorder: Plan Admit for: Uncontrolled hypertension, mild hypoxia, leukocytosis secondary to acute small bowel obstruction Small bowel obstruction -patient failing NG tube treatment for small bowel obstruction, taken to surgery, plan per surgery. Aspiration event during surgery-ET tube was in place, but patient high risk for infection. Will start patient on aerosol treatments and Zosyn. Continue to monitor labs, may need CT scan depending on symptomatology L Leukocytosis: Resolved this morning that was prior to surgical intervention Cigarette smoker: Working on smoking cessation Alcohol use disorder: No signs of withdrawal. Mild MRDD-this was discussed with mom. Admission status: Patient admitted with small bowel obstruction. Surgical intervention on 03/12/2024, medically necessary treatment spanning more than 2 midnights
[2024-03-12] MEDS: HYDROMORPHONE HCL 0.5 MG/0.5 ML SYRINGE IV (13:33)
[2024-03-12] MEDS: PIPERACILLIN SODIUM/TAZOBACTAM 3.375 GM in 0.9 % SODIUM CHLORIDE 50 ML IV ×2 (15:54→22:37)
[2024-03-12] MEDS: HYDROMORPHONE HCL 0.5 MG/0.5 ML SYRINGE 0.25 MG IV (19:42)
--- NOTE | 2024-03-12 20:35 | RESP.RT ---
Titrated down to 1L
[2024-03-13] VITALS (20 sets, daily range): BP systolic 116–134; BP diastolic 73–81; PULSE 59–88; TEMP 36.3–37.2; O2SAT 87–96
[2024-03-13] MEDS: KETOROLAC TROMETHAMINE 30 MG/ML VIAL 15 MG IVP (03:48)
[2024-03-13] MEDS: HYDROMORPHONE HCL 0.5 MG/0.5 ML SYRINGE 0.25 MG IV ×5 (03:48→23:47)
[2024-03-13] MEDS: PIPERACILLIN SODIUM/TAZOBACTAM 3.375 GM in 0.9 % SODIUM CHLORIDE 50 ML IV ×3 (06:14→23:36)
[2024-03-13] MEDS: DEXTROSE 5%-0.9% NACL 1,000 ML 1,000 ML 75 ML IV ×2 (06:14→15:29)
[2024-03-13 07:12] LABS: Anion Gap 13.2; BUN Creatinine Ratio 8.8; Calcium 7.9 mg/dL (8.5-10.1); Carbon Dioxide 26.2 mmol/L (21.0-32.0); Chloride 107 mmol/L (98-107); Estimated GFR (African America >60 (>=60 mL/min/1.73m^2); Estimated GFR (Non-African Ame >60 (>=60 mL/min/1.73m^2); Glucose 135 mg/dL (74-106); Potassium 3.4 mmol/L (3.5-5.1); Sodium 143 mmol/L (136-145)
[2024-03-13 07:36] LABS: Basophils Percent Auto 0.2 % (0.2-2.0); Eosinophils Absolute Auto 0.2 10^3/uL (0.0-0.7); Eosinophils Percent Auto 1.9 % (0.9-7.0); Hematocrit 36.8 % (42.0-54.0); Hemoglobin 12.7 g/dL (14.0-18.0); Immature Granulocytes Abs Auto 0.02 10^3/uL (0.00-0.03); Immature Granulocytes Pct Auto 0.2 % (0.0-0.5); Lymphocytes Absolute Auto 1.2 10^3/uL (1.2-3.8); Lymphocytes Percent Auto 12.4 % (20.5-60.0); Mean Corpuscular HGB Conc 34.5 g/dL (29.9-35.2); Mean Corpuscular Hemoglobin 29.6 pg (25.9-34.0); Mean Corpuscular Volume 85.8 fL (80.0-94.0); Mean Platelet Volume 9.8 fL (9.5-13.5); Monocytes Absolute Auto 1.1 10^3/uL (0.3-0.8); Monocytes Percent Auto 11.2 % (1.7-12.0); Neutrophils Absolute Auto 7.1 10^3/uL (1.4-6.5); Neutrophils Percent Auto 74.1 % (43.0-75.0); Platelet Count 201 10^3/uL (150-450); Red Blood Count 4.29 10^6/uL (4.70-6.10); Red Cell Distribution Width 12.6 % (11.0-15.0); White Blood Count 9.5 10^3/uL (4.0-11.0)
[2024-03-13] MEDS: ACETAMINOPHEN 1,000 MG/100 ML PREMIX 400 MG IV (07:55)
--- NOTE | 2024-03-13 08:06 | PC.NURSE ---
midline abdominal dressing clean dry and intact
[2024-03-13] MEDS: ENOXAPARIN SODIUM 40 MG/0.4 ML SYRINGE SUBQ (08:14)
--- NOTE | 2024-03-13 08:18 | PC.NURSE ---
03/12/24 1315- NG placement verified by 2 RN's. Air present in epigastric area. NG hooked to LIWS with small amount of brownish colored contents noted in cannister. NG secured to left nares with tape.
--- NOTE | 2024-03-13 08:52 | XR_ITS ---
The [place] [id number] Patient Name: ASHLY JAMISON MRN: [id number] date: 2000 Sex: M Assigned Patient Location: [place] Current Patient Location: [place] Accession/Order Number: [id number] Exam Date: 03/13/2024 10:00 Report Date: 03/13/2024 11:07 At the request of: LIYA HAWKINS Procedure: XR abdomen min 2V EXAMINATION: XR abdomen min 2V HISTORY: sbo COMPARISON: 03/11/2024 FINDINGS: BOWEL GAS PATTERN: Iodinated contrast identified in the transverse colon. There is a paucity of air in most of the abdomen. Enteric tube in the left upper quadrant. Free intraperitoneal air beneath the right hemidiaphragm CALCIFICATIONS: None significant. OTHER: Line surgical ej XR/XR abdomen min 2V IMPRESSION: Overall nonobstructive bowel gas pattern with contrast in the transverse colon Electronically authenticated by: ASHLY HERNANDEZ Date: 03/13/2024 11:07
--- NOTE | 2024-03-13 08:52 | XR_ITS ---
The [address] [address] Patient Name: ASHLY JAMISON MRN: [id number] date: 2000 Sex: M Assigned Patient Location: [place] Current Patient Location: [place] Accession/Order Number: [id number] Exam Date: 03/13/2024 10:00 Report Date: 03/13/2024 11:06 At the request of: LIYA HAWKINS Procedure: XR chest 2V EXAMINATION: XR chest 2V HISTORY: Dyspnea, asp pneumonia COMPARISON: 11/13/2020 TECHNIQUE: PA and lateral FINDINGS: LUNGS: Linear opacities bilateral mid lung zones, atelectasis is favored VASCULATURE: No increased pulmonary vasculature. PLEURA: Air beneath the right hemidiaphragm. CARDIAC: No cardiomegaly or cardiac silhouette abnormality. MEDIASTINUM: No visible mass or adenopathy. BONES: No fracture or visible bone lesion. OTHER: Enteric tube projects over the gastric lumen. Contrast identified in the visualized transverse colon XR/XR chest 2V IMPRESSION: Free intraperitoneal air consistent with recent surgery Bilateral atelectasis Electronically authenticated by: ASHLY HERNANDEZ Date: 03/13/2024 11:06
--- NOTE | 2024-03-13 08:56 | P.PN_ITS ---
Progress Note: Subjective Subjective Interval history: This still has abdominal pain but feels different than his previous abdominal pain, more incisional. Does describe some right shoulder pain as well. No cough, no denies shortness of breath other than hurts his abdomen to take a deep breath Exam Constitutional Vital Signs, click to edit/add: Last Vital Signs Temp 97.9 F 03/13/24 07:35 Pulse 70 03/13/24 08:00 Resp 18 03/13/24 08:00 BP 134/74 03/13/24 07:35 Pulse Ox 95 03/13/24 08:00 O2 Del Method Room Air 03/13/24 07:35 O2 Flow Rate 1 03/13/24 04:50 Documenting provider has reviewed patient's vital signs: yes Common normals: no apparent distress Chest Common normals: inspection of chest normal Respiratory Common normals: normal respiratory effort and no retractions Auscultation: no rhonchi and no wheezes Cardio Common normals: no JVD, regular rate and regular rhythm GI Other: See eval by surgery Extremity Common normals: normal to inspection and full ROM Progress Note: Objective Labs Labs: Short CBC 03/13/24 Range/Units 06:56 WBC 9.5 (4.0-11.0) 10^3/uL Hgb 12.7 L (14.0-18.0) g/dL Hct 36.8 L (42.0-54.0) % Plt Count 201 (150-450) 10^3/uL BMP 03/13/24 06:56 Sodium 143 Potassium 3.4 L Chloride 107 Carbon Dioxide 26.2 BUN 9.0 Creatinine 1.02 Glucose 135 H Calcium 7.9 L Progress Note: A&P Assessment and Plan (1) Small bowel obstruction: (2) Leukocytosis: Qualifiers: Leukocytosis type: leukemoid reaction Qualified Code(s): D72.823 - Leukemoid reaction (3) Cigarette smoker: (4) Alcohol use disorder: Plan Admit for: Uncontrolled hypertension, mild hypoxia, leukocytosis secondary to acute small bowel obstruction Small bowel obstruction -patient failing NG tube treatment for small bowel obstruction, taken to [id number]/2024, plan per surgery. Aspiration event during surgery-ET tube was in place, but patient high risk for infection. Check on chest x-ray Leukocytosis: Resolved, continue to monitor Acute blood loss anemia secondary to surgical intervention, also low likely related to dilutional effect of fluids-monitor daily Right shoulder pain-check on x-rays of abdomen and chest, try lidocaine cream. Mild hypokalemia-monitor daily-stable Cigarette smoker: Working on smoking cessation Alcohol use disorder: No signs of withdrawal. Mild MRDD-this was discussed with mom. Admission status: Patient admitted with small bowel obstruction. Surgical intervention on 03/12/2024, medically necessary treatment spanning more than 2 midnights Urinary Catheter Management Urinary Catheter Management Urethral: Cath placed during this visit: no
--- NOTE | 2024-03-13 09:03 | PM.GSPN ---
Progress Note: A&P Assessment and Plan (1) Small bowel obstruction: (2) Leukocytosis: Qualifiers: Leukocytosis type: leukemoid reaction Qualified Code(s): D72.823 - Leukemoid reaction (3) Cigarette smoker: (4) Alcohol use disorder: Plan 1. clamp NG tube switch to clear liquids and broths as tolerated 2. evaluate bowel sounds & bowel movements Subjective Subjective Patient reports: feels better, still having pain, pain is less, no flatus and no bowel movement Interval history: Pt was awake this morning, he was able to sleep through the night. He has having pain, put it at 6-7 out of 10, but says he feels much better than he did before surgery. He had some vomiting immediately after being extubated but since has had no nausea or vomiting. Pt has been able to urinate and ambulate with out issue. Pt has not passed gas or had a bowel movement. He is tender to palpation, bowel sounds x4. Pt has been running a slight fever at 99 F. Exam Constitutional Vital Signs, click to edit/add: Last Vital Signs Temp 97.9 F 03/13/24 07:35 Pulse 70 03/13/24 08:00 Resp 18 03/13/24 08:00 BP 134/74 03/13/24 07:35 Pulse Ox 95 03/13/24 08:00 O2 Del Method Room Air 03/13/24 07:35 O2 Flow Rate 1 03/13/24 04:50 Documenting provider has reviewed patient's vital signs: yes Common normals: no apparent distress and average body habitus General appearance: cooperative Nutritional appearance: obese and overweight Orientation/consciousness: Yes awake, Yes oriented to person, Yes oriented to place and Yes oriented to time HENMT Common normals: normocephalic and head/scalp atraumatic Head and scalp: normocephalic and atraumatic Other: NGT in place Eye Common normals: conjunctivae normal and no scleral icterus Conjunctiva: conjunctiva(e) normal Neck & C-Spine Common normals: supple and no JVD Chest Common normals: inspection of chest normal Chest: symmetrical chest wall rise Respiratory Common normals: normal respiratory effort, no retractions, no use of accessory muscles and clear to auscultation bilaterally Effort & inspection: able to speak in complete sentences Auscultation: clear to auscultation bilaterally Cardio Common normals: no JVD, regular rate and regular rhythm Rate: regular rate Rhythm: regular rhythm Heart sounds: S1 normal and S2 normal GI Common normals: Normal to inspection, nondistended, normoactive bowel sounds present and soft to palpation Inspection: abdominal distension Auscultation: normoactive bowel sounds and absent bowel sounds Palpation: tender Other: See eval by surgery Extremity Common normals: normal to inspection, full ROM and no clubbing, cyanosis or edema Neuro Common normals: oriented x3, CN's II-XII intact bilaterally, moves all extremities and no focal motor deficits Sensorium/orientation: awake, alert, oriented to person, oriented to place and oriented to time Speech: speech normal Psych Common normals: mental status grossly normal, denies hallucinations, denies homicidal ideation and denies suicidal ideation Urinary Catheter Management Urinary Catheter Management Urethral: Cath placed during this visit: no Date and Time Date and Time of Service Date of service: 03/12/24 Time: 06:30
--- NOTE | 2024-03-13 09:12 | CM.NOTE ---
Rounds made with Dr. Chakraborty, pt c/o R shoulder pain. Dr. Chakraborty will get abdominal x-ray and chest x-ray today. Pt continues with NG to LIWS post-op. No discharge today. Dr. Garcia will also continue to follow pt post-op.
--- NOTE | 2024-03-13 09:14 | PM.GSPN ---
Progress Note: A&P Assessment and Plan (1) Small bowel obstruction: (2) Leukocytosis: Qualifiers: Leukocytosis type: leukemoid reaction Qualified Code(s): D72.823 - Leukemoid reaction (3) Cigarette smoker: (4) Alcohol use disorder: Plan 1. Clamp NG tube, allow clear fluid and broths as tolerated. 2. evaluate bowel sounds and bowel movements Subjective Subjective Interval history: Post op day 1: Pt was awake this morning, he is complaining of pain and discomfort. He says the pain is much better than it was before surgery, rates it at a 6-7 out of 10. He was able to sleep last night. Pt has been able to urinate and ambulate without difficulty. Pt did initially vomit after being extubated but has since not had nausea or vomiting. Pt is not having any trouble or pain with urinating. Pt has not passed gas or had a a bowel movement. Pt is still using the NG tube and having contents suctioned. Pt is tender to palpation, with no rigidity or guarding, bowel sounds x4. He has been running a slight fever at 99 F. Exam Constitutional Vital Signs, click to edit/add: Last Vital Signs Temp 97.9 F 03/13/24 07:35 Pulse 70 03/13/24 08:00 Resp 18 03/13/24 08:00 BP 134/74 03/13/24 07:35 Pulse Ox 95 03/13/24 08:00 O2 Del Method Room Air 03/13/24 07:35 O2 Flow Rate 1 03/13/24 04:50 Documenting provider has reviewed patient's vital signs: yes Common normals: no apparent distress, average body habitus and oriented x3 General appearance: cooperative Orientation/consciousness: Yes awake Respiratory Common normals: normal respiratory effort, no retractions, no use of accessory muscles and clear to auscultation bilaterally Cardio Common normals: no JVD, regular rate and regular rhythm GI Common normals: Normal to inspection, nondistended, normoactive bowel sounds present, soft to palpation and no masses Palpation: soft and tender Urinary Catheter Management Urinary Catheter Management Urethral: Cath placed during this visit: no Date and Time Date and Time of Service Date of service: 03/13/24 Time: 07:00
[2024-03-13 09:45] LABS: Alanine Aminotransferase 15 U/L (16-63); Albumin Globulin Ratio 0.9; Albumin Level 2.8 g/dL (3.4-5.0); Alkaline Phosphatase 54 U/L (46-116); Aspartate Amino Transferase 17 U/L (15-37); Bilirubin Direct 0.2 mg/dL (0.0-0.2); Bilirubin Total 0.5 mg/dL (0.2-1.0); Globulin 3.1 g/dL; Total Protein 5.9 g/dL (6.4-8.2)
[2024-03-13] MEDS: PANTOPRAZOLE SODIUM 40 MG VIAL IV (10:40)
[2024-03-13] MEDS: LIDOCAINE VISCOUS 2% 15 ML SOLUTION TOPICAL (10:40)
[2024-03-13] MEDS: OXYCODONE HCL/ACETAMINOPHEN 5MG/325MG 2 TAB PO (14:58)
[2024-03-13] MEDS: IBUPROFEN 400 MG TABLET 800 MG PO ×2 (14:59→23:36)
[2024-03-13] MEDS: NICOTINE 21 MG PATCH.TD24 TD (14:59)
[2024-03-13] MEDS: ACETAMINOPHEN 325 MG TABLET 650 MG PO (17:56)
[2024-03-14] VITALS (13 sets, daily range): BP systolic 101–139; BP diastolic 61–77; PULSE 50–80; TEMP 36.5–36.9; O2SAT 94–99
--- NOTE | 2024-03-14 05:52 | P.PN_ITS ---
Progress Note: Subjective Subjective Interval history: Patient is doing significant pain. He is rating his pain an 8-9 out of 10. Exam Constitutional Vital Signs, click to edit/add: Last Vital Signs Temp 98.1 F 03/14/24 04:00 Pulse 64 03/14/24 04:00 Resp 18 03/14/24 04:00 BP 101/61 03/14/24 04:00 Pulse Ox 98 03/14/24 04:11 O2 Del Method Nasal Cannula 03/14/24 04:11 O2 Flow Rate 2 03/14/24 04:11 Documenting provider has reviewed patient's vital signs: yes Common normals: no apparent distress Chest Common normals: inspection of chest normal Respiratory Common normals: normal respiratory effort and no retractions Auscultation: no rhonchi and no wheezes Cardio Common normals: no JVD, regular rate and regular rhythm GI Other: See eval by surgery Extremity Common normals: normal to inspection and full ROM Progress Note: Objective Labs Labs: Short CBC 03/13/24 Range/Units 06:56 WBC 9.5 (4.0-11.0) 10^3/uL Hgb 12.7 L (14.0-18.0) g/dL Hct 36.8 L (42.0-54.0) % Plt Count 201 (150-450) 10^3/uL BMP 03/13/24 06:56 Sodium 143 Potassium 3.4 L Chloride 107 Carbon Dioxide 26.2 BUN 9.0 Creatinine 1.02 Glucose 135 H Calcium 7.9 L Liver Function 03/13/24 Range/Units 06:56 Total Bilirubin 0.5 (0.2-1.0) mg/dL Direct Bilirubin 0.2 (0.0-0.2) mg/dL AST 17 (15-37) U/L ALT 15 L (16-63) U/L Alkaline Phosphatase 54 (46-116) U/L Albumin 2.8 L (3.4-5.0) g/dL Progress Note: A&P Assessment and Plan (1) Small bowel obstruction: (2) Leukocytosis: Qualifiers: Leukocytosis type: leukemoid reaction Qualified Code(s): D72.823 - Leukemoid reaction (3) Cigarette smoker: (4) Alcohol use disorder: Plan Admit for: Uncontrolled hypertension, mild hypoxia, leukocytosis secondary to acute small bowel obstruction Small bowel obstruction -patient failing NG tube treatment for small bowel obstruction, taken to [id number]/2024, plan per surgery., Did pass flatus today. Acute abdominal series unchanged Aspiration event during surgery-ET tube was in place, but patient high risk for infection. Check on chest x-ray Atelectasis on chest x-ray-this is likely secondary to hypoventilation secondary to the abdominal pain. Encouraged use of PEEP Leukocytosis: Resolved, continue to monitor Acute blood loss anemia secondary to surgical intervention, also low likely related to dilutional effect of fluids-down slightly from previous day. No evidence of active bleeding Right shoulder pain-check on x-rays of abdomen and chest, try lidocaine cream. Mild hypokalemia-monitor daily-supplement IV, uncertain p.o. intake at this time. Cigarette smoker: Working on smoking cessation Alcohol use disorder: No signs of withdrawal. Mild MRDD-this was discussed with mom. Admission status: Patient admitted with small bowel obstruction. Surgical intervention on 03/12/2024, medically necessary treatment spanning more than 2 midnights Urinary Catheter Management Urinary Catheter Management Urethral: Cath placed during this visit: no
--- NOTE | 2024-03-14 05:52 | XR_ITS ---
The [address] [address] Patient Name: ASHLY JAMISON MRN: [id number] date: 2000 Sex: M Assigned Patient Location: [place] Current Patient Location: [place] Accession/Order Number: [id number] Exam Date: 03/14/2024 06:20 Report Date: 03/14/2024 07:01 At the request of: LIYA HAWKINS Procedure: XR acute abdomen series EXAMINATION: XR acute abdomen series HISTORY: sbo COMPARISON: 03/13/2024 FINDINGS: LUNGS: No infiltrate, pneumothorax, or pleural effusion. MEDIASTINUM: No abnormal widening. BOWEL GAS PATTERN: Non-obstructed. Oral contrast remains within the transverse colon, stable. There is air extending up to the rectum Enteric tube tip likely in the stomach FREE AIR: Free intraperitoneal air beneath the right hemidiaphragm consistent with recent surgery. CALCIFICATIONS: None significant. BONES: No fracture or visible bone lesion. OTHER: Midline surgical ej. XR/XR acute abdomen series IMPRESSION: Contrast in the transverse colon Nonobstructive bowel gas pattern Electronically authenticated by: ASHLY HERNANDEZ Date: 03/14/2024 07:01
[2024-03-14 06:00] LABS: Basophils Absolute Auto 0.1 10^3/uL (0.0-0.1); Basophils Percent Auto 0.7 % (0.2-2.0); Eosinophils Absolute Auto 0.5 10^3/uL (0.0-0.7); Eosinophils Percent Auto 6.1 % (0.9-7.0); Hematocrit 35.6 % (42.0-54.0); Immature Granulocytes Abs Auto 0.02 10^3/uL (0.00-0.03); Immature Granulocytes Pct Auto 0.3 % (0.0-0.5); Lymphocytes Absolute Auto 1.4 10^3/uL (1.2-3.8); Lymphocytes Percent Auto 19.5 % (20.5-60.0); Mean Corpuscular HGB Conc 33.7 g/dL (29.9-35.2); Mean Corpuscular Hemoglobin 29.4 pg (25.9-34.0); Mean Corpuscular Volume 87.3 fL (80.0-94.0); Mean Platelet Volume 9.7 fL (9.5-13.5); Monocytes Absolute Auto 0.8 10^3/uL (0.3-0.8); Monocytes Percent Auto 11.2 % (1.7-12.0); Neutrophils Absolute Auto 4.6 10^3/uL (1.4-6.5); Neutrophils Percent Auto 62.2 % (43.0-75.0); Platelet Count 171 10^3/uL (150-450); Red Blood Count 4.08 10^6/uL (4.70-6.10); Red Cell Distribution Width 12.6 % (11.0-15.0); White Blood Count 7.3 10^3/uL (4.0-11.0)
[2024-03-14 06:19] LABS: Anion Gap 12.9; BUN Creatinine Ratio 7.2; Carbon Dioxide 26.2 mmol/L (21.0-32.0); Chloride 110 mmol/L (98-107); Estimated GFR (African America >60 (>=60 mL/min/1.73m^2); Estimated GFR (Non-African Ame >60 (>=60 mL/min/1.73m^2); Glucose 99 mg/dL (74-106); Potassium 3.1 mmol/L (3.5-5.1); Sodium 146 mmol/L (136-145)
[2024-03-14] MEDS: PIPERACILLIN SODIUM/TAZOBACTAM 3.375 GM in 0.9 % SODIUM CHLORIDE 50 ML IV ×3 (06:58→23:10)
[2024-03-14] MEDS: IBUPROFEN 400 MG TABLET 800 MG PO ×3 (06:58→23:10)
--- NOTE | 2024-03-14 07:44 | CM.NOTE ---
Rounds made with Dr. Chakraborty, pt up in chair this AM. Pt states he is passing flatus. Dr. Ferro will follow pt at this time, discussed increasing diet and possible removal of NG tube if tolerates diet. No discharge today. Encouraged ambulation.
[2024-03-14] MEDS: PANTOPRAZOLE SODIUM 40 MG VIAL IV (08:49)
[2024-03-14] MEDS: ENOXAPARIN SODIUM 40 MG/0.4 ML SYRINGE SUBQ (08:49)
[2024-03-14] MEDS: OXYCODONE HCL/ACETAMINOPHEN 5MG/325MG 2 TAB PO ×3 (09:48→23:17)
[2024-03-14] MEDS: DEXTROSE 5%-0.9% NACL 1,000 ML 1,000 ML 75 ML IV ×2 (09:49→23:14)
[2024-03-14] MEDS: POTASSIUM CHLORIDE 40 MEQ in 0.9 % SODIUM CHLORIDE 250 ML 67.5 MEQ IV (11:02)
[2024-03-15] VITALS: BP 111/69; PULSE 53; TEMP 36.6; O2SAT 95
[2024-03-15 04:00] VITALS: BP 103/67; PULSE 54; TEMP 36.6; O2SAT 92
[2024-03-15] MEDS: PIPERACILLIN SODIUM/TAZOBACTAM 3.375 GM in 0.9 % SODIUM CHLORIDE 50 ML IV (06:15)
[2024-03-15] MEDS: IBUPROFEN 400 MG TABLET 800 MG PO (06:15)
[2024-03-15 06:18] LABS: Basophils Percent Auto 0.7 % (0.2-2.0); Eosinophils Absolute Auto 0.5 10^3/uL (0.0-0.7); Eosinophils Percent Auto 9.3 % (0.9-7.0); Hematocrit 36.3 % (42.0-54.0); Hemoglobin 11.9 g/dL (14.0-18.0); Immature Granulocytes Abs Auto 0.02 10^3/uL (0.00-0.03); Immature Granulocytes Pct Auto 0.4 % (0.0-0.5); Lymphocytes Absolute Auto 1.5 10^3/uL (1.2-3.8); Lymphocytes Percent Auto 26.4 % (20.5-60.0); Mean Corpuscular HGB Conc 32.8 g/dL (29.9-35.2); Mean Corpuscular Hemoglobin 28.8 pg (25.9-34.0); Mean Corpuscular Volume 87.9 fL (80.0-94.0); Mean Platelet Volume 9.9 fL (9.5-13.5); Monocytes Absolute Auto 0.6 10^3/uL (0.3-0.8); Monocytes Percent Auto 10.5 % (1.7-12.0); Neutrophils Percent Auto 52.7 % (43.0-75.0); Platelet Count 201 10^3/uL (150-450); Red Blood Count 4.13 10^6/uL (4.70-6.10); Red Cell Distribution Width 12.8 % (11.0-15.0); White Blood Count 5.7 10^3/uL (4.0-11.0)
[2024-03-15 06:28] LABS: Anion Gap 15.4; BUN Creatinine Ratio 5.5; Calcium 8.3 mg/dL (8.5-10.1); Carbon Dioxide 25.4 mmol/L (21.0-32.0); Chloride 109 mmol/L (98-107); Estimated GFR (African America >60 (>=60 mL/min/1.73m^2); Estimated GFR (Non-African Ame >60 (>=60 mL/min/1.73m^2); Glucose 92 mg/dL (74-106); Potassium 3.8 mmol/L (3.5-5.1); Sodium 146 mmol/L (136-145)
[2024-03-15 07:28] VITALS: O2SAT 92
[2024-03-15 08:00] VITALS: BP 111/69; PULSE 60; TEMP 36.6; O2SAT 93
[2024-03-15] MEDS: ENOXAPARIN SODIUM 40 MG/0.4 ML SYRINGE SUBQ (08:15)
[2024-03-15] MEDS: PANTOPRAZOLE SODIUM 40 MG VIAL IV (08:16)
--- NOTE | 2024-03-15 08:45 | CM.NOTE ---
Rounds made with Dr. Chakraborty, increase diet to soft. If pt able to tolerate diet discharge to home this afternoon. Pt will f/u with general surgery.
--- NOTE | 2024-03-15 09:35 | P.DS_ITS ---
DS: Providers Provider Date of admission: 03/10/24 01:42 Primary care physician: Non-Staff Physician, Consults: 03/10/24 Consult to Dietitian Routine Reason for consultation: hx of bowel obstrution wants educated Has provider been notified: No 03/10/24 09:18 Consult to General Surgeon Routine Consulting Provider: Juan Ramon Garcia Reason for consultation: SBO DS: Diagnosis Discharge Diagnosis (1) Small bowel obstruction: (2) Leukocytosis: Qualifiers: Leukocytosis type: leukemoid reaction Qualified Code(s): D72.823 - Leukemoid reaction (3) Cigarette smoker: (4) Alcohol use disorder: Plan Admit for: Uncontrolled hypertension, mild hypoxia, leukocytosis secondary to acute small bowel obstruction Small bowel obstruction -patient failing NG tube treatment for small bowel obstruction, taken to [id number]/12/2024, plan per surgery., Did pass flatus today. Acute abdominal series unchanged Aspiration event during surgery-ET tube was in place, but patient high risk for infection. Check on chest x-ray Atelectasis on chest x-ray-this is likely secondary to hypoventilation secondary to the abdominal pain. Encouraged use of PEEP Leukocytosis: Resolved, continue to monitor Acute blood loss anemia secondary to surgical intervention, also low likely related to dilutional effect of fluids-down slightly from previous day. No evidence of active bleeding Right shoulder pain-check on x-rays of abdomen and chest, try lidocaine cream. Mild hypokalemia-monitor daily-supplement IV, uncertain p.o. intake at this time. Cigarette smoker: Working on smoking cessation Alcohol use disorder: No signs of withdrawal. Mild MRDD-this was discussed with mom. Admission status: Patient admitted with small bowel obstruction. Surgical intervention on 03/12/2024, medically necessary treatment spanning more than 2 midnights DS: Summary Hospital Course Hospital Course: Patient presented to the emergency room with increasing nausea and vomiting. Found of acute small bowel obstruction. NG tube was placed. Seem to be improving in the first day but then after that was not improving. Had contrast added, showing significant high-grade proximal small bowel obstruction. Unresolved with NG tube to low intermittent wall suction. No signs of infection at that time. Patient had a discussion with his mother and felt it was safe to go ahead and proceed with the surgery. At the surgery, only incident the surgery as he did have an emesis just after the procedure was completed and ET tube was still in place. With that he was transferred back to the intensive care unit for close monitoring. After for 5 hours of that and his stability he was transferred out to the medical surgical floor. NG tube remain in place. The following day he did pass gas. He was given clear liquids without issue, following day x-ray obtained showed movement of contrast. Diet was advanced and NG tube removed. Today feels much better. The plan is to have him eat at least breakfast, more of a soft diet. If he tolerates that he can be discharged to home in improving condition. Medications see list. Follow-up with his PCP within the next week. Follow-up with surgery per protocol Status at Discharge Overall status at discharge: patient is not back to baseline Time Spent with Patient Time attestation: Total time spent providing and/or coordinating discharge services: Time spent: greater than 30 minutes Exam Constitutional Vital Signs, click to edit/add: Last Vital Signs Temp 98 F 03/15/24 08:00 Pulse 60 03/15/24 08:00 Resp 20 03/15/24 08:00 BP 111/69 03/15/24 08:00 Pulse Ox 93 L 03/15/24 08:00 O2 Del Method Room Air 03/15/24 08:00 O2 Flow Rate 2 03/14/24 04:11 Documenting provider has reviewed patient's vital signs: yes Common normals: no apparent distress Chest Common normals: inspection of chest normal Respiratory Common normals: normal respiratory effort and no retractions Auscultation: no rhonchi and no wheezes Cardio Common normals: no JVD, regular rate and regular rhythm GI Other: See eval by surgery Extremity Common normals: normal to inspection and full ROM DS: Data Data Completed and Pending Labs on day of discharge: Labs from last 24 hours 03/15/24 05:40 WBC 5.7 RBC 4.13 L Hgb 11.9 L Hct 36.3 L MCV 87.9 MCH 28.8 MCHC 32.8 RDW 12.8 Plt Count 201 MPV 9.9 Neut % (Auto) 52.7 Lymph % (Auto) 26.4 [place] % (Auto) 10.5 Eos % (Auto) 9.3 H Baso % (Auto) 0.7 Neut # (Auto) 3.0 Lymph # (Auto) 1.5 [place] # (Auto) 0.6 Eos # (Auto) 0.5 Baso # (Auto) 0.0 Abs Immat Gran (auto) 0.02 Imm/Tot Granulo (auto) 0.4 Sodium 146 H Potassium 3.8 Chloride 109 H Carbon Dioxide 25.4 Anion Gap 15.4 BUN 5.0 L Creatinine 0.91 Est GFR ( Amer) >60 Est GFR (Non-Af Amer) >60 BUN/Creatinine Ratio 5.5 Glucose 92 Calcium 8.3 L Discharge Plan Discharge Disposition: Home, Self-Care Condition: Good Discharge Medications: New ondansetron 4 mg tablet,disintegrating 4 mg PO Q6H PRN (Reason: nausea and vomiting) Qty: 14 0RF Print Language: Italian Patient Instructions: Ondansetron (By mouth), Open Herniorrhaphy (DC), Bowel Obstruction (DC), GI (Gastrointestinal) Soft Diet (DC) Forms: Portal Instructions Follow Up Appointments: @ 11am [facility] Dr[facility] Garcia [address] [facility] [phone] Discharge Date/Time: 03/15/24 11:40
[2024-03-15] MEDS: NICOTINE 21 MG PATCH.TD24 TD (09:39)
[2024-03-15] MEDS: OXYCODONE HCL/ACETAMINOPHEN 5MG/325MG 1 TAB PO (11:05)
--- NOTE | 2024-03-15 11:19 | CM.NOTE ---
Pt asking about pain medications at discharge, cornelio Chakraborty. No pain medications will be ordered at discharge. Dr. Chakraborty states it will only cause constipation, pt may take over the counter medications. Pt verbalizes understanding and updated RN.
--- NOTE | 2024-03-15 17:35 | DIETREC ---
Diet consult completed. Education re soft/bland, low fiber diet provided to pt and mother, answered questions, provided RDN contact info for further questions or concerns.
--- NOTE | 2024-03-17 12:46 | CM.DCFOLLOWU ---
1st attempt. No answer
--- NOTE | 2024-03-20 11:46 | CM.DCFOLLOWU ---
03/20-2nd attempt. No answer
--- NOTE | 2024-03-21 13:02 | CM.DCFOLLOWU ---
3rd attempt. No answer
== END 2024-03-15 11:40 | disposition home or self-care (01) | DRG 336 ==
LOC: ER 22:40 → MS 03-10 07:43 → ICU 03-12 14:35 → MS 03-12 17:09
PROVIDERS: Nurse Practitioner Family; Registered Nurse; Surgery; Admitting Provider Family Medicine; Emergency Provider Emergency Medicine; Visit Provider Family Medicine
PROC: 0DNA0ZZ Release Jejunum, Open Approach (ICD-10-PCS; principal; 2024-03-12 10:05)
DX: K56.52 Intestinal adhesions [bands] with complete obstruction (principal); D62 Acute posthemorrhagic anemia; J95.88 Other intraoperative complications of respiratory system, not elsewhere classified; T17.910A Gastric contents in respiratory tract, part unspecified causing asphyxiation, initial encounter; T85.838A Hemorrhage due to other internal prosthetic devices, implants and grafts, initial encounter; Y73.2 Prosthetic and other implants, materials and accessory gastroenterology and urology devices associated with adverse incidents; R04.0 Epistaxis; D72.823 Leukemoid reaction; E87.6 Hypokalemia; F17.210 Nicotine dependence, cigarettes, uncomplicated; F70 Mild intellectual disabilities; I10 Essential (primary) hypertension; M25.511 Pain in right shoulder; Z88.8 Allergy status to other drugs, medicaments and biological substances
CPT/HCPCS: 36415; 71046; 74018; 74019; 74022; 74177; 74250; 80048; 80053; 80076; 80175; 81003; 83605; 83690; 83735; 85025; 94667; 94668; 94761; 96374; 96375; 99285; 99406; J0131; J0690; J1100; J1171; J1650; J1885; J2250; J2270; J2405; J2543; J2704; J3010; J3480; Q9963; Q9967

== ENCOUNTER 2024-07-04 09:21 | Emergency (ER) | payer OTHER, SELFPAY ==
[2024-07-04 09:25] VITALS: BP 134/89; PULSE 101; TEMP 37.6; O2SAT 97; BMI 30.7
--- OUTSIDE RECORDS SUMMARY | 2024-07-04 09:33 | XMS_ITS | CCD ---
Author Organization [facility] Care Team Providers Care Business Process Lead Name Role Phone MARCELL VALENCIA Admitting Unavailable SARAH PYLE Attending Unavailable SELF, REFERRED Referring Unavailable SELF, REFERRED Primary Care Unavailable Trisha Arteaga Unavailable Shala Hicks Unavailable PAY ., DR GIPSON Admitting Unavailable PAY ., DR GIPSON Attending Unavailable REQUEST, DR NONE LISTED Primary Care Unavaila ble PAY ., DR GIPSON Consulting Unavailable KNABEGABE Consulting Unavailable REQUEST, NONE LISTED Primary Care Unavaila ble PATRICIA, SHAIKH Alban Admitting Unavailable SHAIKH Alban GOMEZ Attending Unavailable SHRUTHI ., DR NICKERSON Consulting Unavailable WEST, DR ASHLY Warner Consulting Unavailable MICHELLE, ERICA Consulting Unavailable SINCERE, ALEXANDRIA Consulting Unavailable FAREGGIE, H Consulting Unavailable SAID, BINCAREY Consulting Unavailable ANDRES, CECILE Consulting Unavailable SISTER, AMPARO Consulting Unavailable TAMLYN ., ANTHONY Consulting Unavailable HESVETLANA, ASHLEY Consulting Unavailable [facility] [place], DR MONSALVE Primary Care Unavailable HAY ., DR MINER Admitting Unavailable HAY ., DR MINER Attending Unavailable MICHELLE, ERICA Consulting Unavailable ASHLY LINDER Consulting Unavailable Tammy SUPPLIER RELATIONSHIP DIRECTOR-CHOPPER GUN OPERATOR, Trisha Primary Care Provide r BREANNA, YRIS A Referring Unavailable BREANNA, YRIS A Primary Care Unavailable BREANNA, YRIS A Referring Unavailable BREANNA, YRIS A Primary Care Unavailable BREANNA, YRIS A Referring Unavailable BREANNA, YRIS A Primary Care Unavailable BREANNA, YRIS A Referring Unavailable CARLOS, YRIS A Primary Care Unavailable BREANNA, YRIS A Referring Unavailable BREANNA, YRIS A Primary Care Unavailable BREANNA, YRIS A Referring Unavailable BREANNA, YRIS A Primary Care Unavailable BREANNA, YRIS A Referring Unavailable BREANNA, YRIS A Primary Care Unavailable BREANNA, YRIS A Referring Unavailable BREANNA, YRIS A Primary Care Unavailable JOSEPH HERNANDEZ Attending Unavailable BREANNA, YRIS A Referring Unavailable TRISHA ARTEAGA Primary Care Unavailable JOSEPH HERNANDEZ Attending Unavailable TRISHA ARTEAGA Referring Unavailable TRISHA ARTEAGA Primary Care Unavailable Breanna TRUJILLO, Yris Eugene Primary Care Provider Allergies Allergy Classification Reported Allergen(s) Allergy Type Date of Onset Reaction(s) Facility (9 sources) bismuth subsalicylate; Translations: [BISMUTH SUBSALICYLATE] Drug Allergy 03-08-2017 [facility] (1 source) bismuth subsalicylate Drug Allergy 11-13-2020 [facility] Medications Current Medications Medication Drug Class(es) Dates Sig (Normalized) Sig (Original) Amphetamine / Dextroamphetamine (1 source) Central Nervous System Stimulant Adderall Active docusate sodium 100 mg oral capsule (2 sources) Start: 06-15-2024 Docusate Sodium (Stool Softener) 100 mg capsule Active 100 MG PO .prn as needed June 15, 2024 12:00am take 1 capsule by mo [facility] in the morning, then take 1 capsule by mouth at bedtime docusate sodium (COLACE) 50 mg capsule Take 1 capsule (50 mg total) by mouth in the morning and 1 capsule (50 mg total) before bedtime. Active ibuprofen 800 mg oral tablet (1 source) Nonsteroidal Anti-inflammatory Drug Start: 08-02-2022 take 1 tablet by mouth three times daily at mealtime as needed Ibuprofen 800 MG 1 tablet with food or milk as needed Orally Three times a day for 10 day(s) Aug, Active methylPREDNISolone 4 mg oral tablet (1 source) Corticosteroid Start: 09-11-2021 methylPREDNISolone 4 MG as directed Orally Once a day for 6 days August, Active Penicillin (1 source) Start: 08-02-2022 take 1 tablet by mouth four times daily Penicillin VK 500mg 500mg 1 tab(s) Oral 4 times a day for 10 days Aug, Active polyethylene glycol 3350 60204 mg powder for oral solution (5 sources) Osmotic Laxative Start: 06-15-2024 Polyethylene Glycol 3350 (Miralax) 17 gram/dose powder Active 17 GM PO Daily June 15, 2024 12:00am Start: 03-28-2024 polyethylene g lycol (GLYCOLAX) 17 gram packet Indications: Constipation, unspecified constipation type Take 17 g by mouth daily as needed (Constipation). 10 packet 03/28/2024 Active Polyethylene Glycol 3350 (Miralax) 17 gram/dose powder (1 source) Start: 06-15-2024 Polyethylene G lycol 3350 (Miralax) 17 gram/dose powder Active 17 GM PO Three times daily as needed for constipation 1529June 15, 2024 12:00am Completed/Discontinued Medications Medication Drug Class(es) Dates Sig (Normalized) Sig (Original) amphetamine aspartate 2.5 mg / amphetamine sulfate 2.5 mg / dextroamphetamine saccharate 2.5 mg / dextroamphetamine sulfate 2.5 mg oral tablet (6 sources) Central Nervous System Stimulant Start: 09-02-2021 End: 03-28-2024 take 1 tablet by mouth once daily dextroamphetamine- amphetamine (ADDERALL) 10 mg tablet Indications: Attention deficit hyperactivity disorder, combined type Take 1 tablet by mouth daily 30 tablet 09/02/2021 03/28/2024 Discontinued (Therapy completed) Start: 09-02-2021 End: 03-28-2024 take 1 capsule by mouth once daily in the morning amphetamine-dextroamphetamine XR (ADDERA LL XR) 20 mg 24 hr capsule Indications: Attention deficit hyperactivity disorder, combined type Take 1 capsule (20 mg total) by mouth in the morning. Max Daily Amount: 20 mg. 30 capsule 09/02/2021 03/28/2024 Discontinued (Therapy completed) Problems Active Problems Problem Classification Problem Date Documented Da te Episodic/Chronic Abdominal pain (4 sources) Unspecified abdominal pain; Translations: [UNSPECIFIED ABDOMINAL PAIN] Onset: 08-26-2022 Episodic Attention-deficit, conduct, and disruptive behavior disorders (6 sources) Attention deficit hyperactivity disorder, combined type; Translations: [Attention-deficit hyperactivity disorder, combined type] Onset: 01-14-2017 01-14-2017 Chronic Attention-deficit, conduct, and disruptive behavior disorders (6 sources) 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; Translations: [Attention-deficit hyperactivity disorder, unspecified type] Onset: 12-09-2018 12-09-2018 Chronic Disorders of teeth and jaw (2 sources) Pericoronitis; Translations: [Chronic periodontitis, unspecified] Chronic Intestinal obstruction without hernia (7 sources) Intestinal adhesions [bands], unspecified as to partial versus complete obstruction; Translations: [Small bowel obstruction] Onset: 09-02-2022 Episodic Mood disorders (6 sources) Mild mood disorder; Translations: [Unspecified mood [affective] disorder] Onset: 01-14-2017 01-14-2017 Chronic Other gastrointestinal disorders (2 sources) Constipation, unspecified; Translations: [Constipation, unspecified] Onset: 08-28-2022 06-15-2024 Episodic Other gastrointestinal disorders (2 sources) Constipation; Translations: [Constipation, unspecified] 06-15-2024 Episodic Other lower respiratory disease (2 sources) Cough; Translations: [Cough] Episodic Other upper respiratory disease (2 sources) Sinusitis; Translations: [Allergic rhinitis, unspecified] Chronic Other upper respiratory disease (1 source) Allergic rhinitis, unspecified Onset: 09-11-2021 Resolved: 09-11-2021 Chronic Residual codes; unclassified (1 source) Other specified postprocedural states; Translations: [Other specified postprocedural states] Onset: 03-28-2024 Episodic Residual codes; unclassified (1 source) Pain, unspecified; Translations: [Pain, unspecified] Onset: 03-15-2024 Episodic Substance-related disorders (1 source) Nicotine dependence, cigarettes, uncomplicated; Translations: [NICOTINE DEPEND CIGARETTES UNCOMP] Onset: 09-11-2022 Chronic Unclassified (1 source) POST-OP VISIT Onset: 03-28-2024 Past or Other Problems Problem Classification Problem Date Documented Da te Episodic/Chronic Developmental disorders (6 sources) Below average intellect; 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] Onset: 08-11-2018 08-11-2018 Episodic E Codes: Natural/environment (1 source) Overexertion from prolonged static or awkward postures, initial encounter; Translations: [OVEREXERT PROLNG STAT/AWK PST INIT] Onset: 11-13-2021 Episodic Heart valve disorders (6 sources) Heart murmur; Translations: [Cardiac murmur, unspecified] Onset: 03-08-2018 03-08-2018 Episodic Other aftercare (1 source) 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; Translations: [OTH HALFWAY CURRENT DRUG THERAPY] Onset: 11-13-2021 Episodic Other lower respiratory disease (6 sources) Dyspnea; Translations: [Shortness of breath] Onset: 03-08-2018 03-08-2018 Episodic Other non-traumatic joint disorders (3 sources) Pain in left ankle and joints of left foot; Translations: [PAIN IN LEFT ANKLE] Onset: 11-12-2021 Episodic Sprains and strains (1 source) Sprain of unspecified ligament of left ankle, initial encounter; Translations: [SPRAIN UNS LIGAMENT LT ANKLE INIT] Onset: 11-13-2021 Episodic Substance-related disorders (6 sources) Marijuana user; Translations: [Cannabis use, unspecified, uncomplicated] Onset: 08-11-2018 08-11-2018 Episodic Unclassified (1 source) Cough R05.9 Onset: 09-11-2021 Resolved: 09-11-2021 Results Test Name Value Interpretation Reference Range Facility Multiple labsOrdered By: Ilene Gabriel on 03-15-2024 [facility] CBC AUTO DIFFon 09-04-2022 BASO # 0.0 103/ul Normal 0.0-0.1 [facility] Comment on above: Performed By: #### C BC #### [facility] [address] [place] [address] Dr. Octavio Hagen Basophils/100 WBC (Bld) 0.2 % Normal 0.2-2.0 [facility] Comment on above: Performed By: #### C BC #### [facility] [address] [place] [address] Dr. Octavio Hagen EO # 0.3 103/ul Normal 0.0-0.7 [facility] Comment on above: Performed By: #### C BC #### [facility] [address] [place] [address] Dr. Octavio Hagen Eosinophils/100 WBC (Bld) 2.8 % Normal 0.9-7.0 [facility] Comment on above: Performed By: #### C BC #### [facility] [address] [place] [address] Dr. Octavio Hagen Erythrocyte distribution width (RBC) [Ratio] 12.4 % Normal 11.0-15.0 [facility] Comment on above: Performed By: #### C BC #### [facility] [address] [place] [address] Dr. Octavio Hagen Hematocrit (Bld) [Volume fraction] 41.0 % Critically low 42.0-54.0 [facility] Comment on above: Performed By: #### C BC #### [facility] [address] [place] [address] Dr. Octavio Hagen Hemoglobin (Bld) [Mass/Vol] 13.6 g/dL Critically low 14.0-18.0 [facility] Comment on above: Performed By: #### C BC #### [facility] [address] [place] [address] Dr. Octavio Hagen IG # 0.04 10e3/ul Critically high 0.00-0.03 [facility] Comment on above: Performed By: #### C BC #### [facility] [address] [place] [address] Dr. Octavio Hagen IG % 0.4 % Normal 0.0-0.5 [facility] Comment on above: Performed By: #### C BC #### [facility] [address] [place] [address] Dr. Octavio Hagen LYMPH # 1.4 103/ul Normal 1.2-3.8 [facility] Comment on above: Performed By: #### C BC #### [facility] [address] [place] [address] Dr. Octavio Hagen Lymphocytes/100 WBC (Bld) 15.5 % Critically low 20.5-60.0 [facility] Comment on above: Performed By: #### C BC #### [facility] [address] [place] [address] Dr. Octavio Hagen MANUAL DIFF REQ NO Normal [facility] Comment on above: Performed By: #### C BC #### [facility] [address] [place] [address] Dr. Octavio Hagen MCH (RBC) [Entitic mass] 28.6 pg Normal 25.9-34.0 [facility] Comment on above: Performed By: #### C BC #### [facility] [address] [place] [address] Dr. Octavio Hagen MCHC (RBC) [Mass/Vol] 33.2 g/dL Normal 29.9-35.2 [facility] Comment on above: Performed By: #### C BC #### [facility] [address] [address] [address] Octavio Hagen MCV (RBC) [Entitic vol] 86.3 fL Normal 80.0-94.0 [facility] Comment on above: Performed By: #### C BC #### [facility] [address] [address] [address] Octavio Hagen MONO # 1.0 103/ul Critically high 0.3-0.8 [facility] Comment on above: Performed By: #### C BC #### [facility] [address] [place] [address] Dr. Octavio Hagen Monocytes/100 WBC (Bld) 11.1 % Normal 1.7-12.0 [facility] Comment on above: Performed By: #### C BC #### [facility] [address] [place] [address] Dr. Octavio Hagen NEUT # 6.3 103/ul Normal 1.4-6.5 [facility] Comment on above: Performed By: #### C BC #### [facility] [address] [place] [address] Dr. Octavio Hagen Neutrophils/100 WBC (Bld) 70.0 % Normal 43.0-75.0 [facility] Comment on above: Performed By: #### C BC #### [facility] [address] [place] [address] Dr. Octavio Hagen Platelet mean volume (Bld) [Entitic vol] 8.9 fL Critically low 9.5-13.5 [facility] Comment on above: Performed By: #### C BC #### [facility] [address] [place] [address] Dr. Octavio Hagen PLT 221 103/ul Normal 150-450 [facility] Comment on above: Performed By: #### C BC #### [facility] [address] [place] [address] Dr. Octavio Hagen RBC 4.75 106/ul Normal 4.70-6.10 [facility] Comment on above: Performed By: #### C BC #### [facility] [address] [place] [address] Dr. Octavio Hagen WBC 9.0 103/ul Normal 4.0-11.0 [facility] Comment on above: Performed By: #### C BC #### [facility] [address] [place] [address] Dr. Octavio Hagen PROF 14(COMP METB)on 023 Albumin [Mass/Vol] 3.4 g/dL Normal 3.4-5.0 [facility] Comment on above: Performed By: #### C MP #### [facility] [address] [place] [address] Dr. Octavio Hagen Albumin/Globulin [Mass ratio] 0.9 {ratio} Normal [facility] Comment on above: Performed By: #### C MP #### [facility] [address] [place] [address] Dr. Octavio Hagen ALP [Catalytic activity/Vol] 77 U/L Normal 46-116 [facility] Comment on above: Performed By: #### C MP #### [facility] [address] [place] [address] Dr. Octavio Hagen ALT [Catalytic activity/Vol] 36 U/L Normal 16-63 [facility] Comment on above: Performed By: #### C MP #### [facility] [address] [place] [address] Dr. Octavio Hagen Anion gap [Moles/Vol] 11.4 mmol/L Normal [facility] Comment on above: Performed By: #### C MP #### [facility] [address] [place] [address] Dr. Octavio Hagen AST [Catalytic activity/Vol] 22 U/L Normal 15-37 [facility] Comment on above: Performed By: #### C MP #### [facility] [address] [place] [address] Dr. Octavio Hagen Bilirubin [Mass/Vol] 0.6 mg/dL Normal 0.2-1.0 [facility] Comment on above: Performed By: #### C MP #### [facility] [address] [address] [address] Octavio Hagen Calcium [Mass/Vol] 8.9 mg/dL Normal 8.5-10.1 [facility] Comment on above: Performed By: #### C MP #### [facility] [address] [address] [address] Octavio Hagen Chloride [Moles/Vol] 104 mmol/L Normal 98-107 [facility] Comment on above: Performed By: #### C MP #### [facility] [address] [address] [address] Octavio Hagen CO2 [Moles/Vol] 28.5 mmol/L Normal 21.0-32.0 [facility] Comment on above: Performed By: #### C MP #### [facility] [address] [place] [address] Dr. Octavio Hagen Creatinine [Mass/Vol] 1.02 mg/dL Normal 0.70-1.30 [facility] Comment on above: Performed By: #### C MP #### [facility] [address] [address] [address] Octavio Hagen EGFR-AF DANISH >60 Normal >=60 [facility] Comment on above: Performed By: #### C MP #### [facility] [address] [place] [address] Dr. Octavio Hagen EGFR-NON AF DANISH >60 Normal >=60 [facility] Comment on above: Performed By: #### C MP #### [facility] [address] [place] [address] Dr. Octavio Hagen Globulin (S) [Mass/Vol] 3.6 g/dL Normal [facility] Comment on above: Performed By: #### C MP #### [facility] [address] [place] [address] Dr. Octavio Hagen Glucose [Mass/Vol] 100 mg/dL Normal 74-106 [facility] Comment on above: Performed By: #### C MP #### [facility] [address] [place] [address] Dr. Octavio Hagen Potassium [Moles/Vol] 3.9 mmol/L Normal 3.5-5.1 [facility] Comment on above: Performed By: #### C MP #### [facility] [address] [place] [address] Dr. Octavio Hagen Protein [Mass/Vol] 7.0 g/dL Normal 6.4-8.2 [facility] Comment on above: Performed By: #### C MP #### [facility] [address] [address] [address] Octavio Hagen Sodium [Moles/Vol] 140 mmol/L Normal 136-145 [facility] Comment on above: Performed By: #### C MP #### [facility] [address] [place] [address] Dr. Octavio Hagen Urea nitrogen [Mass/Vol] 8.0 mg/dL Normal 7.0-18.0 [facility] Comment on above: Performed By: #### C MP #### [facility] [address] [place] [address] Dr. Octavio Hagen Urea nitrogen/Creatini ne [Mass ratio] 7.8 mg/mg Normal [facility] Comment on above: Performed By: #### C MP #### [facility] [address] [place] [address] Dr. Octavio Hagen PTTon 09-04-2022 aPTT Coag (Bld) [Time] 35.2 s Normal 22.3-36.2 [facility] Comment on above: Performed By: #### C MP #### [facility] [address] [place] [address] Dr. Octavio Hagen XR KUB 1 VIEWon [...] the transverse colon. Electronically authenticated by: MARNIE SAID Date: 2022-09-04 06:11 Normal [facility] CBC AUTO DIFFon 09-03-2022 BASO # 0.0 103/ul Normal 0.0-0.1 [facility] Comment on above: Performed By: #### C BC #### [facility] [address] [address] [address] Octavio Hagen Basophils/100 WBC (Bld) 0.4 % Normal 0.2-2.0 [facility] Comment on above: Performed By: #### C BC #### [facility] [address] [place] [address] Dr. Octavio Hagen EO # 0.2 103/ul Normal 0.0-0.7 [facility] Comment on above: Performed By: #### C BC #### [facility] [address] [address] [address] Octavio Hagen Eosinophils/100 WBC (Bld) 3.3 % Normal 0.9-7.0 [facility] Comment on above: Performed By: #### C BC #### [facility] [address] [place] [address] Dr. Octavio Hagen Erythrocyte distribution width (RBC) [Ratio] 12.9 % Normal 11.0-15.0 [facility] Comment on above: Performed By: #### C BC #### [facility] [address] [address] [address] Octavio Hagen Hematocrit (Bld) [Volume fraction] 40.0 % Critically low 42.0-54.0 [facility] Comment on above: Performed By: #### C BC #### [facility] [address] [place] [address] Dr. Octavio Hagen Hemoglobin (Bld) [Mass/Vol] 13.4 g/dL Critically low 14.0-18.0 [facility] Comment on above: Performed By: #### C BC #### [facility] [address] [place] [address] Dr. Octavio Hagen IG # 0.03 10e3/ul Normal 0.00-0.03 [facility] Comment on above: Performed By: #### C BC #### [facility] [address] [place] [address] Dr. Octavio Hagen IG % 0.4 % Normal 0.0-0.5 [facility] Comment on above: Performed By: #### C BC #### [facility] [address] [place] [address] Dr. Octavio Hagen LYMPH # 1.6 103/ul Normal 1.2-3.8 [facility] Comment on above: Performed By: #### C BC #### [facility] [address] [place] [address] Dr. Octavio Hagen Lymphocytes/100 WBC (Bld) 22.9 % Normal 20.5-60.0 [facility] Comment on above: Performed By: #### C BC #### [facility] [address] [place] [address] Dr. Octavio Hagen MANUAL DIFF REQ NO Normal [facility] Comment on above: Performed By: #### C BC #### [facility] [address] [place] [address] Dr. Octavio Hagen MCH (RBC) [Entitic mass] 29.2 pg Normal 25.9-34.0 [facility] Comment on above: Performed By: #### C BC #### [facility] [address] [place] [address] Dr. Octavoi Hagen MCHC (RBC) [Mass/Vol] 33.5 g/dL Normal 29.9-35.2 [facility] Comment on above: Performed By: #### C BC #### [facility] [address] [place] [address] Dr. Octavio Hagen MCV (RBC) [Entitic vol] 87.1 fL Normal 80.0-94.0 [facility] Comment on above: Performed By: #### C BC #### [facility] [address] [place] [address] Dr. Octavio Hagen MONO # 0.6 103/ul Normal 0.3-0.8 [facility] Comment on above: Performed By: #### C BC #### [facility] [address] [place] [address] Dr. Octavio Hagen Monocytes/100 WBC (Bld) 9.2 % Normal 1.7-12.0 [facility] Comment on above: Performed By: #### C BC #### [facility] [address] [place] [address] Dr. Octavio Hagen NEUT # 4.5 103/ul Normal 1.4-6.5 [facility] Comment on above: Performed By: #### C BC #### [facility] [address] [place] [address] Dr. Octavio Hagen Neutrophils/100 WBC (Bld) 63.8 % Normal 43.0-75.0 [facility] Comment on above: Performed By: #### C BC #### [facility] [address] [place] [address] Dr. Octavio Hagen Platelet mean volume (Bld) [Entitic vol] 9.3 fL Critically low 9.5-13.5 [facility] Comment on above: Performed By: #### C BC #### [facility] [address] [place] [address] Dr. Octavio Hagen PLT 213 103/ul Normal 150-450 [facility] Comment on above: Performed By: #### C BC #### [facility] [address] [place] [address] Dr. Octavio Hagen RBC 4.59 106/ul Critically low 4.70-6.10 [facility] Comment on above: Performed By: #### C BC #### [facility] [address] [place] [address] Dr. Octavio Hagen WBC 7.0 103/ul Normal 4.0-11.0 [facility] Comment on above: Performed By: #### C BC #### [facility] [address] [place] [address] Dr. Octavio Hagen PROF 14(COMP METB)on 023 Albumin [Mass/Vol] 3.4 g/dL Normal 3.4-5.0 [facility] Comment on above: Performed By: #### C MP #### [facility] [address] [place] [address] Dr. Octavio Hagen Albumin/Globulin [Mass ratio] 1.1 {ratio} Normal [facility] Comment on above: Performed By: #### C MP #### [facility] [address] [address] [address] Octavio Hagen ALP [Catalytic activity/Vol] 73 U/L Normal 46-116 [facility] Comment on above: Performed By: #### C MP #### [facility] Laboratory [address] [place] [address] Dr. Octavio Hagen ALT [Catalytic activity/Vol] 35 U/L Normal 16-63 [facility] Comment on above: Performed By: #### C MP #### [facility] [address] [place] [address] Dr. Octavio Hagen Anion gap [Moles/Vol] 8.3 mmol/L Normal [facility] Comment on above: Performed By: #### C MP #### [facility] [address] [place] [address] Dr. Octavio Hagen AST [Catalytic activity/Vol] 19 U/L Normal 15-37 [facility] Comment on above: Performed By: #### C MP #### [facility] [address] [place] [address] Dr. Octavio Hagen Bilirubin [Mass/Vol] 0.4 mg/dL Normal 0.2-1.0 [facility] Comment on above: Performed By: #### C MP #### [facility] [address] [place] [address] Dr. Octavio Hagen Calcium [Mass/Vol] 8.5 mg/dL Normal 8.5-10.1 [facility] Comment on above: Performed By: #### C MP #### [facility] [address] [place] [address] Dr. Octavio Hagen Chloride [Moles/Vol] 107 mmol/L Normal 98-107 [facility] Comment on above: Performed By: #### C MP #### [facility] [address] [address] [address] Octavio Hagen CO2 [Moles/Vol] 30.8 mmol/L Normal 21.0-32.0 [facility] Comment on above: Performed By: #### C MP #### [facility] [address] [address] [address] Octavio Hagen Creatinine [Mass/Vol] 1.14 mg/dL Normal 0.70-1.30 [facility] Comment on above: Performed By: #### C MP #### [facility] [address] [place] [address] Dr. Octavio Hagen EGFR-AF DANISH >60 Normal >=60 [facility] Comment on above: Performed By: #### C MP #### [facility] [address] [place] [address] Dr. Octavio Hagen EGFR-NON AF DANISH >60 Normal >=60 [facility] Comment on above: Performed By: #### C MP #### [facility] [address] [place] [address] Dr. Octavio Hagen Globulin (S) [Mass/Vol] 3.2 g/dL Normal [facility] Comment on above: Performed By: #### C MP #### [facility] [address] [place] [address] Dr. Octavio Hagen Glucose [Mass/Vol] 86 mg/dL Normal 74-106 [facility] Comment on above: Performed By: #### C MP #### [facility] [address] [place] [address] Dr. Octavio Hagen Potassium [Moles/Vol] 4.1 mmol/L Normal 3.5-5.1 [facility] Comment on above: Performed By: #### C MP #### [facility] [address] [place] [address] Dr. Octavio Hagen Protein [Mass/Vol] 6.6 g/dL Normal 6.4-8.2 [facility] Comment on above: Performed By: #### C MP #### [facility] [address] [place] [address] Dr. Octavio Hagen Sodium [Moles/Vol] 142 mmol/L Normal 136-145 [facility] Comment on above: Performed By: #### C MP #### [facility] [address] [place] [address] Dr. Octavio Hagen Urea nitrogen [Mass/Vol] 17.0 mg/dL Normal 7.0-18.0 [facility] Comment on above: Performed By: #### C MP #### [facility] [address] [place] [address] Dr. Octavio Hagen Urea nitrogen/Creatini ne [Mass ratio] 14.9 mg/mg Normal [facility] Comment on above: Performed By: #### C MP #### [facility] [address] [place] [address] Dr. Octavio Hagen PTTon 09-03-2022 aPTT Coag (Bld) [Time] 36.1 s Normal 22.3-36.2 [facility] Comment on above: Performed By: #### C MP #### [facility] [address] [place] [address] Dr. Octavio Hagen XR KUB 1 VIEWon [...] stomach. Remainder unremarkable. Electronically authenticated by: ASHLEY TIENREY Date: 2022-09-03 06:04 Normal [facility] XR SMALL BOWELon 09-03-2022 XR SMALL BOWEL EXAMINATION: XR SMAL L BOWEL HISTORY: Small bowel obstruction COMPARISON: 09/03/2022 FLUOROSCOPY TIME: Exam performed on the floor. No fluoroscopy utilized. TECHNIQUE: Small bowel series was performed in the usual manner. No nanosystems engineer abdominal radiograph was performed. Standard level fluoroscopic [...] ASHLY HERNANDEZ Date: 2022-09-03 17:46 Normal [facility] CBC AUTO DIFFon 09-02-2022 BASO # 0.0 103/ul Normal 0.0-0.1 [facility] Comment on above: Performed By: #### C BC #### [facility] [address] [address] [address] Octavio Hagen Basophils/100 WBC (Bld) 0.4 % Normal 0.2-2.0 [facility] Comment on above: Performed By: #### C BC #### [facility] [address] [address] [address] Octavio Hagen EO # 0.4 103/ul Normal 0.0-0.7 [facility] Comment on above: Performed By: #### C BC #### [facility] [address] [address] [address] Octavio Hagen Eosinophils/100 WBC (Bld) 4.7 % Normal 0.9-7.0 [facility] Comment on above: Performed By: #### C BC #### [facility] [address] [address] [address] Octavio Hagen Erythrocyte distribution width (RBC) [Ratio] 12.7 % Normal 11.0-15.0 [facility] Comment on above: Performed By: #### C BC #### [facility] [address] [address] [address] Octavio Hagen Hematocrit (Bld) [Volume fraction] 44.4 % Normal 42.0-54.0 [facility] Comment on above: Performed By: #### C BC #### [facility] [address] [address] [address] Octavio Hagen Hemoglobin (Bld) [Mass/Vol] 14.8 g/dL Normal 14.0-18.0 [facility] Comment on above: Performed By: #### C BC #### [facility] [address] [address] [address] Octavio Hagen IG # 0.04 10e3/ul Critically high 0.00-0.03 [facility] Comment on above: Performed By: #### C BC #### [facility] [address] [address] [address] Octavio Hagen IG % 0.5 % Normal 0.0-0.5 [facility] Comment on above: Performed By: #### C BC #### [facility] [address] [place] [address] Dr. Octavio Hagen LYMPH # 2.0 103/ul Normal 1.2-3.8 [facility] Comment on above: Performed By: #### C BC #### [facility] [address] [place] [address] Dr. Octavio Hagen Lymphocytes/100 WBC (Bld) 26.7 % Normal 20.5-60.0 [facility] Comment on above: Performed By: #### C BC #### [facility] [address] [place] [address] Dr. Octavio Hagen MANUAL DIFF REQ NO Normal [facility] Comment on above: Performed By: #### C BC #### [facility] [address] [place] [address] Dr. Octavio Hagen MCH (RBC) [Entitic mass] 28.6 pg Normal 25.9-34.0 [facility] Comment on above: Performed By: #### C BC #### [facility] [address] [place] [address] Dr. Octavio Hagen MCHC (RBC) [Mass/Vol] 33.3 g/dL Normal 29.9-35.2 [facility] Comment on above: Performed By: #### C BC #### [facility] [address] [place] [address] Dr. Octavio Hagen MCV (RBC) [Entitic vol] 85.7 fL Normal 80.0-94.0 [facility] Comment on above: Performed By: #### C BC #### [facility] [address] [address] [address] Octavio Hagen MONO # 0.9 103/ul Critically high 0.3-0.8 [facility] Comment on above: Performed By: #### C BC #### [facility] [address] [address] [address] Octavio Hagen Monocytes/100 WBC (Bld) 11.5 % Normal 1.7-12.0 [facility] Comment on above: Performed By: #### C BC #### [facility] [address] [place] [address] Dr. Octavio Hagen NEUT # 4.2 103/ul Normal 1.4-6.5 [facility] Comment on above: Performed By: #### C BC #### [facility] [address] [place] [address] Dr. Octavio Hagen Neutrophils/100 WBC (Bld) 56.2 % Normal 43.0-75.0 [facility] Comment on above: Performed By: #### C BC #### [facility] [address] [place] [address] Dr. Octavio Hagen Platelet mean volume (Bld) [Entitic vol] 9.4 fL Critically low 9.5-13.5 [facility] Comment on above: Performed By: #### C BC #### [facility] [address] [place] [address] Dr. Octavio Hagen PLT 256 103/ul Normal 150-450 [facility] Comment on above: Performed By: #### C BC #### [facility] [address] [place] [address] Dr. Octavio Hagen RBC 5.18 106/ul Normal 4.70-6.10 [facility] Comment on above: Performed By: #### C BC #### [facility] [address] [place] [address] Dr. Octavio Hagen WBC 7.5 103/ul Normal 4.0-11.0 [facility] Comment on above: Performed By: #### C BC #### [facility] [address] [place] [address] Dr. Octavio Hagen PROF 14(COMP METB)on 023 Albumin [Mass/Vol] 3.7 g/dL Normal 3.4-5.0 [facility] Comment on above: Performed By: #### C BC #### [facility] [address] [place] [address] Dr. Octavio Hagen Albumin/Globulin [Mass ratio] 1.1 {ratio} Normal [facility] Comment on above: Performed By: #### C BC #### [facility] [address] [place] [address] Dr. Octavio Hagen ALP [Catalytic activity/Vol] 84 U/L Normal 46-116 [facility] Comment on above: Performed By: #### C BC #### [facility] [address] [place] [address] Dr. Octavio Hagen ALT [Catalytic activity/Vol] 40 U/L Normal 16-63 [facility] Comment on above: Performed By: #### C BC #### [facility] [address] [place] [address] Dr. Octavio Hagen Anion gap [Moles/Vol] 10.9 mmol/L Normal [facility] Comment on above: Performed By: #### C BC #### [facility] [address] [place] [address] Dr. Octavio Hagen AST [Catalytic activity/Vol] 25 U/L Normal 15-37 [facility] Comment on above: Performed By: #### C BC #### [facility] [address] [place] [address] Dr. Octavio Hagen Bilirubin [Mass/Vol] 0.4 mg/dL Normal 0.2-1.0 [facility] Comment on above: Performed By: #### C BC #### [facility] [address] [place] [address] Dr. Octavio Hagen Calcium [Mass/Vol] 9.0 mg/dL Normal 8.5-10.1 [facility] Comment on above: Performed By: #### C BC #### [facility] [address] [place] [address] Dr. Octavio Hagen Chloride [Moles/Vol] 103 mmol/L Normal 98-107 [facility] Comment on above: Performed By: #### C BC #### [facility] [address] [place] [address] Dr. Octavio Hagen CO2 [Moles/Vol] 29.2 mmol/L Normal 21.0-32.0 [facility] Comment on above: Performed By: #### C BC #### [facility] [address] [address] [address] Octavio Hagen Creatinine [Mass/Vol] 1.10 mg/dL Normal 0.70-1.30 [facility] Comment on above: Performed By: #### C BC #### [facility] [address] [place] [address] Dr. Octavio Hagen EGFR-AF DANISH >60 Normal >=60 [facility] Comment on above: Performed By: #### C BC #### [facility] [address] [place] [address] Dr. Octavio Hagen EGFR-NON AF DANISH >60 Normal >=60 [facility] Comment on above: Performed By: #### C BC #### [facility] [address] [place] [address] Dr. Octavio Hagen Globulin (S) [Mass/Vol] 3.4 g/dL Normal [facility] Comment on above: Performed By: #### C BC #### [facility] [address] [place] [address] Dr. Octavio Hagen Glucose [Mass/Vol] 102 mg/dL Normal 74-106 [facility] Comment on above: Performed By: #### C BC #### [facility] [address] [place] [address] Dr. Octavio Hagen Potassium [Moles/Vol] 4.1 mmol/L Normal 3.5-5.1 [facility] Comment on above: Performed By: #### C BC #### [facility] [address] [place] [address] Dr. Octavio Hagen Protein [Mass/Vol] 7.1 g/dL Normal 6.4-8.2 [facility] Comment on above: Performed By: #### C BC #### [facility] [address] [address] [address] Octavio Hagen Sodium [Moles/Vol] 139 mmol/L Normal 136-145 [facility] Comment on above: Performed By: #### C BC #### [facility] [address] [address] [address] Octavio Hagen Urea nitrogen [Mass/Vol] 15.0 mg/dL Normal 7.0-18.0 [facility] Comment on above: Performed By: #### C BC #### [facility] [address] [place] [address] Dr. Octavio Hagen Urea nitrogen/Creatini ne [Mass ratio] 13.6 mg/mg Normal [facility] Comment on above: Performed By: #### C BC #### [facility] [address] [place] [address] Dr. Octavio Hagen PTTon 09-02-2022 aPTT Coag (Bld) [Time] 37.5 s Critically high 22.3-36.2 [facility] Comment on above: Performed By: #### P TT #### [facility] [address] [place] [address] Dr. Octavio Hagen XR ABD FLAT UP_PA [...] is not possible. Electronically authenticated by: ALEXANDRIA MACHADOOWS Date: 2022-09-02 10:04 Normal [facility] CBC AUTO DIFFon 09-01-2022 BASO # 0.0 103/ul Normal 0.0-0.1 [facility] Comment on above: Performed By: #### C MP #### [facility] [address] [address] [address] Octavio Hagen Basophils/100 WBC (Bld) 0.4 % Normal 0.2-2.0 [facility] Comment on above: Performed By: #### C MP #### [facility] [address] [address] [address] Octavio Hagen EO # 0.2 103/ul Normal 0.0-0.7 [facility] Comment on above: Performed By: #### C MP #### [facility] [address] [address] [address] Octavio Hagen Eosinophils/100 WBC (Bld) 2.6 % Normal 0.9-7.0 [facility] Comment on above: Performed By: #### C MP #### [facility] [address] [address] [address] Octavio Hagen Erythrocyte distribution width (RBC) [Ratio] 12.6 % Normal 11.0-15.0 [facility] Comment on above: Performed By: #### C MP #### [facility] [address] [address] [address] Octavio Hagen Hematocrit (Bld) [Volume fraction] 50.1 % Normal 42.0-54.0 [facility] Comment on above: Performed By: #### C MP #### [facility] [address] [address] [address] Octavio Hagen Hemoglobin (Bld) [Mass/Vol] 16.8 g/dL Normal 14.0-18.0 [facility] Comment on above: Performed By: #### C MP #### [facility] [address] [address] [address] Octavio Hagen IG # 0.18 10e3/ul Critically high 0.00-0.03 [facility] Comment on above: Performed By: #### C MP #### [facility] [address] [address] [address] Octavio Hagen IG % 2.0 % Critically high 0.0-0.5 [facility] Comment on above: Performed By: #### C MP #### [facility] [address] [address] [address] Octavio Hagen LYMPH # 1.8 103/ul Normal 1.2-3.8 [facility] Comment on above: Performed By: #### C MP #### [facility] [address] [place] [address] Dr. Octavio Hagen Lymphocytes/100 WBC (Bld) 19.0 % Critically low 20.5-60.0 [facility] Comment on above: Performed By: #### C MP #### [facility] [address] [place] [address] Dr. Octavio Hagen MANUAL DIFF REQ NO Normal [facility] Comment on above: Performed By: #### C MP #### [facility] [address] [place] [address] Dr. Octavio Hagen MCH (RBC) [Entitic mass] 28.5 pg Normal 25.9-34.0 [facility] Comment on above: Performed By: #### C MP #### [facility] [address] [place] [address] Dr. Octavio Hagen MCHC (RBC) [Mass/Vol] 33.5 g/dL Normal 29.9-35.2 [facility] Comment on above: Performed By: #### C MP #### [facility] [address] [place] [address] Dr. Octavio Hagen MCV (RBC) [Entitic vol] 84.9 fL Normal 80.0-94.0 [facility] Comment on above: Performed By: #### C MP #### [facility] [address] [place] [address] Dr. Octavio Hagen MONO # 0.9 103/ul Critically high 0.3-0.8 [facility] Comment on above: Performed By: #### C MP #### [facility] [address] [address] [address] Octavio Hagen Monocytes/100 WBC (Bld) 9.6 % Normal 1.7-12.0 [facility] Comment on above: Performed By: #### C MP #### [facility] [address] [address] [address] Octavio Hagen NEUT # 6.1 103/ul Normal 1.4-6.5 [facility] Comment on above: Performed By: #### C MP #### [facility] [address] [address] [address] Octavio Hagen Neutrophils/100 WBC (Bld) 66.4 % Normal 43.0-75.0 [facility] Comment on above: Performed By: #### C MP #### [facility] [address] [place] [address] Dr. Octavio Hagen Platelet mean volume (Bld) [Entitic vol] 9.2 fL Critically low 9.5-13.5 [facility] Comment on above: Performed By: #### C MP #### [facility] [address] [place] [address] Dr. Octavio Hagen PLT 271 103/ul Normal 150-450 [facility] Comment on above: Performed By: #### C MP #### [facility] [address] [place] [address] Dr. Octavio Hagen RBC 5.90 106/ul Normal 4.70-6.10 [facility] Comment on above: Performed By: #### C MP #### [facility] [address] [place] [address] Dr. Octavio Hagen WBC 9.2 103/ul Normal 4.0-11.0 [facility] Comment on above: Performed By: #### C MP #### [facility] [address] [place] [address] ABD/PELV W CONon [...] CECILE ANDRES Date: 2022-09-01 21:33 Normal [facility] CULTURE URINEon 09-01-2022 CULTURE URINE Culture Observations : NO GROWTH. Normal [facility] Comment on above: Performed By: #### C MP #### [facility] [address] [place] [address] Dr. Octavio Hagen ER URINE PROFILEon 3 Bilirubin Ql (U) Negative Normal NEGATIVE [facility] Comment on above: Performed By: #### C BC #### [facility] [address] [place] [address] Dr. Octavio Hagen Clarity (U) CLEAR Normal CLEAR [facility] Comment on above: Performed By: #### C BC #### [facility] [address] [place] [address] Dr. Octavio Hagen Color (U) YELLOW Normal YELLOW [facility] Comment on above: Performed By: #### C BC #### [facility] [address] [place] [address] Dr. Octavio Hagen ERUAHD A micrscopic examination will be performed if indicated. Normal [facility] Comment on above: Performed By: #### C BC #### [facility] [address] [place] [address] Dr. Octavio Hagen Glucose Ql (U) Negative Normal NEGATIVE [facility] Comment on above: Performed By: #### C BC #### [facility] [address] [place] [address] Dr. Octavio Hagen Hemoglobin Ql (U) Negative Normal NEGATIVE [facility] Comment on above: Performed By: #### C BC #### [facility] [address] [place] [address] Dr. Octavio Hagen Ketones Ql (U) TRACE Abnormal NEGATIVE [facility] Comment on above: Performed By: #### C BC #### [facility] [address] [place] [address] Dr. Octavio Hagen LEUKOCYTES Negative Normal NEGATIVE [facility] Comment on above: Performed By: #### C BC #### [facility] [address] [place] [address] Dr. Octavio Hagen Nitrite Ql (U) Negative Normal NEGATIVE [facility] Comment on above: Performed By: #### C BC #### [facility] [address] [place] [address] Dr. Octavio Hagen pH (U) 6.0 [pH] Normal 5-9 [facility] Comment on above: Performed By: #### C BC #### [facility] [address] [place] [address] Dr. Octavio Hagen Protein (U) [Mass/Vol] 30 mg/dL Abnormal NEGATIVE/ TRACE [facility] Comment on above: Performed By: #### C BC #### [facility] [address] [place] [address] Dr. Octavio Hagen SPEC GRAVITY 1.025 Normal 1.005-<=1.025 [facility] Comment on above: Performed By: #### C BC #### [facility] [address] [place] [address] Dr. Octavio Hagen UR MICRO IND INDICATED Normal [facility] Comment on above: Performed By: #### C BC #### [facility] [address] [place] [address] Dr. Octavio Hagen Urobilinogen Qn (U) 1.0 {Rudi'U}/dL Normal 0.2 - 1.0 [facility] Comment on above: Performed By: #### C BC #### [facility] [address] [place] [address] Dr. Octavio Hagen LACTATE/LACTIC ACIDon 2022 Lactate [Moles/Vol] 1.0 mmol/L Normal 0.4-2.0 [facility] Comment on above: Performed By: #### L ACT #### [facility] [address] [place] [address] Dr. Octavio Hagen LIPASEon 09-01-2022 Lipase [Catalytic activity/Vol] 67.0 U/L Critically low 73.0-393.0 [facility] Comment on above: Performed By: #### C MP, LIPA #### [facility] [address] [place] [address] Dr. Octavio Hagen PROF 14(COMP METB)on 023 Albumin [Mass/Vol] 4.6 g/dL Normal 3.4-5.0 [facility] Comment on above: Performed By: #### C MP, LIPA #### [facility] [address] [place] [address] Dr. Octavio Hagen Albumin/Globulin [Mass ratio] 1.1 {ratio} Normal [facility] Comment on above: Performed By: #### C MP, LIPA #### [facility] [address] [place] [address] Dr. Octavio Hagen ALP [Catalytic activity/Vol] 100 U/L Normal 46-116 [facility] Comment on above: Performed By: #### C MP, LIPA #### [facility] [address] [place] [address] Dr. Octavio Hagen ALT [Catalytic activity/Vol] 49 U/L Normal 16-63 [facility] Comment on above: Performed By: #### C MP, LIPA #### [facility] [address] [address] [address] Octavio Hagen Anion gap [Moles/Vol] 12.3 mmol/L Normal [facility] Comment on above: Performed By: #### C MP, LIPA #### [facility] [address] [address] [address] Octavio Hagen AST [Catalytic activity/Vol] 32 U/L Normal 15-37 [facility] Comment on above: Performed By: #### C MP, LIPA #### [facility] [address] [place] [address] Dr. Octavio Hagen Bilirubin [Mass/Vol] 0.4 mg/dL Normal 0.2-1.0 [facility] Comment on above: Performed By: #### C MP, LIPA #### [facility] [address] [place] [address] Dr. Octavio Hagen Calcium [Mass/Vol] 10.1 mg/dL Normal 8.5-10.1 [facility] Comment on above: Performed By: #### C MP, LIPA #### [facility] [address] [address] [address] Octavio Hagen Chloride [Moles/Vol] 100 mmol/L Normal 98-107 [facility] Comment on above: Performed By: #### C MP, LIPA #### [facility] [address] [address] [address] Octavio Hagen CO2 [Moles/Vol] 28.9 mmol/L Normal 21.0-32.0 [facility] Comment on above: Performed By: #### C MP, LIPA #### [facility] [address] [place] [address] Dr. Octavio Hagen Creatinine [Mass/Vol] 1.00 mg/dL Normal 0.70-1.30 [facility] Comment on above: Performed By: #### C MP, LIPA #### [facility] [address] [place] [address] Dr. Octavio Hagen EGFR-AF DANISH >60 Normal >=60 [facility] Comment on above: Performed By: #### C MP, LIPA #### [facility] [address] [place] [address] Dr. Octavio Hagen EGFR-NON AF DANISH >60 Normal >=60 [facility] Comment on above: Performed By: #### C MP, LIPA #### [facility] [address] [place] [address] Dr. Octavio Hagen Globulin (S) [Mass/Vol] 4.0 g/dL Normal [facility] Comment on above: Performed By: #### C MP, LIPA #### [facility] [address] [place] [address] Dr. Octavio Hagen Glucose [Mass/Vol] 105 mg/dL Normal 74-106 [facility] Comment on above: Performed By: #### C MP, LIPA #### [facility] [address] [place] [address] Dr. Octavio Hagen Potassium [Moles/Vol] 4.2 mmol/L Normal 3.5-5.1 [facility] Comment on above: Performed By: #### C MP, LIPA #### [facility] [address] [place] [address] Dr. Octavio Hagen Protein [Mass/Vol] 8.6 g/dL Critically high 6.4-8.2 [facility] Comment on above: Performed By: #### C MP, LIPA #### [facility] [address] [place] [address] Dr. Octavio Hagen Sodium [Moles/Vol] 137 mmol/L Normal 136-145 [facility] Comment on above: Performed By: #### C MP, LIPA #### [facility] [address] [place] [address] Dr. Octavio Hagen Urea nitrogen [Mass/Vol] 13.0 mg/dL Normal 7.0-18.0 [facility] Comment on above: Performed By: #### C MP, LIPA #### [facility] [address] [place] [address] Dr. Octavio Hagen Urea nitrogen/Creatini ne [Mass ratio] 13.0 mg/mg Normal [facility] Comment on above: Performed By: #### C MP, LIPA #### [facility] [address] [place] [address] Dr. Octavio Hagen URINE MICROSCOPIC ONLYon BACTERIA SMALL Abnormal NONE SEEN [facility] Comment on above: Performed By: #### C BC #### [facility] [address] [place] [address] Dr. Octavio Hagen Bacteria identified Cx Nom (U) INDICATED Normal [facility] Comment on above: Performed By: #### C BC #### [facility] [address] [place] [address] Dr. Octavio Hagen CAST NONE SEEN Normal NONE SEEN [facility] Comment on above: Performed By: #### C BC #### [facility] [address] [place] [address] Dr. Octavio Hagen Crystals LM Nom (Urine sed) NONE SEEN Normal NONE SEEN [facility] Comment on above: Performed By: #### C BC #### [facility] [address] [place] [address] Dr. Octavio Hagen Epithelial cells LM Ql (Urine sed) NONE SEEN Normal NONE SEEN /RARE [facility] Comment on above: Performed By: #### C BC #### [facility] [address] [place] [address] Dr. Octavio Hagen MUCOUS LARGE Abnormal NONE SEEN [facility] Comment on above: Performed By: #### C BC #### [facility] [address] [place] [address] Dr. Octavio Hagen RBC 0-2 Normal 0-2 [facility] Comment on above: Performed By: #### C BC #### [facility] [address] [place] [address] Dr. Octavio Hagen WBC 0-2 Abnormal NONE SEEN [facility] Comment on above: Performed By: #### C BC #### [facility] [address] [place] [address] Dr. Octavio Hagen CBC AUTO DIFFon 08-26-2022 BASO # 0.0 103/ul Normal 0.0-0.1 [facility] Comment on above: Performed By: #### C BC #### [facility] [address] [place] [address] Dr. Octavio Hagen Basophils/100 WBC (Bld) 0.3 % Normal 0.2-2.0 [facility] Comment on above: Performed By: #### C BC #### [facility] [address] [place] [address] Dr. Octavio Hagen EO # 0.4 103/ul Normal 0.0-0.7 [facility] Comment on above: Performed By: #### C BC #### [facility] [address] [place] [address] Dr. Octavio Hagen Eosinophils/100 WBC (Bld) 3.3 % Normal 0.9-7.0 [facility] Comment on above: Performed By: #### C BC #### [facility] [address] [place] [address] Dr. Octavio Hagen Erythrocyte distribution width (RBC) [Ratio] 12.6 % Normal 11.0-15.0 [facility] Comment on above: Performed By: #### C BC #### [facility] [address] [place] [address] Dr. Octavio Hagen Hematocrit (Bld) [Volume fraction] 46.1 % Normal 42.0-54.0 [facility] Comment on above: Performed By: #### C BC #### [facility] [address] [place] [address] Dr. Octavio Hagen Hemoglobin (Bld) [Mass/Vol] 15.5 g/dL Normal 14.0-18.0 [facility] Comment on above: Performed By: #### C BC #### [facility] [address] [place] [address] Dr. Octavio Hagen IG # 0.05 10e3/ul Critically high 0.00-0.03 [facility] Comment on above: Performed By: #### C BC #### [facility] [address] [place] [address] Dr. Octavio Hagen IG % 0.4 % Normal 0.0-0.5 [facility] Comment on above: Performed By: #### C BC #### [facility] [address] [place] [address] Dr. Octavio Hagen LYMPH # 2.5 103/ul Normal 1.2-3.8 [facility] Comment on above: Performed By: #### C BC #### [facility] [address] [place] [address] Dr. Octavio Hagen Lymphocytes/100 WBC (Bld) 21.1 % Normal 20.5-60.0 [facility] Comment on above: Performed By: #### C BC #### [facility] [address] [place] [address] Dr. Octavio Hagen MANUAL DIFF REQ NO Normal The [facility] Comment on above: Performed By: #### C BC #### [facility] [address] [place] [address] Dr. Octavio Hagen MCH (RBC) [Entitic mass] 29.2 pg Normal 25.9-34.0 [facility] Comment on above: Performed By: #### C BC #### [facility] [address] [place] [address] Dr. Octavio Hagen MCHC (RBC) [Mass/Vol] 33.6 g/dL Normal 29.9-35.2 [facility] Comment on above: Performed By: #### C BC #### [facility] [address] [place] [address] Dr. Octavio Hagen MCV (RBC) [Entitic vol] 86.8 fL Normal 80.0-94.0 [facility] Comment on above: Performed By: #### C BC #### [facility] [address] [place] [address] Dr. Octavio Hagen MONO # 0.9 103/ul Critically high 0.3-0.[address] [facility] Comment on above: Performed By: #### C BC #### [facility] [address] [place] [address] Dr. Octavio Hagen Monocytes/100 WBC (Bld) 7.9 % Normal 1.7-12.0 [facility] Comment on above: Performed By: #### C BC #### [facility] [address] [place] [address] Dr. Octavio Hagen NEUT # 7.8 103/ul Critically high 1.4-6.[address] [facility] Comment on above: Performed By: #### C BC #### [facility] [address] [place] [address] Dr. Octavio Hagen Neutrophils/100 WBC (Bld) 67.0 % Normal 43.0-75.0 [facility] Comment on above: Performed By: #### C BC #### [facility] [address] [place] [address] Dr. Octavio Hagen Platelet mean volume (Bld) [Entitic vol] 9.4 fL Critically low 9.5-13.5 [facility] Comment on above: Performed By: #### C BC #### [facility] [address] [place] [address] Dr. Octavio Hagen PLT 245 103/ul Normal 150-450 [facility] Comment on above: Performed By: #### C BC #### [facility] [address] [place] [address] Dr. Ocatvio Hagen RBC 5.31 106/ul Normal 4.70-6.10 [facility] Comment on above: Performed By: #### C BC #### [facility] [address] [place] [address] Dr. Octavio Hagen WBC 11.7 103/ul Critically high 4.0-11.0 [facility] Comment on above: Performed By: #### C BC #### [facility] [address] [place] [address] Dr. Octavio Hagen LIPASEon 08-26-2022 Lipase [Catalytic activity/Vol] 63.0 U/L Critically low 73.0-393.0 [facility] Comment on above: Performed By: #### C BC #### [facility] [address] [place] [address] Dr. Octavio Hagen PROF 14(COMP METB)on 023 Albumin [Mass/Vol] 3.9 g/dL Normal 3.4-5.0 [facility] Comment on above: Performed By: #### C BC #### [facility] [address] [place] [address] Dr. Octavio Hagen Albumin/Globulin [Mass ratio] 1.1 {ratio} Normal [facility] Comment on above: Performed By: #### C BC #### [facility] [address] [place] [address] Dr. Octavio Hagen ALP [Catalytic activity/Vol] 118 U/L Critically high 46-116 [facility] Comment on above: Performed By: #### C BC #### [facility] [address] [place] [address] Dr. Octavio Hagen ALT [Catalytic activity/Vol] 37 U/L Normal 16-63 [facility] Comment on above: Performed By: #### C BC #### [facility] [address] [place] [address] Dr. Octavio Hagen Anion gap [Moles/Vol] 15.1 mmol/L Normal [facility] Comment on above: Performed By: #### C BC #### [facility] [address] [place] [address] Dr. Octavio Hagen AST [Catalytic activity/Vol] 21 U/L Normal 15-37 [facility] Comment on above: Performed By: #### C BC #### [facility] [address] [place] [address] Dr. Octavio Hagen Bilirubin [Mass/Vol] 0.2 mg/dL Normal 0.2-1.0 [facility] Comment on above: Performed By: #### C BC #### [facility] [address] [place] [address] Dr. Octavio Hagen Calcium [Mass/Vol] 8.8 mg/dL Normal 8.5-10.1 [facility] Comment on above: Performed By: #### C BC #### [facility] [address] [place] [address] Dr. Octavio Hagen Chloride [Moles/Vol] 106 mmol/L Normal 98-107 [facility] Comment on above: Performed By: #### C BC #### [facility] [address] [place] [address] Dr. Octavio Hagen CO2 [Moles/Vol] 25.7 mmol/L Normal 21.0-32.0 [facility] Comment on above: Performed By: #### C BC #### [facility] [address] [place] [address] Dr. Octavio Hagen Creatinine [Mass/Vol] 0.96 mg/dL Normal 0.70-1.30 [facility] Comment on above: Performed By: #### C BC #### [facility] [address] [place] [address] Dr. Octavio Hagen EGFR-AF DANISH >60 Normal >=60 [facility] Comment on above: Performed By: #### C BC #### [facility] [address] [place] [address] Dr. Octavio Hagen EGFR-NON AF DANISH >60 Normal >=60 [facility] Comment on above: Performed By: #### C BC #### [facility] [address] [place] [address] Dr. Octavio Hagen Globulin (S) [Mass/Vol] 3.6 g/dL Normal [facility] Comment on above: Performed By: #### C BC #### [facility] [address] [place] [address] Dr. Octavio Hagen Glucose [Mass/Vol] 110 mg/dL Critically high 74-106 [facility] Comment on above: Performed By: #### C BC #### [facility] [address] [place] [address] Dr. Octavio Hagen Potassium [Moles/Vol] 3.8 mmol/L Normal 3.5-5.1 [facility] Comment on above: Performed By: #### C BC #### [facility] [address] [place] [address] Dr. Octavio Hagen Protein [Mass/Vol] 7.5 g/dL Normal 6.4-8.2 [facility] Comment on above: Performed By: #### C BC #### [facility] [address] [place] [address] Dr. Octavio Hagen Sodium [Moles/Vol] 143 mmol/L Normal 136-145 [facility] Comment on above: Performed By: #### C BC #### [facility] [address], [place] [address] Dr. Octavio Hagen Urea nitrogen [Mass/Vol] 23.0 mg/dL Critically high 7.0-18.0 [facility] Comment on above: Performed By: #### C BC #### [facility] [address] [place], [place] [address] Dr. Octavio Hagen Urea nitrogen/Creatini ne [Mass ratio] 24.0 mg/mg Normal [facility] Comment on above: Performed By: #### C BC #### [facility] [address] [place], [place] [address] Dr. Octavio Hagen XR ABD FLAT UP_PA [...] by: GABE MOURA Date: 2022-08-26 09:27 Normal [facility] XR ANKLE LT MIN 3 Von 2021 [...] by: ASHLY LINDER Date: 2021-11-12 18:41 Normal [facility] COVID/FLU/RSV RT-PCRon 09-11 SARS-CoV-2 (COVID-19) RNA MARCIA+probe Ql (Unsp spec) Negative [facility] Other COVID/FLU/RSV RT-PCR Negative [facility] Other XR foot RT min 3V*on 021 XR foot RT min 3V* [facility] [place] [address] [place] [address] XRay Report Signed Patient: Ashly Chau JR MR#: [id number] : 2000 Acct:[id number] Age/Sex: 20 / M ADM Date: 10/18/20 Loc: XDUCLY Room: Type: [facility] Attending Dr: Trisha GARCIA Ordering Provider: TRISHA ARTEAGA Date of Service: 10/18/20 XR/XR foot RT min 3V*: Right foot pain Copies to: TRISHA ATREAGA XR foot RT min 3V* 10/18/2020 4:32 [...] Miles Swanson M.D.10/18/2020 4:53 PM Dictation Location: [address] [place] [address] Transcribed By: [facility] 10/18/201652 Dictated By: Miles Swanson II, MD 10/18/201651 Signed By: 10/18/201652 Normal [facility] Vital Signs Date Time Vital Sign Value Performing Clinician Facility 06-15-2024 10:05-0500 Body height 170.18 cm [facility] 06-15-2024 10:05-0500 Body mass index (BMI) [Ratio] 29.6 kg/m2 [facility] 06-15-2024 10:05-0500 Body weight 85.72 kg [facility] 05-01-2024 12:08-0500 Body height 170.2 cm Joseph Hernandez APRN-XUAN Work Phone: [facility] 05-01-2024 12:08-0500 Body mass index (BMI) [Ratio] 29.54 kg/m2 Joseph Hernandez APRN-XUAN Work Phone: [facility] 05-01-2024 12:08-0500 Body weight 85.55 kg Joseph Hernandez APRN-XUAN Work Phone: [facility] 05-01-2024 12:08-0500 Diastolic blood pressure 75 mm[Hg] Joseph Hernandez APRN-XUAN Work Phone: [facility] 05-01-2024 12:08-0500 Heart rate 54 /min Joseph Hernandez APRN-XUAN Work Phone: [facility] 05-01-2024 12:08-0500 Systolic blood pressure 130 mm[Hg] Joseph Hernandez APRN-XUAN Work Phone: [employer] 03-28-2024 11:06-0500 Body height 170.2 cm Joseph Hernandez APRN-SUPERVISOR INSULATION [facility] 03-28-2024 11:06-0500 Body mass index (BMI) [Ratio] 29.85 kg/m2 Joseph Hernandez APRN-SUPERVISOR INSULATION [facility] 03-28-2024 11:06-0500 Body weight 86.46 kg Joseph Hernandez APRN-SUPERVISOR INSULATION [facility] 08-02-2022 14:00-0400 Body height 170.18 cm Shala Fabiola Other [facility] Other 08-02-2022 14:00-0400 Body mass index (BMI) [Ratio] 30.07 kg/m2 Shala Fabiola Other [facility] Other 08-02-2022 14:00-0400 Body temperature 100.1 [degF] Shala Fabiola Other [facility] Other 08-02-2022 14:00-0400 Body weight 87.09 kg Shala Fabiola Other [facility] Other 08-02-2022 14:00-0400 Respiratory rate 18 /min Shala Fabiola Other [facility] Other 08-02-2022 14:00-0400 SaO2% (BldA) [Mass fraction] 96 % Shala Hicks Other [facility] Other 09-11-2021 16:25-0400 Body height 170.18 cm Trisha Arteaga Other [facility] Other 09-11-2021 16:25-0400 Body mass index (BMI) [Ratio] 28.03 kg/m2 Trisha Arteaga Other [facility] Other 09-11-2021 16:25-0400 Body temperature 97.6 [degF] Trisha Arteaga Other [facility] Other 09-11-2021 16:25-0400 Body weight 81.19 kg Trisha Arteaga Other [facility] Other 09-11-2021 16:25-0400 Respiratory rate 18 /min Trisha Arteaga Other [facility] Other 09-11-2021 16:25-0400 SaO2% (BldA) [Mass fraction] 96 % Trisha Arteaga Other [facility] Other Encounters Encounter Date Encounter Type Care Provider Facility Start: 06-15-2024 End: 06-15-2024 ambulatory [facility] Work Phone: Start: 06-15-2024 End: 06-15-2024 Patient encounter procedure [facility] Work Phone: Start: 05-01-2024 End: 05-01-2024 ambulatory JOSEPH HERNANDEZ [facility] Start: 05-01-2024 End: 05-01-2024 Postop follow up visit related to original px Joseph Hernandez SUPPLIER RELATIONSHIP DIRECTOR-SUPERVISOR INSULATION Work Phone: [facility] Comment on above: Status post explorat ory laparotomy (Primary Dx); Small bowel obstruction (CMS-HCC) Start: 04-21-2024 End: 04-21-2024 Telephone encounter Darcie Hoffman CMA [facility] Start: 04-03-2024 End: 04-03-2024 Orders Only Joseph Hernandez SUPPLIER RELATIONSHIP DIRECTOR-SUPERVISOR INSULATION Work Phone: [facility] Comment on above: Small bowel obstruct ion (CMS-HCC) (Primary Dx) Start: 03-28-2024 End: 03-28-2024 ambulatory JOSEPH HERNANDEZ [facility] Start: 03-28-2024 End: 03-28-2024 Postop follow up visit related to original px Joseph Hernandez SUPPLIER RELATIONSHIP DIRECTOR-SUPERVISOR INSULATION Work Phone: [facility] Comment on above: Status post explorat ory laparotomy (Primary Dx); Constipation, unspecified constipation type Start: 03-20-2024 End: 03-20-2024 Telephone encounter Tiny Jackson CMA [facility] Start: 03-16-2024 ambulatory [facility] Start: 03-15-2024 ambulatory [facility] Start: 09-02-2022 End: 09-04-2022 Evaluation and management of inpatient DR HOFFMAN LISTED REQUEST Facility:[facility] Start: 08-26-2022 End: 08-26-[address] LEONELA SMITH . Facility:[facility] Start: 08-02-2022 End: 08-02-2022 ambulatory Shala Hicks Other [facility] Other Start: 08-02-2022 Office outpatient vi sit 15 minutes Shala Hicks [facility] Start: 11-12-2021 End: 11-12-[address] DOCTOR JAKCSON Facility:[facility] Start: 09-11-2021 End: 09-11-2021 ambulatory Trisha Arteaga Other [facility] Other Start: 09-11-2021 Office outpatient vi sit 15 minutes Trisha Arteaga [facility] Start: 02-17-2019 End: 02-17-2019 Emergency department patient visit MARCELL VALENCIA Facility:[facility] Procedures Date Procedure Procedure Detail Performing Clinician Start: 05-01-2024 Follow-up visit Follow-up JOSEPH HERNANDEZ Start: 03-15-2024 MULTIPLE LABS Not In Sy stem Ref Prov H/O: surgery Status post expl oratory laparotomy Joseph Hernandez APRN-XUAN Work Phone: H/O: surgery Status post expl oratory laparotomy Joseph Hernandez APRN-XUAN Work Phone: Plan of Treatment Date Care Activity Detail Author Start: 05-01-2025 Adult BMI Screening Adult BMI Screen ing [facility] Start: 05-01-2025 Tobacco Screening Tobacco Screening [facility] Start: 03-28-2025 Adult BMI Screening Adult BMI Screen ing [facility] Start: 03-28-2025 Tobacco Screening Tobacco Screening [facility] Start: 05-01-2024 End: 05-01-2024 Patient encounter procedure 05/01/2024 12:00 PM EST Office Visit [facility] General Surgery [address] [place] [id number] Joseph [facility] [address] [place] [address] [facility] General Surgery Start: 03-28-2024 End: 03-28-2024 Patient encounter procedure 03/28/2024 11:00 AM EST Office Visit [facility] General Surgery [address] [place] [id number] Joseph Hernandez APRNSUPERVISOR INSULATION [address] [place] [address] [facility] Start: 01-02-2024 Influenza vaccination Influenza Vacc ine [facility] Start: 03-03-2023 DTaP,Tdap and Td Vaccines (7 - Td or Tdap) DTaP,Tdap and Td Vaccines (7 - Td or Tdap) [facility] Start: 07-08-2017 Adult BMI Follow Up Plan Adult BMI Follow Up Plan [facility] Start: 07-08-2017 Adult BMI Screening Adult BMI Screen ing [facility] Start: 2011 Depression Screening Depression Scre ening [facility] Start: 2011 Tobacco Screening Tobacco Screening [facility] Start: 1999 Tobacco Counseling Tobacco Counselin chris [facility] Immunizations Immunization Date Immunization Notes Care Provider Jose baughtiago 05-02-2015 influenza virus vacc ine, unspecified formulation Tiny Jackson C[facility] Payers Date Payer Category Payer Medicaid HMO [employer] [id number] 2022 Medicaid [id number] 1999 Unknown [id number] [id number]7 1999 Unknown [id number] 2.16.840.1.379991.3.579.2.593 1999 Unknown [id number] 2.16.840.1.605128.3.579.2.593 1999 Unknown [id number] 2.16.840.1.371432.3.579.2.593 1999 Unknown [id number] 2.16.840.1.868495.3.579.2.1286 1999 Unknown [id number] 2.16.840.1.873234.3.579.2.1286 1999 Unknown [id number] 2.16.840.1.632668.3.579.2.1286 1999 Unknown [id number] 2.16.840.1.904672.3.579.2.1286 1999 Unknown [id number] 2.16.840.1.132831.3.579.2.1286 1999 Unknown [id number] 2.16.840.1.731868.3.579.2.1286 1999 Unknown [id number] 2.16.840.1.645588.3.579.2.1286 1999 Unknown [id number] 2.16.840.1.266294.3.579.2.1286 1999 Unknown [id number] 2.16.840.1.001491.3.579.2.1286 1999 Unknown [id number] 2.16.840.1.537394.3.579.2.1286 1999 Unknown [id number] 2.16.840.1.060805.3.579.2.1286 1960 Medicaid [id number] 2.16.840.1.935395.19 1959 Unknown [id number] Social History Date Type Detail Facility Unknown if ever smoked [facility] Other Start: 03-08-2018 End: 06-13-2020 Sex Assigned [facility] [facility]: [facility]-28-2024 [facility] Occasional tobacco smoker [facility] History of tobacco use Cigarette Smoker P [facility] Start: 11-17-2017 End: 03-28-2024 Tobacco use and exposure Smokeless tobacco non-user [facility] Start: 12-09-2018 End: 03-28-2024 Alcoholic beverage intake Current non-drinker of alcohol (finding) [facility] Start: 03-08-2018 End: 06-13-2020 History of Social function [facility] Frequency of Alcohol Consumption Never [facility] Start: 03-28-2024 Alcohol Comment none since surgery but usually has beer each day. [facility] Start: 2000 Sex assigned at Not on file [facility] Start: 12-06-2014 End: 06-15-2024 Sex Male (finding) [facility] Start: 05-01-2024 Alcoholic beverage intake Current drinker of alcohol (finding) [facility] Start: 05-01-2024 Alcohol Comment socially [facility] Start: 06-15-2024 Tobacco smoking status NHIS Smoker (finding) [facility] Start: 2000 Sex Assigned At Male [facility] Start: 11-17-2017 Tobacco smoking status MDIS Smokes tobacco daily [facility] Clinical Notes 09-11-2021 to 05-01-2024 Joseph Hernandez, SUPPLIER RELATIONSHIP DIRECTOR-[facility] - 05/01/2024 12:00 PM ESTTelephone Encounter - Darcie Hoffman, [facility] - 04/21/2024 1:40 PM ESTTelephone Encounter - Darcie Hoffman, [facility] - 04/21/2024 1:40 PM EST Note Date & Type Note Facility 05-01-2024 History of Presen t illness Narrative Images from the original note were not included. Subjective Ashly Chau Jr. is a 23 y.o. male status post exploratory laparotomy with lysis of adhesions due to small bowel obstruction 03/12/2024. He is doing well. He denies pain other than with exertion for example if he mops the floor. He is tolerating oral intake. He denies nausea and vomiting. He is only having a bowel movement every 4 days or so. He admits to drinking no water. He has mainly been drinking pop. Prior to surgery, he could go weeks without having a bowel movement. Objective Vitals: 05/01/24 1208 BP: 130/75 Pulse: 54 Physical Exam Constitutional: General: He is not in acute distress. Appearance: Normal appearance. He is not ill-appearing. Abdominal: General: Bowel sounds are normal. There is no distension. Palpations: Abdomen is soft. Tenderness: There is no abdominal tenderness. There is no guarding. Skin: General: Skin is warm and dry. Findings: No erythema. Comments: Midline abdominal incision clean, dry and intact. Assessment Ashly Chau Jr. is a 23 y.o.male postoperative exploratory laparotomy with lysis of adhesions. Plan Discussed decreasing pop intake and increasing water intake to 2 L daily for constipation. Continue Colace and MiraLax p.r.n.. GI referral in place if he wishes to see them for continued issues with constipation. Follow up as needed. Status post exploratory laparotomy [Z98.890] KELVIN RAMOS [facility] [place] This note was created with the assistance of a speech recognition program. While intending to generate a timely document that accurately reflects the content of the visit, no guarantee can be provided that every grammatical or spelling mistake has been or will be identified or corrected. Thank you for your understanding. KELVIN Ramos 05/01/24 1224 documented in this encounter [facility] 04-21-2024 Miscellaneous Notes Contacted [facility] to follow up from referral sent over on 04/17/24. Was informed that they could see this patient for constipation but they will not follow up for a small bowel obstruction. Will inform Joseph. documented in this encounter [facility] 04-21-2024 Telephone encounter Note Contacted [facility] to follow up from referral sent over on 04/17/24. Was informed that they could see this patient for constipation but they will not follow up for a small bowel obstruction. Will inform Joseph. [facility] 03-28-2024 History of Presen t illness Narrative Images from the original note were not included. Subjective Ashly Hinkleramy Lee is a 23 y.o. male status post exploratory laparotomy with lysis of adhesions due to small bowel obstruction 03/12/2024. He presents today with his mother. He admits to not following his postop instructions. 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 He denies pain. He denies fever and chills. He is tolerating oral intake. He denies nausea and vomiting. He is having bowel movements, was constipated at first. He has been taking stool softeners. Objective There were no vitals filed for this visit. Physical Exam Constitutional: General: He is not in acute distress. Appearance: Normal appearance. He is not ill-appearing. Abdominal: General: Bowel sounds are normal. There is no distension. Palpations: Abdomen is soft. Tenderness: There is no abdominal tenderness. There is no guarding. Skin: General: Skin is warm and dry. Findings: No erythema. Comments: Midline abdominal incision clean, dry and intact. Crow removed in office today. No erythema, swelling, drainage. Assessment Ashly Chau Jr. is a 23 y.o.male postoperative exploratory laparotomy with lysis of adhesions. Plan No lifting over 10 lb, pushing, pulling until cleared by physician. Keep incision clean, wash with soap and water and pat dry. They are requesting MiraLax be prescribed in case he needs it. He was instructed to make sure he is drinking plenty of water and only take this p.r.n.. Follow up 1 month. Status post exploratory laparotomy [Z98.890] KELVIN RAMOS [facility] [place] This note was created with the assistance of a speech recognition program. While intending to generate a timely document that accurately reflects the content of the visit, no guarantee can be provided that every grammatical or spelling mistake has been or will be identified or corrected. Thank you for your understanding. KELVIN Ramos 03/28/24 1218 documented in this encounter [facility] 03-20-2024 Miscellaneous Notes Nina called to see if we can send in some nicotine patches for her son. He had an emergency surgery at [facility] by Dr Garcia, for a bowel obstruction. He does see Yris TRUJILLO, at [facility], for his PCP. I did call that office, & leave a message for the desk nurse asking them to please send that in for our mutual patient. I will see if I hear back from them. [facility] returned my call & left a message. They said that he's no longer a patient there because the patient hasn't been seen since 2018. They'd need to see him prior to sending anything for him. documented in this encounter [facility] 03-20-2024 Telephone encounter Note Nina called to see if we can send in some nicotine patches for her son. He had an emergency surgery at [facility] by Dr Garcia, for a bowel obstruction. He does see Yris TRUJILLO, at [facility], for his PCP. I did call that office, & leave a message for the desk nurse asking them to please send that in for our mutual patient. I will see if I hear back from them. [facility] returned my call & left a message. They said that he's no longer a patient there because the patient hasn't been seen since 2018. They'd need to see him prior to sending anything for him. [facility] 08-02-2022 Evaluation note Encounter Date Diagnosis Assessment [...] Dental pain home care material was printed [facility] Other 05-12-2022 Evaluation note* Encounter Date Diagnosis Assessment Notes Treatment Notes Treatment Clinical Notes August, Cough (ICD-10 - R05.9) August, Allergic sinusitis (ICD-10 - J30.9) [facility] Other Evaluation note* Diagnosis Status post exploratory laparotomy- Primary Other postprocedural status Small bowel obstruction (CMS-HCC) Unspecified intestinal obstruction documented [facility] this [facility] Diagnosis Onset Date Resolution Status Admit Date Constipation acute June 10:03am [facility] Work Phone: Evaluation note* Diagnosis Status post exploratory laparotomy- Primary Other postprocedural status Constipation, unspecified constipation type documented [facility] this [facility] Diagnosis Small bowel obstruction (CMS-HCC)- Primary Unspecified intestinal obstruction [facility] - Reported* Type Description Date Medical History ADHD Surgical History reconstruction bowel as infant Hospitalization History see above [facility] Other InstructionsNot on filedocumented in this encounter [facility] filedocument[facility] in this [facility] filedocumented in this encounter [facility] filedocumented in this [facility] filedocumented in this encounter [facility] Summary Purpose Family History Relationship Condition Age at Onset Recorded Date/T kash father Unknown Malignant neoplasm Unknown mother Family history of mental disorder Unknown Hypertension Unknown Advance Directives Advance Directive Response Recorded Date/ Time Advance Directives No October 22 2:06pm Chief Complaint and Reason for Visit Chief Complaint Admit Date Refer: Constipation June 15, 2024 10:03am Reason for Visit Admit Date Constipation June 15, 2024 10:03am Additional Source Comments (unrecognized sect ion and content) No Status Records FoundNo Status Records FoundNo Status Records FoundNo Status Records Found INFORMATION SOURCE (unrecogn ized section and content) DATE CREATED AUTHOR 03/01/2019 [facility] DATE CREATED AUTHOR AUTHOR'S ORGANIZ ATION 05/24/2021 [facility] DATE CREATED AUTHOR AUTHOR'S ORGANIZ ATION 09/12/2022 [facility] DATE CREATED AUTHOR AUTHOR'S ORGANIZ ATION 05/02/2024 [facility] REASON FOR VISIT (unrecogniz ed section and content) Reason Comments Follow-up Follow up from 03/28, post op exploratory laparotomy with lysis of adhesions and small bowel obstruction performed 03/12/24 Reason Comments POST-OP VISIT EXPLORATORY LAP, [employer] BOWEL OBSTRUCTION, [facility] 03/12/24 Care Teams (unrecognized sec tion and content) Business Process Lead Relationship Specialty Start Date End Date Trisha Arteaga APRN-FNP [facility] [address] [place], [place] [phone] PCP - General Family Medicine 03/28/24 Business Process Lead Relationship Specialty Start Date End Date Trisha Arteaga APRN-FNP [facility] [address] [place], [place] [phone] PCP - General Family Medicine 03/28/24 Team Status: Active Member Role Status Dates PHYSICIAN NO FAMILY Primary Care Provider Active Team Status: Inactive Member Role Status Dates PHYSICIAN NO FAMILY Primary Care Provider Active Start: June 15, 2024 End: June 15, 2024 Ashley Yeager APRN Attending Provider Active Start: June 15, 2024 End: June 15, 2024 Business Process Lead Relationship Specialty Start Date End Date Yris Carlos PA-C [address] [place], [place] [phone] PCP - General Physician Dumpster Driver 03/08/18 Business Process Lead Relationship Specialty Start Date End Date Yris Carlos PA-C [address] [place] [id number] PCP - General Physician Dumpster Driver 03/08/18 Business Process Lead Relationship Specialty Start Date End Date Trisha rAteaga APRN-FNP [address] [place], [place] [phone] PCP - General Family Medicine 03/28/24 Business Process Lead Relationship Specialty Start Date End Date TammyBharathTrishaBAYRON-CHOPPER GUN OPERATOR [address] [place], [place] [id number] PCP - General Family Medicine 03/28/24 Goals (unrecognized section and content) Goals may be documented in a n alternate section FOR RECORDS PERTAINING TO PATIENTS WHO ARE [...] BE BASED ON THE PRIMARY CLINICAL RECORDS. [facility]. provides no warranty or guarantee of the accuracy or completeness of information in this document.
--- NOTE | 2024-07-04 10:01 | ED_ITS ---
HPI HPI - General Adult General Chief complaint: Skin/Abscess/Foreign Body Stated complaint: LOCALIZED SWELLING Time Seen by Provider: 07/04/24 09:49 Source: patient Mode of arrival: walk-in Limitations: no limitations History of Present Illness HPI narrative: Patient is a 23-year-old male who is presenting to the ER with chief complaint of reoccurring pilonidal cyst. Patient states he has had several pilonidal cyst/abscess in the past. Patient has had incision and drainage several times in the past as well. Patient sees Dr. Garcia from [place]. Patient just had extensive abdominal surgery in March. Patient had multiple abdominal surgeries, adhesions, obstructions. 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 Patient currently is not working, he is trying to get disability. Patient has no fever or chills. Patient states that the abscess or cyst is small, patient is here early this time trying to get antibiotics. Patient initially stated he did not want to have surgery definitively for pilonidal cyst. Education was done that this is a reoccurring problem and he absolutely must see a surgeon for definitive treatment. 3 to 4-minute conversation was had about this, patient does understand and is thankful for the talk and he will call Dr. Garcia today for definitive treatment and evaluation for pilonidal cyst. Patient has no bowel or bladder changes. Patient has no other acute complaints. All systems are negative except as noted/marked. All systems reviewed and otherwise negative. Nurses note and vital signs reviewed and patient is not hypoxic. General: The patient appears well and in no apparent distress. Patient is resting comfortably on cart. Patient is not toxic, lethargic, or listless. Patient smells of body odor and poor hygiene. Skin: Warm, dry, no pallor noted. There is no rash noted. No petechiae, purpura. Patient has pilonidal cyst that is approximately 2 x 1 cm, firm, indurated, not fluctuant. No erythema, no cellulitis, no signs of drainage. Mild tenderness palpation. This is the top of his cleft of his buttocks. Patient has no other perianal, perirectal abscess. Head: Normocephalic, atraumatic Eye: Normal conjunctiva, no drainage, EOMI. PERRL Ears, Nose, Mouth, and Throat: oral mucosa is moist. Nares patent. Mouth without vesicles. Cardiovascular: Regular Rate and Rhythm, no murmur, gallop, rub Respiratory: Patient is in no distress, no accessory muscle use, lungs are clear to auscultation, no wheezing, rales or rhonchi Back: non-tender, no CVA tenderness bilaterally to percussion. No CT LS midline pain GI: Soft, obese, surgical scars are clean, dry, intact. Patient has multiple abdominal surgical incisions. No tenderness to palpation, no masses appreciated. No rebound, guarding, or rigidity noted. No distention no peritoneal signs. No firmness, no tympany.. Musculoskeletal: Patient has full range of motion of all of the extremities, no motor, sensory, or focal neurological deficits Neurological: A&O x4, normal speech Psychiatric: Cooperative Related Data Previous Rx's ?Medication ?Instructions ?Recorded cephalexin 500 mg capsule 500 mg PO Q8H 7 days #21 caps 07/04/24 hydrocodone 5 mg-acetaminophen 325 1 tab PO Q4H PRN pain #6 tabs 07/04/24 mg tablet mupirocin 2 % topical ointment 1 applic topical TID 14 days #15 07/04/24 grams Allergies Allergy/AdvReac Type Severity Reaction Status Date / Time bismuth subsalicylate (From Allergy Severe Hives Verified 07/04/24 09:24 Pepto-Bismol) Opioid HPI Opioid Management Most Recent Opioid Data: Last Pain Scale 6 07/04/24 09:25 07/04/24 Last ORT Total Score 4 03/10/24 01:45 03/10/24 Last ORT Risk Category Moderate Risk 03/10/24 01:45 03/10/24 [facility] Medical History (Updated 07/04/24 @ 10:00 by Foreign Blackwell MD) Leukocytosis ?D72.829 - Elevated white blood cell count, unspecified (ICD-10) Small bowel obstruction ?K56.609 - Unspecified intestinal obstruction, unspecified as to partial versus complete obstruction (ICD-10) Abdominal pain ?R10.9 - Unspecified abdominal pain (ICD-10) Alcohol use disorder ?F10.90 - Alcohol use, unspecified, uncomplicated (ICD-10) Intestinal adhesions ?K66.0 - Peritoneal adhesions (postprocedural) (postinfection) (ICD-10) Non-compliance ?Z91.199 - Patient's noncompliance with other medical treatment and regimen due to unspecified reason (ICD-10) Cigarette smoker ?F17.210 - Nicotine dependence, cigarettes, uncomplicated (ICD-10) Heavy drinker of alcohol ?Z78.9 - Other specified health status (ICD-10) Constipation, chronic ?K59.09 - Other constipation (ICD-10) Small bowel obstruction due to adhesions ?K56.50 - Intestinal adhesions [bands], unspecified as to partial versus complete obstruction (ICD-10) Surgical History History of colostomy reversal ?Z98.890 - Other specified postprocedural states (ICD-10) Social History Within the past year, how often did you have a drink containing alcohol: 4 or more times a week Within the past year, how many standard drinks containing alcohol did you have on a typical day: 5 or 6 Within the past year, how often did you have six or more drinks on one occasion: weekly Total score: 7 Score interpretation: A score of 4 or more indicates drinking is likely to affect patient's safety. Smoking status: Current every day smoker Non-prescribed substance use: denies use Highest level of school completed/degree received: 12th grade, no diploma Little interest or pleasure in doing things: not at all Feeling down, depressed, or hopeless: not at all Exam Constitutional Vital Signs, click to edit/add: Last Vital Signs Temp 99.7 F 07/04/24 09:25 Pulse 101 H 07/04/24 09:25 Resp 20 07/04/24 09:25 BP 134/89 07/04/24 09:25 Pulse Ox 97 07/04/24 09:25 O2 Del Method Room Air 07/04/24 09:25 Course Vital Signs Vital signs: Vital Signs Temperature 99.7 F 07/04/24 09:25 Pulse Rate 101 H 07/04/24 09:25 Respiratory Rate 20 07/04/24 09:25 Blood Pressure 134/89 07/04/24 09:25 Pulse Oximetry 97 07/04/24 09:25 Oxygen Delivery Method Room Air 07/04/24 09:25 Temperature 99.7 F 07/04/24 09:25 Pulse Rate 101 H 07/04/24 09:25 Respiratory Rate 20 07/04/24 09:25 Blood Pressure 134/89 07/04/24 09:25 Pulse Oximetry 97 07/04/24 09:25 Oxygen Delivery Method Room Air 07/04/24 09:25 Medical Decision Making MDM Narrative Medical decision making narrative: Education was done at bedside on treatment of pilonidal cyst. Patient understands that he must follow-up with a surgeon Dr Garcia for definitive treatment. Patient was prescribed Bactroban and Keflex. Patient was given 6 pain pills as well. Patient was educated on treating pain at home, warm sitz bath's. Patient understands he must follow-up with Dr. Garcia for definitive treatment. No acute indication for incision and drainage secondary to size, and it is firm and indurated as well. Discharge Plan Discharge Chief Complaint: Skin/Abscess/Foreign Body Clinical Impression: Pilonidal abscess Patient Disposition: Home, Self-Care Time of Disposition Decision: 09:58 Condition: Fair Prescriptions / Home Meds: New cephalexin 500 mg capsule 500 mg PO Q8H 7 Days Qty: 21 0RF mupirocin 2 % ointment 1 applic topical TID 14 Days Qty: 15 0RF hydrocodone-acetaminophen 5-325 mg tablet 1 tab PO Q4H PRN (Reason: pain) Qty: 6 0RF Print Language: Greenlandic Instructions: Pilonidal Cyst (ED), Abscess (ED), Sitz Bath (DC) Additional Instructions: Warm soaks, warm sitz bath's, heating pad to help increase inflammation swelling and if abscess starts draining that is a good thing. Call Dr. Garcia today to follow-up for definitive treatment of your chronic pilonidal cyst. Finish antibiotics Follow-up with PCP as needed Alternate Tylenol and either Motrin, Advil, or ibuprofen every 4 hours to help with pain. If you are having severe pain, substitute a [place] tablet instead of Tylenol. Do not take Tylenol and [place] at the same time, you may actually take too much Tylenol at 1 setting or in 1 day. Maximum Tylenol dose of Tylenol is 3000 mg a day. Maximum dose of either Motrin, Advil, or ibuprofen is 2400 mg a day. Referrals: Juan Ramon Garcia MD [Physician] - 1 week IMELDA ARTEAGA [Primary Care Provider] - 1 week Discharge Date/Time: 07/04/24 10:07
== END 2024-07-04 10:07 | disposition home or self-care (01) ==
PROVIDERS: Emergency Provider Emergency Medicine; PCP Nurse Practitioner Family
DX: L05.01 Pilonidal cyst with abscess (principal); F17.200 Nicotine dependence, unspecified, uncomplicated
CPT/HCPCS: 99283

== ENCOUNTER 2024-10-26 12:49 | Emergency (ER) | payer OTHER, SELFPAY ==
--- OUTSIDE RECORDS SUMMARY | 2024-06-27 07:30 | XMS_ITS ---
Author Organization [facility] Address [address] [place] [address] Care Team Providers Care Hi Lift Operator Name Role Phone Trisha Munoz Primary Care Provider [phone] REASON FOR VISIT discuss letter for social security Encounters Encounter Location Date Provider Diagnosis [place] [address] [place] [address] 06/27/2024 Trisha Munoz Plan Of Treatment No Information Progress Notes * ASHLY JAMISONDOB:2000 ( 24 yo M)Acc No.[id number]:06/27/2024 Progress Notes Patient: ASHLY MICHELLE Provider: Margot Munoz CNP :2000 A ge:23 Y S ex:Male Date:06/27/2024 Address:[address] [place] [address] [id number] Subjective: * Chief Complaints: * 1 . Discuss letter for social security. * Medical History: Objective: * Vitals: Assessment: Plan: * Treatment: * Images: * Electronic signature of JOSE Watts on 10/26/2024 at 12:59 PM EDT Sign off status: Pending * Provider: Margot Munoz CNP Date: 06/27/2024 Generated for Printi ng/Faxing/eTransmitting on: 0 10/26/2024 12:59 PM EDT
--- OUTSIDE RECORDS SUMMARY | 2024-07-24 05:30 | XMS_ITS ---
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 R/S FROM NS ON 06/27. * Medical History: Objective: * Vitals: Assessment: Plan: * Treatment: * Images: * Electronic signature of JOSE Watts on 10/26/2024 at 12:59 PM EDT Sign off status: Pending * Provider: Margot Munoz CNP Date: 07/24/2024 Generated for Printi ng/Faxing/eTransmitting on: 10/26/2024 12:59 PM EDT
[2024-10-26 12:56] VITALS: BP 116/60; PULSE 66; TEMP 36.5; O2SAT 98; BMI 32.0
--- OUTSIDE RECORDS SUMMARY | 2024-10-26 12:59 | XMS_ITS | Patient Health Record ---
Author Organization [facility] es Address [address] [place] [address] Care Team Providers Care Buffer Chrome Name Role Phone Trisha Munoz Primary Care Provider [phone] Ana Sue [phone] Allergies Allergen (clinical drug ingredient) Drug/Non Drug Allergy documented on EMR Reaction Allergy Type Onset Date Status bismuth subsalicylate Pepto-Bismol hives Drug Allergy Active Results Component Value Reference Range Notes Rapid Flu Test Reviewed date:08/02/2024 10:20:02 AM Interpretation:negative Performing Lab: Notes/Report: negative Result negative Reason For Referral No Information Medications Medication SIG (Take, Route, Frequency, Duration) Notes Start Date End Date Status Ibuprofen Active Social History Tobacco Use: Social History Observation Description Date Details (start date - stop date) Current Smoker NA - NA Tobacco Screen: Question Answer Notes Are you a: current smoker How often do you smoke cigarettes? every day How many cigarettes a day do you smoke? 31 or mo re Alcohol Screening: Question Answer Notes Did you have a drink contain ing alcohol in the past year? Yes How often did you have a dri nk containing alcohol in the past year? Two to three times per week (3 points) How many drinks did you have on a typical day when you were drinking in the past year? 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) Active confirmed Problem Congenital malformation syndrome (037532045) Other specified congenital malformation syndromes, 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 [address] [place] [address] 03/17/2024 Trisha Munoz Assessments Encounter Date Diagnosis (ICD Code) Assessment Notes Treatment Notes Treatment Clinical Notes Section Notes 08/02/2024 Acute sinusitis, recurrence not specified, unspecified location (ICD-10 - J01.90) 08/02/2024 Upper respiratory tract infection, unspecified type (ICD-10 - J06.9) Influenza test negative. Symptoms and exam consistent with Sinus infection. Amoxicillin sent to [facility] in [place]. Patient may use Flonase nasal spray and OTC Mucinex sinus max to treamt symptoms. May use tylenol as needed for discomfort. Increase fluids and rest follow up as needed if symptoms do not improve or worsen. All questions and concerns addressed. Plan Of Treatment No Information Insurance Providers Payer Name Payer Address Payer Phone Subscriber Number Group Number Insured Name Patient Relationship to Insured Coverage Start Date Coverage End Date Wrap [facility] [address] [place] [phone] [id number] ASHLY JAMISON Self - patient is the insured 3 4 Medical (General) History Medical History History ICD Code CONSTIPATION BORN WITH PERFORATED ANUS Surgical History Surgery Date(Month/Year) RECONSTRUCTIVE SURGERY FOR PERFORATED AN US Exploratory Laparotomy with lysis of adh esions Drainage pilonidal cyst Hospitalization History Reason Date(Month/Year) Bowel obstruction 03/26
--- OUTSIDE RECORDS SUMMARY | 2024-10-26 12:59 | XMS_ITS | Clinical Summary ---
Author Organization [email or web address] [facility] tem Address [id number] [place] [address] Care Team Providers Care Auto Tester Name Role Phone Trisha Munoz [employer] Primary Care Provide r Allergies Active Allergy Reactions Criticality Noted Date Comments No Known Drug Allergies 12/30/2016 Bismuth Subsalicylate Hives Low 03/08/2017 Medications * This document contains information received from the source organization and may not represent a complete record from that organization. polyethylene glycol (GLYCOLAX) 17 gram packetIndications :Constipation, unspecified constipation type Take 17 g by mouth daily as needed (Constipatio n). 10 packet 4 Active docusate sodium (COLACE) 50 mg capsule Take 1 capsule (50 mg total) by mouth in the morning and 1 capsule (50 mg total) before bedtime. Active HYDROcodone-aceta minophen (NORCO) 5-325 mg per tablet Take 1 tablet by mouth every 4 (four) hours as needed for pain. 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 Murmur, cardiac 03/08/2018 Shortness of breath 03/08/2018 Attention deficit hyperactivity disorder, combin ed type 01/14/2017 Mild mood disorder 01/14/2017 Encounters Date Type Department Care Team Description 08/31/2024 11:00 AM EDT Office Visit [facility] [address] [facility] [place] [address] Rocío Shields, POT FIRER-[employer]OD BLOCK ARTIST Pilonidal disease (Primary Dx) 08/31/2024 Travel 07/27/2024 11:30 AM EDT Office Visit [facility] [address] [place] [address] Rocío Shields APRN-WOOD BLOCK ARTIST Pilonidal abscess (Primary Dx) 07/27/2024 Travel from Last 3 Months Family History Medical History Relation Name Comments Cancer Father Diabetes Father Lung cancer Father No Known Problems Mother Cancer Paternal Uncle Diabetes Paternal Uncle Lung cancer Paternal Uncle Cancer Paternal great-grandparent Diabetes Paternal great-grandparent Relation Name Status Comments Father Mother Alive Paternal Uncle Paternal great-grandparent Social History Tobacco Use Types Packs/Day Years Used Date Smoking Tobacco: Some Days Cigarettes Smokeless Tobacco: Former Chew Tobacco Cessation:Ready to Q uit: Not Asked; Counseling Given: Not Answered Alcohol Use Standard Drinks/Week Comments Yes 0 (1 standard drink = 0.6 oz pur e alcohol) socially AUDIT-C Answer Date Recorded Frequency of Alcohol Consumption Never 03/08/2018 Average Number of Drinks Not on file 018 Frequency of Binge Drinking Not on file 10/2017 Childcare Answer Date Recorded Childcare Unknown 10/11/2018 Employment Answer Date Recorded Employment Unknown 10/11/2018 Hunger Screening Answer Date Recorded Within the past 12 months we worried whether our food would run out before we got money to buy more. Never True 08/31/2024 Within the past 12 months th e food we bought just didn't last and we didn't have money to get more. Never True 08/31/2024 Purpose - Life Answer Date Recorded Purpose and direction in life Unknown Sex and Gender Information Value Date Recorded Sex Assigned at Not on file Legal Sex Male 11:56 AM EDT Gender Identity Not on file Sexual Orientation Not on file Last Filed Vital Signs Vital Sign Reading Time Taken Comments Blood Pressure 138/76 08/31/2024 10:59 AM EDT Pulse 58 08/31/2024 10:59 AM EDT Temperature 36.3 C (97.4 F) 11/17/2017 11:21 AM EDT Respiratory Rate 18 11/17/2017 11:21 AM EDT Oxygen Saturation 99% 11/17/2017 11:21 AM EDT Inhaled Oxygen Concentration - - Weight 92.4 kg (203 lb 9.6 oz) 08/31/2024 10:59 AM EDT Height 170.2 cm (5' 7 ) 08/31/2024 10:59 AM EDT Body Mass Index 31.89 08/31/2024 10:59 AM EDT Plan of Treatment Health Maintenance Due Date Last Done Comments Tobacco Counseling 1999 Depression Screening 2011 Adult BMI Follow Up Plan 07/08/2017 DTaP,Tdap and Td Vaccines (7 - Td or Tdap) 03/03/2023 03/03/2013, 12/06/2003, 01/13/2002, Additional history exists Influenza Vaccine 01/01/2025 05/02/2015, 03/03/2013 Adult BMI Screening 08/31/2025 08/31/2024 Tobacco Screening 08/31/2025 08/31/2024 Medical Devices Not on file Insurance [employer] Care Teams Auto Tester Relationship Specialty Start Date End Date Trisha Munoz APRN-AGUSTO [address] [place] [address] PCP - General Family Medicine 07/10/24
--- NOTE | 2024-10-26 13:05 | XR_ITS ---
The [address] [address] Patient Name: ASHLY JAMISON MRN: [id number] date: 2000 Sex: M Assigned Patient Location: ER Current Patient Location: ER Accession/Order Number: [id number] Exam Date: 10/26/2024 13:53 Report Date: 10/26/2024 13:53 At the request of: ANA ZENDEJAS MD Procedure: XR wrist RT min 3V RIGHT WRIST - 3 views CLINICAL HISTORY: Atraumatic pain, tendinitis? COMPARISON: None FINDINGS: No focal soft tissue abnormality or acute bony process. Joint spaces of the carpus appear maintained. XR/XR wrist RT min 3V IMPRESSION: NO ACUTE BONY PROCESS. Impression dictated by: Floyd Garces Jr., D.O. 10/26/2024 1:53 PM Dictation Location: [place] [address] Electronically authenticated by: [id number] Y Date: 10/26/2024 13:53
--- NOTE | 2024-10-26 13:05 | ED_ITS ---
HPI HPI - General Adult General Chief complaint: Extremity Problem, Nontraumatic Stated complaint: R WRIST PAIN Time Seen by Provider: 10/26/24 12:57 Source: patient Mode of arrival: walk-in Limitations: no limitations History of Present Illness HPI narrative: 24-year-old male presents to the emergency department for pain in the right wrist. He states he hurt it 2 or 3 months ago and it got better but then he tweaked it at [facility] a few weeks ago and it has been hurting since. He is right-handed. He points to the ulnar side of the wrist indicate the area of pain. Related Data Previous Rx's ?Medication ?Instructions ?Recorded cephalexin 500 mg capsule 500 mg PO Q8H 7 days #21 cap s 07/04/24 hydrocodone 5 mg-acetaminophen 325 1 tab PO Q4H PRN pa in #6 tabs 07/04/24 mg tablet mupirocin 2 % topical ointment 1 applic topical TID 14 days #15 07/04/24 grams Allergies Allergy/AdvReac Type Severity Reaction Status Date / Time bismuth subsalicylate (From Allergy Severe Hives Verified 07/04/24 09:24 Pepto-Bismol) Opioid HPI Opioid Management Most Recent Opioid Data: Last Pain Scale 5 Today, 13:03 Last ORT Total Score 4 03/10/24, 01:45 Last ORT Risk Category Moderate Risk 03/10/24, 01:45 Review of Systems ROS Narrative A ten point review of systems is negative except as noted above. PFSH [facility] Medical History (Updated 10/26/24 @ 14:12 by Storm Leyva MD) Leukocytosis ?D72.829 - Elevated white blood cell count, unspecified (ICD-10) Small bowel obstruction ?K56.609 - Unspecified intestinal obstruction, unspecified as to partial versus complete obstruction (ICD-10) Abdominal pain ?R10.9 - Unspecified abdominal pain (ICD-10) Alcohol use disorder ?F10.90 - Alcohol use, unspecified, uncomplicated (ICD-10) Intestinal adhesions ?K66.0 - Peritoneal adhesions (postprocedural) (postinfection) (ICD-10) Non-compliance ?Z91.199 - Patient's noncompliance with other medical treatment and regimen due to unspecified reason (ICD-10) Cigarette smoker ?F17.210 - Nicotine dependence, cigarettes, uncomplicated (ICD-10) Heavy drinker of alcohol ?Z78.9 - Other specified health status (ICD-10) Constipation, chronic ?K59.09 - Other constipation (ICD-10) Small bowel obstruction due to adhesions ?K56.50 - Intestinal adhesions [bands], unspecified as to partial versus complete obstruction (ICD-10) Surgical History History of colostomy reversal ?Z98.890 - Other specified postprocedural states (ICD-10) Social History Within the past year, how often did you have a drink containing alcohol: 4 or more times a week Within the past year, how many standard drinks containing alcohol did you have on a typical day: 5 or 6 Within the past year, how often did you have six or more drinks on one occasion: weekly Total score: 7 Score interpretation: A score of 4 or more indicates drinking is likely to affect patient's safety. Smoking status: Current every day smoker Non-prescribed substance use: denies use Highest level of school completed/degree received: 12th grade, no diploma Little interest or pleasure in doing things: not at all Feeling down, depressed, or hopeless: not at all Exam Narrative Exam Narrative: Nurses note and vital signs reviewed and patient is not hypoxic. General: The patient appears well and in no apparent distress. Patient is resting comfortably on cart. Skin: Warm, dry, no pallor noted. There is no rash noted. Head: Normocephalic, atraumatic Eye: Normal conjunctiva, no drainage Ears, Nose, Mouth, and Throat: oral mucosa is moist. Nares patent. Cardiovascular: Regular Rate and Rhythm Respiratory: Patient is in no distress, no accessory muscle use GI: Soft and nontender Musculoskeletal: The right hand and wrist are examined. There is no bruising or swelling. He has normal flexion and extension at the right wrist. Ulnar and radial deviation causes some degree of discomfort. No masses or erythema or rash. Neurological: A&O, normal speech Psychiatric: Cooperative Constitutional Vital Signs, click to edit/add: Last Vital Signs Temp 97.7 F 10/26/24 12:56 Pulse 66 10/26/24 12:56 Resp 18 10/26/24 12:56 BP 116/60 10/26/24 12:56 Pulse Ox 98 10/26/24 12:56 O2 Del Method Room Air 10/26/24 12:56 Course Vital Signs Vital signs: Vital Signs Temperature 97.7 F 10/26/24 12:56 Pulse Rate 66 10/26/24 12:56 Respiratory Rate 18 10/26/24 12:56 Blood Pressure 116/60 10/26/24 12:56 Pulse Oximetry 98 10/26/24 12:56 Oxygen Delivery Method Room Air 10/26/24 12:56 Temperature 97.7 F 10/26/24 12:56 Pulse Rate 66 10/26/24 12:56 Respiratory Rate 18 10/26/24 12:56 Blood Pressure 116/60 10/26/24 12:56 Pulse Oximetry 98 10/26/24 12:56 Oxygen Delivery Method Room Air 10/26/24 12:56 Medical Decision Making MDM Narrative Medical decision making narrative: X-ray shows no acute findings. Splint applied, application checked by me and found to be appropriate, he is neurovascular intact. My clinical impression is that he has tendinitis. He was given IM Decadron and orthopedic follow-up. Treatment diagnosis and follow-up were discussed with the patient. Differential Diagnosis Differential Diagnosis: Tendinitis, sprain, fracture Imaging Data Wrist x-ray: Radiologist's impression: ITS Impressions Wrist X-Ray 10/26/24 13:05 IMPRESSION: NO ACUTE BONY PROCESS. Impression dictated by: Floyd Garces Jr., D.O. 10/26/2024 1:53 PM Dictation Location: [place] [address] Electronically authenticated by: [id number] Y Date: 10/26/2024 13:53 Discharge Plan Discharge Chief Complaint: Extremity Problem, Nontraumatic Clinical Impression: Tendinitis Patient Disposition: Home, Self-Care Time of Disposition Decision: 14:12 Condition: Good Mode of Transportation: Private Vehicle Prescriptions / Home Meds: No Action cephalexin 500 mg capsule 500 mg PO Q8H 7 Days Qty: 21 0RF mupirocin 2 % ointment 1 applic topical TID 14 Days Qty: 15 0RF hydrocodone-acetaminophen 5-325 mg tablet 1 tab PO Q4H PRN (Reason: pain) Qty: 6 0RF Print Language: Burmese Instructions: Tendinitis (ED) Referrals: Physician,Non-Staff, MD [Primary Care Provider] - 1 week JEFERSON WILLIS [Referring]
[2024-10-26] MEDS: DEXAMETHASONE SOD PHOS 10 MG/ML VIAL IM (13:22)
== END 2024-10-26 14:22 | disposition home or self-care (01) ==
PROVIDERS: Emergency Provider Emergency Medicine
DX: M77.8 Other enthesopathies, not elsewhere classified (principal); F17.210 Nicotine dependence, cigarettes, uncomplicated
CPT/HCPCS: 73110; 96372; 99284; J1100

== ENCOUNTER 2025-04-20 00:46 | Emergency (ER) | payer SELFPAY ==
[2025-04-20 00:50] VITALS: BP 150/88; PULSE 88; TEMP 36.6; O2SAT 96; BMI 34.5
--- NOTE | 2025-04-20 01:12 | ED_ITS ---
HPI - URI/Sore Throat General Chief Complaint: Upper Respiratory Infection Stated Complaint: SORE THROAT, RUNNY NOSE Time Seen by Provider: 04/20/25 01:01 Source: patient History of Present Illness HPI Narrative: This 24-year-old male presents for evaluation of a sore throat, runny nose and bodyaches for the past 2 to 3 days. He states he felt like something popped in the back of his throat and he spit out some foul tasting drainage. He is not having difficulty breathing or swallowing. He has no neck pain or stiffness. His speech is normal. He has not taken any medications for his symptoms. He denies any nausea vomiting or diarrhea. He is not having any chest pain or shortness of breath. Related Data Home Medications ?Medication ?Instructions ?Recorded ?Confirmed No Known Home Medications 04/20/2504/02 Allergies Allergy/AdvReac Type Severity Reaction Status Date / Time bismuth subsalicylate (From Allergy Severe Hives Verified 07/04/24 09:24 Pepto-Bismol) [facility] Medical History (Updated 04/20/25 @ 01:41 by America Goins MD) Leukocytosis ?D72.829 - Elevated white blood cell count, unspecified (ICD-10) Small bowel obstruction ?K56.609 - Unspecified intestinal obstruction, unspecified as to partial versus complete obstruction (ICD-10) Abdominal pain ?R10.9 - Unspecified abdominal pain (ICD-10) Alcohol use disorder ?F10.90 - Alcohol use, unspecified, uncomplicated (ICD-10) Intestinal adhesions ?K66.0 - Peritoneal adhesions (postprocedural) (postinfection) (ICD-10) Non-compliance ?Z91.199 - Patient's noncompliance with other medical treatment and regimen due to unspecified reason (ICD-10) Cigarette smoker ?F17.210 - Nicotine dependence, cigarettes, uncomplicated (ICD-10) Heavy drinker of alcohol ?Z78.9 - Other specified health status (ICD-10) Constipation, chronic ?K59.09 - Other constipation (ICD-10) Small bowel obstruction due to adhesions ?K56.50 - Intestinal adhesions [bands], unspecified as to partial versus complete obstruction (ICD-10) Surgical History History of colostomy reversal ?Z98.890 - Other specified postprocedural states (ICD-10) Social History Within the past year, how often did you have a drink containing alcohol: 4 or more times a week Within the past year, how many standard drinks containing alcohol did you have on a typical day: 5 or 6 Within the past year, how often did you have six or more drinks on one occasion: weekly Total score: 7 Score interpretation: A score of 4 or more indicates drinking is likely to affe ct patient's safety. Smoking status: Current every day smoker Non-prescribed substance use: denies use Highest level of school completed/degree received: 12th grade, no diploma Little interest or pleasure in doing things: not at all Feeling down, depressed, or hopeless: not at all Exam Narrative Exam Narrative: Vital signs and Nursing Notes reviewed: Patient is afebrile with normal pulse, blood pressure is mildly elevated 150/88, he is not hypoxic with pulse ox of 96% on room air General: Awake, alert, oriented, no acute distress, lying comfortably on the stretcher-no respiratory distress, patient is speaking in complete sentences, voice is normal HEENT: Normocephalic atraumatic, mucous membranes are moist and pink, eyes are clear, normal conjunctiva, vision is grossly intact, posterior pharynx is mildly erythematous. There is no tonsillar exudate or peritonsillar abscess noted, mild postnasal drip appreciated. No anterior or posterior cervical lymphadenopathy Chest: Lungs are clear to auscultation with good air entry, there is no wheezing rhonchi or rales appreciated no accessory muscle use, patient is speaking in complete sentences-no chest wall tenderness to palpation CVS: Regular rate and rhythm S1-S2, no murmurs rubs or gallops, pulses are brisk and equal bilaterally Extremities: Moving all extremities, no lower extremity tenderness or swelling noted Skin: Normal in appearance without rash,pallor, petechiae or purpura Neuro: No focal deficits Constitutional Vital Signs, click to edit/add: Last Vital Signs Temp 98 F 04/20/25 00:50 Pulse 88 04/20/25 00:50 Resp 18 04/20/25 00:50 BP 150/88 H 04/20/25 00:50 Pulse Ox 96 04/20/25 00:50 Course Vital Signs Vital signs: Vital Signs Temperature 98 F 04/20/25 00:50 Pulse Rate 88 04/20/25 00:50 Respiratory Rate 18 04/20/25 00:50 Blood Pressure 150/88 H 04/20/25 00:50 Pulse Oximetry 96 04/20/25 00:50 Temperature 98 F 04/20/25 00:50 Pulse Rate 88 04/20/25 00:50 Respiratory Rate 18 04/20/25 00:50 Blood Pressure 150/88 H 04/20/25 00:50 Pulse Oximetry 96 04/20/25 00:50 MDM - URI/Sore Throat MDM Narrative Medical decision making narrative: This 24-year-old male presents for evaluation of a sore throat, runny nose and bodyaches for the past 2 to 3 days. He thinks something popped in the back of his throat because he he spit something out. He does not have any peritonsillar abscess. His throat is mildly erythematous with no exudate but he does have some postnasal drip. His lungs are clear, he is not having any GI symptoms. He was medicated with ibuprofen emergency department. He is negative for strep, influenza and COVID-19. I explained to him that his symptoms are likely viral in nature. He will be discharged home with prescription for Motrin and recommendation to use Motrin, Tylenol gargle with salt water and follow-up with his family physician. Lab Data Labs: Lab Results 04/20/25 Range/Units 01:16 Influenza Type A Ag Negative Influenza Type B Ag Negative SARS-CoV-2 Ag (CV2AG) Negative (NEGATIVE) Streptococcus Screen Negative Discharge Plan Discharge Chief Complaint: Upper Respiratory Infection Clinical Impression: Pharyngitis Patient Disposition: Home, Self-Care Time of Disposition Decision: 01:41 Condition: Good Prescriptions / Home Meds: No Action No Known Home Medications Print Language: Syriac Instructions: Pharyngitis (ED) Referrals: Physician,Non-Staff, [Primary Care Provider] - 1 week
[2025-04-20] MEDS: ACETAMINOPHEN 325 MG TABLET 650 MG PO (01:29)
[2025-04-20] MEDS: IBUPROFEN 600 MG TABLET PO (01:29)
[2025-04-20 01:34] LABS: SARS-CoV-2 Ag NEGATIVE (NEGATIVE)
--- OUTSIDE RECORDS SUMMARY | 2025-04-20 01:46 | XMS_ITS | Clinical Summary ---
Author Organization [facility] tem Address [id number] [place] [address] Care Team Providers Care Clinical Laboratory Assistant Name Role Phone Trisha Munoz [employer]ICER Primary Care Provide r Allergies Active AllergyReactionsCriticalityNoted DateCommentsNo Known Drug Allergies 12/30/2016Bismuth OgzqbdzvwopzuDizsxHkr04/06/2017 Medications * This document contains information received from the source organization and may not represent a complete record from that organization. MedicationSigDispense QuantityRefillsLast FilledStart DateEnd DateStatus polyethylene glycol (GLYCOLAX) 17 gram packet Indications:Constipation, unspecified constipation typeTake 17 g by mouth daily as needed (Constipation). 10 packet 4Active docusate sodium (COLACE) 50 mg capsule Take 1 capsule (50 mg total) by mouth in the morning and 1 capsule (50 mg total) before bedtime.Active HYDROcodone-acetaminophen (NORCO) 5-325 mg per tablet Take 1 tablet by mouth every 4 (four) hours as needed for pain.5Active Active Problems ProblemNoted DateDiagnosed DateLong-term current use of drug therapy for attention deficit hyperactivity disorder (ADHD)12/09/2018Marijuana use, annibduyuh88/11/2019Borderline intellectual ewzhtvgszym42/11/2019Murmur, cardiac 03/08/2018Shortness of rhycdn4203/08/2018Attention deficit hyperactivity disorder, combined type01/14/2017Mild mood /14/2017 Family History Medical HistoryRelationNameCommentsCancerFatherDiabetesFatherLung cancerFatherNo Known ProblemsMotherCancerPaternal UncleDiabetesPaternal UncleLung cancer Paternal UncleCancerPaternal great-grandparentDiabetesPaternal great-grandparent RelationNameStatusCommentsFatherDeceasedMotherAlivePaternal UncleDeceased Paternal great-grandparentDeceased Social History Tobacco UseTypesPacks/DayYears UsedDateSmoking Tobacco: Some DaysCigarettes Smokeless Tobacco: FormerChew Tobacco Cessation:Ready to Q uit: Not Asked; Counseling Given: Not Answered Alcohol UseStandard Drinks/WeekCommentsYes0 (1 standard drink = 0.6 oz pure alcohol)sociallyAUDIT-CAnswerDate RecordedFrequency of Alcohol ConsumptionNever 03/08/2018Average Number of DrinksNot on file03/08/2018Frequency of Binge DrinkingNot on file03/08/2018ChildcareAnswerDate RecordedChildcareUnknown 10/11/2018EmploymentAnswerDate WyrrxsmeNuhqkhysnnAbspzhh82/11/2019Hunger ScreeningAnswerDate RecordedWithin the past 12 months we worried whether our food would run out before we got money to buy more.Never True08/31/2024Within the past 12 months the food we bought just didn't last and we didn't have money to get more.Never True08/31/2024Purpose - LifeAnswerDate RecordedPurpose and direction in rwlnLyicedl58/11/2021ex and Gender InformationValueDate Recorded Sex Assigned at BirthNot on fileLegal GtwRjwh9712/06/2014 11:56 AM EDTGender IdentityNot on fileSexual OrientationNot on file Last Filed Vital Signs Vital SignReadingTime TakenCommentsBlood Hsexcjly747/7605 10:59 AM EDT Nmiax0837 10:59 AM UAUViorwslxbqe32.3 ??C (97.4 ??F)11/17/2017 11:21 AM EDTRespiratory Msvo776611/17/2017 11:21 AM EDTOxygen Qbbuffpoyk34%11/17/2017 11:21 AM EDTInhaled Oxygen Concentration--Aircgk09.4 kg (203 lb 9.6 oz)08/31/2024 10:59 AM RQECnfavo118.2 cm (5' 7 )08/31/2024 10:59 AM EDTBody Mass Index31.89 08/31/2024 10:59 AM EDT Plan of Treatment Health MaintenanceDue DateLast DoneCommentsTobacco Piqbgzurub03/08/2000 Depression Wnopipqol71/08/2012dult BMI Follow Up Plan07/08/2017DTaP,Tdap and Td Vaccines (7 - Td or Tdap), 12/06/2003, 01/13/2002, Additional history existsInfluenza Qvoxibo00, 03/03/2013dult BMI Mrbmjqfzl50/05/2024Tobacco Xlttnebvx74 Medical Devices Not on file Insurance * Guarantor: Nery JAMISON TypeRelation to PatientDate of BirthPhone Billing AddressPersonal/LnesywZhwytn34/19/1971 [address] [place] [address] Care Teams Team MemberRelationshipSpecialtyStart DateEnd Trisha Munoz APRN-FNP [address] [place] [address] [facility]07/10/24
== END 2025-04-20 01:58 | disposition home or self-care (01) ==
PROVIDERS: Emergency Provider Emergency Medicine
DX: J02.9 Acute pharyngitis, unspecified (principal); F17.200 Nicotine dependence, unspecified, uncomplicated
CPT/HCPCS: 87070; 87804; 87811; 87880; 99283